=== PATIENT | male | born 1940 | race Caucasian/White ===

== ENCOUNTER → 2020-12-16 11:10 | Outpatient (BNVA) | payer MEDICARE, OTHER, SELFPAY | PROVIDERS: Family Provider Registered Nurse; PCP Registered Nurse; Visit Provider Nurse Practitioner Family | DX: I10 Essential (primary) hypertension (principal); I25.10 Atherosclerotic heart disease of native coronary artery without angina pectoris; I48.91 Unspecified atrial fibrillation | CPT/HCPCS: 80053 ==

== ENCOUNTER → 2021-02-17 14:50 | Outpatient (BNVA) | payer MEDICARE, OTHER, SELFPAY | PROVIDERS: Family Provider Registered Nurse; PCP Registered Nurse; Visit Provider Internal Medicine | DX: I25.10 Atherosclerotic heart disease of native coronary artery without angina pectoris (principal); E78.5 Hyperlipidemia, unspecified; I48.91 Unspecified atrial fibrillation; I10 Essential (primary) hypertension; R06.02 Shortness of breath | CPT/HCPCS: 80048 ==

== ENCOUNTER 2021-03-21 14:05 | Outpatient (CLI) | payer MEDICARE, OTHER, SELFPAY ==
--- NOTE | 2021-03-21 14:15 | USCV_ITS ---
Roger Camp Age: 80 Gender: M : 1940 Exam Date: 03/21/2021 14:40 Ordering Phys: Maximino Grimaldo M.D ([email or web address]) Technologist: Rachele Galaviz Exam Location: [facility] – [place] Indication: SOB BP: / HR: 63 Rhythm: Sinus Technical Quality: Adequate MEASUREMENTS (Male / Female) Normal Values 2D ECHO LV Diastolic Diameter PLAX 4.7 cm 4.2 - 5.9 / 3.9 - 5.3 cm LV Systolic Diameter PLAX 2.4 cm IVS Diastolic Thickness 1.6 cm 0.6 - 1.0 / 0.6 - 0.9 cm IVS Systolic Thickness 1.9 cm LVPW Diastolic Thickness 1.3 cm 0.6 - 1.0 / 0.6 - 0.9 cm LVPW Systolic Thickness 2.3 cm LVOT Diameter 2.1 cm LV Ejection Fraction 2D Teich 80.2 % LV Ejection Fraction MOD 2C 65.1 % LV Ejection Fraction 2C AL 66.0 % LA Diameter 4.7 cm LA Width 4.9 cm LA Height 6.8 cm RA Width 3.8 cm RA Height 6.0 cm Aorta at Sinotubular Diameter 2.9 cm DOPPLER AV Peak Velocity 88.0 cm/s LVOT Peak Velocity 105.0 cm/s AV Area Cont Eq vti 4.3 cm squared AV Area Cont Eq pk 4.2 cm squared MV Peak Velocity 101.0 cm/s MV Area PHT 3.7 cm squared Mitral E to A Ratio 6.5 MV E' Velocity 51.5 cm/s Mitral E to MV E' Ratio 7.6 Mitral E to LV E' Lateral Ratio 6.8 Mitral E to LV E' Septal Ratio 8.6 TR Peak Velocity 185.7 cm/s TR Peak Gradient 13.8 mmHg Right Atrial Pressure 3.0 mmHg Pulmonary Artery Systolic Pressu 16.8 mmHg PV Peak Velocity 58.0 cm/s RV Acceleration Time 0.1 s RV Ejection Time 0.3 s RV AcT/ET 0.3 FINDINGS Left Ventricle Normal left ventricular size. LV systolic function is normal with EF of 55-60%. No regional wall motion abnormalities. Diastolic function is indeterminate because of atrial fibrillation Right Ventricle The right ventricle is normal in size and function. Right Atrium The right atrium is dilated Left Atrium The left atrium is dilated Mitral Valve Mitral valve is thickened without significant stenosis or prolapse. There is moderate mitral regurgitation. Aortic Valve Aortic valve is thickened without significant stenosis. There is no aortic regurgitation. Tricuspid Valve Structurally normal tricuspid valve without significant stenosis. Mild regurgitation. Pulmonary artery systolic pressure is normal. Pulmonic Valve Structurally normal pulmonic valve without significant stenosis. There is no pulmonic regurgitation. Pericardium Normal pericardium without effusion. Aorta Normal ascending aorta dimension. CONCLUSIONS LV systolic function is normal with EF of 55-60% Diastolic function is indeterminate because of atrial fibrillation Biatrial enlargement Moderate mitral regurgitation is noted Mild tricuspid regurgitation is seen Compared to prior echocardiogram from 06/14/2016, no significant changes are noted Maximino Grimaldo MD (Electronically Signed) Final Date: 23 March 2021 11:59 S
== END 2021-03-21 14:06 | disposition home or self-care (01) ==
LOC: US 14:06
PROVIDERS: PCP Nurse Practitioner Family; Visit Provider Internal Medicine
DX: R06.02 Shortness of breath (principal); R53.83 Other fatigue; I08.1 Rheumatic disorders of both mitral and tricuspid valves
CPT/HCPCS: 93306

== ENCOUNTER → 2021-10-11 13:14 | Outpatient (BNVA) | payer MEDICARE, OTHER, SELFPAY | PROVIDERS: PCP Nurse Practitioner Family; Visit Provider Internal Medicine Cardiovascular Disease | DX: I25.10 Atherosclerotic heart disease of native coronary artery without angina pectoris (principal); E78.5 Hyperlipidemia, unspecified; I48.91 Unspecified atrial fibrillation; I10 Essential (primary) hypertension; J44.9 Chronic obstructive pulmonary disease, unspecified; Z79.82 Long term (current) use of aspirin | CPT/HCPCS: 99213; 99214 ==

== ENCOUNTER → 2022-01-30 13:27 | Outpatient (BNVA) | payer MEDICARE, OTHER, SELFPAY | PROVIDERS: PCP Nurse Practitioner Family; Visit Provider Podiatrist Foot & Ankle Surgery | DX: G57.92 Unspecified mononeuropathy of left lower limb (principal); I73.9 Peripheral vascular disease, unspecified; L60.3 Nail dystrophy; L84 Corns and callosities | CPT/HCPCS: 11056; 11721 ==

== ENCOUNTER → 2022-02-21 09:13 | Outpatient (BNVA) | payer MEDICARE, OTHER, SELFPAY | PROVIDERS: PCP Nurse Practitioner Family; Visit Provider Nurse Practitioner Family | DX: I10 Essential (primary) hypertension (principal) | CPT/HCPCS: 80053; 80061 ==

== ENCOUNTER → 2022-04-10 11:27 | Outpatient (BNVA) | payer MEDICARE, OTHER, SELFPAY | PROVIDERS: PCP Nurse Practitioner Family; Visit Provider Internal Medicine Cardiovascular Disease | DX: I73.9 Peripheral vascular disease, unspecified (principal); E78.5 Hyperlipidemia, unspecified; I48.91 Unspecified atrial fibrillation; I25.10 Atherosclerotic heart disease of native coronary artery without angina pectoris; Z95.5 Presence of coronary angioplasty implant and graft; I25.2 Old myocardial infarction; I11.0 Hypertensive heart disease with heart failure; I50.9 Heart failure, unspecified; J44.9 Chronic obstructive pulmonary disease, unspecified | CPT/HCPCS: 99213 ==

== ENCOUNTER → 2022-05-01 12:39 | Outpatient (BNVA) | payer MEDICARE, OTHER, SELFPAY | PROVIDERS: PCP Nurse Practitioner Family; Visit Provider Podiatrist Foot & Ankle Surgery | DX: I73.9 Peripheral vascular disease, unspecified (principal); L60.8 Other nail disorders; G57.92 Unspecified mononeuropathy of left lower limb; L60.3 Nail dystrophy; L84 Corns and callosities | CPT/HCPCS: 11056; 11721 ==

== ENCOUNTER 2022-08-14 21:37 | Observation (INO) | payer MEDICARE, OTHER, SELFPAY ==
[2022-08-14 22:04] VITALS: BP 154/104; PULSE 74; RESP 16; O2SAT 95; BMI 36.6
--- NOTE | 2022-08-14 22:11 | XRR_ITS ---
PROCEDURE INFORMATION: Exam: XR Chest Exam date and time: 08/14/2022 10:38 PM Age: 81 years old Clinical indication: Other: Weakness TECHNIQUE: Imaging protocol: Radiologic exam of the chest. Views: 1 view. COMPARISON: CR XR chest 1V [id number] 09/22/2018 1:47 AM FINDINGS: Lungs: Bibasilar atelectasis versus minimal infiltrate. Pleural spaces: Unremarkable. No pleural effusion. No pneumothorax. Heart/Mediastinum: Unremarkable. No cardiomegaly. Bones/joints: Unremarkable. XR/XR chest 1V portable [id number] IMPRESSION: Bibasilar atelectasis versus minimal infiltrate.
--- NOTE | 2022-08-14 22:11 | CTR_ITS ---
PROCEDURE INFORMATION: Exam: CT Head Without Contrast Exam date and time: 08/14/2022 10:21 PM Age: 81 years old Clinical indication: Speech disturbance and walking, difficulty; Patient HX: C/O RT sided weakness with mild dysphasia. TECHNIQUE: Imaging protocol: Computed tomography of the head without contrast. Radiation optimization: All CT scans at this facility use at least one of these dose optimization techniques: automated exposure control; mA and/or kV adjustment per patient size (includes targeted exams where dose is matched to clinical indication); or iterative reconstruction. REPORTING DATA: Count of CT and Cardiac NM exams in prior 12 months: This patient has received 0 known CTs and 0 known cardiac nuclear medicine studies in the 12 months prior to the current study. COMPARISON: No relevant prior studies available. RADIATION DOSE METRICS: Total DLP (mGy-cm): 1209.88 FINDINGS: Brain: Moderate diffuse white matter disease likely reflecting chronic microvascular ischemic changes. Left basal ganglia chronic infarct. Cerebral ventricles: No ventriculomegaly. Paranasal sinuses: Visualized sinuses are unremarkable. No fluid levels. Mastoid air cells: Visualized mastoid air cells are well aerated. Bones/joints: Unremarkable. No acute fracture. Soft tissues: Unremarkable. CT/CT head wo con* [id number] IMPRESSION: 1. Negative for intracranial hemorrhage or mass effect. 2. Moderate diffuse white matter disease likely reflecting chronic microvascular ischemic changes. 3. Left basal ganglia chronic infarct.
--- NOTE | 2022-08-14 22:12 | ECG_ITS ---
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 Measurements Intervals [place] Rate: 66 P: 0 OK: 0 QRS: 23 QRSD: 94 T: -29 QT: 415 QTc: 435 Interpretive Statements ATRIAL FIBRILLATION NONSPECIFIC T-WAVE ABNORMALITY Compared to ECG 09/22/2018 01:59:57 No significant changes Electronically Signed On 08-14-2022 23:40:42 [employer] by Maximino Grimaldo M.D. [id number] f
[2022-08-14 22:17] LABS: Basophils % 0.4 %; Eosinophils # 0.2 10^3/uL (0.0-0.8); Eosinophils % 3.2 %; Hemoglobin 15.3 g/dL (11.7-16.6); Lymphocytes # 1.7 10^3/uL (0.8-4.8); Lymphocytes % 25.7 %; Mean Corpuscular HGB Conc 32.6 g/dL (30.0-36.0); Mean Corpuscular Hemoglobin 28.2 pg (28.0-34.0); Mean Corpuscular Volume 86.6 fl (80-94); Mean Platelet Volume 11.3 fL (7.4-10.4); Monocytes # 0.7 10^3/uL (0.2-0.9); Monocytes % 9.7 %; Neutrophils # 4.11 10^3/uL (1.8-7.7); Neutrophils % 60.7 %; Nucleated Red Blood Cells % 0 %; Platelet Count 179 10^3/cmm (130-400); Red Blood Count 5.43 10^6/uL (4.1-5.3); Red Cell Distribution Width 13.6 % (12.1-15.1); White Blood Count 6.8 10^3/uL (4.0-10.0)
--- NOTE | 2022-08-14 22:20 | ED_ITS ---
HPI - Neuro Symptoms/Deficit General: Chief Complaint: Neuro Symptoms/Deficit Stated Complaint: stroke like symptoms Time Seen by Provider: 08/14/22 21:59 Source: patient Mode of arrival: ambulatory Limitations: no limitations History of Present Illness: 81-year-old male states when he woke up this morn ing he noticed he felt he is having some weakness in his right side he states he had a hard time walking throughout the day states he feels like his right leg just does not work quite appropriately and has been having some falling to the right has had some mild slurred speech as well. He states this all started upon awaking his last known normal was around 10 PM last night when he went to bed over 24 hours ago. He denies headache denies any chest pain. He does have a history of A-fib. Associated symptoms: Deny chest pain, nausea or vomiting Review of Systems Const: Denies: fever(s), chills, body aches or change in appetite Eyes: Denies: blurry vision or eye discomfort ENMT: Denies: throat pain or dental pain Card: Denies: chest pain Resp: Denies: dyspnea GI: Denies: abdominal pain, nausea, vomiting or diarrhea : Denies: dysuria Musc: Denies: neck pain or back pain Skin/Breast: Denies: rash Neuro: Reports: weakness in extremities and Slurred speech present Psych: Denies: depression Sachin/Lymph: Denies: easy bruising All/Imm: Denies: urticaria PFSH ED PFSH: Medical History ASHD (arteriosclerotic heart disease) Atrial fibrillation CHF (congestive heart failure) COPD (chronic obstructive pulmonary disease) Coronary artery disease Dyslipidemia Enrolled in chronic care management Myocardial infarction Obesity Restrictive airway disease Vasculitis Surgical History S/P angioplasty with stent S/P hernia repair S/P knee replacement S/P prostatectomy Social History Smoking and tobacco status: never smoked Alcohol intake: never NIH stroke score NIHSS: Level Of Consciousness - 1a: 0 Level Of Consciousness Questions - 1b: Both Correct Level Of Consciousness Commands - 1c: Both Correct Best Gaze - 2: Normal Visual Rogers - 3: No Visual Loss Facial Palsy - 4: Normal Motor Arm Right - 5: No Drift Motor Arm Left - 5: No Drift Motor Leg Right - 6: No Drift Motor Leg Left - 6: No Drift Limb Ataxia - 7: Absent Sensory - 8: Normal Best Language - 9: Mild/Moderate Aphasia Dysarthia - 10: Normal Extinction And Inattention - 11: 0 Score: Total Score: 1 Physical Exam Const: COMMON NORMALS: no acute distress, patient oriented x3 and healthy appearing HENMT: COMMON NORMALS: normocephalic and atraumatic HEAD & SCALP: normocephalic and atraumatic Eye: COMMON NORMALS: Equal, round and reactive pupils present and EOMs intact bilaterally PUPIL: Yes Equal, round and reactive pupils present Neck/C-Spine: COMMON NORMALS: full ROM and supple Chest: COMMONS NORMALS: normal inspection of the chest and normal palpation of entire chest wall Resp: COMMON NORMALS: normal respiratory effort, No retractions, No use of accessory muscles and clear to auscultation bilaterally AUSCULTATION: clear to auscultation bilaterally Cardio: COMMON NORMALS: regular rate, regular rhythm and No murmurs present (Cardio) RATE: regular rate RHYTHM: regular rhythm GI: COMMON NORMALS: Normal to inspection, nondistended, normoactive bowel sounds present, Soft to palpation, non-tender and no masses PALPATION: Yes Soft to palpation Extremity: COMMON NORMALS: normal to inspection and full ROM Neuro: COMMON NORMALS: patient oriented x3, moves all extremities and no focal motor deficits CRANIAL NERVES: Yes CN normal except as noted GAIT: Yes Staggering gait present Psych: COMMON NORMALS: mental status grossly normal, Normal thought process present and cooperative THOUGHT PROCESS: Normal thought process present Skin: COMMON NORMALS: no rashes or lesions noted and no wounds GENERAL SKIN EXAM: no rashes or lesions noted Course Vital Signs: Vital signs: Vital Signs Pulse Rate 60 08/14/22 23:30 Respiratory Rate 22 H 08/14/22 23:30 Blood Pressure 162/100 08/14/22 23:30 Pulse Oximetry 94 08/14/22 23:30 Oxygen Delivery Me thod 08/14/22 23:30 MDM - Neuro Symptoms/Deficit Medical Decision Making Patient presents with right-sided weakness when walking. He is got some very mild slurred speech here as well he is still having a hard time walking seems to be leaning to the right having a hard time with his right leg when he ambulates this is started this morning his last known normal was 24 hours ago when he went to bed last night he is not a tPA candidate head CT here is normal spoke to hospitalist will admit for CVA rule out for observation. Lab Data 08/14/22 22:05 08/14/22 22:05 Radiology Impressions Chest X-Ray 08/14/22 22:11 IMPRESSION: Bibasilar atelectasis versus minimal infiltrate. Head CT 08/14/22 22:11 IMPRESSION: 1. Negative for intracranial hemorrhage or mass effect. 2. Moderate diffuse white matter disease likely reflecting chronic microvascular ischemic changes. 3. Left basal ganglia chronic infarct. Laboratory Results WBC 6.8 10^3/uL (4.0-10.0) 08/14/22 22:05 RBC 5.43 10^6/uL (4.1-5.3) H 08/14/22 22:05 Hgb 15.3 g/dL (11.7-16.6) 08/14/22 22:05 Hct 47.0 % (42.0-52.0) 08/14/22 22:05 MCV 86.6 fl (80-94) 08/14/22 22:05 MCH 28.2 pg (28.0-34.0) 08/14/22 22:05 MCHC 32.6 g/dL (30.0-36.0) 08/14/22 22:05 RDW 13.6 % (12.1-15.1) 08/14/22 22:05 Plt Count 179 10^3/cmm (130-400) 08/14/22 22:05 MPV 11.3 fL (7.4-10.4) H 08/14/22 22:05 Neut % (Auto) 60.7 % 08/14/22 22:05 Lymph % (Auto) 25.7 % 08/14/22 22:05 [place] % (Auto) 9.7 % 08/14/22 22:05 Eos % (Auto) 3.2 % 08/14/22 22:05 Baso % (Auto) 0.4 % 08/14/22 22:05 Neut # (Auto) 4.11 10^3/uL (1.8-7.7) 02/27/23 22:05 Lymph # (Auto) 1.7 10^3/uL (0.8-4.8) 08/14/22 22:05 [place] # (Auto) 0.7 10^3/uL (0.2-0.9) 08/14/22 22:05 Eos # (Auto) 0.2 10^3/uL (0.0-0.8) 08/14/22 22:05 Baso # (Auto) 0.0 10^3/uL (0.0-0.1) 08/14/22 22:05 Nucleated RBC % (auto) 0 % 08/14/22 22:05 Nucleated RBCs # 0.0 /100WBC 08/14/22 22:05 PT 13.80 SECONDS (12.1-14.9) 08/14/22 22:37 INR 1.03 (0.8-1.2) 08/14/22 22:37 Sodium 138 mmol/L (136-145) 08/14/22 22:37 Potassium 4.4 mmol/L (3.5-5.1) 08/14/22 22:37 Chloride 102 mmol/L (98-107) 08/14/22 22:37 Carbon Dioxide 27 mmol/L (22-29) 08/14/22 22:37 Anion Gap 13.4 (5-19) 08/14/22 22:37 BUN 25 mg/dL (8-23) H 08/14/22 22:37 Creatinine 0.9 mg/dL (0.7-1.2) 08/14/22 22:37 GFR Calculation Not Reportable 08/14/22 22:37 Glucose 96 mg/dL (65-115) 08/14/22 22:37 Calculated Osmolality 290 mOsm/kg (285-295) 08/14/22 22:37 Calcium 9.3 mg/dL (8.5-10.5) 08/14/22 22:37 Magnesium 2.2 mg/dL (1.7-2.3) 08/14/22 22:37 Total Bilirubin 0.5 mg/dL (0.15-1.2) 08/14/22 22:37 AST 20 U/L (0-40) 08/14/22 22:37 ALT 11 U/L (0-41) 08/14/22 22:37 Alkaline Phosphatase 75 U/L (40-130) 08/14/22 22:37 Total Protein 6.8 g/dL (6.6-8.7) 08/14/22 22:37 Albumin 3.8 g/dL (3.5-5.2) 08/14/22 22:37 Globulin 3.0 g/dL (1.3-4.6) 08/14/22 22:37 Urine Color Yellow (Yellow) 08/15/22 00:02 Urine Appearance Clear (CLEAR) 08/15/22 00:02 Urine pH 5 (5-7) 08/15/22 00:02 Ur Specific Gordon 1.025 (1.005-1.030) 08/15/22 00:02 Urine Protein Neg (Negative) 08/15/22 00:02 Urine Glucose (UA) Norm (Normal) 08/15/22 00:02 Urine Ketones Negative (Negative) 08/15/22 00:02 Urine Blood Neg (Negative) 08/15/22 00:02 Urine Nitrate Negative (Negative) 08/15/22 00:02 Urine Bilirubin Neg (Negative) 08/15/22 00:02 Urine Urobilinogen Norm mg/dL (Negative) 08/15/22 00:02 Ur Leukocyte Esterase Negative (Negative) 08/15/22 00:02 Ethyl Alcohol < 10 mg/dL (0-10) 08/14/22 22:37 EKG Data EKG 1: I personally reviewed and interpreted this EKG as follows: EKG interpretation date: 08/14/22 EKG interpretation time: 22:01 Interpretation: afib hr [address] or t wav abnormalities qrs 94 [id number] Discharge Plan Discharge Patient Disposition: Placed in Observation Clinical Impression: Weakness Condition: Stable Prescriptions: No Action aspirin [Adult Low Dose Aspirin] 81 mg tablet,delayed release (DR/EC) 81 mg PO QDAY diphenhydramine HCl [Benadryl] 25 mg capsule 25 mg PO .HS PRN omega-3 fatty acids PO DAILY cholecalciferol (vitamin D3) 10 mcg (400 unit) capsule 10 mcg PO DAILY magnesium 200 mg tablet 200 mg PO DAILY Referrals: Diann Villalpando FNP [Primary Care Provider] - Coding Level of Care Code ED Permastone Applicator for Chg Ciro
[2022-08-14 23:05] LABS: INR 1.03 (0.8-1.2)
[2022-08-14 23:10] LABS: Alanine Aminotransferase 11 U/L (0-41); Albumin Level 3.8 g/dL (3.5-5.2); Alkaline Phosphatase 75 U/L (40-130); Anion Gap 13.4 (5-19); Aspartate Amino Transferase 20 U/L (0-40); Blood Urea Nitrogen 25 mg/dL (8-23); Calcium 9.3 mg/dL (8.5-10.5); Carbon Dioxide 27 mmol/L (22-29); Chloride 102 mmol/L (98-107); Glucose 96 mg/dL (65-115); Magnesium 2.2 mg/dL (1.7-2.3); Osmolality Calculated 290 mOsm/kg (285-295); Potassium 4.4 mmol/L (3.5-5.1); Sodium 138 mmol/L (136-145); Total Bilirubin 0.5 mg/dL (0.15-1.2); Total Protein 6.8 g/dL (6.6-8.7)
[2022-08-14 23:22] LABS: Alcohol Level < 10 mg/dL (0-10)
[2022-08-14] MEDS: aspirin 81 mg Chew Tablet 324 MG PO (23:26)
[2022-08-14 23:30] VITALS: BP 162/100; PULSE 60; RESP 22; O2SAT 94
[2022-08-15] VITALS (11 sets, daily range): BP systolic 147–161; BP diastolic 79–114; PULSE 62–77; RESP 16–19; TEMP 36.1–36.4; O2SAT 94–97
[2022-08-15 00:09] LABS: Add Urine Microscopic? NO; Charge for UA Resulting for Rev
--- NOTE | 2022-08-15 00:09 | PC.NURSE ---
Ambulated pt per md request. Pt is able to ambulate, but is very unsteady on his feet. Leans to the left and would have fallen without 1 hand assist by RN. Pt continues to have limp on right side that he states was not there yesterday. MD notified.
[2022-08-15 00:11] LABS: Bilirubin Urine Neg (Negative); Blood Urine Neg (Negative); Glucose Urine UA Norm (Normal); Ketones Urine Negative (Negative); Leukocyte Esterase Urine Negative (Negative); Nitrate Urine Negative (Negative); Protein Urine Neg (Negative); Specific Gravity, Urine 1.025 (1.005-1.030); Urine Appearance Clear (CLEAR); Urine Color Yellow (Yellow); Urobilinogen Urine Norm (Negative); pH Urine 5 (5-7)
--- NOTE | 2022-08-15 01:11 | P.HP_ITS ---
Providers/Chief Complaint Admitting Physician: Daniel Quintana MD Primary Care Provider: JENNA Bruce Chief Complaint: stroke like symptoms History of Present Illness Roger Camp is a 81 year old male who presents to the hospital with right- sided weakness. This started Sunday morning. He had clumsiness of his right hand, right lower extremity weakness, and seemed to drift to the right when walking and was unstable on his feet. He has also had some slurred speech. There is been no difficulty swallowing. Mild right facial droop according to . He has never had the symptoms before. He has a longstanding history of atrial fibrillation, but elected only to take 81 mg of aspirin. He does not have a headache, and has had no nausea or vomiting. He has not been ill recently. Review of Systems General: Reports: 10 or more systems reviewed and unremarkable except in HPI and below Const: Denies: fever(s) or chills Card: Denies: chest pain Resp: Denies: dyspnea : Reports: difficulty urinating Neuro: Reports: weakness in extremities; Denies: headache(s) Medications/Allergies Home Medications Medication Instructions Recorded Confirmed Last Taken Type aspirin 81 mg tablet,delayed 81 mg PO QDAY 07/16/19 05/01/22 Unknown History release (Adult Low Dose Aspirin) diphenhydramine HCl 25 mg capsule 25 mg PO .HS PRN 07/16/19 05/01/22 Unknown History (Benadryl) omega-3 fatty acids [Fish Oil PO DAILY 07/16/19 05/01/22 Unknown History Concentrate] cholecalciferol (vitamin D3) 10 10 mcg PO DAILY 04/10/22 05/01/22 Unknown History mcg (400 unit) capsule magnesium 200 mg tablet 200 mg PO DAILY 04/10/22 05/01/22 Unknown History Allergies Allergy/AdvReac Type Severity Reaction Status Date / Time No Known Allergies Allergy Verified 05/01/22 12:50 PFSH Acute PFSH: Medical History ASHD (arteriosclerotic heart disease) Atrial fibrillation CHF (congestive heart failure) COPD (chronic obstructive pulmonary disease) Coronary artery disease Dyslipidemia Enrolled in chronic care management Myocardial infarction Obesity Restrictive airway disease Vasculitis Surgical History S/P angioplasty with stent S/P hernia repair S/P knee replacement S/P prostatectomy Family History (Updated 08/15/22 @ 01:13 by Daniel Quintana MD) Other CAD (coronary artery disease) Social History Smoking and tobacco status: never smoked Alcohol intake: never Vitals/I&O/Wt Last Vital Signs Pulse 60 08/14/22 23:30 Resp 22 H 08/14/22 23:30 BP 162/100 08/14/22 23:30 Pulse Ox 94 08/14/22 23:30 O2 Del Method 08/14/22 23:30 Weight last 48 hrs Weight 99.79 kg Physical Exam Narrative: Willis is a white male, with mildly slurred speech but who is understandable in no distress HEENT: Pupils equally round. Oropharynx clear. Neck is supple no lymphadenopathy or thyromegaly Cardiovascular regular rate and rhythm without murmur Lungs clear Abdomen is soft with positive bowel sounds Extremities trace edema. No cyanosis or clubbing Skin no rash Neuro mild diminished strength right upper extremity. Right lower extremity with diminished strength as well. Gait somewhat imbalanced. NIHSS score per ER physician was 1. I did not ambulate him significantly. It is difficult for me to notice his facial droop. He is able to stand on his own, and with closing his eyes wavers a bit more to the right. Data 08/14/22 22:05 08/14/22 22:37 Micro: Liver function tests, magnesium, calcium all normal Urinalysis negative Alcohol less than 10 Chest x-ray demonstrates some bibasilar atelectasis by my read Previous echocardiogram March 2021 demonstrated an EF of 55 to 60% moderate mitral regurgitation CT head demonstrates old left basal ganglia infarct, no bleed EKG by my read demonstrates atrial fibrillation, rate around 65, normal axis, so me nonspecific ST-T wave changes A&P Assessment and plan (1) Acute CVA (cerebrovascular accident): Patient presents with symptoms of acute CVA. He has known atrial fibrillation He is already on aspirin daily He had previously been resistant to taking anticoagulation, or statin. He is now amenable to this. Observation to telemetry Initiate statin, and continue aspirin Initiate Eliquis tomorrow, 48 hours after event if no worsening symptoms Check lipid profile tomorrow Therapy consultations Allow permissive hypertension CBC and BMP in the morning Check echocardiogram and carotid duplex Timing he was never a candidate for tPA, or thrombectomy. (2) Atrial fibrillation: Rate is currently controlled He is not on any rate limiting medication (3) Coronary artery disease: Continue aspirin Likely add Eliquis to this medication later tonight Plan Multiple other medical problems as outlined in his past medical history Lovenox for DVT prophylaxis currently Attestations Medical Necessity Statement*: Will need less than 2 midnight stay for evaluation of CVA with subacute presentation Diagnoses Acute CVA (cerebrovascular accident) I63.9 Atrial fibrillation I48.91 Coronary artery disease I25.10 Time Spent (min) 42
--- NOTE | 2022-08-15 01:30 | USCV_ITS ---
Roger Camp Age: 81 Gender: M : 1940 Exam Date: 08/15/2022 02:20 Ordering Phys: Daniel Quintana MD Technologist: LEODAN [place] [facility] [place]: CVA --- RIGHT sided weakness, slurred speech. History of cardiac stenting by Dr. Vera. BP: 162 / 100 HR: 75 Rhythm: Atrial fibrillation Technical Quality: Adequate MEASUREMENTS (Male / Female) Normal Values 2D ECHO LV Diastolic Diameter PLAX 3.9 cm 4.2 - 5.9 / 3.9 - 5.3 cm LV Systolic Diameter PLAX 2.6 cm IVS Diastolic Thickness 1.7 cm 0.6 - 1.0 / 0.6 - 0.9 cm IVS Systolic Thickness 2.1 cm LVPW Diastolic Thickness 1.4 cm 0.6 - 1.0 / 0.6 - 0.9 cm LVPW Systolic Thickness 1.7 cm LVOT Diameter 2.2 cm LV Ejection Fraction 2D Teich 62.3 % LV Ejection Fraction MOD 2C 69.5 % LV Ejection Fraction 2C AL 71.6 % LA Diameter 4.8 cm LA Width 5.1 cm LA Height 7.9 cm RA Width 5.7 cm RA Height 7.2 cm Aorta at Sinotubular Diameter 3.2 cm IVC Diameter 1.9 cm M-MODE Aortic Annulus Diameter 3.6 cm LA Ao Ratio MM 1.3 MV E Point Septal Separation 0.3 cm DOPPLER AV Peak Velocity 104.0 cm/s LVOT Peak Velocity 69.0 cm/s AV Area Cont Eq vti 2.7 cm squared AV Area Cont Eq pk 2.5 cm squared MV Area PHT 3.6 cm squared MV E' Velocity 49.5 cm/s Mitral E to MV E' Ratio 7.8 Mitral E to LV E' Lateral Ratio 7.9 Mitral E to LV E' Septal Ratio 7.8 TR Peak Velocity 274.0 cm/s TR Peak Gradient 30.0 mmHg TV Peak E Velocity 37.0 cm/s Right Atrial Pressure 10.0 mmHg Pulmonary Artery Systolic Pressu 40.0 mmHg PV Peak Velocity 83.0 cm/s RV Acceleration Time 0.1 s RV Ejection Time 0.3 s RV AcT/ET 0.2 FINDINGS Left Ventricle Normal left ventricular size and systolic function, EF 72 %. Right Ventricle The right ventricle is normal in size and function. Right Atrium Mildly increased right atrial size. Left Atrium Moderately increased left atrial size. Mitral Valve Mild mitral annular calcification.moderate-severe mitral valve regurgitation. Echodensity on the ventricular side of the anterior mitral leaflet suggesting a calcified lesion Aortic Valve Thickened aortic valve. Trace aortic valve regurgitation. Tricuspid Valve Trace to mild tricuspid valve regurgitation. Pulmonic Valve Trace pulmonary valve regurgitation. Pericardium No significant pericardial effusion Aorta Normal aortic annulus size. IVC Normal inferior vena cava. CONCLUSIONS With theNormal left ventricular size and systolic function, EF 72 %. (Patient was found to be in atrial fibrillation with controlled ventricular response rate, during the study). Biatrial enlargement, left atrium> right atrium. Moderate-severe mitral valve regurgitation. Echodensity on the ventricular side of the anterior mitral leaflet suggesting a calcified lesion. Mild mitral annular calcification. Thickened aortic valve. Trace aortic valve regurgitation. Trace to mild tricuspid valve regurgitation. Trace pulmonary valve regurgitation. Estimated pulmonary artery peak systolic pressure 40 mmHg No other intracardiac masses. No significant pericardial effusion. The echodensity in the anterior mitral leaflet is unchanged from the study on 03/21/2021-most likely a percent calcification in the chordal structure Dr Lacie Hicks MD [facility] (Electronically Signed) Final Date: 16 August 2022 06:29 S
--- NOTE | 2022-08-15 01:30 | USCV_ITS ---
Roger Camp Age: 81 Gender: M : 1940 Exam Date: 08/15/2022 01:52 Ordering Phys: Daniel Quintana MD Technologist: LEODAN Exam Location: [facility] [place] Indication: CVA -- RIGHT sided weakness, slurred speech Risk Factors: never smoked. no DM Previous Vascular Surgery: history of cardiac stenting Right Brachial BP: 162 / 100 Left Brachial BP: / Right Left Velocity (cm/s) Spectral Plaque Velocity (cm/s) Spectral Plaque Syst/Diast Broadening Syst/Diast Broadening 62.80/ 15.40 Min Homo Prox CCA 71.10 / 12.50 Min Homo 64.50/ 13.20 Min Homo Mid CCA 53.80 / 10.30 Min Homo 48.60/ 10.10 Min Eusebio Distal CCA 46.50 / 11.50 Min Hetro 38.90/ 9.40 Mod Hetro Prox ICA 27.20 / 10.60 Mod Homo 56.50/ 22.30 Mod Hetro Mid ICA 83.40 / 37.40 Mod Homo 61.10/ 20.40 Min Homo Distal ICA 78.70 / 42.90 Mod Homo 89.30 Min Homo ECA 47.70 Min Homo 0.95 ICA/CCA 1.17 Antegrade Vertebral Antegrade 34.20/ 10.50 cm/s 40.10/ 10.50 cm/s Tri Subclavian Tri 70.30 51.90 CONCLUSIONS Right ICA stenosis <50%. Mild atheromatous plaque right carotid bulb/ICA. Left ICA stenosis <50%. Mild atheromatous plaque left carotid bulb/ICA. Normal antegrade Doppler flow noted in the right vertebral artery. Normal antegrade Doppler flow noted in the left vertebral artery. Cedric Silva MD (Electronically Signed) Final Date: 17 August 2022 08:33 S
[2022-08-15 01:51] LABS: Thyroid Stimulating Hormone 5.29 uIU/mL (0.27-4.20)
[2022-08-15] MEDS: enoxaparin 40 mg/0.4 mL Syringe SUBCUT (03:42)
[2022-08-15 05:50] LABS: Chol HDL Ratio 4.41 mg/dL (1.0-5.00); Cholesterol 172 mg/dL (0-200); HDL Cholesterol 39 mg/dL (60-100); LDL Cholesterol Calculated 122 mg/dL (50-129); LDL HDL Ratio 3.13 RATIO (0.00-3.22); Triglycerides 53 mg/dL (0-150)
--- NOTE | 2022-08-15 08:54 | PC.PHAR ---
pt states he takes care of his own medications-pt states he takes no rx medications pt states only taking the otc meds entered
[2022-08-15] MEDS: aspirin 81 mg EC Tablet PO (09:48)
--- NOTE | 2022-08-15 11:51 | P.DS_ITS ---
Discharge Providers Date of Admission: 08/15/22 01:02 Date of Discharge: August 15, 2022 Attending Provider at Admission: Daniel Quintana MD Attending Provider at Discharge: Getachew Epperson MD Primary Care Provider: JENNA Bruce Diagnoses at Discharge Discharge Diagnosis (1) Acute CVA (cerebrovascular accident): Status: Acute (2) Atrial fibrillation: Status: Acute (3) Coronary artery disease: Status: Acute Reason for Visit Reason for Visit: stroke like symptoms Hospital Course Hospital Course Pulmonary male who came to the hospital for right-sided weakness and unsteady gait, he was diagnosed with acute CVA secondary to A-fib, not a candidate of tPA or thrombectomy Patient remains hypertensive blood pressure 150/98 mm artery, at the time of discharge she will get lisinopril amlodipine and metoprolol, patient has history of A-fib has not taken anticoagulating agent however he is amenable to initiation now. I will give him Eliquis 5 mg twice a day along metoprolol. He does have good strength of upper and lower extremities, did very well with speech therapy, I will give him outpatient PT referral. Patient does have a walker at home [id number] score is 4 Normal TSH noted, will need to repeat his TSH I will let his PCP reorder TSH after 4 to 6-week Physical Exam Narrative: Awake and alert Good strength of upper and lower extremities Unsteady gait Work with PT OT and ST Able to swallow appropriately Currently on room air Pleasant and cooperative Discharge Data Studies Completed and Pending Completed Studies During Hospitalization Category Date Time Status CT head wo con* [id number] Stat Cat Scan 08/14/22 22:11 Completed XR chest 1V portable [id number] Stat Exams 08/14/22 22:11 Completed Pending at discharge Category Date Time Status CV carotid duplex BI* [id number] Routine Ultrasound 08/15/22 01:30 Taken CV. echo complete* [id number] Routine Ultrasound 08/15/22 01:30 Taken Radiology Impressions Chest X-Ray 08/14/22 22:11 IMPRESSION: Bibasilar atelectasis versus minimal infiltrate. Head CT 08/14/22 22:11 IMPRESSION: 1. Negative for intracranial hemorrhage or mass effect. 2. Moderate diffuse white matter disease likely reflecting chronic microvascular ischemic changes. 3. Left basal ganglia chronic infarct. Laboratory Results WBC 6.8 10^3/uL (4.0-10.0) 08/14/22 22:05 RBC 5.43 10^6/uL (4.1-5.3) H 08/14/22 22:05 Hgb 15.3 g/dL (11.7-16.6) 08/14/22 22:05 Hct 47.0 % (42.0-52.0) 08/14/22 22:05 MCV 86.6 fl (80-94) 08/14/22 22:05 MCH 28.2 pg (28.0-34.0) 08/14/22 22:05 MCHC 32.6 g/dL (30.0-36.0) 08/14/22 22:05 RDW 13.6 % (12.1-15.1) 08/14/22 22:05 Plt Count 179 10^3/cmm (130-400) 08/14/22 22:05 MPV 11.3 fL (7.4-10.4) H 08/14/22 22:05 Neut % (Auto) 60.7 % 08/14/22 22:05 Lymph % (Auto) 25.7 % 08/14/22 22:05 [place] % (Auto) 9.7 % 08/14/22 22:05 Eos % (Auto) 3.2 % 08/14/22 22:05 Baso % (Auto) 0.4 % 08/14/22 22:05 Neut # (Auto) 4.11 10^3/uL (1.8-7.7) 08/14/22 22:05 Lymph # (Auto) 1.7 10^3/uL (0.8-4.8) 08/14/22 22:05 [place] # (Auto) 0.7 10^3/uL (0.2-0.9) 08/14/22 22:05 Eos # (Auto) 0.2 10^3/uL (0.0-0.8) 08/14/22 22:05 Baso # (Auto) 0.0 10^3/uL (0.0-0.1) 08/14/22 22:05 Nucleated RBC % (auto) 0 % 08/14/22: Nucleated RBCs # 0.0 /100WBC 08/14/22 22:05 PT 13.80 SECONDS (12.1-14.9) 08/14/22 22:37 INR 1.03 (0.8-1.2) 08/14/22 22:37 Sodium 138 mmol/L (136-145) 08/14/22 22:37 Potassium 4.4 mmol/L (3.5-5.1) 08/14/22 22:37 Chloride 102 mmol/L (98-107) 08/14/22 22:37 Carbon Dioxide 27 mmol/L (22-29) 08/14/22 22:37 Anion Gap 13.4 (5-19) 08/14/22 22:37 BUN 25 mg/dL (8-23) H 08/14/22 22:37 Creatinine 0.9 mg/dL (0.7-1.2) 08/14/22 22:37 GFR Calculation Not Reportable 08/14/22 22:37 Glucose 96 mg/dL (65-115) 08/14/22 22:37 Calculated Osmolality 290 mOsm/kg (285-295) 08/14/22 22:37 Calcium 9.3 mg/dL (8.5-10.5) 08/14/22 22:37 Magnesium 2.2 mg/dL (1.7-2.3) 08/14/22 22:37 Total Bilirubin 0.5 mg/dL (0.15-1.2) 08/14/22 22:37 AST 20 U/L (0-40) 08/14/22 22:37 ALT 11 U/L (0-41) 08/14/22 22:37 Alkaline Phosphatase 75 U/L (40-130) 08/14/22 22:37 Total Protein 6.8 g/dL (6.6-8.7) 08/14/22 22:37 Albumin 3.8 g/dL (3.5-5.2) 08/14/22 22:37 Globulin 3.0 g/dL (1.3-4.6) 08/14/22 22:37 Triglycerides 53 mg/dL (0-150) 08/15/22 04:55 Cholesterol 172 mg/dL (0-200) 08/15/22 04:55 LDL Cholesterol, Calc 122 mg/dL (50-129) 08/15/22 04:55 HDL Cholesterol 39 mg/dL (60-100) L 08/15/22 04:55 LDL/HDL Ratio 3.13 RATIO (0.00-3.22) 08/15/22 04:55 Cholesterol/HDL Ratio 4.41 mg/dL (1.0-5.00) 08/15/22 04:55 TSH 5.29 uIU/mL (0.27-4.20) H 08/14/22 22:37 Urine Color Yellow (Yellow) 08/15/22 00:02 Urine Appearance Clear (CLEAR) 08/15/22 00:02 Urine pH 5 (5-7) 08/15/22 00:02 Ur Specific [place] 1.025 (1.005-1.030) 08/15/22 00:02 Urine Protein Neg (Negative) 08/15/22 00:02 Urine Glucose (UA) Norm (Normal) 08/15/22 00:02 Urine Ketones Negative (Negative) 08/15/22 00:02 Urine Blood Neg (Negative) 08/15/22 00:02 Urine Nitrate Negative (Negative) 08/15/22 00:02 Urine Bilirubin Neg (Negative) 08/15/22 00:02 Urine Urobilinogen Norm mg/dL (Negative) 08/15/22 00:02 Ur Leukocyte Esterase Negative (Negative) 08/15/22 00:02 Ethyl Alcohol < 10 mg/dL (0-10) 08/14/22 22:37 Vitals Last Vital Signs Temp 97.5 F L 08/15/22 07:44 Pulse 68 08/15/22 07:44 Resp 16 08/15/22 07:44 BP 149/98 08/15/22 07:44 Pulse Ox 94 08/15/22 07:44 O2 Del Method 08/15/22 07:44 Discharge Plan Discharge Patient Disposition: Home Condition: Stable Prescriptions: New atorvastatin 40 mg Tablet 40 mg PO BEDTIME Qty: 60 2RF metoprolol tartrate 25 mg tablet 12.5 mg PO BID Qty: 60 2RF Eliquis 5 mg Tablet 5 mg PO BID@0900,2100 Qty: 60 3RF lisinopril 10 mg tablet 10 mg PO DAILY Qty: 60 2RF amlodipine 5 mg tablet 5 mg PO DAILY Qty: 30 2RF Continued aspirin [Adult Low Dose Aspirin] 81 mg tablet,delayed release (DR/EC) 81 mg PO QAM diphenhydramine HCl [Benadryl] 25 mg capsule 25 mg PO BEDTIME PRN (Reason: unknown) magnesium 200 mg tablet 200 mg PO DAILY Fish Oil Concentrate 1,000 mg Capsule 1,000 mg PO DAILY Vitamin D3 25 mcg (1,000 unit) Capsule 25 mcg PO DAILY Discharge Orders: Discharge Order (Routine); Ordered 08/15/22 Ordered By: Getachew Epperson Other Ambulatory Orders: Physical Therapy Eval and Treat Outpatient (Order) Timeframe: 1 Week Facility: [facility] - Location: Physical Therapy Ordered By: Getachew Epperson Referrals: Diann Villalpando FNP [Primary Care Provider] - 4-7 days Discharge Diet: Cardiac Discharge Activity: Increase activity as tolerated Patient Instructions: Opioid Safety Discharge Attestations Time Spent in Discharge Care*: less than 30 min Quality Metrics Clinical Quality Measures [ No reported AMI, CVA or VTE this stay] Coding Level of Care Code Acute Code for g Fwd Diagnoses Acute CVA (cerebrovascular accident) I63.9 Atrial fibrillation I48.91 Coronary artery disease I25.10
[2022-08-15 13:10] LABS: Free T4 Free Thyroxine 1.28 ng/dL (0.82-1.77)
--- NOTE | 2022-08-15 13:15 | PC.NURSE ---
Discussed discharge, new medications, continued medications and follow up appointment with patient. Spouse came into room and duscussed paperwork, medications and follow up appointment as well. Both parties verbalized understanding.
--- NOTE | 2022-08-15 14:02 | PC.OT ---
OT EVALUATION ORDERS RECEIVED. PATIENT DISCHARGED BEFORE EVALUATION COULD BE COMPLETED.
== END 2022-08-15 12:39 | disposition home health service (06) ==
LOC: ER 08-15 00:40 → MEDSURG 08-15 01:02
PROVIDERS: Admitting Provider Internal Medicine; Emergency Provider Emergency Medicine; PCP Nurse Practitioner Family; Visit Provider Internal Medicine
DX: I63.9 Cerebral infarction, unspecified (principal); R29.701 NIHSS score 1; I48.91 Unspecified atrial fibrillation; I25.10 Atherosclerotic heart disease of native coronary artery without angina pectoris; I50.9 Heart failure, unspecified; J44.9 Chronic obstructive pulmonary disease, unspecified; E78.5 Hyperlipidemia, unspecified; I25.2 Old myocardial infarction; E66.9 Obesity, unspecified; Z68.36 Body mass index [BMI] 36.0-36.9, adult
CPT/HCPCS: 36415; 70450; 71045; 80053; 80061; 80307; 81003; 83735; 84439; 84443; 85025; 85610; 92523; 92610; 93005; 93306; 93880; 96372; 97110; 97161; 99285; G0378; J1650

== ENCOUNTER 2022-08-16 11:46 | Emergency (ER) | payer MEDICARE, OTHER, SELFPAY ==
[2022-08-16] VITALS (7 sets, daily range): BP systolic 129–169; BP diastolic 78–91; PULSE 60–84; RESP 20; TEMP 36.3; O2SAT 92–98; BMI 37.4
--- NOTE | 2022-08-16 12:04 | CT_ITS ---
WS: [id number] CT HEAD NONCONTRAST HISTORY: SYMPTOMS OF ACUTE STROKE TECHNIQUE: Contiguous axial imaging performed through the brain in 2.5 mm imaging. Bone and soft tiss ue windows. Sagittal and coronal reformats reviewed. All CT scans at [facility] use at least one of these dose optimization techniques: automated exposure control; mA and/or kV adjustment per pa tient size (includes targeted exams where dose is matched to clinical indication); or iterative recon struction. DLP: 1135.93 mGy-cm. COMPARISON: 08/14/2022 No acute intracranial hemorrhage, midline shift or mass effect. Moderate atrophy and small vessel ischemic disease. Prior lacunar infarcts and ischemic changes in th e LEFT basal ganglia. There is a small lacunar infarct in the LEFT caudate head that may not have bee n present on the prior study. No new large territory infarct. Ventricles: Normal size ventricles. No intraventricular hemorrhage. No inferior displacement of cerebellar tonsils. Paranasal sinuses: As visualized are clear. Mastoid air cells: Well pneumatized. Calvarium and scalp: Skull is intact with no soft tissue edema or swelling. Moderate calcific burden within the intracranial carotid arteries. CT/CT head thrombolytic [id number] IMPRESSION: 1. No acute intracranial hemorrhage or edema. 2. Prior lacunar infarct in the LEFT basal ganglia. 3. Small infarct in the LEFT caudate head is more pronounced than on 08/14/2022 . This may be due to volume averaging as this is a very small lacunar infarct. May potentially be subacute. 4. Moderate atrophy and small vessel ischemic disease.
--- NOTE | 2022-08-16 12:12 | CT_ITS ---
WS: [id number] CT ANGIOGRAM CEREBRAL AND CAROTID ARTERIES HISTORY: Right-sided facial droop and right-sided leg weakness. TECHNIQUE: CT angiogram is performed of the carotid and cerebral arteries. During arterial injection imaging is obtained from the skull vertex to the aortic arch in 1.0 mm imaging. Coronal and sagittal reformats are submitted. Additional multi planar reformats of the carotid and cerebral arteries are s ubmitted, MIP imaging also reviewed. NASCET criteria utilized. All CT scans at [facility] use at least one of these dose optimization techniques: automated exposure control; mA and/or kV adjustm ent per patient size (includes targeted exams where dose is matched to clinical indication); or itera tive reconstruction. CONTRAST: Omnipaque 350; 95 mL IV. DLP: 589.07 mGy.cm COMPARISON: None available. Carotid Angiogram: Right carotid: Common carotid artery: Arises normally from the innominate artery. No significant plaque or stenosis. Very small amount of calcified plaque at the origin. Internal carotid artery: Minimal calcified plaque at the bifurcation. External carotid artery: Patent. Left carotid: Common carotid artery: Arises normally from the aorta. No significant plaque or stenosis. Internal carotid artery: Minimal atherosclerosis with intimal thickening at the bifurcation. External carotid artery: Patent. Right vertebral artery: Dominant. Left vertebral artery: Arises from the arch. Focal calcification at the origin from the arch. Small c aliber but patent. Subclavian arteries: Mild atherosclerosis with no stenosis. Upper thorax: Mild atherosclerosis aortic arch. Thyroid gland: Normal. Osseous structures: Mild degenerative disc disease and spondylitic changes in the cervical spine. CEREBRAL ANGIOGRAM: Intracranial vertebral arteries: Small caliber but patent distal LEFT vertebral artery. RIGHT vertebr al artery is patent and dominant. Basilar artery: No significant stenosis or occlusion. No aneurysm. Intracranial Internal carotid arteries: Moderate atherosclerotic plaque through the cavernous sinuses and supraclinoid carotid arteries. No high-grade stenosis or occlusion. Middle cerebral arteries: Normal. Anterior cerebral arteries and ACOM: Normal. Posterior cerebral arteries and PCOM's: Persistent circulation RIGHT posterior cerebral artery. Normal LEFT posterior cerebral artery. Dominant RIGHT posterior communicating artery. Dural venous sinuses are normally enhancing. Mastoid air cells: Normal. Paranasal sinuses: Normal. Calvarium: Normal. CT/CT angio headneck* [id number] IMPRESSION: 1. Mild atherosclerotic plaque within the cervical carotid arteries but no hig h-grade stenosis. No thrombus. 2. Moderate calcified plaque through the cavernous carotid arteries and suprac linoid carotid artery. No high-grade stenosis or aneurysm. 3. No cerebral artery aneurysm. 4. No significant stenosis middle cerebral arteries. 5. Unremarkable [place].
--- NOTE | 2022-08-16 12:12 | ECG_ITS ---
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 Measurements Intervals [place] Rate: 62 P: 0 [place]: 0 QRS: 47 QRSD: 94 T: -52 QT: 415 QTc: 424 Interpretive Statements ATRIAL FIBRILLATION MODERATE T-WAVE ABNORMALITY, CONSIDER LATERAL ISCHEMIA [-0.1+ mV T-WAVE IN I/aVL/V5/V6] Compared to ECG 08/14/2022 22:01:10 Possible ischemia now present T-wave abnormality still present Electronically Signed On 08-16-2022 16:12:18 VIDEOGRAPHER by Lacie Hicks M.D. [email or web address]
--- NOTE | 2022-08-16 12:13 | W.ED.NEUROSD ---
HPI - Neuro Symptoms/Deficit General: Chief Complaint: Neuro Symptoms/Deficit Stated Complaint: stroke first of the week, worsening Time Seen by Provider: 08/16/22 11:58 Source: patient and family Mode of arrival: ambulatory Limitations: no limitations History of Present Illness: This patient was brought back to the emergency department by his spouse. She states that she is concerned because she thinks his speech was somewhat more affected today and he did not seem to be getting better from his discharge. He had been recently admitted to this facility having acute dysphagia and as well as right upper extremity weakness. At that time his symptoms have been present for greater than 24 hours and therefore he was not a typical candidate for thrombolytic therapy. He was placed in observation and discharged to his normal home. His symptoms as noted above have been present upon awakening today which seemed to have worsened according to the spouse as well as the patient. He denies headache, falls, trauma or other concomitant symptoms at this time. Location: speech and right arm History of same: Yes Severity: mild Quality: weak On Anticoagulants: Yes Associated symptoms: Reports no associated symptoms; Deny chest pain, headache(s), nausea, syncope or vomiting Review of Systems Const: Denies: fever(s) or chills Eyes: Denies: change in vision ENMT: Denies: throat pain or odynophagia Card: Denies: chest pain, palpitations, irregular heart rhythm, edema, syncope or pre-syncope Resp: Denies: dyspnea, productive cough or non-productive cough GI: Denies: abdominal pain, nausea or vomiting : Denies: flank pain, difficulty urinating, dysuria or urinary frequency Musc: Denies: neck pain, back pain, extremity pain or extremity swelling Skin/Breast: Denies: rash Neuro: Reports: weakness in extremities (Right arm), difficulty walking and Slurred speech present; Denies: headache(s) or seizure-like activity Psych: Denies: anxiety or depression PFSH ED PFSH: Medical History Acute CVA (cerebrovascular accident) ASHD (arteriosclerotic heart disease) Atrial fibrillation CHF (congestive heart failure) COPD (chronic obstructive pulmonary disease) Coronary artery disease Dyslipidemia Enrolled in chronic care management Myocardial infarction Obesity Restrictive airway disease Vasculitis Weakness Surgical History S/P angioplasty with stent S/P hernia repair S/P knee replacement S/P prostatectomy Family History (Updated 08/15/22 @ 01:13 by Daniel Quintana MD) Other CAD (coronary artery disease) Social History Smoking and tobacco status: never smoked Alcohol intake: never NIH stroke score NIHSS: Level Of Consciousness - 1a: 0 Level Of Consciousness Questions - 1b: Both Correct Level Of Consciousness Commands - 1c: Both Correct Best Gaze - 2: Normal Visual Rogers - 3: No Visual Loss Facial Palsy - 4: Normal Motor Arm Right - 5: Drift Motor Arm Left - 5: No Drift Motor Leg Right - 6: No Drift Motor Leg Left - 6: No Drift Limb Ataxia - 7: Present In One Limb Sensory - 8: Normal Best Language - 9: No Aphasia Dysarthia - 10: Mild/Moderate Dysarthia Extinction And Inattention - 11: 0 Score: Total Score: 3 Physical Exam Narrative: EXAM NARRATIVE: Operative. He answers questions in a goal-directed fashion with some very mild dysarthria to his speech. Const: COMMON NORMALS: no acute distress, average body habitus, patient oriented x3 and healthy appearing GENERAL APPEARANCE: cooperative HENMT: COMMON NORMALS: normocephalic, atraumatic and Normal nasal mucous membranes and turbinates present HEAD & SCALP: normocephalic and atraumatic FACE & SINUS: normal facial exam and face symmetric NOSE: Normal nasal mucous membranes and turbinates present Eye: COMMON NORMALS: Equal, round and reactive pupils present, EOMs intact bilaterally and conjunctivae normal CONJUNCTIVA: Yes conjunctivae normal PUPIL: Yes Equal, round and reactive pupils present Neck/C-Spine: COMMON NORMALS: full ROM, no lymphadenopathy, no JVD and No carotid bruits Chest: COMMONS NORMALS: normal inspection of the chest Resp: COMMON NORMALS: normal respiratory effort and No retractions EFFORT & INSPECTION: Yes able to speak in complete sentences Cardio: COMMON NORMALS: no JVD, regular rate, regular rhythm, No murmurs present (Cardio) and Peripheral pulses 2+ throughout RATE: regular rate RHYTHM: regular rhythm PERIPHERAL PULSES: Peripheral pulses 2+ throughout GI: COMMON NORMALS: Normal to inspection, nondistended, normoactive bowel sounds present, Soft to palpation and non-tender PALPATION: Yes Soft to palpation : COMMON NORMALS: Yes no CVA tenderness BLADDER/KIDNEY EXAM: Yes no CVA tenderness Back/Pelvis: COMMON NORMALS: no CVA tenderness, thoracic and lumbar spine normal to inspection and no thoracic nor lumbar tenderness Extremity: COMMON NORMALS: normal to inspection, full ROM, capillary refill normal, no calf tenderness and no pedal edema Neuro: COMMON NORMALS: patient oriented x3 and moves all extremities CRANIAL NERVES: Yes CN normal except as noted COORDINATION/BALANCE: does not sway with eyes open GAIT: Yes Shuffling gait present MOTOR EXAM: Pronator motor function present pronator drift of right upper extremity (Mild) COORDINATION: does not sway with eyes open Psych: COMMON NORMALS: mental status grossly normal Skin: COMMON NORMALS: no rashes or lesions noted, turgor normal, no jaundice and no petechiae GENERAL SKIN EXAM: no rashes or lesions noted and turgor normal Course Reevaluation(s): Reevaluation #1: Patient was seen in consort with neurology. Current presentation suggests possible progression of subcortical disease. He initially presented 3 days ago with symptoms that had been present for greater than 24 hours and was outside of the window for tPA and certainly now he is not a candidate for tPA therapy. This was reviewed with the patient and spouse. Time: 12:16 Reevaluation #2: Patient was reevaluated. He is doing well without any new focal or progressive symptoms.Ancillary studies are reviewed. Laboratories are essentially unchanged or improved from those from prior admission. Imaging studies which included a CTA of the head and neck did not reveal any evidence of large vessel occlusion etc. I discussed options with patient and spouse to include continued observation in the hospital. They acknowledged options that included continued observation, discharge etc. and they opted for the latter. They did share with me that they did not have the ability to purchase the Eliquis at discharge due to the expense. We will see if we can provide them a Eliquis card to defray the cost for the first month and then determine if there primary care doctor is a 340 be plan Which will give them financial advantage for ongoing Eliquis prescription. Time: 14:08 Reevaluation #3: client services account manager confirm that there has been reviewed and are eligible for home physical therapy and other in-home assistance. Patient's spouse admitted to they have contacted her this morning and they will be following up for in-home evaluation and treatment. Again both patient and spouse voiced strong desire to be discharged to home. He is currently clinically stable without any pertubation in his vital signs or other ongoing issues that require further emergency care. They have home health and home physical therapy arranged. We have made arrangements for them to get the Eliquis at reduced cost but will be incumbent upon their primary care provider to ensure that they continue this medication long-term. Time: 15:03 Consultations: Consultation #1: Dr. Mayfield presented to the emergency department also consulted and evaluated the patient. Time: 12:15 Vital Signs: Vital signs: Vital Signs Temperature 97.4 F L 08/16/22 11:52 Pulse Rate 69 08/16/22 13:30 Respiratory Rate 20 H 08/16/22 12:49 Blood Pressure 129/86 08/16/22 13:30 Pulse Oximetry 94 08/16/22 13:30 Oxygen Delivery Me thod 08/16/22 13:30 MDM - Neuro Symptoms/Deficit Medical Decision Making Patient with a recent observation stay in this facility for a delayed presentation of a subcortical infarct. At that time he was not a candidate for consideration for thrombolytic therapy and was observed in the hospital and then discharged in stable condition. They returned because the was confused and concerned that he may have had worsening of symptoms today and also was concerned that he had not improved since his discharge from the hospital. His evaluation in the emergency department noted that there may or may not been any progression in symptoms from his prior evaluation but he did have some dysmetria of the right upper extremity with some loss of fine motor skills. There was some mild dysarthria as well. Noncontrast CT revealed no evidence of acute hemorrhage midline shift etc. A subsequent CTA did not reveal any evidence of LVO or other anatomic concerns. Laboratories remained stable. His clinical examination remained stable. After lengthy discussion both the patient and spouse voiced the desire to be discharged for home care. Home health had been consulted previously and was confirmed by social media project manager today that they were planning on evaluating them for therapy and had already contacted the family to arrange to do so. Another issue that came before during his emergency department stay that they had not obtained her Eliquis as previously recommended to reduce stroke risk due to his atrial fibrillation because of the cost. We were able to obtain a month supply at reduced cost but it will be an issue ongoing to obtain that medication on a chronic basis. Again the patient was stable and their desire was to be discharged to further home care. I did spend considerable time explaining his current condition, potential risk of nonimprovement or worsening versus improvement but the need to continue with home therapy etc. as recommended. We also reiterated the need for chronic medication to help reduce risk of any progressive infarcts although with his current picture and the nature of subcortical only disease there may be significant risk of progression. To be noted that neurology was involved in his initial presentation to evaluate for stroke care. Medical Records I reviewed the patient's medical records. Recent admission to this facility for a CVA that presented greater than 24 hours after onset of symptoms. He received observational care and discharged from this facility. He was not a candidate for thrombolytic therapy due to time exclusion. Lab Data I reviewed the patient's lab results. 08/16/22 12:15 08/16/22 12:[address] 08/16/22 12:04 IMPRESSION: 1. No acute intracranial hemorrhage or edema. 2. Prior lacunar infarct in the LEFT basal ganglia. 3. Small infarct in the LEFT caudate head is more pronounced than on 08/14/2022. This may be due to volume averaging as this is a very small lacunar infarct. May potentially be subacute. 4. Moderate atrophy and small vessel ischemic disease. Head/Neck CTA 08/16/22 12:12 IMPRESSION: 1. Mild atherosclerotic plaque within the cervical carotid arteries but no high-grade stenosis. No thrombus. 2. Moderate calcified plaque through the cavernous carotid arteries and supraclinoid carotid artery. No high-grade stenosis or aneurysm. 3. No cerebral artery aneurysm. 4. No significant stenosis middle cerebral arteries. 5. Unremarkable [place]. Laboratory Results WBC 7.4 10^3/uL (4.0-10.0) 08/16/22 12:15 RBC 5.64 10^6/uL (4.1-5.3) H 08/16/22 12:15 Hgb 15.8 g/dL (11.7-16.6) 08/16/22 12:15 Hct 48.5 % (42.0-52.0) 08/16/22 12:15 MCV 86.0 fl (80-94) 08/16/22 12:15 MCH 28.0 pg (28.0-34.0) 08/16/22 12:15 MCHC 32.6 g/dL (30.0-36.0) 08/16/22 12:15 RDW 13.3 % (12.1-15.1) 08/16/22 12:15 Plt Count 183 10^3/cmm (130-400) 08/16/22 12:15 MPV 10.6 fL (7.4-10.4) H 08/16/22 12:15 Neut % (Auto) 72.1 % 08/16/22 12:15 Lymph % (Auto) 17.2 % 08/16/22 12:15 [place] % (Auto) 7.7 % 08/16/22 12:15 Eos % (Auto) 2.3 % 08/16/22 12:15 Baso % (Auto) 0.4 % 08/16/22 12:15 Neut # (Auto) 5.37 10^3/uL (1.8-7.7) 08/16/22 12:15 Lymph # (Auto) 1.3 10^3/uL (0.8-4.8) 08/16/22 12:15 [place] # (Auto) 0.6 10^3/uL (0.2-0.9) 08/16/22 12:15 Eos # (Auto) 0.2 10^3/uL (0.0-0.8) 08/16/22 12:15 Baso # (Auto) 0.0 10^3/uL (0.0-0.1) 08/16/22 12:15 Nucleated RBC % (auto) 0 % 08/16/22 12:15 Nucleated RBCs # 0.0 /100WBC 08/16/22 12:15 PT 13.70 SECONDS (12.1-14.9) 08/16/22 12:15 INR 1.02 (0.8-1.2) 08/16/22 12:15 APTT 25.2 SECONDS (23.9-36.7) 08/16/22 12:15 Sodium 137 mmol/L (136-145) 08/16/22 12:15 Potassium 4.2 mmol/L (3.5-5.1) 08/16/22 12:15 Chloride 101 mmol/L (98-107) 08/16/22 12:15 Carbon Dioxide 25 mmol/L (22-29) 08/16/22 12:15 Anion Gap 15.2 (5-19) 08/16/22 12:15 BUN 22 mg/dL (8-23) 08/16/22 12:15 Creatinine 0.9 mg/dL (0.7-1.2) 08/16/22 12:15 GFR Calculation Not Reportable 08/16/22 12:15 Glucose 106 mg/dL (65-115) 08/16/22 12:15 POC Glucose 95 mg/dL (70-110) 08/16/22 12:13 Calculated Osmolality 288 mOsm/kg (285-295) 08/16/22 12:15 Calcium 9.6 mg/dL (8.5-10.5) 08/16/22 12:15 Total Bilirubin 0.7 mg/dL (0.15-1.2) 08/16/22 12:15 AST 22 U/L (0-40) 08/16/22 12:15 ALT 11 U/L (0-41) 08/16/22 12:15 Alkaline Phosphatase 78 U/L (40-130) 08/16/22 12:15 Total Protein 7.1 g/dL (6.6-8.7) 08/16/22 12:15 Albumin 3.8 g/dL (3.5-5.2) 08/16/22 12:15 Globulin 3.3 g/dL (1.3-4.6) 08/16/22 12:15 EKG Data EKG 1: I personally reviewed and interpreted this EKG as follows: Interpretation: Contemporaneous review of EKG reveals atrial fibrillation with a ventricular rate of 62 bpm with a controlled ventricular response. RS duration is normal. Nonspecific ST-T wave changes noted in the lateral precordial leads but this may be artifactual in nature. This is essentially unchanged from prior EKGs within our system. Discharge Plan Discharge Patient Disposition: Home Clinical Impression: Subcortical infarction, Atrial fibrillation Condition: Stable Prescriptions: Continued Eliquis 5 mg Tablet 5 mg PO BID@0900,2100 Qty: 60 3RF No Action aspirin [Adult Low Dose Aspirin] 81 mg tablet,delayed release (DR/EC) 81 mg PO QAM diphenhydramine HCl [Benadryl] 25 mg capsule 25 mg PO BEDTIME PRN (Reason: unknown) magnesium 200 mg tablet 200 mg PO DAILY omega-3 fatty acids 1,000 mg Capsule 1,000 mg PO DAILY cholecalciferol (vitamin D3) [Vitamin D3] 25 mcg (1,000 unit) Capsule 25 mcg PO DAILY atorvastatin 40 mg Tablet 40 mg PO BEDTIME Qty: 60 2RF lisinopril 10 mg tablet 10 mg PO DAILY Qty: 60 2RF amlodipine 5 mg tablet 5 mg PO DAILY Qty: 30 2RF metoprolol tartrate 25 mg tablet 12.5 mg PO BID Qty: 60 2RF Discharge Orders: Discharge ED (Routine); Ordered 08/16/22 Ordered By: Kyle Keith Referrals: Diann Villalpando FNP [Primary Care Provider] - Discharge Diet: Usual diet Discharge Activity: Increase activity as tolerated and As per PT/OT instructions Patient Instructions: Opioid Safety, Pain Management Activity Restrictions/Additional Instructions: You should be contacted by the home health agency regarding setting up your home physical and Occupational Therapy. We have provided a prescription for your Hernán that she may get at the hospital pharmacy at no cost. Continue all your usual medications. Follow-up with your regular physician in 7 to 10 days. Return to this or the nearest emergency department anytime should he have any worsening or persistent symptoms or other concerns. 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
[2022-08-16 12:15] LABS: Glucose Point of Care 95 mg/dL (70-110)
[2022-08-16 12:25] LABS: Basophils % 0.4 %; Eosinophils # 0.2 10^3/uL (0.0-0.8); Eosinophils % 2.3 %; Hematocrit 48.5 % (42.0-52.0); Hemoglobin 15.8 g/dL (11.7-16.6); Lymphocytes # 1.3 10^3/uL (0.8-4.8); Lymphocytes % 17.2 %; Mean Corpuscular HGB Conc 32.6 g/dL (30.0-36.0); Mean Platelet Volume 10.6 fL (7.4-10.4); Monocytes # 0.6 10^3/uL (0.2-0.9); Monocytes % 7.7 %; Neutrophils # 5.37 10^3/uL (1.8-7.7); Neutrophils % 72.1 %; Nucleated Red Blood Cells % 0 %; Platelet Count 183 10^3/cmm (130-400); Red Blood Count 5.64 10^6/uL (4.1-5.3); Red Cell Distribution Width 13.3 % (12.1-15.1); White Blood Count 7.4 10^3/uL (4.0-10.0)
[2022-08-16 12:40] LABS: INR 1.02 (0.8-1.2)
[2022-08-16 12:41] LABS: Partial Thromboplastin Time 25.2 SECONDS (23.9-36.7)
[2022-08-16] MEDS: iohexol 350 mg/mL 500 mL Btl (per mL) IV (12:42)
[2022-08-16 12:47] LABS: Alanine Aminotransferase 11 U/L (0-41); Albumin Level 3.8 g/dL (3.5-5.2); Alkaline Phosphatase 78 U/L (40-130); Anion Gap 15.2 (5-19); Aspartate Amino Transferase 22 U/L (0-40); Blood Urea Nitrogen 22 mg/dL (8-23); Calcium 9.6 mg/dL (8.5-10.5); Carbon Dioxide 25 mmol/L (22-29); Chloride 101 mmol/L (98-107); Creatinine Clr Calc Pharmacy 70.7665; Globulin 3.3 g/dL (1.3-4.6); Glucose 106 mg/dL (65-115); Osmolality Calculated 288 mOsm/kg (285-295); Potassium 4.2 mmol/L (3.5-5.1); Sodium 137 mmol/L (136-145); Total Bilirubin 0.7 mg/dL (0.15-1.2); Total Protein 7.1 g/dL (6.6-8.7)
--- NOTE | 2022-08-16 16:29 | PC.NURSE ---
D/c education performed with patient, spouse, and daughter at bedside including stroke s/s, when to call 911, new medication Eliquis, including dosage, frequency, indications, and side effects. Informed them of f/u with JENNA Genao and home health to call with appointment for admission. All questions answered and phone number provided with where to contact if any condition changes, questions, or concerns arise.
--- NOTE | 2022-08-18 10:54 | P.PNCC_ITS ---
Stroke Alert Activation ED Arrival Date: 08/16/22 ED Arrival Time: 11:52 Other Last Known Well Infomation: A stroke alert was called at 1158. He presented to triage with worsening strokelike symptoms and the triage nurse obtained the story that his last known well time was the night before. Patient's was a difficult historian. I came directly to emergency room and reviewed the patient's CAT scan of the head on the monitor. That study showed an evolving infarct in the left anterior internal capsule. I then went to ER 10 and saw the patient with Dr. Kyle Keith. The patient's appears to be mildly confused and I wonder about her memory capacity. She remembered that the patient had been here a week ago for right-sided weakness and unsteady gait. He was outside of the window for tPA and he was started on Eliquis at the time of his previous admission for atrial fibrillation and he was discharged on 08/15/2022. Now he is not only outside of any window for tPA but he is on Eliquis. On reviewing this with Dr. Keith and the patient's I turned the patient over to Dr. Keith. Stroke Alert Activated by: Triage Stroke Alert Activation Time: 11:58 Stroke MD @ Bedside Time: 12:00 Stroke Alert Data/Treatment Time to CT of Head: 12:00 CT Results Time: 12:00 Stroke Risk Factors: atrial fibrillation tPA Contraindication: tPA Contraindication: Treatment not indcated tPA Admin Prior to Arrival: No Patient & Family Educated on: Treament Plan Critical Care Time Critical Care Time: less than 30 mins Additional information about critical care time: 20 minutes A&P Assessment and plan (1) Acute lacunar stroke: Evolving left subcortical stroke, most likely small vessel with fluctuation. Unfortunately, these lesions can proceed despite any form of treatment. He is appropriately being treated with Eliquis for atrial fibrillation and aspirin 81 mg for small vessel disease. I will be glad to see him in the office. I am suspecting that his has cognitive difficulty. (2) Subcortical infarction: (3) Atrial fibrillation: Coding Level of Care Code Acute Code for [facility] Diagnoses Acute lacunar stroke I63.81 Subcortical infarction I63.9 Atrial fibrillation I48.91
== END 2022-08-16 19:32 | disposition home or self-care (01) ==
PROVIDERS: Emergency Provider Emergency Medicine; PCP Nurse Practitioner Family
DX: I63.81 Other cerebral infarction due to occlusion or stenosis of small artery (principal); I48.91 Unspecified atrial fibrillation; Z79.01 Long term (current) use of anticoagulants; Z79.82 Long term (current) use of aspirin; I50.9 Heart failure, unspecified; J44.9 Chronic obstructive pulmonary disease, unspecified; I25.10 Atherosclerotic heart disease of native coronary artery without angina pectoris; E78.5 Hyperlipidemia, unspecified; I25.2 Old myocardial infarction; Z86.73 Personal history of transient ischemic attack (TIA), and cerebral infarction without residual deficits
CPT/HCPCS: 36416; 70450; 70496; 70498; 80053; 82962; 85025; 85610; 85730; 93005; 99285; Q9967

== ENCOUNTER 2022-08-31 16:02 | Outpatient (CLI) | payer MEDICARE, OTHER, SELFPAY ==
[2022-08-31 16:50] LABS: Alanine Aminotransferase 25 U/L (0-41); Albumin Level 3.7 g/dL (3.5-5.2); Alkaline Phosphatase 82 U/L (40-130); Anion Gap 14.3 (5-19); Aspartate Amino Transferase 22 U/L (0-40); Blood Urea Nitrogen 21 mg/dL (8-23); Calcium 9.5 mg/dL (8.5-10.5); Carbon Dioxide 27 mmol/L (22-29); Chloride 101 mmol/L (98-107); Globulin 2.9 g/dL (1.3-4.6); Glucose 73 mg/dL (65-115); Osmolality Calculated 288 mOsm/kg (285-295); Potassium 4.3 mmol/L (3.5-5.1); Sodium 138 mmol/L (136-145); Total Bilirubin 0.6 mg/dL (0.15-1.2); Total Protein 6.6 g/dL (6.6-8.7)
== END 2022-08-31 16:03 | disposition home or self-care (01) ==
LOC: LAB 16:03
PROVIDERS: PCP Nurse Practitioner Family; Visit Provider Nurse Practitioner Family
DX: N18.30 Chronic kidney disease, stage 3 unspecified (principal)
CPT/HCPCS: 80053

== ENCOUNTER → 2022-10-13 09:41 | Outpatient (BNVA) | payer MEDICARE, OTHER, SELFPAY | PROVIDERS: PCP Nurse Practitioner Family; Visit Provider Specialist | DX: I11.0 Hypertensive heart disease with heart failure (principal); I50.9 Heart failure, unspecified; E78.5 Hyperlipidemia, unspecified; Z79.01 Long term (current) use of anticoagulants; Z86.73 Personal history of transient ischemic attack (TIA), and cerebral infarction without residual deficits | CPT/HCPCS: 99214 ==

== ENCOUNTER → 2022-11-28 09:51 | Outpatient (BNVA) | payer MEDICARE, OTHER, SELFPAY | PROVIDERS: PCP Nurse Practitioner Family; Visit Provider Nurse Practitioner Family | DX: G47.00 Insomnia, unspecified (principal); I10 Essential (primary) hypertension; Z79.01 Long term (current) use of anticoagulants | CPT/HCPCS: 80053; 85025 ==

== ENCOUNTER → 2022-12-05 09:38 | Outpatient (BNVA) | payer MEDICARE, OTHER, SELFPAY | PROVIDERS: PCP Nurse Practitioner Family; Visit Provider Nurse Practitioner Family | DX: I63.9 Cerebral infarction, unspecified (principal); R89.9 Unspecified abnormal finding in specimens from other organs, systems and tissues | CPT/HCPCS: 80053 ==

== ENCOUNTER → 2023-01-26 08:17 | Outpatient (BNVA) | payer MEDICARE, OTHER, SELFPAY | PROVIDERS: PCP Nurse Practitioner Family; Visit Provider Internal Medicine Cardiovascular Disease | DX: I25.10 Atherosclerotic heart disease of native coronary artery without angina pectoris (principal); I48.91 Unspecified atrial fibrillation; I69.398 Other sequelae of cerebral infarction; Z79.01 Long term (current) use of anticoagulants; Z79.899 Other long term (current) drug therapy; J44.9 Chronic obstructive pulmonary disease, unspecified; E78.5 Hyperlipidemia, unspecified; I11.0 Hypertensive heart disease with heart failure; I50.9 Heart failure, unspecified | CPT/HCPCS: 99214 ==

== ENCOUNTER 2023-02-28 05:58 | Outpatient (CLI) | payer MEDICARE, OTHER, SELFPAY ==
--- NOTE | 2023-02-28 06:15 | USCV_ITS ---
Roger Camp Age: 82 Gender: M : 1940 Exam Date: 02/28/2023 06:28 Ordering Phys: Diann Villalpando Technologist: MODESTA [place] [facility] [place]ication: Rt Leg Pain. Lump inferior lat knee HISTORY: Lower extremity pain. PROCEDURES: Venous duplex imaging was performed in only the right lower extremity. The following venous structures were evaluated: common femoral vein, profunda vein, proximal portion of the greater saphenous vein, superficial femoral vein, and the popliteal vein. In addition, the posterior tibial and peroneal trunk were evaluated. Serial compression, augmentation maneuvers, and spectral Doppler flow evaluation were performed. FINDINGS: Normal 2-D Doppler and augmentation and compressibility throughout the lower extremity venous structures. Additional imaging through the proximal calf veins also reveals no thrombus. Limited evaluation of the greater saphenous vein is patent with no thrombus. Elongated soft tissue collection lateral knee is probably a hematoma. No vascularity. CONCLUSIONS No DVT right lower extremity. Elongated subcutaneous complex collection is most consistent with a resolving hematoma. Dr. Gabriela Beltran DO (Electronically Signed) Final Date: 28 February 2023 07:46 S
== END 2023-02-28 05:59 | disposition home or self-care (01) ==
LOC: RAD 05:58
PROVIDERS: PCP Nurse Practitioner Family; Visit Provider Nurse Practitioner Family
DX: I82.409 Acute embolism and thrombosis of unspecified deep veins of unspecified lower extremity (principal); M79.604 Pain in right leg; R22.41 Localized swelling, mass and lump, right lower limb
CPT/HCPCS: 93971

== ENCOUNTER → 2023-03-02 11:31 | Outpatient (BNVA) | payer MEDICARE, OTHER, SELFPAY | PROVIDERS: PCP Nurse Practitioner Family; Visit Provider Nurse Practitioner Family | DX: R53.83 Other fatigue; R60.9 Edema, unspecified; I10 Essential (primary) hypertension | CPT/HCPCS: 80053; 83880; 85025 ==

== ENCOUNTER → 2023-03-12 11:45 | Outpatient (BNVA) | payer MEDICARE, OTHER, SELFPAY | PROVIDERS: PCP Nurse Practitioner Family; Visit Provider Nurse Practitioner Family | DX: R21 Rash and other nonspecific skin eruption (principal); I63.9 Cerebral infarction, unspecified; I87.2 Venous insufficiency (chronic) (peripheral) | CPT/HCPCS: 85025; 85651; 86140 ==

== ENCOUNTER → 2023-04-18 15:17 | Outpatient (BNVA) | payer MEDICARE, OTHER, SELFPAY | PROVIDERS: PCP Nurse Practitioner Family; Visit Provider Podiatrist Foot & Ankle Surgery | DX: B35.1 Tinea unguium (principal); I73.9 Peripheral vascular disease, unspecified; G57.92 Unspecified mononeuropathy of left lower limb; L60.3 Nail dystrophy; L84 Corns and callosities; M20.12 Hallux valgus (acquired), left foot; M20.11 Hallux valgus (acquired), right foot | CPT/HCPCS: 11055; 11721 ==

== ENCOUNTER → 2023-07-25 12:43 | Outpatient (BNVA) | payer MEDICARE, OTHER, SELFPAY | PROVIDERS: PCP Nurse Practitioner Family; Visit Provider Internal Medicine Cardiovascular Disease | DX: E78.5 Hyperlipidemia, unspecified (principal); I48.91 Unspecified atrial fibrillation; Z79.01 Long term (current) use of anticoagulants; I25.10 Atherosclerotic heart disease of native coronary artery without angina pectoris; I73.9 Peripheral vascular disease, unspecified; I11.0 Hypertensive heart disease with heart failure; I50.9 Heart failure, unspecified; Z86.73 Personal history of transient ischemic attack (TIA), and cerebral infarction without residual deficits | CPT/HCPCS: 99213 ==

== ENCOUNTER → 2023-09-05 09:06 | Outpatient (BNVA) | payer MEDICARE, OTHER, SELFPAY | PROVIDERS: PCP Nurse Practitioner Family; Visit Provider Nurse Practitioner Family | DX: I10 Essential (primary) hypertension (principal); E55.9 Vitamin D deficiency, unspecified; R53.83 Other fatigue | CPT/HCPCS: 80053; 80061; 82306; 85025 ==

== ENCOUNTER → 2023-09-11 07:46 | Outpatient (BNVA) | payer MEDICARE, OTHER, SELFPAY | PROVIDERS: PCP Nurse Practitioner Family; Visit Provider Podiatrist Foot & Ankle Surgery | DX: B35.1 Tinea unguium (principal); I73.9 Peripheral vascular disease, unspecified; G57.92 Unspecified mononeuropathy of left lower limb; L60.3 Nail dystrophy; L84 Corns and callosities; M20.11 Hallux valgus (acquired), right foot | CPT/HCPCS: 11055; 11721 ==

== ENCOUNTER 2023-10-24 06:26 | Outpatient (CLI) | payer MEDICARE, OTHER, SELFPAY ==
--- NOTE | 2023-10-24 06:45 | USCV_ITS ---
Roger Camp Age: 83 Gender: M : 1940 Exam Date: 10/24/2023 06:41 Ordering Phys: Diann Villalpando Technologist: NYA Exam Location: [facility] [place] Indication: DIZZINESS Risk Factors: Previous Vascular Surgery: Right Brachial BP: / Left Brachial BP: / Right Left Velocity (cm/s) Spectral Plaque Velocity (cm/s) Spectral Plaque Syst/Diast Broadening Syst/Diast Broadening 74.40/ 18.80 Prox CCA 77.40 / 15.20 57.20/ 13.80 Mid CCA 84.20 / 15.30 66.20/ 14.90 Distal CCA 58.80 / 16.10 58.70/ 9.40 Prox ICA 59.20 / 13.30 38.10/ 9.70 Mid ICA 53.80 / 15.00 53.60/ 20.80 Distal ICA 58.10 / 21.50 96.60 ECA 85.70 0.90 ICA/CCA 1.00 Antegrade Vertebral Antegrade 28.40/ 13.00 cm/s 20.20/ 6.30 cm/s Tri Subclavian Tri 71.50 86.70 FINDINGS Comparison:. 08/15/22 No significant elevation of systolic or diastolic velocities. Waveforms and arteries are turbulent and stenotic. Antegrade vertebral arteries. Mild atheroslerosis. CONCLUSIONS No interval change in stenosis since prior exam. Bilateral ICA stenosis less than 50%. Dr. Gabriela Beltran DO (Electronically Signed) Final Date: 24 Oct 2023 07:34 S
--- NOTE | 2023-10-24 07:15 | USCV_ITS ---
Roger Camp Age: 83 Gender: M : 1940 Exam Date: 10/24/2023 06:58 Ordering Phys: Diann Villalpando Technologist: NYA Exam Location: [facility] – [place] Indication: CVA BP: 135 / 78 HR: 54 Rhythm: Sinus Technical Quality: Adequate MEASUREMENTS (Male / Female) Normal Values 2D ECHO LV Diastolic Diameter PLAX 5.3 cm 4.2 - 5.9 / 3.9 - 5.3 cm IVS Diastolic Thickness 1.3 cm 0.6 - 1.0 / 0.6 - 0.9 cm IVS Systolic Thickness 1.4 cm LVPW Diastolic Thickness 1.5 cm 0.6 - 1.0 / 0.6 - 0.9 cm LVPW Systolic Thickness 2.9 cm LVOT Diameter 2.0 cm LV Ejection Fraction 2D Teich 80.0 % LV Ejection Fraction MOD 2C 65.1 % LV Ejection Fraction 2C AL 66.1 % LA Diameter 4.9 cm RA Systolic Volume 4C AL 49.1 ml RA Systolic Volume 4C MOD 47.7 ml LA Sys Volume AL 90.2 cm cubed LA Sys Volume Index AL 40.3 cm cubed/m squared Aorta at Sinotubular Diameter 2.8 cm IVC Diameter 2.1 cm M-MODE LA Ao Ratio MM 1.2 AV Cusp Separation MM 1.1 cm DOPPLER AV Peak Velocity 128.0 cm/s LVOT Peak Velocity 82.0 cm/s AV Area Cont Eq vti 2.4 cm squared AV Area Cont Eq pk 2.1 cm squared MV Peak Velocity 82.0 cm/s MV Area PHT 3.8 cm squared Mitral E to A Ratio 117.0 TR Peak Velocity 240.0 cm/s TR Peak Gradient 23.0 mmHg TR Mean Velocity 181.0 cm/s TR Mean Gradient 14.5 mmHg TR Velocity Time Integral 84.0 cm TV Peak E Velocity 44.0 cm/s Right Atrial Pressure 3.0 mmHg Pulmonary Artery Systolic Pressu 26.0 mmHg PV Peak Velocity 111.0 cm/s RV Ejection Time 0.3 s FINDINGS Left Ventricle Left ventricle is normal in size. LV systolic function is normal with EF 55 to 60%. No regional wall motion abnormalities are seen. Right Ventricle Normal in size and function Right Atrium Normal in size Left Atrium Dilated Mitral Valve Mitral valve leaflets are thickened. Mild mitral regurgitation. Aortic Valve Aortic valve is thickened. No significant stenosis or regurgitation. Tricuspid Valve Mild mitral regurgitation. Pulmonary artery systolic pressure is normal. Pulmonic Valve Mild pulmonic regurgitation. Pericardium Normal Aorta Normal in size IVC Appears to be normal CONCLUSIONS LV systolic function is normal with EF of 55-60% Left atrial dilation Mild mitral regurgitation Mild mitral regurgitation Mild pulmonic regurgitation Compared to prior echocardiogram from 2022, no significant changes are seen Maximino Grimaldo MD (Electronically Signed) Final Date: 24 Oct 2023 08:15 S
== END 2023-10-24 06:27 | disposition home or self-care (01) ==
LOC: RAD 06:27
PROVIDERS: PCP Nurse Practitioner Family; Visit Provider Nurse Practitioner Family
DX: I63.81 Other cerebral infarction due to occlusion or stenosis of small artery (principal); R42 Dizziness and giddiness; I34.0 Nonrheumatic mitral (valve) insufficiency; I65.23 Occlusion and stenosis of bilateral carotid arteries
CPT/HCPCS: 93306; 93880

== ENCOUNTER → 2023-11-06 13:52 | Outpatient (BNVA) | payer MEDICARE, OTHER, SELFPAY | PROVIDERS: PCP Nurse Practitioner Family; Visit Provider Nurse Practitioner Family | DX: Z79.01 Long term (current) use of anticoagulants (principal); R53.83 Other fatigue; R53.1 Weakness; R42 Dizziness and giddiness | CPT/HCPCS: 80053; 82962; 84443; 85025 ==

== ENCOUNTER 2023-11-13 08:57 | Emergency (ER) | payer MEDICARE, OTHER, SELFPAY ==
[2023-11-13 09:01] VITALS: BP 160/103; PULSE 76; RESP 16; TEMP 36.7; O2SAT 96; BMI 36.6
--- NOTE | 2023-11-13 09:12 | ECG_ITS ---
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 Measurements Intervals [place] Rate: 64 P: 0 NH: 0 QRS: 3 QRSD: 97 T: -68 QT: 413 QTc: 427 Interpretive Statements ATRIAL FIBRILLATION MODERATE T-WAVE ABNORMALITY, CONSIDER LATERAL ISCHEMIA [-0.1+ mV T-WAVE IN I/aVL/V5/V6] Compared to ECG 08/16/2022 12:42:12 No significant changes Electronically Signed On 11-13-2023 16:49:25 CDT by Maximino Grimaldo M.D. [id number]
--- NOTE | 2023-11-13 09:12 | CT_ITS ---
WS: [id number] CT HEAD TECHNIQUE: Noncontrast CT of the head obtained from the skullbase to the vertex. CLINICAL INFORMATION: Symptoms of acute stroke COMPARISON: 08/16/2022 DLP: [id number] scans at [facility] use at least one of these dose optimization techniques: automated e xposure control; mA and/or kV adjustment per patient size (includes targeted exams where dose is matc hed to clinical indication); or iterative reconstruction. FINDINGS: No evidence of intracranial hemorrhage or mass effect. Ventricular system and basal cisterns are gomez nt. Moderate small vessel changes with moderate parenchymal volume loss. No extra-axial fluid collect ions. No evidence of mass or mass effect. Chronic infarcts in the LEFT centrum semiovale and fall r adiata. Chronic infarcts in the LEFT genu of the corpus callosum. Dense cavernous carotid calcificati on. Few tiny chronic lacunar infarcts in the RIGHT cerebellum. Paranasal sinuses and mastoid air cells are well aerated. .Normal visualized soft tissues. CT/CT head thrombolytic [id number] IMPRESSION: 1. No evidence of intracranial hemorrhage or mass effect. 2. Moderate small vessel changes with moderate parenchymal volume loss. 3. Chronic infarcts in the LEFT fall radiata and centrum semiovale. Chronic lacunar infarct in the LEFT genu of the corpus callosum. 4. A few tiny chronic lacunar infarcts in the RIGHT cerebellum 5. Dense cavernous carotid calcification. 6. No acute intracranial findings. Notified DANA Herman at 11/13/2023 9:20 AM.
--- NOTE | 2023-11-13 09:13 | W.ED.NEUROSD ---
Documented by User: DANA Herman 11/13/23 10:43 HPI - Neuro Symptoms/Deficit General: Chief Complaint: Weakness Stated Complaint: left side numbness Time Seen by Provider: 11/13/23 08:59 Source: patient and family (/son) Mode of arrival: wheelchair Limitations: no limitations History of Present Illness: Patient is a nice 83-year-old male with a history of previous CVA and atrial fibrillation who presents to the ED today along with his and son for evaluation of left-sided numbness. Patient states he went to bed around 10:30 PM yesterday and felt normal. He states he awoke around 5 AM this morning also feeling normal. Patient states he sat on his recliner and fell asleep and took a morning nap and states when he woke up around 7 AM he noticed numbness to the left side of his face and arm. He states it feels dumb on that side. feels like his speech is slightly slurred but states he has intermittently had this ever since his previous stroke last year. also feels like the left corner of his mouth is slightly drooping. He has not noticed any motor weakness. Patient is not on aspirin or other antiplatelet therapy. He does take apixaban for his atrial fibrillation. Of note he was just seen by PCP a week ago for dizzy, blurry vision and feeling fatigued. Onset (ago): hour(s) Last Observed Normal: 05:00 Timing confirmed by: spouse Location: left face and left arm History of same: Yes (has similar symptoms on R side last year) Severity: mild Quality: numb and tingling Relieving factors: none Exacerbating factors: none On Anticoagulants: Yes Associated symptoms: Reports no associated symptoms; Deny chest pain, headache(s), malaise, nausea, syncope or vomiting Treatments Prior to Arrival: none Review of Systems Const: Denies: fever(s), chills, body aches, fatigue or malaise Eyes: Denies: change in vision, blurry vision, photophobia, floaters or seeing flashes Card: Reports: irregular heart rhythm (chronic-history of atrial fibrillation); Denies: chest pain, palpitations, lightheadedness, syncope or dyspnea on exertion Resp: Denies: dyspnea, productive cough or pain on inspiration GI: Denies: abdominal pain, nausea, vomiting, heartburn or diarrhea : Denies: difficulty urinating or dysuria Musc: Denies: neck pain, back pain, extremity pain, extremity swelling or joint pain Skin/Breast: Denies: rash Neuro: Reports: numbness in extremities (L face, arm) and sensory changes (L face, arm); Denies: headache(s) or weakness in extremities PFSH ED PFSH: Medical History Cerebrovascular accident (CVA) determined by clinical assessment Acute CVA (cerebrovascular accident) Weakness Coronary artery disease COPD (chronic obstructive pulmonary disease) ASHD (arteriosclerotic heart disease) Myocardial infarction Atrial fibrillation Dyslipidemia Restrictive airway disease Obesity CHF (congestive heart failure) Enrolled in chronic care management Vasculitis Surgical History S/P knee replacement S/P hernia repair S/P prostatectomy S/P angioplasty with stent Family History Other CAD (coronary artery disease) Social History Smoking and tobacco/nicotine status: never used tobacco/nicotine Alcohol intake: never Substance/Drug Use: never NIH stroke score NIHSS: Level Of Consciousness - 1a: 0 Level Of Consciousness Questions - 1b: Both Correct Level Of Consciousness Commands - 1c: Both Correct Best Gaze - 2: Normal Visual Rogers - 3: No Visual Loss Facial Palsy - 4: Normal ( thinks maybe he has some left corner mouth drooping; none noted) Motor Arm Right - 5: No Drift Motor Arm Left - 5: No Drift Motor Leg Right - 6: No Drift Motor Leg Left - 6: No Drift Limb Ataxia - 7: Absent Sensory - 8: Mild To Moderate Loss Best Language - 9: No Aphasia Dysarthia - 10: Mild/Moderate Dysarthia (family states this chronically seems to come and go ) Extinction And Inattention - 11: 0 Score: Total Score: 2 Physical Exam Const: COMMON NORMALS: no acute distress, patient oriented x3, no limitations, alert and well nourished GENERAL APPEARANCE: cooperative NUTRITIONAL APPEARANCE: obese ORIENTATION/CONSCIOUSNESS: Yes awake, Yes oriented to person, Yes oriented to place and Yes oriented to time HENMT: COMMON NORMALS: normocephalic, atraumatic, external ears normal and Normal external nose present HEAD & SCALP: normal to inspection, normocephalic and atraumatic FACE & SINUS: other ( thinks corner of L mouth is drooping; face symmetrical on CN testing) NOSE: Normal external nose present EXTERNAL EAR: Yes external ears normal MOUTH: Normal oral and palatal mucosa present and lip normal Eye: COMMON NORMALS: Equal, round and reactive pupils present, EOMs intact bilaterally and normal visual rogers by confrontation GENERAL EYE: appearance normal, both eyes and all related structures and normal light reflex PUPIL: Yes Equal, round and reactive pupils present DIRECT OPHTHALMOSCOPY: Yes normal light reflex Neck/C-Spine: COMMON NORMALS: full ROM, no lymphadenopathy and no meningeal signs Resp: COMMON NORMALS: normal respiratory effort and clear to auscultation bilaterally AUSCULTATION: clear to auscultation bilaterally Cardio: COMMON NORMALS: regular rate RATE: regular rate RHYTHM: abnormal rhythm irregularly irregular (known hx of atrial fib) GI: COMMON NORMALS: Normal to inspection, nondistended, normoactive bowel sounds present, Soft to palpation and non-tender PALPATION: Yes Soft to palpation Back/Pelvis: COMMON NORMALS: thoracic and lumbar spine normal to inspection Extremity: GENERAL: Yes normal exam except as noted Neuro: STEVE COMA SCALE: document GCS findings Steve coma scale eye opening: Spontaneous [place] coma scale verbal response: Orientated Steve coma scale motor response: Obey commands [place] coma scale total score: 15 COMMON NORMALS: patient oriented x3, moves all extremities and no focal motor deficits SENSORIUM/ORIENTATION: Yes alert, Yes oriented to person, Yes oriented to place and Yes oriented to time MENINGEAL SIGNS: Yes no meningeal signs CRANIAL NERVES: Yes CN normal except as noted COORDINATION/BALANCE: [id number] test normal and [id number] test normal SPEECH: Other neuro speech findings (slightly slurred but states this chronically seems to come and go ) SENSORY EXAM: Yes other (reports decreased sensation to L face, arm, leg when compared to R) MOTOR EXAM: 5/5 motor strength present throughout, Pronator motor function not present, no tremor noted, no asterixis, Motor fasciculations not present and Normal motor muscle tone present throughout COORDINATION: [id number] test normal and [id number] test normal Skin: COMMON NORMALS: no rashes or lesions noted GENERAL SKIN EXAM: no rashes or lesions noted Course Vital Signs: Vital signs: Vital Signs Temperature 98.1 F 11/13/23 10:52 Pulse Rate 61 11/13/23 10:52 Respiratory Rate 20 H 11/13/23 10:52 Blood Pressure 136/85 11/13/23 10:52 Pulse Oximetry 97 11/13/23 10:52 Oxygen Delivery Me thod Room Air 11/13/23 10:26 MDM - Neuro Symptoms/Deficit Medical Decision Making Patient is a nice 83-year-old male with a history of previous CVA and atrial fibrillation here along with family for evaluation of numbness/tingling to the left side of his face, arm, leg. Question some very mild slurred speech although family states this chronically seems to come and go. NIH was [address] head showing no acute intracranial findings. He does have old left-sided infarcts. Stroke alert was activated upon arrival. Dr. Shaikh also evaluated patient upon his arrival. We have spoken to Dr. Mayfield and Esteban not indicated at this time. He has had recent echocardiograms and ultrasounds of his carotids as an outpatient recently. He had a CTA performed 08/2022 which essentially was unremarkable. Patient takes apixaban for his atrial fibrillation. He needs to be on an antiplatelet/aspirin therapy per neurology recommendations. At this time patient does not require hospitalization. He already has a plan for outpatient MRI imaging through his primary care. Recommend he follow-up with their office. Return to ED precautions given. Differential Diagnosis Likely peripheral neuropathy, cerebrovascular accident and transient cerebral ischemia Medical Records I reviewed the patient's medical records. Lab Data I reviewed the patient's lab results. 11/13/23 09:33 11/13/23 09:[address] 11/13/23 09:12 IMPRESSION: 1. No evidence of intracranial hemorrhage or mass effect. 2. Moderate small vessel changes with moderate parenchymal volume loss. 3. Chronic infarcts in the LEFT fall radiata and centrum semiovale. Chronic lacunar infarct in the LEFT genu of the corpus callosum. 4. A few tiny chronic lacunar infarcts in the RIGHT cerebellum 5. Dense cavernous carotid calcification. 6. No acute intracranial findings. Notified DANA Herman at 11/13/2023 9:20 AM. Laboratory Results WBC 6.82 10^3/uL (3.29-11.43) 11/13/23 09: RBC 5.43 10^6/uL (3.85-5.65) 11/13/23 09:33 Hgb 15.50 g/dL (11.27-16.99) 11/13/23 09:33 Hct 47.0 % (37-53) 11/13/23 09: MCV 86.6 fl (82-101) 11/13/23 09: MCH 28.5 pg (27-33) 11/13/23 09: MCHC 33.0 g/dL (30-55) 11/13/23 09: RDW 13.8 % (12.1-15.1) 11/13/23 09: Plt Count 176 10^3/cmm (157-399) 11/13/23 09: MPV 10.3 fL (7.4-10.4) 11/13/23 09: Neut % (Auto) 68.2 % 11/13/23 09: Lymph % (Auto) 20.4 % 11/13/23 09:33 Treasure % (Auto) 8.5 % 11/13/23 09:33 Eos % (Auto) 2.2 % 11/13/23 09:33 Baso % (Auto) 0.6 % 11/13/23 09: Neut # (Auto) 4.65 10^3/uL (1.8-7.7) 11/13/23 09: Lymph # (Auto) 1.4 10^3/uL (0.8-4.8) 11/13/23 09: Treasure # (Auto) 0.6 10^3/uL (0.2-0.9) 11/13/23 09:33 Eos # (Auto) 0.2 10^3/uL (0.0-0.8) 11/13/23 09: Baso # (Auto) 0.0 10^3/uL (0.0-0.1) 11/13/23 09:33 Nucleated RBC % (auto) 0 % 11/13/23 09: Nucleated RBCs # 0.0 /100WBC 11/13/23 09: PT 15.80 SECONDS (12.1-14.9) H 05/28/24 09:33 INR 1.22 (0.8-1.2) H 11/13/23 09:33 APTT 29.7 SECONDS (23.9-36.7) 11/13/23 09:33 Sodium 139 mmol/L (136-145) 11/13/23 09:33 Potassium 4.3 mmol/L (3.5-5.1) 11/13/23 09:33 Chloride 104 mmol/L (98-107) 11/13/23 09:33 Carbon Dioxide 27 mmol/L (22-29) 11/13/23 09:33 Anion Gap 12.3 (5-19) 11/13/23 09:33 BUN 27 mg/dL (8-23) H 11/13/23 09:33 Creatinine 0.9 mg/dL (0.7-1.2) 11/13/23 09:33 GFR Calculation Not Reportable 11/13/23 09:33 Glucose 100 mg/dL (65-115) 11/13/23 09:33 POC Glucose 98 mg/dL (70-110) 11/13/23 09:32 Calculated Osmolality 293 mOsm/kg (285-295) 11/13/23 09:33 Calcium 9.3 mg/dL (8.5-10.5) 11/13/23 09:33 Total Bilirubin 1.1 mg/dL (0.15-1.2) 11/13/23 09:33 AST 25 U/L (0-40) 11/13/23 09:33 ALT 18 U/L (0-41) 11/13/23 09:33 Alkaline Phosphatase 98 U/L (40-130) 11/13/23 09:33 Total Protein 7.0 g/dL (6.6-8.7) 11/13/23 09:33 Albumin 3.9 g/dL (3.5-5.2) 11/13/23 09:33 Globulin 3.1 g/dL (1.3-4.6) 11/13/23 09:33 Urine Color Yellow (Yellow) 11/13/23 09:50 Urine Appearance Clear (CLEAR) 11/13/23 09:50 Urine pH 6 (5-7) 11/13/23 09:50 Ur Specific Whitt 1.020 (1.005-1.030) 11/13/23 09:50 Urine Protein Neg (Negative) 11/13/23 09:50 Urine Glucose (UA) Norm (Normal) 11/13/23 09:50 Urine Ketones Negative (Negative) 11/13/23 09:50 Urine Blood Neg (Negative) 11/13/23 09:50 Urine Nitrate Negative (Negative) 11/13/23 09:50 Urine Bilirubin Neg (Negative) 11/13/23 09:50 Urine Urobilinogen Norm mg/dL (Negative) 11/13/23 09:50 Ur Leukocyte Esterase Negative (Negative) 11/13/23 09:50 Urine Opiates Screen Negative ng/mL (Negative) 11/13/23 09:50 Ur Barbiturates Screen Negative ng/mL (Negative) 11/13/23 09:50 Ur Phencyclidine Scrn Negative ng/mL (Negative) 11/13/23 09:50 Ur Amphetamines Screen Negative ng/mL (Negative) 11/13/23 09:50 U Benzodiazepines Scrn Negative ng/mL (Negative) 11/13/23 09:50 Urine Cocaine Screen Negative ng/mL (Negative) 11/13/23 09:50 U Marijuana (THC) Screen Negative ng/mL (Negative) 11/13/23 09:50 All radiology interpretation(s) finalized by discharge Discharge Plan Discharge Patient Disposition: Home Clinical Impression: Left sided numbness Condition: Stable Prescriptions: No Action magnesium 200 mg tablet 200 mg PO DAILY amlodipine 5 mg tablet 5 mg PO DAILY Qty: 90 1RF atorvastatin 40 mg tablet 40 mg PO BEDTIME Qty: 90 1RF Eliquis 5 mg tablet See Rx Instructions .ROUTE .COMPLEX Qty: 180 0RF Dose Instruction: TAKE 1 TABLET BY MOUTH TWICE DAILY AT 9 AM AND 9 PM Rx Instructions: TAKE 1 TABLET BY MOUTH TWICE DAILY AT 9 AM AND 9 PM omega-3 fatty acids 1,000 mg Capsule 1,000 mg PO DAILY cholecalciferol (vitamin D3) 25 mcg (1,000 unit) tablet 25 mcg PO DAILY Discharge Orders: Discharge ED (Routine); Ordered 11/13/23 Ordered By: Aminah Ceballos Referrals: Diann Villalpando FNP [Primary Care Provider] - Patient Instructions: Opioid Safety, Pain Management Activity Restrictions/Additional Instructions: As we discussed you need to start taking a low-dose/baby aspirin daily. As we discussed please follow-up with your primary care provider and continue current plan for MRI as an outpatient. Coding Level of Care Code ED [employer] Router for Chg Fwd Documented by User: Cole Shaikh DO 11/14/23 03:58 HPI - Neuro Symptoms/Deficit General: Chief Complaint: Weakness Stated Complaint: left side numbness Time Seen by Provider: 11/13/23 08:59 PFSH ED PFSH: Medical History Cerebrovascular accident (CVA) determined by clinical assessment Acute CVA (cerebrovascular accident) Weakness Coronary artery disease COPD (chronic obstructive pulmonary disease) ASHD (arteriosclerotic heart disease) Myocardial infarction Atrial fibrillation Dyslipidemia Restrictive airway disease Obesity CHF (congestive heart failure) Enrolled in chronic care management Vasculitis Surgical History S/P knee replacement S/P hernia repair S/P prostatectomy S/P angioplasty with stent Family History Other CAD (coronary artery disease) Social History Smoking and tobacco/nicotine status: never used tobacco/nicotine Alcohol intake: never Substance/Drug Use: never NIH stroke score Score: Total Score: 2 Physical Exam Neuro: STEVE COMA SCALE: document GCS findings [place] coma scale total score: 15 Course Vital Signs: Vital signs: Vital Signs Temperature 98.1 F 11/13/23 10:52 Pulse Rate 61 11/13/23 10:52 Respiratory Rate 20 H 11/13/23 10:52 Blood Pressure 136/85 11/13/23 10:52 Pulse Oximetry 97 11/13/23 10:52 Oxygen Delivery Me thod Room Air 11/13/23 10:26 MDM - Neuro Symptoms/Deficit Medical Decision Making Patient is a nice 83-year-old male with a history of previous CVA and atrial fibrillation here along with family for evaluation of numbness/tingling to the left side of his face, arm, leg. Question some very mild slurred speech although family states this chronically seems to come and go. NIH was [address] head showing no acute intracranial findings. He does have old left-sided infarcts. Stroke alert was activated upon arrival. Dr. Shaikh also evaluated patient upon his arrival. We have spoken to Dr. Mayfield and Esteban not indicated at this time. He has had recent echocardiograms and ultrasounds of his carotids as an outpatient recently. He had a CTA performed 08/2022 which essentially was unremarkable. Patient takes apixaban for his atrial fibrillation. He needs to be on an antiplatelet/aspirin therapy per neurology recommendations. At this time patient does not require hospitalization. He already has a plan for outpatient MRI imaging through his primary care. Recommend he follow-up with their office. Return to ED precautions given. Chart reviewed and patient discussed with midlevel. Agree with assessment and plan. Patient seen concurrently with Aminah Ceballos. Medical Records I reviewed the patient's medical records. Lab Data I reviewed the patient's lab results. 11/13/23 09:33 11/13/23 09:[address] 11/13/23 09:12 IMPRESSION: 1. No evidence of intracranial hemorrhage or mass effect. 2. Moderate small vessel changes with moderate parenchymal volume loss. 3. Chronic infarcts in the LEFT fall radiata and centrum semiovale. Chronic lacunar infarct in the LEFT genu of the corpus callosum. 4. A few tiny chronic lacunar infarcts in the RIGHT cerebellum 5. Dense cavernous carotid calcification. 6. No acute intracranial findings. Notified DANA Herman at 11/13/2023 9:20 AM. Laboratory Results WBC 6.82 10^3/uL (3.29-11.43) 11/13/23 09:33 RBC 5.43 10^6/uL (3.85-5.65) 11/13/23 09:33 Hgb 15.50 g/dL (11.27-16.99) 11/13/23 09:33 Hct 47.0 % (37-53) 11/13/23 09:33 MCV 86.6 fl (82-101) 11/13/23 09: MCH 28.5 pg (27-33) 11/13/23 09:33 MCHC 33.0 g/dL (30-55) 11/13/23 09:33 RDW 13.8 % (12.1-15.1) 11/13/23 09:33 Plt Count 176 10^3/cmm (157-399) 11/13/23 09:33 MPV 10.3 fL (7.4-10.4) 11/13/23 09:33 Neut % (Auto) 68.2 % 11/13/23 09:33 Lymph % (Auto) 20.4 % 11/13/23 09:33 Treasure % (Auto) 8.5 % 11/13/23 09:33 Eos % (Auto) 2.2 % 11/13/23 09:33 Baso % (Auto) 0.6 % 11/13/23 09:33 Neut # (Auto) 4.65 10^3/uL (1.8-7.7) 11/13/23 09:33 Lymph # (Auto) 1.4 10^3/uL (0.8-4.8) 11/13/23 09:33 Treasure # (Auto) 0.6 10^3/uL (0.2-0.9) 11/13/23 09:33 Eos # (Auto) 0.2 10^3/uL (0.0-0.8) 11/13/23 09:33 Baso # (Auto) 0.0 10^3/uL (0.0-0.1) 11/13/23 09:33 Nucleated RBC % (auto) 0 % 11/13/23 09: Nucleated RBCs # 0.0 /100WBC 11/13/23 09:33 PT 15.80 SECONDS (12.1-14.9) H 11/13/23 09:33 INR 1.22 (0.8-1.2) H 11/13/23 09:33 APTT 29.7 SECONDS (23.9-36.7) 11/13/23 09:33 Sodium 139 mmol/L (136-145) 11/13/23 09:33 Potassium 4.3 mmol/L (3.5-5.1) 11/13/23 09:33 Chloride 104 mmol/L (98-107) 11/13/23 09:33 Carbon Dioxide 27 mmol/L (22-29) 11/13/23 09:33 Anion Gap 12.3 (5-19) 11/13/23 09:33 BUN 27 mg/dL (8-23) H 11/13/23 09:33 Creatinine 0.9 mg/dL (0.7-1.2) 11/13/23 09:33 GFR Calculation Not Reportable 11/13/23 09:33 Glucose 100 mg/dL (65-115) 11/13/23 09:33 POC Glucose 98 mg/dL (70-110) 11/13/23 09:32 Calculated Osmolality 293 mOsm/kg (285-295) 11/13/23 09:33 Calcium 9.3 mg/dL (8.5-10.5) 11/13/23 09:33 Total Bilirubin 1.1 mg/dL (0.15-1.2) 11/13/23 09:33 AST 25 U/L (0-40) 11/13/23 09:33 ALT 18 U/L (0-41) 11/13/23 09:33 Alkaline Phosphatase 98 U/L (40-130) 11/13/23 09:33 Total Protein 7.0 g/dL (6.6-8.7) 11/13/23 09:33 Albumin 3.9 g/dL (3.5-5.2) 11/13/23 09:33 Globulin 3.1 g/dL (1.3-4.6) 11/13/23 09:33 Urine Color Yellow (Yellow) 11/13/23 09:50 Urine Appearance Clear (CLEAR) 11/13/23 09:50 Urine pH 6 (5-7) 11/13/23 09:50 Ur Specific Whitt 1.020 (1.005-1.030) 11/13/23 09:50 Urine Protein Neg (Negative) 11/13/23 09:50 Urine Glucose (UA) Norm (Normal) 11/13/23 09:50 Urine Ketones Negative (Negative) 11/13/23 09:50 Urine Blood Neg (Negative) 11/13/23 09:50 Urine Nitrate Negative (Negative) 11/13/23 09:50 Urine Bilirubin Neg (Negative) 11/13/23 09:50 Urine Urobilinogen Norm mg/dL (Negative) 11/13/23 09:50 Ur Leukocyte Esterase Negative (Negative) 11/13/23 09:50 Urine Opiates Screen Negative ng/mL (Negative) 11/13/23 09:50 Ur Barbiturates Screen Negative ng/mL (Negative) 11/13/23 09:50 Ur Phencyclidine Scrn Negative ng/mL (Negative) 11/13/23 09:50 Ur Amphetamines Screen Negative ng/mL (Negative) 11/13/23 09:50 U Benzodiazepines Scrn Negative ng/mL (Negative) 11/13/23 09:50 Urine Cocaine Screen Negative ng/mL (Negative) 11/13/23 09:50 U Marijuana (THC) Screen Negative ng/mL (Negative) 11/13/23 09:50 Discharge Plan Discharge Patient Disposition: Home Clinical Impression: Left sided numbness Condition: Stable Prescriptions: No Action magnesium 200 mg tablet 200 mg PO DAILY amlodipine 5 mg tablet 5 mg PO DAILY Qty: 90 1RF atorvastatin 40 mg tablet 40 mg PO BEDTIME Qty: 90 1RF Eliquis 5 mg tablet See Rx Instructions .ROUTE .COMPLEX Qty: 180 0RF Dose Instruction: TAKE 1 TABLET BY MOUTH TWICE DAILY AT 9 AM AND 9 PM Rx Instructions: TAKE 1 TABLET BY MOUTH TWICE DAILY AT 9 AM AND 9 PM omega-3 fatty acids 1,000 mg Capsule 1,000 mg PO DAILY cholecalciferol (vitamin D3) 25 mcg (1,000 unit) tablet 25 mcg PO DAILY Discharge Orders: Discharge ED (Routine); Ordered 11/13/23 Ordered By: Aminah Ceballos Referrals: Diann Villalpando FNP [Primary Care Provider] - Patient Instructions: Opioid Safety, Pain Management Activity Restrictions/Additional Instructions: As we discussed you need to start taking a low-dose/baby aspirin daily. As we discussed please follow-up with your primary care provider and continue current plan for MRI as an outpatient. Coding Level of Care Code ED [employer] for [employer]
[2023-11-13 09:38] LABS: Glucose Point of Care 98 mg/dL (70-110)
[2023-11-13 09:41] VITALS: BP 158/88; PULSE 61; O2SAT 95
[2023-11-13 09:48] LABS: Basophils % 0.6 %; Eosinophils # 0.2 10^3/uL (0.0-0.8); Eosinophils % 2.2 %; Lymphocytes # 1.4 10^3/uL (0.8-4.8); Lymphocytes % 20.4 %; Mean Corpuscular Hemoglobin 28.5 pg (27-33); Mean Corpuscular Volume 86.6 fl (82-101); Mean Platelet Volume 10.3 fL (7.4-10.4); Monocytes # 0.6 10^3/uL (0.2-0.9); Monocytes % 8.5 %; Neutrophils # 4.65 10^3/uL (1.8-7.7); Neutrophils % 68.2 %; Nucleated Red Blood Cells % 0 %; Platelet Count 176 10^3/cmm (157-399); Red Blood Count 5.43 10^6/uL (3.85-5.65); Red Cell Distribution Width 13.8 % (12.1-15.1); White Blood Count 6.82 10^3/uL (3.29-11.43)
[2023-11-13 09:56] LABS: Add Urine Microscopic? NO; Charge for UA Resulting for Rev
[2023-11-13 10:03] LABS: Bilirubin Urine Neg (Negative); Blood Urine Neg (Negative); Glucose Urine UA Norm (Normal); Ketones Urine Negative (Negative); Leukocyte Esterase Urine Negative (Negative); Nitrate Urine Negative (Negative); Protein Urine Neg (Negative); Urine Appearance Clear (CLEAR); Urine Color Yellow (Yellow); Urobilinogen Urine Norm (Negative); pH Urine 6 (5-7)
[2023-11-13 10:05] LABS: INR 1.22 (0.8-1.2)
[2023-11-13 10:06] LABS: Alanine Aminotransferase 18 U/L (0-41); Albumin Level 3.9 g/dL (3.5-5.2); Alkaline Phosphatase 98 U/L (40-130); Anion Gap 12.3 (5-19); Aspartate Amino Transferase 25 U/L (0-40); Blood Urea Nitrogen 27 mg/dL (8-23); Calcium 9.3 mg/dL (8.5-10.5); Carbon Dioxide 27 mmol/L (22-29); Chloride 104 mmol/L (98-107); Creatinine Clr Calc Pharmacy 67.5696; Globulin 3.1 g/dL (1.3-4.6); Glucose 100 mg/dL (65-115); Osmolality Calculated 293 mOsm/kg (285-295); Partial Thromboplastin Time 29.7 SECONDS (23.9-36.7); Potassium 4.3 mmol/L (3.5-5.1); Sodium 139 mmol/L (136-145); Total Bilirubin 1.1 mg/dL (0.15-1.2)
[2023-11-13 10:12] VITALS: BP 136/85
[2023-11-13 10:12] LABS: Amphetamines Screen Urine Negative (Negative); Barbiturates Screen Urine Negative (Negative); Benzodiazepines Screen Urine Negative (Negative); Cocaine Screen Urine Negative (Negative); Opiate Screen Urine Negative (Negative); PCP Screen Urine Negative (Negative); THC Screen Urine Negative (Negative)
[2023-11-13 10:26] VITALS: BP 136/85; PULSE 61; RESP 20; O2SAT 97
--- NOTE | 2023-11-13 10:27 | PC.NURSE ---
PATIENT STATES HE HAS TINGLING IN LEFT FACE AND LEFT HAND. NOTIFIED ERIKA.
[2023-11-13 10:52] VITALS: BP 136/85; PULSE 61; RESP 20; TEMP 36.7; O2SAT 97
== END 2023-11-13 10:53 | disposition home or self-care (01) ==
PROVIDERS: Emergency Provider Physician Assistant; PCP Nurse Practitioner Family
DX: R20.0 Anesthesia of skin (principal); Z79.01 Long term (current) use of anticoagulants; Z86.73 Personal history of transient ischemic attack (TIA), and cerebral infarction without residual deficits; I25.10 Atherosclerotic heart disease of native coronary artery without angina pectoris; J44.9 Chronic obstructive pulmonary disease, unspecified; I25.2 Old myocardial infarction; E78.5 Hyperlipidemia, unspecified; I50.9 Heart failure, unspecified
CPT/HCPCS: 36416; 70450; 80053; 80306; 81003; 82962; 85025; 85610; 85730; 93005; 99284

== ENCOUNTER 2023-11-22 16:11 | Outpatient (CLI) | payer MEDICARE, OTHER, SELFPAY ==
--- NOTE | 2023-11-22 16:45 | MR_ITS ---
WS: [id number] MRI HEAD WITHOUT CONTRAST TECHNIQUE: Sagittal T1, T2 axial, T2 axial FLAIR, axial and coronal T1 images, axial susceptibility w eighted imaging, axial diffusion weighted images, and coronal T2 images were obtained. CLINICAL INFORMATION: R42 - Dizziness and giddiness COMPARISON: CT 11/13/2023 FINDINGS: Few small faint foci of partially restricted diffusion in the RIGHT fall radiata and basal ganglia, RIGHT frontal lobe, and LEFT parietal cortex suspicious for small foci of acute to subacute ischemia . 1 or 2 additional foci of partially restricted diffusion in the cerebellum also suspicious for tiny acute to subacute lacunar infarcts. Recommend correlation with embolic etiologies considering multip le vascular territories. No lobar or regional infarcts. No significant mass effect or edema. Advanced small vessel changes with moderate parenchymal volume loss. Innumerable chronic tiny lacunar infarcts in the periventricular white matter, fall radiata, bilateral basal ganglia, and cerebellum. Small vessel changes in the jamil. Normal vascular flow voids at the skull base. No extra-axial fluid collections. Paranasal sinuses are well aerated. Mastoid air cells are well aerated. Normal posterior nasopharynx. Tiny punctate focus of hemosiderin in the RIGHT cerebellum. Normal optic chiasm and pituitary infundi bulum. Moderate symmetric atrophy temporal lobes and hippocampal formations. No other suspicious find ings. MR/MR head wo con* [id number] IMPRESSION: 1. A few scattered small foci of partially restricted diffusion suspicious for acute to subacute ischemia described above. Consider embolic etiologies. 2. Advanced small vessel changes with moderate parenchymal volume loss. Multip le chronic lacunar infarcts in the periventricular white matter, fall radiata , basal ganglia, and cerebellum. 3. Moderate parenchymal volume loss. 4. Tiny focus of hemosiderin in the RIGHT cerebellum. 5. Moderate symmetric atrophy temporal lobes and hippocampal formations.
== END 2023-11-22 16:12 | disposition home or self-care (01) ==
LOC: RAD 16:11
PROVIDERS: PCP Nurse Practitioner Family; Visit Provider Nurse Practitioner Family
DX: I63.81 Other cerebral infarction due to occlusion or stenosis of small artery (principal); G31.89 Other specified degenerative diseases of nervous system
CPT/HCPCS: 70551

== ENCOUNTER → 2023-12-11 08:08 | Outpatient (BNVA) | payer MEDICARE, OTHER, SELFPAY | PROVIDERS: PCP Nurse Practitioner Family; Visit Provider Podiatrist Foot & Ankle Surgery | DX: L60.8 Other nail disorders (principal); B35.1 Tinea unguium; I73.9 Peripheral vascular disease, unspecified; G57.92 Unspecified mononeuropathy of left lower limb; L60.3 Nail dystrophy; L84 Corns and callosities | CPT/HCPCS: 11056; 11721 ==

== ENCOUNTER → 2023-12-13 10:50 | Outpatient (BNVA) | payer MEDICARE, OTHER, SELFPAY | PROVIDERS: PCP Nurse Practitioner Family; Visit Provider Nurse Practitioner Family | DX: N39.0 Urinary tract infection, site not specified (principal); R31.9 Hematuria, unspecified; R31.0 Gross hematuria; Z79.01 Long term (current) use of anticoagulants | CPT/HCPCS: 81000; 88112 ==

== ENCOUNTER → 2024-01-23 12:22 | Outpatient (BNVA) | payer MEDICARE, OTHER, SELFPAY | PROVIDERS: PCP Nurse Practitioner Family; Visit Provider Internal Medicine Cardiovascular Disease | DX: E78.5 Hyperlipidemia, unspecified (principal); I48.91 Unspecified atrial fibrillation; I25.10 Atherosclerotic heart disease of native coronary artery without angina pectoris; I73.9 Peripheral vascular disease, unspecified; Z79.01 Long term (current) use of anticoagulants; I82.409 Acute embolism and thrombosis of unspecified deep veins of unspecified lower extremity; I87.2 Venous insufficiency (chronic) (peripheral); R53.1 Weakness; R41.3 Other amnesia; Z86.73 Personal history of transient ischemic attack (TIA), and cerebral infarction without residual deficits; I11.0 Hypertensive heart disease with heart failure; I50.9 Heart failure, unspecified | CPT/HCPCS: 99213 ==

== ENCOUNTER → 2024-03-18 07:59 | Outpatient (BNVA) | payer MEDICARE, OTHER, SELFPAY | PROVIDERS: PCP Nurse Practitioner Family; Visit Provider Podiatrist Foot & Ankle Surgery | DX: L60.8 Other nail disorders (principal); B35.1 Tinea unguium; I73.9 Peripheral vascular disease, unspecified; G57.92 Unspecified mononeuropathy of left lower limb; L84 Corns and callosities | CPT/HCPCS: 11056; 11721 ==

== ENCOUNTER → 2024-03-26 07:47 | Outpatient (BNVA) | payer MEDICARE, OTHER, SELFPAY | PROVIDERS: PCP Nurse Practitioner Family; Referring Provider Nurse Practitioner Family; Visit Provider Psychiatry & Neurology Neurology | DX: I63.81 Other cerebral infarction due to occlusion or stenosis of small artery (principal); R41.0 Disorientation, unspecified | CPT/HCPCS: 99203 ==

== ENCOUNTER 2024-04-15 14:04 | Outpatient (CLI) | payer MEDICARE, OTHER, SELFPAY ==
--- NOTE | 2024-04-15 14:30 | MR_ITS ---
WS: [id number] MRI HEAD WITHOUT CONTRAST TECHNIQUE: Sagittal T1, T2 axial, T2 axial FLAIR, axial and coronal T1 images, axial susceptibility w eighted imaging, axial diffusion weighted images, and coronal T2 images were obtained. 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 COMPARISON: MRI 11/22/2023 FINDINGS: No evidence of restricted diffusion to suggest acute ischemia. Ventricular system and basal cisterns are patent. Advanced small vessel changes with moderate parenchymal volume loss. Multiple chronic inf arcts in the periventricular white matter and fall radiata. Additional chronic lacunar infarcts in the basal ganglia and cerebellum. Tiny focus of hemosiderin in the RIGHT cerebellum unchanged. Moderate symmetric atrophy temporal lobes and hippocampal formations. Normal vascular flow voids at t he skull base. No extra-axial fluid collections. No evidence of mass or mass effect. Paranasal sinuse s are well aerated. Normal posterior nasopharynx. Small RIGHT mastoid effusion. Normal optic chiasm and pituitary infundibulum. MR/MR head wo con* [id number] IMPRESSION: 1. No evidence of restricted diffusion today. 2. Advanced small vessel changes with moderate parenchymal volume loss. 3. Multiple small chronic lacunar infarcts involving the fall radiata, periv entricular white matter, LEFT basal ganglia, and bilateral cerebellum stable co mpared to previous. 4. Moderate symmetric atrophy temporal lobes and hippocampal formations. 5. No other significant changes compared to previous.
== END 2024-04-15 14:05 | disposition home or self-care (01) ==
LOC: RAD 14:06
PROVIDERS: PCP Nurse Practitioner Family; Visit Provider Psychiatry & Neurology Neurology
DX: I63.81 Other cerebral infarction due to occlusion or stenosis of small artery (principal); G31.89 Other specified degenerative diseases of nervous system; G31.9 Degenerative disease of nervous system, unspecified
CPT/HCPCS: 70551

== ENCOUNTER → 2024-05-27 13:51 | Outpatient (BNVA) | payer MEDICARE, OTHER, SELFPAY | PROVIDERS: PCP Nurse Practitioner Family; Visit Provider Nurse Practitioner Family | DX: I10 Essential (primary) hypertension (principal); R53.83 Other fatigue | CPT/HCPCS: 80053; 80061; 85025 ==

== ENCOUNTER → 2024-06-24 08:08 | Outpatient (BNVA) | payer MEDICARE, OTHER, SELFPAY | PROVIDERS: PCP Nurse Practitioner Family; Visit Provider Podiatrist Foot & Ankle Surgery | DX: B35.1 Tinea unguium (principal); I73.9 Peripheral vascular disease, unspecified; G57.92 Unspecified mononeuropathy of left lower limb; L84 Corns and callosities; L60.8 Other nail disorders | CPT/HCPCS: 11056; 11721 ==

== ENCOUNTER → 2024-07-01 13:56 | Outpatient (BNVA) | payer MEDICARE, OTHER, SELFPAY | PROVIDERS: PCP Nurse Practitioner Family; Referring Provider Psychiatry & Neurology Neurology; Visit Provider Psychiatry & Neurology Neurology | DX: R56.9 Unspecified convulsions (principal) | CPT/HCPCS: 95816 ==

== ENCOUNTER → 2024-07-24 14:24 | Outpatient (BNVA) | payer MEDICARE, OTHER, SELFPAY | PROVIDERS: PCP Nurse Practitioner Family; Visit Provider Internal Medicine Cardiovascular Disease | DX: I48.91 Unspecified atrial fibrillation (principal); Z79.01 Long term (current) use of anticoagulants; Z79.82 Long term (current) use of aspirin; I10 Essential (primary) hypertension; Z86.73 Personal history of transient ischemic attack (TIA), and cerebral infarction without residual deficits; G47.9 Sleep disorder, unspecified | CPT/HCPCS: 99214 ==

== ENCOUNTER → 2024-08-26 14:01 | Outpatient (BNVA) | payer MEDICARE, OTHER, SELFPAY | PROVIDERS: PCP Nurse Practitioner Family; Visit Provider Nurse Practitioner Family | DX: N39.0 Urinary tract infection, site not specified (principal); R81 Glycosuria | CPT/HCPCS: 81000; 82962; 87086 ==

== ENCOUNTER → 2024-09-02 10:11 | Outpatient (BNVA) | payer MEDICARE, OTHER, SELFPAY | PROVIDERS: PCP Nurse Practitioner Family; Visit Provider Nurse Practitioner Family | DX: N39.0 Urinary tract infection, site not specified (principal) | CPT/HCPCS: 87086 ==

== ENCOUNTER → 2024-09-15 14:32 | Outpatient (BNVA) | payer MEDICARE, OTHER, SELFPAY | PROVIDERS: PCP Nurse Practitioner Family; Visit Provider Nurse Practitioner Family | DX: R31.9 Hematuria, unspecified (principal); N39.0 Urinary tract infection, site not specified | CPT/HCPCS: 81000; 87086 ==

== ENCOUNTER → 2025-02-04 10:51 | Outpatient (BNVA) | payer MEDICARE, OTHER, SELFPAY | PROVIDERS: PCP Nurse Practitioner Family; Visit Provider Nurse Practitioner Family | DX: N30.00 Acute cystitis without hematuria (principal); Z79.899 Other long term (current) drug therapy | CPT/HCPCS: 81000; 87086 ==

== ENCOUNTER → 2025-02-09 14:22 | Outpatient (BNVA) | payer MEDICARE, OTHER, SELFPAY | PROVIDERS: PCP Nurse Practitioner Family; Visit Provider Podiatrist Foot & Ankle Surgery | DX: I73.9 Peripheral vascular disease, unspecified (principal); L60.2 Onychogryphosis; L84 Corns and callosities; G57.92 Unspecified mononeuropathy of left lower limb; L60.8 Other nail disorders | CPT/HCPCS: 11056; 11721 ==

== ENCOUNTER 2025-04-12 10:13 | Emergency (ER) | payer MEDICARE, OTHER, SELFPAY ==
--- OUTSIDE RECORDS SUMMARY | 2025-04-05 22:13 | XMS_ITS | Encounter Summary ---
[facility] Organization [facility] Address 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 Role Phone Unavailable Primary Care Provider Unavailabl e Reason for Visit * Reason Comments Fever Ankle Pain Altered mental status Leg Pain Dark Urine Encounter Details Date Type Department Care Team (Late st Contact Info) Description 04/05/2025 10:13 PM CDT - 04/07/2025 10:51 AM CDT Emergency [facility] Emergency Medicine [address] [place] [address] Jean Carlos Norton MD [address] [place] [address] You Gallegos MD [address] [place] [address] [place] [address] Cellulitis of right leg (Primary Dx); Disorientation; Closed bimalleolar fracture of right ankle, initial encounter Discharge Disposition: Acute Care Hospital Social History Tobacco Use Types Packs/Day Years Used Date Smoking Tobacco: Never Smokeless Tobacco: Never Alcohol Use Standard Drinks/Week Comments No 0 (1 standard drink = 0.6 oz pur e alcohol) Food Insecurity Answer Date Recorded Do you find you are eating l ess than you should because you can t pay for food? No 04/07/2025 Transportation Needs Answer Date Record ed Have you gone without health care because you didn t have a way to get there? 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 No 2024 Housing Stability Answer Date Recorded Do you worry you won t have a steady place to sleep or struggle to pay rent or mortgage? No 04/07/2025 Utility Needs Answer Date Recorded Do you have difficulty payin g for utility costs (electric, water or gas bills)? No 04/07/2025 Medication Needs Answer Date Recorded Have you skipped taking medi cation due to cost or worry you can t afford new medications? No 04/07/2025 Feeling Safe Answer Date Recorded Are you in a relationship wi th someone who hurts you emotionally and/or physically? No 04/07/2025 Food Insecurity Answer Date Recorded Patient needs follow up regardin 04/07/2025 Transportation Needs Answer Date Record ed Patient needs follow up regardin 04/07/2025 Utility Needs Answer Date Recorded Patient needs follow up regardin 04/07/2025 Sex and Gender Information Value Date Recorded Sex Assigned at Not on file Legal Sex Male 8:17 AM [employer] Gender Identity Not on file Sexual Orientation Not on file documented as of this encounter Last Filed Vital Signs Vital Sign Reading Time Taken Comments Blood Pressure 116/77 04/07/2025 10:50 AM CDT Pulse 91 04/07/2025 9:00 AM CDT Temperature 36.8 C (98.2 F) 04/07/2025 10:50 AM CDT Respiratory Rate 20 04/07/2025 10:5 0 AM CDT Oxygen Saturation 96% 04/07/2025 10: 00 AM CDT Inhaled Oxygen Concentration - - Weight 100.2 kg (220 lb 14.4 oz) 2024 10:18 PM CDT Height 172.7 cm (5' 8 ) 04/05/2025 10:1 8 PM CDT Body Mass Index 33.59 04/05/2025 10:18 PM CDT documented in this encounter Medications at Time of Discharge atorvastatin (LIPITOR) 40 mg tablet Take 40 mg by mouth daily at bedtime. 10/15/2024 apixaban (ELIQUIS ORAL) Take by mouth 2 times daily. gabapentin (NEURONTIN) 300 mg capsule Take 1 Capsule (300 mg) by mouth daily at bedtime. 30 Capsule 0 10/17/2018 cholecalciferol, Vitamin D3, (VITAMIN D3) 25 mcg (1,000 unit) Capsule Take 400 Units by mouth daily . 01/31/2017 omega-3 fatty acids/fish oil (Fish Oil-Danby-3 Fatty Acids) 440-880 mg Capsule Take 1 Capsule by mouth 2 times daily 1200 mg/Danby 3 360 mg. 05/03/2016 acetaminophen (TYLENOL) 325 mg tablet Take 2 Tablets (650 mg) by mouth every 6 hours as needed for Other (See Comment) (See admin instructions). 04/10/2025 metoprolol succinate (TOPROL XL) 25 mg Extended Release 24 hour tablet Take 1 Tablet (25 mg) by mouth daily. 04/11/2025 magnesium HYDROXIDE (milk of magnesia) 400 mg/5 mL suspension Take 30 mL by mouth 1 time daily as needed for Constipation. 04/10/2025 bisacodyL (DULCOLAX) 10 mg Suppository Insert 1 Suppository (10 mg) by rectum 1 time daily as needed for Constipation. 04/10/2025 polyethylene glycol (MIRALAX) 17 gram Powder in Packet Take 1 Packet (17 Grams) by mouth daily. 04/11/2025 potassium CHLORIDE (K-TAB) 20 mEq Extended Release tablet Take 2 Tablets (40 mEq) by mouth daily with breakfast. 04/10/2025 sennosides (SENOKOT) 8.6 mg tablet Take 3 Tablets (25.8 mg) by mouth daily. 04/11/2025 linezolid (ZYVOX) 600 mg tablet Take 1 Tablet (600 mg) by mouth 2 times daily for 7 days. 04/10/2025 cephALEXin (KEFLEX) 500 mg capsule Take 1 Capsule (500 mg) by mouth 4 times daily for 7 days. 04/10/2025 furosemide (Lasix) 40 mg tablet Take 1 Tablet (40 mg) by mouth daily. 04/10/2025 HYDROcodone-aceta minophen (NORCO) 5-325 mg tabletIndications :Closed bimalleolar fracture of right ankle, initial encounter Take 1-2 Tablets by mouth every 6 hours as needed for Pain. Max Daily Amount: 8 Tablets 30 Tablet 03/31/2025 documented as of this encounter Progress Notes * Munir Vega, PHARMACIST - 04/06/2025 7:55 PM CDT Vancomycin Consult to Pharmacy Current Antibiotic Therapies Vancomycin Day # 1 of therapy Serum creatinine: 0.82 mg/dL 04/05/25 2308 Estimated creatinine clearance: 63.1 mL/min Action Taken: Will begin Vancomycin 1500 mg IV every 24 hours. Assessment: Roger Camp is a 84 y.o. male who is currently receiving Vancomycin pharmacy to dose for Wound / Cellulitis / Abscess Plan Ordered steady state trough to be drawn on 04/08 at 2300 Monitor renal function daily Pharmacy will continue to monitor the patient's labs. We will follow-up with daily progress note for Vancomycin and Aminoglycoside Consults and will write a progress note in the future if any additional dosage adjustment is needed on other renal consults. Subjective/Objective: Roger Camp is a 84 y.o. male Temp (24hrs), Av.1 ??F (37.3 ??C), Min:97.8 ??F (36.6 ??C), Max:99.8 ??F (37.7 ??C) BP 106/72 Pulse 88 Temp 99.2 ??F (37.3 ??C) (Oral) Resp 30 Ht 5' 8 (1.727 m) Wt 100.2 kg(220 lb 14.4 oz) SpO2 93% BMI 33.59 kg/m?? WBC Date/Time Value Ref Range Status 04/05/2025 11:08 PM 10.9 (H) 4.2 - 9.1 K/uL Final 03/14/2020 01:00 PM 5.2 4.2 - 9.1 K/uL Final 04/05/2018 04:25 AM 12.7 (H) 4.8 - 10.8 K/uL Final PLATELETS Date/Time Value Ref Range Status 04/05/2025 11:08 PM 199 130 - 400 K/uL Final 03/14/2020 01:00 PM 154 130 - 400 K/uL Final 04/05/2018 04:25 AM 195 140 - 440 K/uL Final BUN Date/Time Value Ref Range Status 04/05/2025 11:08 PM 27 (H) 8 - 23 mg/dL Final 03/14/2020 01:00 PM 22 8 - 23 mg/dL Final 04/04/2018 04:05 AM 22 8 - 23 mg/dL Final CREATININE Date/Time Value Ref Range Status 04/05/2025 11:08 PM 0.82 0.67 - 1.17 mg/dL Final Comment: The GFR result is not clinically significant on patients <18 or >70 years of age. 03/14/2020 01:00 PM 0.84 0.67 - 1.17 mg/dL Final Comment: The GFR result is not clinically significant on patients <18 or >70 years of age. 04/04/2018 04:05 AM 0.74 0.70 - 1.20 mg/dL Final Comment: The GFR result is not clinically significant on patients <18 or >70 years of age. Thank you for the consult and involving us in the care of this patient, we will continue to monitor. Munir Vega, PHARMACIST * Munir Vega, PHARMACIST - 04/06/2025 7:55 PM CDT PHARMACY CONSULT SERVICE PROTOCOL: A ???CONSULT TO PHARMACY?? order has been placed on this patient per Hospital Pharmacy policy- [facility]. This order can be found on the [facility] and authorizes pharmacy tomanage the dosing and monitoring of consulted medications as follows: Pharmacy will order the initial doses and any labs deemed clinically necessary to dose a consulted medication. These initial orders will be signed ???Per Protocol?? under the name of the provider who placed the ???CONSULT TO PHARMACY?? order. Pharmacy will have the authority to modify the doses and order any labs deemed clinically necessaryfor consulted medications on subsequent days as long as the ???CONSULT TO PHARMACY?? order remainsactive on the MAR. Orders for dosing changes and follow-up labs will be signed ???Per Protocol?? in [facility]. The name of the provider signed on the follow-up orders for cosignature will be assigned as follows: Consults for patients whose antimicrobials are being managed by members of the Insurance Healthcare Consultant or Hospitalist physician groups: If the original authorizing provider is no longer the attending physician for the patient, responsibility for cosignature of the follow-up medication orders and labs will transfer from the original authorizing provider to the current attending physician. Consults for patients whose antimicrobials are being managed by any other provider: Responsibility for cosignature of the follow-up medication orders and labs will remain with the original authorizing provider of the ???CONSULT TO PHARMACY?? order. Any attending physician has the authority to cancel pharmacy dosing/monitoring and resume dosing/monitoring of the medications without pharmacy assistance at any time by discontinuing the ???CONSULT TO PHARMACY?? order from the [facility]. This protocol has been approved by the [facility] Pharmacy and Therapeutics Committee. Cosigned by You Gallegos MD at 04/06/2025 10:52 PM CDT documented in this encounter ED Notes * Jennifer Guevara RN - 04/07/2025 11:40 AM CDT Called [facility] 3A and notified of the time that patient left for transfer. * Jennifer Guevara RN - 04/07/2025 10:[address] [facility] EMS crew here. Report given. Saline lock patent and intact. Atrial fibrillation on monitor. Patient belongings sent with patient. Family at bedside. Patient was resting with respirations even and unlabored and awakens easily with EMS entering room. * Jennifer Guevara RN - 04/07/2025 8:50 AM CDT states that he ate better several bites of food today and is now resting with respirations even and unlabored. * Jennifer Guevara RN - 04/07/2025 8:15 AM CDT Patient is awake and working on having patient eat breakfast. * Jennifer Guevara RN - 04/07/2025 8:[address] [facility] Dispatch advising that there will be a delay in transfer * Jennifer Guevara RN - 04/07/2025 8:10 AM CDT at bedside * Jaswant Sarabia RN - 04/07/2025 7:58 AM CDT Patient's at bedside helping patient eat breakfast. Patient cooperating with care. * Jennifer Guevara RN - 04/07/2025 7:40 AM CDT Patient resting with respirations even and unlabored. Sitter remains at bedside * Jennifer Guevara RN - 04/07/2025 7:03 AM CDT Herminia Camp called and given update * Macy Goel RCP - 04/07/2025 6:49 AM CDT Pt given albuterol/atrovent * Susannah Watkins RN - 04/07/2025 6:34 AM CDT Pt resting quietly, at times sleeping. O2 on at 2 lpm/NC SR up x 3, BA on and audible. * Kiya Thakkar RN - 04/07/2025 6:26 AM CDT Patient resting in bed with sitter at bedside. * Kiya Thakkar RN - 04/07/2025 6:18 AM CDT Dispatch called for transfer, spoke with Ronda. * Susannah Watkins RN - 04/07/2025 5:44 AM CDT Pt appears restless. Keeps taking his oxygen off. Has some SOB and wheezes, RT at BS to assess and treat. * Susannah Watkins RN - 04/07/2025 3:34 AM CDT Pt resting, seems to be sleeping better now. O2 on at 2 lpm/NC. HOB up to 45 degrees. Will continue to monitor. * Susannah Watkins RN - 04/07/2025 2:29 AM CDT Pt awake, does answer questions appropriately. Continues to deny pain. Will continue to monitor. * Susannah Watkins RN - 04/07/2025 1:57 AM CDT Pt restless at times. O2 on at 2 lpm/NC. BA on and audible. SR up x 3. Will continue to monitor. * Susannah Watkins RN - 04/07/2025 12:32 AM CDT Pt resting, at times sleeping, does get restless at times. O2 on at 2 lpm via Oxymask. IV site WNL, Ns and IV Vanc infusing without difficulty. BA on and audible, sitter at BS. SR up x 3. * Susannah Watkins RN - 04/06/2025 11:39 PM CDT Pt resting quietly, appears to be sleeping. HOB elevated 20 degrees. O2 on at 2 lpm/NC. SR up x 3. BA on and audible. Will continue to monitor. * Kiya Thakkar RN - 04/06/2025 10:05 PM CDT Patient confused, anxious and getting out of bed. Provider notified. New orders obtained. * Lidia Navarrete - 04/06/2025 9:19 PM CDT [facility] called, this tech asked for update on patient's bed. Stated he would probablyhave a bed in the morning, as they stopped releasing beds. * Kiya Thakkar RN - 04/06/2025 7:15 PM CDT Patient sleeping, oxygen saturation decreased to 88%. Patient placed on 2 Liters via nasal cannula.Provider notified. * Jennifer Guevara RN - 04/06/2025 6:[address] Gallegos notified that patient is becoming more agitated and attempting to get out of bed multiple times. * Maximo Hodges RN - 04/06/2025 6:19 PM CDT [facility] Transfer Line calling for an update. At this time no beds available advises waiting on discharges. * Jennifer Guevara RN - 04/06/2025 5:56 PM CDT Meal tray provided to patient. Family encouraging patient to eat. Douglas juice provided to patient.Meal tray provided for at bedside. * Lidia Navarrete - 04/06/2025 5:47 PM CDT Patient placed on bed mccracken, depends changed, and clothing changed. Patient reported feeling like he needed to have a BM, but only produced gas. * Jennifer Guevara RN - 04/06/2025 5:24 PM CDT Family asking if he can have something to help calm him down so he can rest that he is agitated at this time. Family also asking if we can try calling [facility]. DR Gallegos notified. Explained to family per DR Gallegos that [facility] should be getting a lot closer to getting him a bed and that generally if one hospital is full the other one is too. Family is ok with this. Advises that he has not had a bowel movement and is not wanting to eat either. * Jennifer Guevara RN - 04/06/2025 2:55 PM CDT Updated family with wait time. * Jennifer Guevara RN - 04/06/2025 2:[address] [facility] Transfer Line on patient condition. Currently denies chest pain. Patient unable to lay still in bed at this time and mumbling with family at bedside. * Jennifer Guevara RN - 04/06/2025 2:25 PM CDT Patient rolled back on his back on his own. Patient continues to mumble and talk to at bedsidebut unable to lay still in bed. Denies any pain at this time. * Jennifer Guevara RN - 04/06/2025 2:02 PM CDT Repositioned patient in bed and laying on right side. Placed pillow in between legs to help elevatethe right leg. * Jennifer Guevara RN - 04/06/2025 1:35 PM CDT Back to room. Warm blanket provided. Patient is alert and oriented x 4 but continues to mumble and at times rambles on about multiple things running sentences all together. Patient denies any nausea or chest pain. Patient ate 1 pudding cup for lunch and did not eat anything else. * Jennifer Guevara RN - 04/06/2025 1:17 PM CDT Patient transported via stretcher. Patient transported to [place] with Tech. * Jennifer Guevara RN - 04/06/2025 1:05 PM CDT Patient resting with respirations even and unlabored * Jennifer Guevara RN - 04/06/2025 1:04 PM CDT Radiology notified of orders. * Jennifer Guevara RN - 04/06/2025 12:58 PM CDT [facility] calling and advising to give an updated as soon as possible when getting further results. DR Gallegos notified. * Jennifer Guevara RN - 04/06/2025 12:45 PM CDT [facility] calling for patient update. Notified of changes in patient condition. Advises remains with no beds available at this time. * Jennifer Guevara RN - 04/06/2025 12:05 PM CDT Patient repeating himself and mumbling prior to morphine being given. POC glucose ordered DR Gallegos notified. * Jennifer Guevara RN - 04/06/2025 11:24 AM CDT Patient remains to have chest pain in the right chest a 07/28. DR Gallegos notified. * Jennifer Guevara RN - 04/06/2025 10:21 AM CDT RT at bedside for EKG * Jennifer Guevara RN - 04/06/2025 10:18 AM CDT RT notified of orders * Jennifer Guevara RN - 04/06/2025 10:17 AM CDT Patient complaining of chest tightness to the right side of his chest. Rates a 2/10. No radiation. Patient states oh I don't need anything done with it DR Gallegos notified. Adjusted patient in bed. Patient asking if he can hang his legs off of the bed. I advised that he needs to keep the right leg up on the bed for elevation. DR Gallegos advises that he does not want troponins ordered * Jennifer Guevara RN - 04/06/2025 9:15 AM CDT Family at bedside * Jennifer Guevara RN - 04/06/2025 8:19 AM CDT [facility] Transfer Line calling for an update. At this time no beds available advises waiting on discharges. * Jennifer Guevara RN - 04/06/2025 8:00 AM CDT Patient's grand daughter at bedside. Patient has finished eating 25% of meal but drank all of his orange juice and drinking ice water * Jennifer Guevara RN - 04/06/2025 7:37 AM CDT Meal tray provided to patient and set up for patient * Kiya Thakkar RN - 04/06/2025 2:45 AM CDT Patient placed on hospital bed for comfort. Patient will not get a bed until later today, patient and family made aware. * Kiya Thakkar RN - 04/06/2025 2:20 AM CDT Wounds on right ankle and leg cleansed with hibicleanse, dressed with xeroform, telfa and ankle resplinted per provider verbal order. * Macy Goel RCP - 04/05/2025 11:39 PM CDT EKG completed. Results given to Dr. Norton and scanned into [facility]. * Rosaura Abernathy RN - 04/05/2025 10:30 PM CDT Patient arrival to emergency room in a wheelchair with an existing leg splint to his right lower leg. Patient's family presents with him. Family reports the patient was involved in an accident 5 daysago where his tractor ran over his right leg, resulting in several broken bones. Patient was discharged home with the leg cast. Patient's family reports that patient has since been having confusion and altered mental status with decreased urination, dark urine, and fever. Patient's last known well being was sometime per family. Patient is alert and oriented times 4 but slow to respond toquestions and is difficult to understand at times due to him making confusing statements. 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 Per family, patient last took a hydrocodone at 0500 today but hasn't taken anything since. Per family, the patient was previously treated in January for a urinary tract infection and his symptoms now concern them for another possible one. Patient also presents with complaints of increased swelling to the right lower extremity and increased pain. Family reports his leg is much more swollen than it has previously been. documented in this encounter Plan of Treatment Not on file documented as of this encounter Procedures Procedure Name Priority Date/Time Associated Diagnosis Comments TELEMETRY REPORT 04/08/2025 9:02 AM CDT BASIC METABOLIC PANEL Stat 04/07/2025 10:25 AM CDT POC GLUCOSE Stat 04/06/2025 5:44 PM CDT TROPONIN 6 HR, 5TH GEN Timed Study 04/06/2025 5:40 PM CDT TROPONIN 2 HR, 5TH GEN Timed Study 04/06/2025 2:08 PM CDT CTA CHEST W WO CONTRAST Stat 04/06/2025 1:33 PM CDT POC GLUCOSE Stat 04/06/2025 12:10 PM CDT TROPONIN BASELINE, 5TH GEN Stat 04/06/2025 11:50 AM CDT D-DIMER Stat 04/06/2025 11:50 AM CDT BLOOD CULTURE Stat 04/06/2025 1:54 AM CDT ANAEROBIC/AEROBIC CULTURE W GRAM STAIN Stat 04/06/2025 1:54 AM CDT BLOOD CULTURE Stat 04/06/2025 1:54 AM CDT BLOOD CULTURE Stat 04/06/2025 1:42 AM CDT BLOOD CULTURE Stat 04/06/2025 1:42 AM CDT XR ANKLE 3+ VW RIGHT Stat 04/06/2025 12:[address] HEAD WO CONTRAST Stat 04/05/2025 1 1:38 PM CDT XR CHEST PA OR AP 1 VW Stat 04/05/2025 11:38 PM CDT URINALYSIS WITH REFLEX CULTURE Stat 04/05/2025 11:21 PM CDT URINALYSIS MICROSCOPY ONLY Stat 04/05/2025 11:21 PM CDT COVID-19 ANTIGEN Stat 04/05/2025 11:0 9 PM CDT INFLUENZA VIRUS A AND B, ANTIGEN DETECTION Stat 04/05/2025 11:09 PM CDT LACTIC ACID Stat 04/05/2025 11:08 PM CDT CBC WITH DIFFERENTIAL Stat 04/05/2025 11:08 PM CDT PROTIME-INR Stat 04/05/2025 11:08 PM CDT CK Stat 04/05/2025 11:08 PM CDT COMPREHENSIVE METABOLIC PANEL Stat 04/05/2025 11:08 PM CDT PULSE OXIMETRY, CONTINUOUS Stat 04/05/2025 10:55 PM CDT documented in this encounter Results * TELEMETRY REPORT (04/08/2025 9:02 AM CDT) us Provider Scanning ECG ORDERABLES Final Result * (ABNORMAL) BASIC METABOLIC PANEL (04/07/2025 10:25 AM CDT) SODIUM 140 136 - 145 mmol/L 04/07/2025 10:50 AM CDT [facility] POTASSIUM 4.2 3.5 - 5.1 mmol/L 04/07/2025 10:50 AM CDT [facility] CHLORIDE 107 98 - 107 mmol/L 04/07/2025 10:50 AM CDT [facility] CO2 24 22 - 29 mmol/L 04/07/2025 10:50 AM CDT [facility] CALCIUM 8.7(L) 8.8 - 10.2 mg/dL 04/07/2025 10:50 AM CDT [facility] BUN 29(H) 8 - 23 mg/dL 04/07/2025 10:50 AM CDT [facility] CREATININE 0.99 0.67 - 1.17 mg/dL 04/07/2025 10:50 AM T [facility] Comment:The GFR result is no t clinically significant on patients <18 or >70 years of age. GLUCOSE 127(H) 74 - 99 mg/dL 04/07/2025 10:50 AM T [facility] GFR >60 mL/min/1.7 3 sq meter 04/07/2025 10:50 AM CDT [facility] Comment:eGFR calculated with 2020 CKD-EPI equation. Vegetarian diet, extremely high or low muscle mass, and may affect results. Cystatin C with Glomerular Filtration Rate is a suitable alternative for these patients. ANION GAP 9 5 - 20 mmol/L 04/07/2025 10:50 AM CDT [facility] Blood Collection / Unknown 04/07/2025 10:25 AM CDT 04/07/2025 10:31 AM CDT us Michele Bucio MD CHEMISTRY ORDERABLES Final Resu lt [facility] CLIA # [id number] [address] [place] [id number] * (ABNORMAL) POC GLUCOSE (04/06/2025 5:44 PM CDT) GLUCOSE POC 114(H) 74 - 99 mg/dL 04/06/2025 5:44 PM CDT [facility] SPECIMEN SOURCE, GLUCOSE POC Whole Blood 04/06/2025 5:44 PM CDT [facility] Blood, whole 04/06/2025 5:44 PM CDT 04/06/2025 5:58 PM CDT us You Gallegos MD POINT OF CARE TESTING Fi nal Result [facility] CLIA # [id number] [address] [place] [address] * (ABNORMAL) TROPONIN 6 HR, 5TH GEN (04/06/2025 5:40 PM CDT) TROPONIN T, 6 HR 5TH GEN 30(H) <=15 ng/L 04/06/2025 6:42 PM CDT [facility] DELTA 6HR TROPONIN T 3 See Interp. 04/06/2025 6:42 PM CDT [facility] Blood BLOOD SPECIMEN / Unknown Venipuncture / Unknown 04/06/2025 5:40 PM CDT 04/06/2025 5:54 PM CDT Narrative [facility] - 04/06/2025 6:42 PM CDT Troponin elevated. Delta indeterminate. You Gallegos MD CHEMISTRY ORDERABLES Fin al Result Performing Organization Address [facility]/ZIP Co de Phone Number [facility] CLIA # [id number] [address] [place] [phone] * (ABNORMAL) TROPONIN 2 HR, 5TH GEN (04/06/2025 2:08 PM CDT) TROPONIN T, 2 HR 5TH GEN 27(H) <=15 ng/L 04/06/2025 2:32 PM CDT [facility] Comment:Hemolysis can falsel y decrease Troponin quantitation. DELTA 2HR TROPONIN T 0 See Interp. 04/06/2025 2:32 PM CDT [facility] Blood BLOOD SPECIMEN / Unknown Venipuncture / Unknown 04/06/2025 2:08 PM CDT 04/06/2025 2:13 PM CDT [facility] - 04/06/2025 2:32 PM CDT Troponin elevated. Delta not changing. You Gallegos MD CHEMISTRY ORDERABLES Fin al Result Performing Organization Address City/[facility]/ZIP Co de Phone Number [facility] CLIA # [id number] [address] [place] [phone] * CTA CHEST W WO CONTRAST (04/06/2025 1:33 PM CDT) Anatomical Region Laterality Modality Chest Computed Tomogra phy 04/06/2025 1:10 PM CDT Impressions 04/06/2025 1:53 PM CDT IMPRESSION: 1. Motion degraded study. The study is diagnostic to the level of the segmental pulmonary arteries. 2. No appreciable pulmonary embolism. 3. Cardiomegaly with biatrial prominence. No evidence to suggest overt pulmonary edema. 4. Sub-4 mm pulmonary nodules bilaterally. 5. Other findings as above. Narrative 04/06/2025 1:53 PM CDT EXAM: CTA CHEST W WO CONTRAST DATE/TIME OF EXAM: 04/06/2025 1:33 PM REASON FOR STUDY: Pulmonary embolism (PE) suspected, low to intermediate prob, positive D-dimer DIAGNOSIS: Cellulitis of right leg; Disorientation; Closed bimalleolar fracture of right ankle, initial encounter COMPARISON: 04/05/2025 IV CONTRAST: IOPAMIDOL 61 % INTRAVENOUS SOLUTION (SINGLE USE VIAL) Given:95 mL Technique: CTA of the chest was performed. Post-processing was performed, including sagittal and coronal reformations and 3-D MIP reconstruction. FINDINGS: Motion degraded study. The study is diagnostic to the level of the segmental pulmonary arteries. PULMONARY ARTERIES: Motion degraded assessment. Good opacification of the pulmonary arteries. No pulmonary embolus. Normal caliber main pulmonary artery. Sub-4 mm pulmonary nodules bilaterally. THORACIC AORTA: Normal caliber. Atherosclerotic calcification within the aorta. Coronary artery disease. HEART: Cardiomegaly with biatrial prominence. No pericardial effusion. RV/LV INDEX: RV/LV index is < 0.9 LUNGS: Bibasilar atelectasis. No focal consolidation, pleural effusion or pneumothorax. Evidence of prior granulomatous infection. TRACHEA/AIRWAYS: Trachea and central bronchi are patent. LYMPH NODES/MEDIASTINUM: No suspicious lymphadenopathy in the chest. Hiatal hernia. THORACIC INLET: No acute abnormality. UPPER ABDOMEN: Hepatic steatosis. BONES: No acute bony abnormality. Mild degenerative changes of the spine. Procedure Note Brittnee El MD - 04/06/2025 EXAM: CTA CHEST W WO CONTRAST DATE/TIME OF EXAM: 04/06/2025 1:33 PM REASON FOR STUDY: Pulmonary embolism (PE) suspected, low to intermediate prob, positive D-dimer DIAGNOSIS: Cellulitis of right leg; Disorientation; Closed bimalleolar fracture of right ankle, initial encounter COMPARISON: 04/05/2025 IV CONTRAST: IOPAMIDOL 61 % INTRAVENOUS SOLUTION (SINGLE USE VIAL) Given:95 mL Technique: CTA of the chest was performed. Post-processing was performed, including sagittal and coronal reformations and 3-D MIP reconstruction. FINDINGS: Motion degraded study. The study is diagnostic to the level of the segmental pulmonary arteries. PULMONARY ARTERIES: Motion degraded assessment. Good opacification of the pulmonary arteries. No pulmonary embolus. Normal caliber main pulmonary artery. Sub-4 mm pulmonary nodules bilaterally. THORACIC AORTA: Normal caliber. Atherosclerotic calcification within the aorta. Coronary artery disease. HEART: Cardiomegaly with biatrial prominence. No pericardial effusion. RV/LV INDEX: RV/LV index is < 0.9 LUNGS: Bibasilar atelectasis. No focal consolidation, pleural effusion or pneumothorax. Evidence of prior granulomatous infection. TRACHEA/AIRWAYS: Trachea and central bronchi are patent. LYMPH NODES/MEDIASTINUM: No suspicious lymphadenopathy in the chest. Hiatal hernia. THORACIC INLET: No acute abnormality. UPPER ABDOMEN: Hepatic steatosis. BONES: No acute bony abnormality. Mild degenerative changes of the spine. IMPRESSION: 1. Motion degraded study. The study is diagnostic to the level of the segmental pulmonary arteries. 2. No appreciable pulmonary embolism. 3. Cardiomegaly with biatrial prominence. No evidence to suggest overt pulmonary edema. 4. Sub-4 mm pulmonary nodules bilaterally. 5. Other findings as above. You Gallegos MD CT ORDERABLES Final Re sult * POC GLUCOSE (04/06/2025 12:10 PM CDT) GLUCOSE POC 80 74 - 99 mg/dL 04/06/2025 12:10 PM CDT [facility] SPECIMEN SOURCE, GLUCOSE POC Whole Blood 04/06/2025 12:10 PM CDT [facility] Blood, whole 04/06/2025 12:1 0 PM CDT 04/06/2025 12:18 PM CDT You Gallegos MD POINT OF CARE TESTING Fi nal Result [facility] CLIA # [id number] [address] [place] [address] * (ABNORMAL) TROPONIN BASELINE, 5TH GEN (04/06/2025 11:50 AM CDT) TROPONIN T, BASELINE 5TH GEN 27(H) <=15 ng/L 04/06/2025 12:41 PM CDT [facility] Comment:Hemolysis can falsel y decrease Troponin quantitation. Blood BLOOD SPECIMEN / Unknown Venipuncture / Unknown 04/06/2025 11:50 AM CDT 04/06/2025 12:05 PM CDT [facility] - 04/06/2025 12:41 PM CDT Troponin elevated. You Gallegos MD CHEMISTRY ORDERABLES Fin al Result Performing Organization Address City/[facility]/ZIP Co de Phone Number [facility] CLIA # [id number] [address] [place] [address] * (ABNORMAL) D-DIMER (04/06/2025 11:50 AM CDT) D-DIMER QUANT 0.71(H) <0.50 ug/mL FEU 04/06/2025 12:54 PM CDT [facility] Blood BLOOD SPECIMEN / Unknown Venipuncture / Unknown 04/06/2025 11:50 AM CDT 04/06/2025 12:05 PM CDT [facility] - 04/06/2025 12:54 PM CDT D-Dimer assay cutoff value for exclusion of DVT and/or PE is <0.50 ug/mL FEU. As D-Dimer levels increase naturally with age, age stratification for patients over 50 is potentially more appropriate in determining whether a patient should undergo further evaluation for DVT and/or PE than a general cutoff of 0.50 ug/mL FEU. Clinical consideration is recommended. Age Stratified Cutoff Values: 50-60 years: 0.50-0.60 ug/mL FEU 61-70 years: 0.61-0.70 ug/mL FEU 71-80 years: 0.71-0.80 ug/mL FEU You Gallegos MD HEMATOLOGY ORDERABLES Fi nal Result Performing Organization Address City/[facility]/ZIP Co de Phone Number [facility] CLIA # [id number] [address] [place] [address] * ANAEROBIC/AEROBIC CULTURE W GRAM STAIN (04/06/2025 1:54 AM CDT) CULTURE No aerobic or anaerobic growth 04/09/2025 8:22 AM CDT [facility] GRAM STAIN No Polymorphonuclear WBC 04/09/2025 8:22 AM CDT [facility] GRAM STAIN No organisms observed 04/09/2025 8:22 AM CDT [facility] Abscess (Leg) Collection / Unknown 04/06/2025 1:54 AM CDT 04/06/2025 2:01 AM CDT Narrative [facility] - 04/09/2025 8:22 AM CDT Specimen received on swabs. Tissue and fluid specimens are recommended for the optimal recovery of anaerobes. Jean Carlos Norton MD MICROBIOLOGY - GENERAL ORDER ZAID Final Result Performing Organization Address City/[facility] Co de Phone Number [facility] CLIA # [id number] [address] [address] * BLOOD CULTURE (04/06/2025 1:54 AM CDT) BLOOD CULTURE No growth 04/11/2025 5:45 PM CDT [facility] Blood (Peripheral) Venipuncture / Unknown 04/06/2025 1:54 AM CDT 04/06/2025 2:00 AM CDT [facility] - 04/11/2025 5:45 PM CDT Specimen processed with suboptimal blood volume collected. Jean Carlos Norton MD MICROBIOLOGY - GENERAL ORDER ZAID Final Result Performing Organization Address [facility] Co de Phone Number [facility] CLIA # [id number] [address] [address] [place] [address] * BLOOD CULTURE (04/06/2025 1:42 AM CDT) BLOOD CULTURE No growth 04/11/2025 5:45 PM CDT [facility] Blood (Peripheral) Venipuncture / Unknown 04/06/2025 1:42 AM CDT 04/06/2025 2:00 AM CDT [facility] - 04/11/2025 5:45 PM CDT Specimen processed with suboptimal blood volume collected. Jean Carlos Norton MD MICROBIOLOGY - GENERAL ORDER ZAID Final Result Performing Organization Address [facility] Co de Phone Number [facility] CLIA # [id number] [address] [address] [place] [address] * XR ANKLE 3+ VW RIGHT (04/06/2025 12:57 AM CDT) Anatomical Region Laterality Modality Ankle / Foot Computed Radiogr aphy 04/06/2025 12:5 8 AM CDT Impressions 04/06/2025 1:25 AM CDT IMPRESSION: Acute mildly displaced fracture of the distal fibula. Acute nondisplaced fracture of the medial malleolus. . Narrative 04/06/2025 1:25 AM CDT EXAM: XR ANKLE 3+ VW RIGHT DATE/TIME OF EXAM: 04/06/2025 12:57 AM REASON FOR EXAM: Injury DIAGNOSIS: See Reason for Exam COMPARISON: None FINDINGS: Diffuse osteopenia. Acute mildly displaced fracture of the distal fibula. Acute nondisplaced fracture of the medial malleolus. Severe suggestive of the talonavicular joint with marginal osteophytes. Prominent soft tissue swelling of the ankle. No radiopaque foreign body. Procedure Note Jeet Thomas MD - 04/06/2025 EXAM: XR ANKLE 3+ VW RIGHT DATE/TIME OF EXAM: 04/06/2025 12:57 AM REASON FOR EXAM: Injury DIAGNOSIS: See Reason for Exam COMPARISON: None FINDINGS: Diffuse osteopenia. Acute mildly displaced fracture of the distal fibula. Acute nondisplaced fracture of the medial malleolus. Severe suggestive of the talonavicular joint with marginal osteophytes. Prominent soft tissue swelling of the ankle. No radiopaque foreign body. IMPRESSION: Acute mildly displaced fracture of the distal fibula. Acute nondisplaced fracture of the medial malleolus. . Jean Carlos Norton MD DIAGNOSTIC IMAGING ORDERABLE S Final Result * CT HEAD WO CONTRAST (04/05/2025 11:38 PM CDT) Anatomical Region Laterality Modality Head Computed Tomogra phy 04/05/2025 11:1 4 PM CDT Impressions 04/06/2025 12:49 AM CDT IMPRESSION: No evidence of an acute intracranial abnormality. Age-appropriate atrophy with mild microvascular ischemic disease. Narrative 04/06/2025 12:49 AM CDT EXAM: CT HEAD WO CONTRAST DATE/TIME OF EXAM: 04/05/2025 11:38 PM REASON FOR EXAM: Altered mental status DIAGNOSIS: See Reason for Exam COMPARISON: None. TECHNIQUE: Axial noncontrast CT images were obtained through the brain. Sagittal and coronal re-formations were subsequently performed. FINDINGS: Brain: No evidence of intracranial hemorrhage or extra-axial fluid collection. No intracranial mass effect or midline shift identified. Mild periventricular and subcortical white matter hypoattenuation is nonspecific though likely reflects a manifestation of chronic microvascular ischemia. No findings to suggest an evolving acute large vascular territory infarct. Parenchymal volume is within normal limits for patient age; no significant atrophy. Bones/Skull base: No suspicious osseous lesions. No acute findings. Sinuses: Visualized portions of the paranasal sinuses and mastoid air cells are clear. Additional comments: None. Procedure Note Jeet Thomas MD - 04/06/2025 EXAM: CT HEAD WO CONTRAST DATE/TIME OF EXAM: 04/05/2025 11:38 PM REASON FOR EXAM: Altered mental status DIAGNOSIS: See Reason for Exam COMPARISON: None. TECHNIQUE: Axial noncontrast CT images were obtained through the brain. Sagittal and coronal re-formations were subsequently performed. FINDINGS: Brain: No evidence of intracranial hemorrhage or extra-axial fluid collection. No intracranial mass effect or midline shift identified. Mild periventricular and subcortical white matter hypoattenuation is nonspecific though likely reflects a manifestation of chronic microvascular ischemia. No findings to suggest an evolving acute large vascular territory infarct. Parenchymal volume is within normal limits for patient age; no significant atrophy. Bones/Skull base: No suspicious osseous lesions. No acute findings. Sinuses: Visualized portions of the paranasal sinuses and mastoid air cells are clear. Additional comments: None. IMPRESSION: No evidence of an acute intracranial abnormality. Age-appropriate atrophy with mild microvascular ischemic disease. Jean Carlos Norton MD CT ORDERABLES Final Result * XR CHEST PA OR AP 1 VW (04/05/2025 11:38 PM CDT) Anatomical Region Laterality Modality Chest Computed Radiogr aphy 04/05/2025 11:3 8 PM CDT Impressions 04/06/2025 12:48 AM CDT IMPRESSION: No evidence of acute cardiopulmonary disease. Narrative 04/06/2025 12:48 AM CDT EXAM: XR CHEST PA OR AP 1 VW DATE/TIME OF EXAM: 04/05/2025 11:38 PM REASON FOR EXAM: Altered Mental Status DIAGNOSIS: See Reason for Exam COMPARISON: Chest x-ray 03/14/2020 FINDINGS: - Lines/tubes: None. - Cardiomediastinal: Mild cardiomegaly - Lungs/pleura: Radiographically the lungs appear clear. Hemidiaphragms are well visualized; no appreciable pleural effusion or pneumothorax. - Bones and soft tissues: No acute abnormalities. - Additional comments: None. Procedure Note Jeet Thomas MD - 04/06/2025 EXAM: XR CHEST PA OR AP 1 VW DATE/TIME OF EXAM: 04/05/2025 11:38 PM REASON FOR EXAM: Altered Mental Status DIAGNOSIS: See Reason for Exam COMPARISON: Chest x-ray 03/14/2020 FINDINGS: - Lines/tubes: None. - Cardiomediastinal: Mild cardiomegaly - Lungs/pleura: Radiographically the lungs appear clear. Hemidiaphragms are well visualized; no appreciable pleural effusion or pneumothorax. - Bones and soft tissues: No acute abnormalities. - Additional comments: None. IMPRESSION: No evidence of acute cardiopulmonary disease. Jean Carlos Norton MD DIAGNOSTIC IMAGING ORDERABLE S Final Result * (ABNORMAL) URINALYSIS MICROSCOPY ONLY (04/05/2025 11:21 PM CDT) WBC UA 0-2 0 - 2 /hpf 04/05/2025 11:35 PM CDT [facility] RBC UA 0-2 0 - 2 /hpf 04/05/2025 11:35 PM CDT [facility] BACTERIA UA 2+(A) Negative /hpf 04/05/2025 11:35 PM CDT [facility] EPITHELIAL CELLS, URINE 0-5 0 - 5 /hpf 04/05/2025 11:35 PM CDT [facility] Urine URINE SPECIMEN OBTAINED BY CLEAN CATCH PROCEDURE / Unknown Collection / Unknown 04/05/2025 11:21 PM CDT 04/05/2025 11:24 PM CDT Jean Carlos Norton MD URINE ORDERABLES Final Resul t [facility] CLIA # [id number] [address] [place] [address] * (ABNORMAL) URINALYSIS WITH REFLEX CULTURE (04/05/2025 11:21 PM CDT) COLOR UA Yellow Pale to Dark Yellow 04/05/2025 11:35 PM CDT [facility] CLARITY UA Clear Clear 04/05/2025 11:35 PM CDT [facility] SPECIFIC GRAVITY UA >=1.030 1.003 - 1.035 04/05/2025 11:35 PM CDT [facility] PH UA 6.0 5.0 - 8.0 04/05/2025 11:35 PM CDT [facility] LEUKOCYTE ESTERASE UA Negative Negative 04/05/2025 11:35 PM CDT [facility] NITRITE UA Negative Negative 04/05/2025 11:35 PM CDT [facility] PROTEIN UA 1+(A) Negative 04/05/2025 11:35 PM CDT [facility] GLUCOSE UA Negative Negative 04/05/2025 11:35 PM CDT [facility] KETONES UA 1+(A) Negative 04/05/2025 11:35 PM CDT [facility] UROBILINOGEN UA 2.0(A) <2.0 mg/dL 11:35 PM CDT [facility] BILIRUBIN UA 2+(A) Negative 04/05/2025 11:35 PM CDT [facility] BLOOD UA Trace(A) Negative 04/05/2025 11:35 PM CDT [facility] Comment: For patients with 'trace' results, consider ordering a culture and sensitivity if clinically indicated. Urine URINE SPECIMEN OBTAINED BY CLEAN CATCH PROCEDURE / Unknown Collection / Unknown 04/05/2025 11:21 PM CDT 04/05/2025 11:24 PM CDT us Jean Carlos Norton MD URINE ORDERABLES Final Resul t [facility] CLIA # [id number] [address] [place] [address] * INFLUENZA VIRUS A AND B, ANTIGEN DETECTION (04/05/2025 11:09 PM CDT) INFLUENZA A AG NOT DETECTED Not Detected 04/05/2025 11:34 PM CDT [facility] INFLUENZA B AG NOT DETECTED Not Detected 04/05/2025 11:34 PM CDT [facility] Upper Respiratory ENTIRE NASOPHARYNX / Unknown Collection / Unknown 04/05/2025 11:09 PM CDT 04/05/2025 11:16 PM CDT Narrative [facility] - 04/05/2025 11:34 PM CDT Negative results do not rule out infection. If clinically indicated, consider PCR testing which is more sensitive than antigen testing. If PCR testing is desired, consult with your local laboratory as sample recollection may be required. Jean Carlos Norton MD MICROBIOLOGY - GENERAL ORDER ZAID Final Result [facility] CLIA # [id number] [address] [place] [address] * COVID-19 ANTIGEN (04/05/2025 11:09 PM CDT) COVID-19 ANTIGEN Presumptive Negative Presumptive Negative 04/05/2025 11:34 PM CDT [facility] Upper Respiratory ANTERIOR NARES SWAB / Unknown Collection / Unknown 04/05/2025 11:09 PM CDT 04/05/2025 11:16 PM CDT Narrative [facility] - 04/05/2025 11:34 PM CDT Tari SARS antigen test has been authorized by FDA under an emergency use authorization (EUA) and has been authorized only for the detection of proteins from SARS-CoV-2 and influenza, not for any other viruses or pathogens. Tari SARS Antigen GARETH is intended for the simultaneous qualitative detection and differentiation of nucleocapsid protein antigen from SARS-CoV-2 directly from nasopharyngeal ([employer]ER) and nasal (NS) swab specimens collected from individuals who are suspected of respiratory viral infection consistent with COVID-19 by their healthcare provider within the first five (5) days of symptom onset when tested at least twice over three days with at least 48 hours between tests, or from individuals without symptoms or other epidemiological reasons to suspect COVID-19 when tested at least three times over five days with at least 48 hours between tests. This test is only authorized for the duration of the declaration that circumstances exist justifying the authorization of emergency use of in vitro diagnostics for detection and/or diagnosis of the virus that causes COVID-19 under Section 564(b)(1) of the Act, 21 U.S.C. 360bbb-3(b)(1), unless the authorization is terminated or revoked sooner. Negative results should be treated as presumptive and confirmed with a molecular assay, if necessary for patient care. Serial testing should be performed in individuals with negative results at least twice over three days (with 48 hours between tests) for symptomatic individuals or from individuals without symptoms or other epidemiological reasons to suspect COVID-19 when tested at least three times over five days with at least 48 hours between tests. Jean Carlos Norton MD MICROBIOLOGY - GENERAL ORDER ZAID Final Result Performing Organization Address [facility] Co de Phone Number [facility] # [id number] [address] [place] [phone] * (ABNORMAL) CK (04/05/2025 11:08 PM CDT) CK 469(H) 39 - 308 U/L 04/05/2025 11:31 PM CDT [facility] Blood BLOOD SPECIMEN / Unknown Collection / Unknown 04/05/2025 11:08 PM CDT 04/05/2025 11:13 PM CDT Jean Carlos Norton MD CHEMISTRY ORDERABLES Final R esult [facility] CLIA # [id number] [address] [place] [address] * LACTIC ACID (04/05/2025 11:08 PM CDT) LACTIC ACID 1.4 <=2.0 mmol/L 04/05/2025 11:31 PM CDT [facility] Blood BLOOD SPECIMEN / Unknown Collection / Unknown 04/05/2025 11:08 PM CDT 04/05/2025 11:13 PM CDT us Jean Carlos Norton MD CHEMISTRY ORDERABLES Final R esult [facility] CLIA # [id number] [address] [place] [address] * (ABNORMAL) COMPREHENSIVE METABOLIC PANEL (04/05/2025 11:08 PM CDT) SODIUM 135(L) 136 - 145 mmol/L 04/05/2025 11:31 PM CDT [facility] POTASSIUM 4.2 3.5 - 5.1 mmol/L 04/05/2025 11:[address] [facility] CHLORIDE 102 98 - 107 mmol/L 04/05/2025 11:[address] [facility] CO2 22 22 - 29 mmol/L 04/05/2025 11:[address] [facility] CALCIUM 9.2 8.8 - 10.2 mg/dL 04/05/2025 11:[address] [facility] BUN 27(H) 8 - 23 mg/dL 04/05/2025 11:[address] [facility] CREATININE 0.82 0.67 - 1.17 mg/dL 04/05/2025 11:[address] [facility] Comment:The GFR result is no t clinically significant on patients <18 or >70 years of age. GLUCOSE 108(H) 74 - 99 mg/dL 04/05/2025 11:[address] [facility] TOTAL PROTEIN 6.7 6.6 - 8.7 g/dL 04/05/2025 11:[address] [facility] ALBUMIN 3.5 3.5 - 5.2 g/dL 04/05/2025 11:[address] [facility] BILIRUBIN TOTAL 2.0(H) 0.0 - 1.2 mg/dL 04/05/2025 11:[address] [facility] ALKALINE PHOSPHATASE 81 40 - 129 U/L 04/05/2025 11:[address] [facility] AST 61(H) 0 - 50 U/L 04/05/2025 11:31 PM CDT [facility] ALT 34 0 - 50 U/L 04/05/2025 11:31 PM CDT [facility] GFR >60 mL/min/1.7 3 sq meter 04/05/2025 11:31 PM CDT [facility] Comment:eGFR calculated with 2020 CKD-EPI equation. Vegetarian diet, extremely high or low muscle mass, and may affect results. Cystatin C with Glomerular Filtration Rate is a suitable alternative for these patients. ANION GAP 11 5 - 20 mmol/L 04/05/2025 11:31 PM CDT [facility] Blood BLOOD SPECIMEN / Unknown Collection / Unknown 04/05/2025 11:08 PM CDT 04/05/2025 11:13 PM CDT Jean Carlos Norton MD CHEMISTRY ORDERABLES Final R esult Performing Organization Address City/[facility]/ZIP Co de Phone Number [facility] CLIA # [id number] [address] [place] [address] * (ABNORMAL) PROTIME-INR (04/05/2025 11:08 PM CDT) PROTIME 19.2(H) 12.1 - 14.3 Seconds 04/05/2025 11:27 PM CDT [facility] INR 1.6(H) 0.9 - 1.1 04/05/2025 11:27 PM CDT [facility] Blood BLOOD SPECIMEN / Unknown Collection / Unknown 04/05/2025 11:08 PM CDT 04/05/2025 11:13 PM CDT Jean Carlos Norton MD HEMATOLOGY ORDERABLES Final Result Performing Organization Address City/[facility]/ZIP Co de Phone Number [facility] CLIA # [id number] [address] [place] [address] * (ABNORMAL) CBC WITH DIFFERENTIAL (04/05/2025 11:08 PM [facility]) [facility] Signature WBC 10.9(H) 4.2 - 9.1 K/uL 04/05/2025 11:[address] [facility] RBC 4.41(L) 4.63 - 6.08 M/uL 04/05/2025 11:[address] [facility] HEMOGLOBIN 12.9(L) 13.7 - 17.5 g/dL 04/05/2025 11:[address] [facility] HEMATOCRIT 37.0(L) 40.1 - 51.0 % 04/05/2025 11:[address] [facility] MCV 83.9 79.0 - 92.2 fL 04/05/2025 11:[address] [facility] MCH 29.3 25.7 - 32.2 pg 04/05/2025 11:[address] [facility] MCHC 34.9 32.3 - 36.5 g/dL 04/05/2025 11:[address] [facility] RDW 13.6 11.0 - 14.5 % 04/05/2025 11:[address] [facility] RDW-STDEV 41.8 36.9 - 56.9 fL 04/05/2025 11:[address] [facility] PLATELETS 199 130 - 400 K/uL 04/05/2025 11:[address] [facility] MPV 9.9(L) 10.0 - 14.8 fL 04/05/2025 11:[address] [facility] NEUTROPHILS 83(H) 34 - 68 % 04/05/2025 11:[address] [facility] LYMPHOCYTES 7(L) 22 - 53 % 04/05/2025 11:[address] [facility] MONOCYTES 9 5 - 12 % 04/05/2025 11:[address] [facility] EOSINOPHILS 0(L) 1 - 7 % 04/05/2025 11:[address] [facility] BASOPHILS 0 0 - 1 % 04/05/2025 11:16 PM CDT [facility] IMMATURE GRANULOCYTES 0 % 04/05/2025 11:16 PM CDT [facility] NEUTROPHIL ABSOLUTE 9.05(H) 1.78 - 5.38 K/uL 04/05/2025 11:[address] [facility] LYMPHOCYTE ABSOLUTE 0.78(L) 1.20 - 3.40 K/uL 04/05/2025 11:16 PM T [facility] MONOCYTE ABSOLUTE 0.97(H) 0.30 - 0.82 K/uL 04/05/2025 11:16 PM T [facility] EOSINOPHIL ABSOLUTE 0.03(L) 0.04 - 0.54 K/uL 04/05/2025 11:16 PM T [facility] BASOPHILS ABSOLUTE 0.03 0.01 - 0.08 K/uL 04/05/2025 11:[address] [facility] IMMATURE GRANULOCYTES ABSOLUTE 0.03 K/uL 04/05/2025 11:[address] [facility] Blood BLOOD SPECIMEN / Unknown Collection / Unknown 04/05/2025 11:08 PM CDT 04/05/2025 11:13 PM CDT Jean Carlos Norton MD HEMATOLOGY ORDERABLES Final Result Performing Organization Address City/State/[facility] Co de Phone Number [facility] # [id number] [address] [place] [address] documented in this encounter Visit Diagnoses Diagnosis Cellulitis of right leg- Primary Cellulitis and abscess of leg, except foot Disorientation Other general symptoms Closed bimalleolar fracture of right ankle, initial encounter documented in this encounter Administered Medications Inactive Administered Medications - up to 3 most recent administrations Medication Order MAR Action Action Date Dose Rate Site diphenhydrAMINE (BENADRYL) injection 50 mg 50 mg, IM, ONE TIME ONLY, 1 dose, On Sun04/06/25 at 1900, Routine Given 04/06/2025 7:10 PM CDT 50 mg Arm, Left Upper haloperidol lactate (HALDOL) injection 5 mg 5 mg, IM, ONE TIME ONLY, 1 dose, On Sun04/06/25 at 1900, Stat Given 04/06/2025 7:10 PM CDT 5 mg Arm, Right Upper iopamidoL (ISOVUE-300) 61% injection (single-use vial) 95 mL 95 mL, IV, INTRA-PROCEDURE ONCE, 1 dose, Starting on Sun04/06/25 at 1332, Until Sun04/06/25 at 1333, Routine Contrast Given 04/06/2025 1:33 PM CDT 95 mL IPRATROPIUM 0.5 MG-ALBUTEROL 3 MG (2.5 MG BASE)/3 ML NEBULIZATION SOLN (CABINET OVERRIDE) 1 dose, Starting on Sun04/07/25 at 0641, Until Sun04/07/25 at 0642, Esme Goel: cabinet override ipratropium-albuteroL (DUONEB) 0.5 mg-3 mg(2.5 mg base)/3 mL inhalation solution 3 mL 3 mL, Inhalation, ONE TIME ONLY RESPIRATORY, 1 dose, On Sun04/07/25 at 0645, Routine Given 04/07/2025 6:42 AM CDT 3 mL LORazepam (ATIVAN) tablet 1 mg 1 mg, Oral, ONE TIME ONLY, 1 dose, On Sun04/06/25 at 1745, Stat Given 04/06/2025 5:39 PM CDT 1 mg LORazepam (ATIVAN) tablet 2 mg 2 mg, Oral, ONE TIME ONLY, 1 dose, On Sun04/06/25 at 2230, Routine Given 04/06/2025 10:22 PM CDT 2 mg morphine 2 mg/mL injection 2 mg 2 mg, IV, ONE TIME ONLY, 1 dose, On Sun04/06/25 at 1145, Routine Given 04/06/2025 11:59 AM CDT 2 mg ondansetron (ZOFRAN) 4 mg/2 mL injection 4 mg 4 mg, IV, ONE TIME ONLY, 1 dose, On Sun04/06/25 at 1145, Stat Given 04/06/2025 11:56 AM CDT 4 mg piperacillin-tazobact am (ZOSYN) 3.375 Gram in sodium chloride 0.9% 50 mL IVPB (MBP) 3.375 Gram, IV, EVERY 6 HOURS, First dose on Sun04/06/25 at 0115, Until Discontinued, Routine, Antibiotic Indication: Suspected Sepsis, Unknown Source New Bag 04/07/2025 7:38 AM CDT 3.375 Grams 118 mL/hr New Bag 04/07/2025 1:24 AM CDT 3.375 Grams 118 mL/hr New Bag 04/06/2025 7:36 PM CDT 3.375 Grams 118 mL/hr sodium chloride 0.9 % infusion IV, at 150 mL/hr, CONTINUOUS, Starting on Sun04/06/25 at 0130, Until Sun04/07/25 at 1310, Routine New Bag 04/06/2025 11:09 PM CDT 150 mL/hr New Bag 04/06/2025 4:20 PM CDT 150 mL/hr New Bag 04/06/2025 8:58 AM CDT 1,000 mL 150 mL/hr sodium chloride bacteriostatic 0.9 % injection 10 mL 10 mL, IV, SEE ADMIN INSTRUCTIONS, Starting on Sun04/06/25 at 1332, Until Sun04/07/25 at 1310, Routine Given 04/06/2025 1:33 PM CDT 10 mL vancomycin (VANCOCIN) 1,000 mg in sodium chloride 0.9 % 250 mL IVPB 1,000 mg, IV, ONE TIME ONLY, 1 dose, On Sun04/06/25 at 0115, Routine, Antibiotic Indication: Suspected Sepsis, Unknown Source New 04/06/2025 2:46 AM CDT 1,000 mg 285 mL/hr vancomycin (VANCOCIN) 1,500 mg in sodium chloride 0.9 % 500 mL IVPB 1,500 mg (rounded from 1,503 mg = 15 mg/kg 100.2 kg), IV, EVERY 24 HOURS, First dose (after last reorder) on Sun04/07/25 at 0000, Until Discontinued, Routine, Antibiotic Indication: Suspected Sepsis, Unknown Source New 04/06/2025 11:51 PM CDT 1,500 mg 376.67 mL/hr VANCOMYCIN CONSULT TO PHARMACY Initial dose: Duration:, Routine, Antibiotic Indication: Wound / Cellulitis / Abscess, Starting on Sun04/06/25 at 1940 documented in this encounter Active and Recently Administered Medications Times are shown in CDT. Scheduled Medication Order 04/05/2025 04/06/2025 04/07/2025 diphenhydrAMINE (BENADRYL) injection 50 mg (COMPLETED) 50 mg, IM, ONE TIME ONLY, 1 dose, On Sun04/06/25 at 1900, Routine 1910 (Given - Provider: Kiya Thakkar, MAGGY) haloperidol lactate (HALDOL) injection 5 mg (COMPLETED) 5 mg, IM, ONE TIME ONLY, 1 dose, On Sun04/06/25 at 1900, Stat 1910 (Given - Provider: Kiya Thakkar, MAGGY) iopamidoL (ISOVUE-300) 61% injection (single-use vial) 95 mL (COMPLETED) 95 mL, IV, INTRA-PROCEDURE ONCE, 1 dose, Starting on Sun04/06/25 at 1332, Until Sun04/06/25 at 1333, Routine 1333 (Contrast Given - Provider: Shirin Currie, RT) ipratropium-albuteroL (DUONEB) 0.5 mg-3 mg(2.5 mg base)/3 mL inhalation solution 3 mL (COMPLETED) 3 mL, Inhalation, ONE TIME ONLY RESPIRATORY, 1 dose, On Sun04/07/25 at 0645, Routine 0642 (Given - Provid er: Macy Goel RCP) LORazepam (ATIVAN) tablet 1 mg (COMPLETED) 1 mg, Oral, ONE TIME ONLY, 1 dose, On Sun04/06/25 at 1745, Stat 1739 (Given - Provider: Jennifer Guevara, MAGGY) LORazepam (ATIVAN) tablet 2 mg (COMPLETED) 2 mg, Oral, ONE TIME ONLY, 1 dose, On Sun04/06/25 at 2230, Routine 2222 (Given - Provider: Rosaura Abernathy RN) morphine 2 mg/mL injection 2 mg (COMPLETED) 2 mg, IV, ONE TIME ONLY, 1 dose, On Sun04/06/25 at 1145, Routine 1159 (Given - Provider: Jennifer Guevara, MAGGY) ondansetron (ZOFRAN) 4 mg/2 mL injection 4 mg (COMPLETED) 4 mg, IV, ONE TIME ONLY, 1 dose, On Sun04/06/25 at 1145, Stat 1156 (Given - Provider: Jennifer Guevara, MAGGY) piperacillin-tazobactam (ZOSYN) 3.375 Gram in sodium chloride 0.9% 50 mL IVPB (MBP) 3.375 Gram, IV, EVERY 6 HOURS, First dose on Sun04/06/25 at 0115, Until Discontinued, Routine, Antibiotic Indication: Suspected Sepsis, Unknown Source 0217 (New Bag - Provider: Kiya Thkakar RN)[id number] (Stopped - Provider: Kiya Thakkar, MAGGY)0801 (New Bag - Provider: Jennifer Guevara, MAGGY)0828 (Stopped - Provider: Jennifer Guevara, MAGGY)1351 (New Bag - Provider: Jennifer Guevara, MAGGY)1425 (Stopped - Provider: Jennifer Guevara, RN)1936 (New Bag - Provider: Kiya Thakkar, MAGGY)2005 (Stopped - Provider: Kiya Thakkar, MAGGY) 0124 (New Bag - Provider: Kiya Thakkar, MAGGY)0154 (Stopped - Provider: Susannah Watkins RN)0738 (New Bag - Provider: Jennifer Guevara, MAGGY)0808 (Stopped - Provider: Jennifer Guevara, MAGGY) sodium chloride bacteriostatic 0.9 % injection 10 mL 10 mL, IV, SEE ADMIN INSTRUCTIONS, Starting on Sun04/06/25 at 1332, Until Sun04/07/25 at 1310, Routine 1333 (Given - Provider: Shirin Currie, RT) vancomycin (VANCOCIN) 1,000 mg in sodium chloride 0.9 % 250 mL IVPB (COMPLETED) 1,000 mg, IV, ONE TIME ONLY, 1 dose, On Sun04/06/25 at 0115, Routine, Antibiotic Indication: Suspected Sepsis, Unknown Source 0246 (New Bag - Provider: Kiya Thakkar RN)0346 (Stopped - Provider: Kiya Thakkar RN) vancomycin (VANCOCIN) 1,500 mg in sodium chloride 0.9 % 500 mL IVPB 1,500 mg (rounded from 1,503 mg = 15 mg/kg 100.2 kg), IV, EVERY 24 HOURS, First dose (after last reorder) on Sun04/07/25 at 0000, Until Discontinued, Routine, Antibiotic Indication: Suspected Sepsis, Unknown Source 2351 (New Bag - Provider: Azeb Cooley RN) 0121 (Stopped - Provider: Kiya Thakkar RN) VANCOMYCIN CONSULT TO PHARMACY Initial dose: Duration:, Routine, Antibiotic Indication: Wound / Cellulitis / Abscess, Starting on Sun04/06/25 at 1940 Continuous Medication Order 04/05/2025 04/06/2025 04/07/2025 sodium chloride 0.9 % infusion IV, at 150 mL/hr, CONTINUOUS, Starting on Sun04/06/25 at 0130, Until Sun04/07/25 at 1310, Routine 0215 (New Bag - Provider: Kiya Thakkar RN)[id number] (New Bag - Provider: Jennifer Guevara RN)[id number] (New Bag - Provider: Maximo Hodges RN)[id number] (New Bag - Provider: Kiya Thakkar RN) 0251 (Stopped - Provider: Susannah Watkins RN - Comment: Per orders of ER physician Dr. Anguiano) documented in this encounter Additional Health Concerns Infection Onset Date Last Indicated Resolved Time R/O COVID-19 04/05/2025 04/05/2025 04/05/2025 11:3 4 PM CDT documented as of this encounter
--- OUTSIDE RECORDS SUMMARY | 2025-04-07 13:10 | XMS_ITS | Encounter Summary ---
Author Organization [employer] Address [address] [place] [address] Care Team Providers Care Viticulture Teacher Name Role Phone Unavailable Primary Care Provider Unavailabl e Reason for Referral * Echocardiography (Routine) - Open Specialty Diagnoses / Procedures Referred By Staci guerra Referred To Contact Radiology Diagnoses Chronic atrial fibrillation (CMS/HCC) Procedures ECHO COMPLETE - CONTRAST AND STRAIN IF INDICATED ECHO COMPLETE - CONTRAST AND STRAIN IF INDICATED RI ECHO TTHRC R-T 2D W/WOM-MODE COMPL SPEC&COLR D RI MYOCRD STRAIN IMG SPECKLE TRCK ASSMT MYOCRD MECH RI TTE W OR WO FOL WCON,DOPPLER Med Jones MD [address] [place] [address] Phone: tel: fax: [facility] Ultrasound [place] [address] [place] [address] Phone: tel: fax: Referral ID Status Reason Start Date Expiration Date V isits Requested Visits Authorized [id number] [facility] CTS to Schedule 04/10/2025 05/11/2026 1 1 Reason for Visit * Auth/Cert (Routine) Specialty Diagnoses / Procedures Referred By Staci guerra Referred To Contact General Surgery Diagnoses RLE Wound Candy Benson MD [address] [place] [address] Phone: tel: fax: [facility] Surgical [address] [place] [address] Phone: tel: fax: Referral ID Status Reason Start Date Expiration Date Visits Re quested Visits Authorized [id number] 1 1 Encounter Details Date Type Department Care Team (Latest Contact Info) Description 04/07/2025 1:10 PM CDT - 04/10/2025 2:37 PM CDT Hospital Encounter [facility] [address] Surgical [address] [place] [id number] Candy Benson MD [address] [place] [address] Dominic Santillan MD [address] [place] [address] Med Jones MD [address] [place] [address] Cellulitis of right lower extremity Discharge Disposition: Detention Fac(SNF) with Medicare Certification in Anticipation of Skilled Care Social History Tobacco Use Types Packs/Day Years [...] worry about transportation for future doctor visits, 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 Gender Identity Not on file Sexual Orientation Not on file documented as of this encounter Last Filed Vital Signs Vital Sign Reading Time Taken Comments Blood Pressure 138/89 04/10/2025 8:00 AM CDT Pulse 86 04/10/2025 8:00 AM CDT Temperature 36.6 C (97.9 F) 04/10/2025 8:00 AM CDT Respiratory Rate 16 04/10/2025 8:00 AM CDT Oxygen Saturation 92% 04/10/2025 8:00 AM CDT Inhaled Oxygen Concentration - - Weight 99.8 kg (220 lb) 04/08/2025 1:31 PM CDT Height 172.7 cm (5' 8 ) 04/08/2025 1:31 PM CDT Body Mass Index 33.45 04/08/2025 1:31 PM CDT documented in this encounter Discharge Summaries * Med Jones MD - 04/10/2025 12:46 PM CDT [facility] Hospitalist- Discharge Summary Roger Camp 84 y.o. male 1940 CSN: [id number] Date of Admission: 04/07/2025 Date of Discharge: 04/10/2025 Discharging Physician: Med Jones MD PCP: No primary care provider on file. LOS: 3 days Code Status at Discharge: Full Code Dispo: SNF Labs and studies from this hospitalization needing follow up: CBC and Comprehensive Metabolic Panel (CMP) in 1 week Abnormal Imaging: CT Ankle Acute lateral and medial malleolar fractures as described with associated significant bimalleolar subcutaneous edema/soft tissue swelling medial greater than lateral. 2. Subtle, nondisplaced fracture involving the navicular tubercle. 3. Subtle, acute, subchondral impaction fracture involving the plantar lateral aspect of the cuboid at its articulation with the fifth metatarsal. 4. Degenerative change of the tibiotalar joint with incidental note of osteochondral lesion involving the medial corner of the talar dome. Negative for CT evidence to suggest instability. 5. Severe osteoarthritis of the talonavicular joint and degenerative change to a lesser degree of the anterior subtalar joint. Follow-up: You must follow up with No primary care provider on file. in 3 to 5 days FOLLOW UP CONSULTANTS: With Ortho Clinic in ankle x-ray Discharge Condition: improving Primary Discharge Diagnosis: Cellulitis of right lower extremity Fracture right ankle Other Active medical issues also addressed during this admission: Active Hospital Problems Diagnosis Closed bimalleolar fracture of right ankle Cellulitis of right lower extremity Chronic atrial fibrillation Chronic obstructive pulmonary disease Atherosclerosis of [place] coronary artery of [place] heart with angina pectoris Resolved Hospital Problems No resolved problems to display. HOSPITAL COURSE: Please see H and P for full details on admission, symptoms and initial care. Xander Camp is an 84-year-old male with a history of atrial fibrillation, coronary artery disease with prior stenting, ? chronic obstructive pulmonary disease, possible congestive heart failure, and prostate cancer, who was admitted for management of right lower extremity cellulitis and a closed bimalleolar fracture following a tractor injury on 03/31/2025. His initial presentation was complicated by fever and confusion, and he was transferred from an outside hospital where he had been started on broad-spectrum antibiotics, including vancomycin and cefepime. Blood and wound cultures were obtained and showed no growth during the admission. CT scan of the ankle confirmed a closed bimalleolar fracture of the right ankle without evidence of osteomyelitis or septic arthritis; significant soft tissue edema was present. Orthopedic surgery recommended non-operative management with a PRAFO boot, non- weight bearing status, and wound care. Physical and occupational therapy evaluated and fitted him for the PRAFO boot, provided education, and initiated transfer and mobility training, noting ongoing deficits in balance, endurance, and safety awareness. He required assistance for transfers and ADLs, and discharge planning was coordinated for alf facility placement due to his functional needs and anticipated recovery time. Patient received IV antibiotic vancomycin and cefepime while in the hospital. He has received 4 days of IV antibiotics and will be discharged on p.o. antibiotics Patient is not having any fever. He is very eager to return back to the alf facility close to home. his chronic atrial fibrillation was managed with resumption of apixaban and initiation of metoprolol for rate control. Lasix was started for volume management due to concern for heart failure, and anechocardiogram was pending at discharge echocardiogram could not be done in a timely fashion and has been ordered as outpatient. At discharge, he was stable, with improved right ankle cellulitis and no evidence of ongoing infection or decompensated heart failure. He was transferred to [facility] for continued rehabilitation and alf care. Discussed with the patient's that if the ankle does not improve in the next few weeks to get it checked out for bone infection osteomyelitis . PCP COMMUNICATION : No primary care provider on file. via [facility] communication he has a nurse practitioner at [place] MEDICATION RECONCILIATION Current and discharge medications reviewed and reconciled: Yes MEDICATION CHANGES (significant) The following medications were started during this hospitalization: acetaminophen 325 mg tablet bisacodyL 10 mg Suppository cephALEXin 500 mg capsule for 7 more days linezolid 600 mg tablet for 7 more days magnesium HYDROXIDE 400 mg/5 mL suspension metoprolol succinate 25 mg Extended Release 24 hour tablet for rate control and atrial fibrillation polyethylene glycol 17 gram Powder in Packet potassium CHLORIDE 20 mEq Extended Release tablet lasix Lasix 40 mg daily sennosides 8.6 mg tablet The following medications were stopped: The following medications were changed: PERTINENT LAB DATA ON DISCHARGE: See [facility] Consultants: IP CONSULT TO WOUND/SKIN CARE TEAM IP CONSULT TO PHYSICAL MEDICINE REHAB IP CONSULT TO IV TEAM IP CONSULT TO PHYSICAL MEDICINE REHAB IP CONSULT TO CARDIAC REHAB Procedures performed: None 04/09 406 Note By: Terri Fernandez RN DISCHARGE MEDICATIONS: Medication List START taking these medications acetaminophen 325 mg tablet Commonly known as: TYLENOL Take 2 Tablets (650 mg) by mouth every 6 hours as needed for Other (See Comment) (See admin instructions). Signed by: Dr. Rudy Jones Refills: 0 bisacodyL 10 mg Suppository Commonly known as: DULCOLAX Insert 1 Suppository (10 mg) by rectum 1 time daily as needed for Constipation. Signed by: Dr. Rudy Jones Refills: 0 cephALEXin 500 mg capsule Commonly known as: KEFLEX Take 1 Capsule (500 mg) by mouth 4 times daily for 7 days. Signed by: Dr. Rudy Jones Refills: 0 furosemide 40 mg tablet Commonly known as: Lasix Take 1 Tablet (40 mg) by mouth daily. Signed by: Dr. Rudy Jones Refills: 0 linezolid 600 mg tablet Commonly known as: ZYVOX Take 1 Tablet (600 mg) by mouth 2 times daily for 7 days. Signed by: Dr. Rudy Jones Refills: 0 magnesium HYDROXIDE 400 mg/5 mL suspension Commonly known as: milk of magnesia Take 30 mL by mouth 1 time daily as needed for Constipation. Signed by: Dr. Rudy Jones Refills: 0 metoprolol succinate 25 mg Extended Release 24 hour tablet Commonly known as: TOPROL XL Take 1 Tablet (25 mg) by mouth daily. Start taking on: April 11, 2025 Signed by: Dr. Rudy Jones Refills: 0 polyethylene glycol 17 gram Powder in Packet Commonly known as: MIRALAX Take 1 Packet (17 Grams) by mouth daily. Start taking on: April 11, 2025 Signed by: Dr. Rudy Jones Refills: 0 potassium CHLORIDE 20 mEq Extended Release tablet Commonly known as: K-TAB Take 2 Tablets (40 mEq) by mouth daily with breakfast. Signed by: Dr. Rudy Jones Refills: 0 sennosides 8.6 mg tablet Commonly known as: SENOKOT Take 3 Tablets (25.8 mg) by mouth daily. Start taking on: April 11, 2025 Signed by: Dr. Rudy Jones Refills: 0 CONTINUE taking these medications atorvastatin 40 mg tablet Commonly known as: LIPITOR Take 40 mg by mouth daily at bedtime. Refills: 0 cholecalciferol (Vitamin D3) 25 mcg (1,000 unit) Capsule Commonly known as: VITAMIN D3 Take 400 Units by mouth daily . Refills: 0 ELIQUIS ORAL Take by mouth 2 times daily. Refills: 0 Fish Oil-Bryant-3 Fatty Acids 440-880 mg Capsule Take 1 Capsule by mouth 2 times daily 1200 mg/Bryant 3 360 mg. Refills: 0 gabapentin 300 mg capsule Commonly known as: NEURONTIN Take 1 Capsule (300 mg) by mouth daily at bedtime. Signed by: Dr. Veena Smalls Quantity: 30 Capsule Refills: 0 STOP taking these medications HYDROcodone-acetaminophen 5-325 mg tablet Commonly known as: NORCO Where to Get Your Medications Information about where to get these medications is not yet available Ask your nurse or doctor about these medications acetaminophen 325 mg tablet bisacodyL 10 mg Suppository cephALEXin 500 mg capsule furosemide 40 mg tablet linezolid 600 mg tablet magnesium HYDROXIDE 400 mg/5 mL suspension metoprolol succinate 25 mg Extended Release 24 hour tablet polyethylene glycol 17 gram Powder in Packet potassium CHLORIDE 20 mEq Extended Release tablet sennosides 8.6 mg tablet No future appointments. DIET: Cardiac Diet. ACTIVITY LEVEL: Nonweightbearing on the right leg Wound Care: Right medial ankle wound- Every 48 hours clean with Vashe then cover with silver impregnated dressing (mepilex ag from [facility]) and cover with a mepilex border or kerlix wrap. DISCHARGE EXAM: BP 138/89 (BP Location: Left arm, Patient Position (BP): Supine) Pulse 86 Temp 97.9 ??F (36.6 ??C) (Temporal) Resp 16 Ht 5' 8 (1.727 m) Wt 99.8 kg (220 lb) SpO2 92% BMI 33.45 kg/m?? Last documented weight: Weight: 99.8 kg (220 lb) (04/08/25 1331) General: alert, in no distress Neurologic: Grossly normal , No focal deficits . HEENT: atraumatic, Normocephalic, without obvious abnormality Lungs: clear to auscultation bilaterally, normal respiratory effort Heart: normal rate, regular rhythm, normal S1, S2, no murmurs, rubs, clicks or gallops Abdomen: Soft, non-tender. Bowel sounds normal. No masses, no organomegaly. Extremities: some edema in the pretibial and ankle Skin: Patient has a lot of bruising on the right lower leg including the ankle. Tenderness has improved significantly. There is still redness on the area and ankle as well as the dorsum of the foot Total time spent on discharge services today including examining and educating the patient and Wifeat Bedside available family members at the bedside , writing prescriptions and reviewing the discharge medication list, documenting this discharge summary and coordinating outpatient care and follow up required More than 30 minutes. documented in this encounter Discharge Instructions * Discharge Instructions* Adelina Barraza, RN - 04/10/2025 1:01 PM CDT [facility] Detention Discharge Instructions Discharge & Transfer patient to: Name of Facility: [facility] Transfer care to Attending Provider at Detention Facility Symptoms/Diagnosis: Cellulitis of right lower extremity Procedures Performed, if any: 04/09 406 Note By: Terri Fernandez, RN Labs and studies from this hospitalization needing follow up: CBC and Comprehensive Metabolic Panel (CMP) in 1 week Follow up PCP Please schedule follow up appointment with facility physician or PCP/ No primary care provider on file., Please schedule follow up appointment in one week. Follow up consultants Follow-up: You must follow up with No primary care provider on file. in 3 to 5 days FOLLOW UP CONSULTANTS: With Ortho Clinic in ankle x-ray Additional problems: Active Hospital Problems Diagnosis Closed bimalleolar fracture of right ankle Cellulitis of right lower extremity Chronic atrial fibrillation Chronic obstructive pulmonary disease Atherosclerosis of [place] coronary artery of [place] heart with angina pectoris Resolved Hospital Problems No resolved problems to display. Level of Care: [x] Skilled [] Maintenance [] Rehab Rehab potential: fair Code Status: Full Code Labs: Recent Labs 04/07/25 1448 04/08/25 0452 WBC 10.7 9.5 HGB 11.6* 11.4* HCT 36.2* 34.9* PLT 216 257 Recent Labs 04/07/25 1448 04/08/25 0452 04/10/25 0747 NA 141 139 140 K 4.4 4.0 3.3* CL 108* 104 104 CO2 22 25 29 CA 8.9 8.6* 8.9 BUN 31* 27* 28* CREAT 0.89 0.87 0.68 GLUCOSE 113* 102* 101* Recent Labs 04/07/25 1448 TOTALPROTEIN 6.3* ALBUMIN 3.1* BILITOTAL 1.4* ALKPHOS 84 AST 50 ALT 32 No results for input(s): INR , PT in the last 72 hours. Invalid input(s): PTT Finger stick blood glucose: {Home Glucose Frequency:[id number]:: No } Activity level: up as tolerated Clinical Care/Ancillary services: Physical therapy evaluate and treat: Yes Occupational therapy evaluate and treat: Yes Speech therapy evaluate and treat: No Respiratory Treatment/Oxygen: Not Applicable DIET: DIET CARDIAC Low Cholesterol (AHA),; 2GM Sodium (Low), Wound Care: Right medial ankle wound- Every 48 hours clean with Vashe then cover with silver impregnated dressing (mepilex ag from [facility]) and cover with a mepilex border or kerlix wrap. Communicable Disease: [] MRSA [] C. Difficile [] VRE [] TB [] Other: Other Comments: Follow up in the Emergency Room For any recurrence or worsening of admission concerns, chest pain, palpitations, shortness of breath, coughing blood, nausea, vomiting, diarrhea, pain, fever, chills, bleeding, bloody or tarry stools, change to urine or bowel output, Contact hospitalist office [phone] for questions [facility]. Contact [facility] Transfer Hub at [phone] if patient needs a direct admission. Tell us about the patient and how we can help them. If we can provide the service that is needed, we will do the rest of the work. Adelina Barraza RN 04/10/2025, 1:23 PM Thank you for participating in your heart failure education. It's really important to know how to take care of your heart! If you have any questions or need help, please ask us anytime. Heart Failure means that your heart does not pump enough blood to meet your body???s needs. Sometimes fluid can back up into your lungs causing shortness of breath. Or fluid can back up into other parts of your body--you may notice swelling in your legs, feet or in your stomach area. As you retain fluid, your weight will go up. You may feel tired and not feel like eating. Most people tend to havethe same symptoms each time their heart failure worsens. Important steps you can take to be healthy Follow a low salt diet by using a salt substitute to season your food, choosing low or no salt foods and not adding additional salt to your meals. Monitor fluid intake. Restrict fluids if ordered by your provider. Take your medications as instructed Try to stay active. Rest when tired. If you are a SMOKER or use TOBACCO products, you are advised to QUIT! Heart failure zones give you an easy way to see changes in your heart failure symptoms. They also tell you when you need to get help. Check every day to see which zone you are in: HEART FAILURE ZONE MANAGEMENT EVERYDAY: Weigh yourself in the morning after going to the bathroom but before eating or drinking. Record your weight on your CHF Daily Record Sheet (in your Living With Heart Failure booklet) and compare it to the prior day???s weight. Take your medicine as prescribed. Check your feet, ankles, legs, and abdomen for swelling. Assess your breathing (was it difficult to lay flat or are you more short of breath). Eat low salt food. Balance activity and rest periods. What Heart Failure Zone are you today? GREEN, YELLOW, or RED? GREEN ZONE: All CLEAR when: Your weight is stable. You have no trouble breathing. You can do your normal activity. You have no changes in your symptoms. YELLOW ZONE: CAUTION! Call your health care provider today: Your Primary Care Team is available 08/01. Your weight goes up 2 pounds in one day or 3-rv-8-pound gradual weight gain over a week. You have more swelling in your feet, ankles, legs, or abdomen. Increased shortness of breath. You have a dry cough that does not go away. You use 2 or more pillows or a recliner to breathe better at night and this is new for you. You feel more tired or have less energy than usual. You have SIDE EFFECTS from your medicines. RED ZONE: MEDICAL ALERT EMERGENCY! CALL RIGHT AWAY when: You have unrelieved shortness of breath at rest or struggling to breathe. You have unrelieved chest pain. You have unrelieved wheezing or chest tightness at rest. You are having confusion or cannot think clearly. CALL 911 for severe shortness of breath or chest pain that will not go away. * Attachments The following attachments cannot be sent through Care Everywhere. * Healthy Diet: Heart (Tristanian) * Low Sodium Diet (Tristanian) * Low Sodium: Reading a Food Label (Tristanian) * Acetaminophen ([place]) * Bisacodyl ([place]ristanian) * Cephalexin ([place]) * Linezolid ([place]) * Magnesium Hydroxide ([place]) * Metoprolol (Tristanian) * Polyethylene Glycol 3350 (Tristanian) documented in this encounter Medications at Time of Discharge acetaminophen (TYLENOL) 325 mg tablet Take 2 [...] Tablet (40 mg) by mouth daily. 04/10/2025 atorvastatin (LIPITOR) 40 mg tablet Take 40 [...] . 01/31/2017 omega-3 fatty acids/fish oil (Fish Oil-Bryant-3 Fatty Acids) 440-880 mg Capsule Take 1 Capsule by mouth 2 times daily 1200 mg/Bryant 3 360 mg. 05/03/2016 documented as of this encounter Progress Notes * Anabell Blackburn RN - 04/10/2025 1:57 PM CDT Report to MAGGY Duran at [facility] * Adelina Barraza RN - 04/10/2025 1:26 PM CDT AVS faxed to [facility] * Daniel Phillips, PHARMACIST - 04/10/2025 7:50 AM CDT Vancomycin Consult to Pharmacy Current Antibiotic Therapies Vancomycin Day # 4 Yesterday Day Before Yesterday Avg urine output (mL/kg/hr) 0.7 mL/kg/hr 1 mL/kg/hr Net fluid balance - 850 mL - 1877 mL Serum creatinine: 0.87 mg/dL 04/08/25 0452 Estimated creatinine clearance: 63 mL/min NOTE: This calculation is potentially inaccurate in acute and/or chronic kidney disease and over/under weight patients, and thus is only an estimation of renal function Assessment: Roger Camp is a 84 y.o. male who is currently receiving Vancomycin 1250 mg q 12 hrs for cellulitis. WBC 9.5, patient has been afebrile with Tmax last 24 hrs of 98.5 ??F. Blood cultures show no growth at 72 hours, Anaerobic/Aerobic culture showed no growth. Renal function appears stable at thistime as Scr has been consistent at (0.87 to 0.99 mg/dL) (0.87 mg/dL today) while urine output appears adequate between measured and unmeasured voids. A trough level was checked on 04/09/25 while receiving 1500 mg q 24 hr and provided the following information/levels: Measured trough level while receiving 1500 mg q 24 hr= 5.9 mcg/mL with an estimated true trough level of 5.02 mcg/mL Goal trough target = Empiric MRSA or Enterococcal coverage (target 11-15) Estimated AUC while receiving 1500 mg q 24 hr= 300 mg*h/L (Goal target 400-600 mg*h/L, note- this AUC is only an estimate and should be confirmed w/ 2-level AUC if accurate AUC is required) Action taken: Continue 1250 mg q 12 hr Plan: 1. Vancomycin 1250 mg q 12 hrs. 2. Check the next trough level (early next week) unless renal function status changes prior to thattime, and follow-up w/ dose adjustments as needed. 3. Continue to monitor renal function daily. Pharmacy will continue to monitor the patient's labs. We will follow-up with daily progress note for Vancomycin and Aminoglycoside Consults and will write a progress note in the future if any additional dosage adjustment is needed on other renal consults. Subjective/Objective: Roger Camp is a 84 y.o. male Temp (24hrs), Av.3 ??F (36.8 ??C), Min:98.1 ??F (36.7 ??C), Max:98.5 ??F (36.9 ??C) BP 131/88 (BP Location: Left arm, Patient Position (BP): Supine) Pulse 63 Temp 98.5 ??F (36.9 ??C) (Temporal) Resp 19 Ht 5' 8 (1.727 m) Wt 99.8 kg (220 lb) SpO2 92% BMI 33.45 kg/m?? WBC Date/Time Value Ref Range Status 04/08/2025 04:52 AM 9.5 4.8 - 10.8 K/uL Final 04/07/2025 02:48 PM 10.7 4.8 - 10.8 K/uL Final 04/05/2025 11:08 PM 10.9 (H) 4.2 - 9.1 K/uL Final PLATELETS Date/Time Value Ref Range Status 04/08/2025 04:52 AM 257 140 - 440 K/uL Final 04/07/2025 02:48 PM 216 140 - 440 K/uL Final 04/05/2025 11:08 PM 199 130 - 400 K/uL Final BUN Date/Time Value Ref Range Status 04/08/2025 04:52 AM 27 (H) 8 - 23 mg/dL Final 04/07/2025 02:48 PM 31 (H) 8 - 23 mg/dL Final 04/07/2025 10:25 AM 29 (H) 8 - 23 mg/dL Final CREATININE Date/Time Value Ref Range Status 04/08/2025 04:52 AM 0.87 0.67 - 1.17 mg/dL Final Comment: The GFR result is not clinically significant on patients <18 or >70 years of age. 04/07/2025 02:48 PM 0.89 0.67 - 1.17 mg/dL Final Comment: The GFR result is not clinically significant on patients <18 or >70 years of age. 04/07/2025 10:25 AM 0.99 0.67 - 1.17 mg/dL Final Comment: The GFR result is not clinically significant on patients <18 or >70 years of age. VANCOMYCIN, TROUGH Date/Time Value Ref Range Status 04/09/2025 09:51 PM 5.9 (L) 10.0 - 17.0 ug/mL Final Thank you for the consult and involving us in the care of this patient, we will continue to monitor. Duke Rodriguez * Adryan Alcantara PHARMACIST - 04/09/2025 10:53 PM CDT Vancomycin CONSULT TO PHARMACY- PROGRESS NOTE UPDATE Assessment/Plan: As described in the pharmacy progress note earlier today, a trough level was checked this evening while receiving 1500 mg q 24 hr and provided the following information/levels: Measured trough level while receiving 1500 mg q 24 hr= 5.9 mcg/mL with an estimated true trough level of 5.02 Goal trough target = Empiric MRSA or Enterococcal coverage (target 11-15) Estimated AUC while receiving 1500 mg q 24 hr= 300 mg*h/L (Goal target 400-600 mg*h/L, note- this AUC is only an estimate and should be confirmed w/ 2-level AUC if accurate AUC is required) Action taken: Changed to vancomycin 1250 mg q12h (which per the Epic calculator will provide a predicted trough level of 13.96 mcg/mL and a predicted AUC level of 500) Plan: 1. Changed to vancomycin 1250 mg q 12 hrs. 2. Will follow-up on dosage adjustment tomorrow during day shift. * Med Jones MD - 04/09/2025 4:10 PM CDT Images from the original note were not included. [employer] is our life's work [facility] Hospitalist/Hospital Medicine Progress note LOS: LOS: 2 days Room/Bed: [address] [place] [address] Patient name: Roger Camp Date of : 1940 HOSPITAL COURSE SUMMARY Xander Camp is an 84-year-old male with a history of atrial fibrillation, coronary artery disease with prior stenting, chronic obstructive pulmonary disease, ? congestive heart failure, and prostate cancer, who was admitted to [facility] on 04/07/2025 for management of right lower extremity cellulitis and a closed bimalleolar fracture following a tractor injury on 03/31/2025. His initial presentation was complicated by fever and confusion, and he was transferred from an outside hospital where he had been started on broad- spectrum antibiotics vancomycin and cefepime . Blood and wound cultures were obtained, and initial cultures showed no growth to date. Orthopedic surgery was consulted and recommended non-operative management with a PRAFO boot, non-weight bearing status, and wound care, Therapeutic management included intravenous antibiotic including vancomycin and cefepime, with vancomycin dosing and monitoring managed by pharmacy, targeting trough levels of 11-15 mcg/mL and daily renal function assessment. Piperacillin- tazobactam was discontinued on 04/07/2025. The patient was maintained non-weight bearing on the right lower extremity and received education and fitting for a PRAFO boot by physical therapy. Apixaban has been resumed. 10/22 continue antibiotic day #2. Start Lasix 40 mg daily. Check echocardiogram. History of chronic A-fib Bowel regimen 04/09 continue antibiotic day #3 Continue Lasix. Start Toprol 25 mg echocardiogram is pending Consultants: IP CONSULT TO WOUND/SKIN CARE TEAM IP CONSULT TO PHYSICAL MEDICINE REHAB IP CONSULT TO IV TEAM IP CONSULT TO PHYSICAL MEDICINE REHAB SUBJECTIVE: Patient is afebrile present at the bedside . He wants to go home however has to go to alf facility. No fever no abdominal pain breathing seems to be okay Plan of care discussed with the nurse present for the rounds . ROS: History obtained from the patient- Psychological: No Depression, no Suicide ideation/thoughts Constitutional: negative for fever, chills, negative for confusion, fatigue Pulmonary + intermittent dyspnea, no cough Cardiovascular: negative for chest pain, no palpitations, no orthopnea GI: negative for nausea, vomiting, diarrhea and constipation, no abdominal pain Renal: no dysuria, no hematuria Musculoskeletal: no back pain, no joint pain, no calf swelling + right ankle foot pain Neuro: negative for headache, no vision changes, no dizziness Skin: no skin rash, no redness OBJECTIVE: Temp (24hrs), Av.4 ??F (36.9 ??C), Min:97.6 ??F (36.4 ??C), Max:99.4 ??F (37.4 ??C) BP 131/78 (BP Location: Left arm, Patient Position (BP): Supine) Pulse (!) 108 Temp 98.1 ??F (36.7 ??C) (Temporal) Resp 16 Ht 5' 8 (1.727 m) Wt 99.8 kg (220 lb) SpO2 94% BMI 33.45 kg/m?? Intake/Output Summary (Last 24 hours) at 04/09/2025 1610 Last data filed at 04/09/2025 1300 Gross per 24 hour Intake 600 ml Output 2850 ml Net -2250 ml Last documented weight: Weight: 99.8 kg (220 lb) (04/08/25 1331) EXAM: General: alert, in no distress appears stated age, chronically ill-appearing he is Neurologic: Grossly normal , No focal deficits. HEENT: atraumatic, Normocephalic, without obvious abnormality Lungs: clear to auscultation bilaterally decreased breath sounds on the bases crackles right more than the left , normal respiratory effort Heart: normal rate, regular rhythm, normal S1, S2, no murmurs, rubs, clicks or gallops Abdomen: Soft, non-tender. Bowel sounds normal. No masses, no organomegaly. Extremities: no edema in the left pretibial and ankle Right ankle is mildly swollen erythematous with bruising in a boot Skin: The redness seems to be improved at the ankle LABORATORY: Recent Labs 04/07/25 1448 04/08/25 0452 WBC 10.7 9.5 HGB 11.6* 11.4* HCT 36.2* 34.9* PLT 216 257 Recent Labs 04/07/25 1025 04/07/25 1448 04/08/25 0452 NA 140 141 139 K 4.2 4.4 4.0 CL 107 108* 104 CO2 24 22 25 CA 8.7* 8.9 8.6* BUN 29* 31* 27* CREAT 0.99 0.89 0.87 GLUCOSE 127* 113* 102* Recent Labs 04/07/25 1448 TOTALPROTEIN 6.3* ALBUMIN 3.1* BILITOTAL 1.4* ALKPHOS 84 AST 50 ALT 32 No results for input(s): INR , PT in the last 72 hours. Invalid input(s): PTT Recent Labs 04/06/25 1740 DELTA 3 6HRTROP 30* Diagnostic testing reviewed by me: CXR CT scan Medications reviewed by me : home meds and inpt meds Primary Diagnosis: Cellulitis of right lower extremity Other Active medical issues also addressed during this admission: Active Hospital Problems Diagnosis Closed bimalleolar fracture of right ankle Cellulitis of right lower extremity Chronic atrial fibrillation Chronic obstructive pulmonary disease Atherosclerosis of [place] coronary artery of [place] heart with angina pectoris Resolved Hospital Problems No resolved problems to display. ASSESSMENT AND PLAN: Right ankle bimalleolar fractures with overlying cellulitis . - Management: Non-weight bearing RLE; immobilize/splint; elevate limb Continue empiric IV vancomycin + cefepime (day ) Monitor clinical response Continue pain management. History of chronic atrial fibrillation Apixaban. Start Toprol for rate control Shortness of breath with wheezing. Concern for heart failure. Echocardiogram pending Diuretics Lasix 40 daily No echocardiogram available in the system. Patient and family not sure if they had 1. History of coronary artery disease /cardiomegaly on CT scan - - Meds: Continue aspirin 81 mg daily and atorvastatin 40 mg nightly. Consider beta-rebekah. Inpatient echocardiogram Chronic obstructive pulmonary disease no wheezing on my examination Continue inhaler Dyslipidemia - Continue atorvastatin 40 mg nightly. Mild normocytic anemia Continue CBC Obesity (BMI ~31-32) - [place] on diet, activity as tolerated; dosing considerations for meds and imaging. Constipation bowel regimen Recent Labs 04/06/25 1744 GLUCPOC 114* Discussed with the Pt and who is present at the bedside . Plan of care discussed with nurse . DVT prevention: Eliquis Outpatient follow up: PCP , orthopedic Anticipated Disposition Location: [facility] facility Timeframe: 1-2 d ays Criteria: ECHO Clinical improvement . Education/DME/Equipment Needs: As per PT Understanding of illness: Patient: Ok Primary family contact: Code status: Full Code MDM 2 This documentation was created by an Key[employer] assembler fluorescent lights software. Effort has been done to assure accuracy of assembler fluorescent lights. Any obvious errors or omissions should be clarified with the author of the document. Med Jones MD 04/09/2025, 4:10 PM * Aminah Espinoza RN - 04/09/2025 12:03 PM CDT [facility] Rehab consult received. Epic chart review completed. At this time, after discussion with transplant case manager hSazia Barron DONOR SERVICES MANAGER patient has requested referrals be sent to facilities closer to his home in [place], [place]. Will no longer follow patient at this time. Thank you for this referral, Aminah Espinoza RN Clinical Liaison [facility] * Aminah Aranda PHARMACIST - 04/09/2025 7:29 AM CDT Vancomycin Consult to Pharmacy Current Antibiotic Therapies Vancomycin Day # 3 Also on cefepime Serum creatinine: 0.87 mg/dL 04/08/25 0452 Estimated creatinine clearance: 63 mL/min NOTE: This calculation is potentially inaccurate in acute and/or chronic kidney disease and over/under weight patients, and thus is only an estimation of renal function Assessment: Roger Camp is a 84 y.o. male who is currently receiving Vancomycin 1500 mg q 24 hrs for cellulitis. WBC 9.5 K/uL, Tmax last 24 hrs of 99.4 ??F, cultures NGTD. Renal function appears stable at this time as Scr has been consistent at 0.8 - 1 mg/dL (0.87 mg/dL yesterday) while urine output appears adequate between measured and unmeasured voids. No levels have been checked as of yet but we are currently utilizing a trough-only monitoring plan on this patient with target of 11-15 mcg/mL. Plan: 1. Continue vancomycin 1500 mg q 24 hrs. 2. Trough level prior to tonight's dose and adjust dose if needed at that time. 3. Continue to monitor renal function daily. Pharmacy will continue to monitor the patient's labs. We will follow-up with daily progress note for Vancomycin and Aminoglycoside Consults and will write a progress note in the future if any additional dosage adjustment is needed on other renal consults. Subjective/Objective: Roger Camp is a 84 y.o. male Temp (24hrs), Av.6 ??F (37 ??C), Min:97.8 ??F (36.6 ??C), Max:99.4 ??F (37.4 ??C) BP (!) 151/89 (BP Location: Left arm, Patient Position (BP): Supine) Pulse 100 Temp 99.4 ??F (37.4 ??C) (Temporal) Resp 18 Ht 5' 8 (1.727 m) Wt 99.8 kg (220 lb) SpO2 92% BMI 33.45 kg/m?? WBC Date/Time Value Ref Range Status 04/08/2025 04:52 AM 9.5 4.8 - 10.8 K/uL Final 04/07/2025 02:48 PM 10.7 4.8 - 10.8 K/uL Final 04/05/2025 11:08 PM 10.9 (H) 4.2 - 9.1 K/uL Final PLATELETS Date/Time Value Ref Range Status 04/08/2025 04:52 AM 257 140 - 440 K/uL Final 04/07/2025 02:48 PM 216 140 - 440 K/uL Final 04/05/2025 11:08 PM 199 130 - 400 K/uL Final BUN Date/Time Value Ref Range Status 04/08/2025 04:52 AM 27 (H) 8 - 23 mg/dL Final 04/07/2025 02:48 PM 31 (H) 8 - 23 mg/dL Final 04/07/2025 10:25 AM 29 (H) 8 - 23 mg/dL Final CREATININE Date/Time Value Ref Range Status 04/08/2025 04:52 AM 0.87 0.67 - 1.17 mg/dL Final Comment: The GFR result is not clinically significant on patients <18 or >70 years of age. 04/07/2025 02:48 PM 0.89 0.67 - 1.17 mg/dL Final Comment: The GFR result is not clinically significant on patients <18 or >70 years of age. 04/07/2025 10:25 AM 0.99 0.67 - 1.17 mg/dL Final Comment: The GFR result is not clinically significant on patients <18 or >70 years of age. Thank you for the consult and involving us in the care of this patient, we will continue to monitor. Aminah Aranda, PHARMACIST * Weston Osorio, Physical Therapist - 04/08/2025 4:17 PM CDT [facility] - Therapy Services 3K Ph. Acute Physical Therapy Evaluation 04/08/2025 Room: [facility] Name: Roger Camp Age: 84 y.o. Date of : 1940 Insurance: Payor: MEDICARE / Plan: MEDICARE PART A AND B / Product Type: Medicare / Patient Class: Inpatient Onset of illness/injury or date of surgery: 04/07/2025 Subjective Information/History Subjective Information Provided By: Patient and Family Prior level of Function: patient lives in a single story home with his where he was previouslyindependent for mobility without a device. Patient was also independent for ADLs and IADLs. Patientdrives. Patient reports a history of falls: 2 in last 6 months Home Environment: 1-Story home Ramp Available Adaptive Equipment: Cane: single point cane Crutches: axillary Walkers: 2 wheeled and 4 wheeled Wheelchair - manual Shower Chair Grab Bars BSC Assistance available: 08/01 supervision via wive but is not able to physically assist patient with mobility and also states that she cannot drive him to [place], [place] Patient/Family Goals Statement: To get back to PLOF Pain: Refer to Doc Flowsheet for documented pain levels. Consent To Treatment Given By: Patient, Family, and Nurse Safety Awareness Orientation: Person, Place, Date, and Situation Command Following: good Safety Awareness: Fair and poor insight into deficits Precautions Patient Precautions: Fall Risk Bracing/Orthotics: [place]/PRAFO Weight Bearing: right lower extremity no weight bearing Objective Information/Examination Muscle Tone: Normal Coordination: Normal Sensation: Intact to light touch ROM: Right UE: not formally tested, patient demonstrated adequate ROM for functional tasks Left UE: not formally tested, patient demonstrated adequate ROM for functional tasks Right LE: not formally tested, patient demonstrated adequate ROM for functional tasks Left LE: not formally tested, patient demonstrated adequate ROM for functional tasks Strength: Right UE: Not formally manually muscle tested, patient demonstrated adequate strength for functional tasks Left UE: Not formally manually muscle tested, patient demonstrated adequate strength for functionaltasks Right LE: Not formally manually muscle tested, patient demonstrated adequate strength for functional tasks Left LE: Not formally manually muscle tested, patient demonstrated adequate strength for functionaltasks Functional Mobility: Rolling: supervision for watchful oversight for safety Scooting: supervision for watchful oversight for safety and management of RLE Supine to sit: supervision for watchful oversight for safety, for watchful oversight for possible LOB, and management of RLE Sit to supine: supervision for watchful oversight for safety and for watchful oversight for possible LOB Sit to stand: maximal assistance Bed to chair: maximal assistance Patient has difficulty with STS due to weight bearing status. Patient is able to navigate once stood. Gait Trainin feet with rolling walker. minimal assistance for maintenance of weight bearing precautions. Deficits affecting function/Deviations noted: patient uses step too pattern and required maximal cues to follow weight bearing, increased forward lean Patient required verbal cues energy conservation, proper posture, proper techniques for ADL's and functional transfers, use of UE's in transfers, for assistive device placement with regards to feet/trunk, and gait training cues provided Balance: Sitting: Normal Vitals Patient on room air Vital signs stable throughout session [facility] Basic Mobility How much help from another person does the patient currently need? Score 1. Turning from your back to your side while in a flat bed without using bedrails? 3 - A little (supervision to min assist) 2. Moving from lying on your back to sitting on the side of a flat bed without using bedrails? 3 - A little (supervision to min assist) 3. Moving to and from a bed to a chair (including a wheelchair)? 2 - A lot (max to mod assist) 4. Standing up from a chair using your arms (e.g., wheelchair, or bedside chair)? 2 - A lot (max tomod assist) 5. Walking in hospital room? 3 - A little (supervision to min assist) 6. Climbing 3-5 steps with a railing? 1 - Total assist or cannot do at all Total score 1424 0-16 - indicates likely facility discharge 17-24 indicates likely community discharge * scores determined based on patient report, observation or professional expertise Assessment/Plan Roger Camp is a 84 y.o. male is referred for physical therapy. Based on objective findings above, the patient presents with the following impairments: balance deficits, decreased activity tolerance, gait disturbance, and risk for falls which impacts safe discharge to home. Patient is currently functioning below his prior level of function. Plan will include but is not limited to: Gait Training, Transfer Training, Patient/Family Education, Stair Training, Home & Safety Instruction, Strain Reduction Education, Balance Training, ADL Training, Equipment Training, Orthotic Management , and Functional Strengthening. Specific focus for next treatment session: improve patient ability to transfer while maintaining weight bearing precautions.. PT Evaluation: low complexity Recommendations During acute hospitalization, recommend high frequency treatment (5-7 times per week). Current planof care to continue until goals met or patient discharges from facility. Functional Prognosis: Based on prior level of function and deficits, anticipate fair recovery. Based on PT assessment of and/or progress with physical function, -[facility] Basic Mobility score, potential for improvement, available home support, participation in therapeutic intervention, tolerance for activity, and safety , anticipated discharge disposition once medically ready: Inpatient rehab unit/facility (04/08/25 3366). Pt needs intensive skilled PT services. Patient is actively engaged in therapy, has the potential to make progress toward goals and tolerate 3 hours of therapy. . * The final discharge location is determined through physician, case management, and patient/caregiver input along with insurance authorization of skilled services when appropriate Plan of care and/or discharge recommendations shared with: Patient, Cottrell Operator, and Nurse PT Recommended DME: No new DME recommended (04/08/25 2519). Daily activity recommendations: Up with 1 assist and Up in chair for meals Recommendations for referral to another service: Care Management Education/Training Provided Education provided: discharge planning, functional mobility, plan of care, proper body mechanics, rehabilitation principles, safety, weight-bearing status, and use of assistive device Learner, method of education, and response to learning listed in Education tab in Epic. Disposition At start of session, patient found sitting on BSC At end of session, patient left lying in bed, call light in reach, patient instructed to not get upwithout assistance from staff, and present in room Current Diagnoses/Past Medical History Pertinent diagnoses and past medical history related to this hospital stay are present in physicianH&P and physician daily notes. Prior to PT session a thorough chart review was completed including prior PT notes as applicable. Further treatment notes and therapeutic goals can be found in Care Plan Notes. If the patient discharges from the facility before another therapy visit, this shall serve as the therapy discharge summary. Thank you for this referral, Weston Osorio, Physical Therapist * Jesse Berger, Occupational Therapist - 04/08/2025 1:43 PM CDT [facility] - Therapy Services 3K Ph. Acute Occupational Therapy Evaluation 04/08/2025 Room: [address] [place] [address] Name: Roger Camp Age: 84 y.o. Patient Class: Inpatient Date of : 1940 Insurance: Payor: MEDICARE / Plan: MEDICARE PART A AND B / Product Type: Medicare / Prior to OT session thorough chart review completed, including prior OT notes as applicable. Consent to evaluate provided by patient and nurse Date of admission: 04/07/2025 SUBJECTIVE Occupational Profile Information provided by: patient Prior Level of Function ADLs: independent IADLs: independent Patient does drive Functional mobility: independent Falls: 1-2 in the last 6 months Home Information Employment/daily routine: pt enjoys fishing. Self-care assist available at home: pt lives with his , who can provide 24 hour supervision. Home environment: 1-level home Ramp to enter Walk-in shower Durable medical equipment already in home: Walkers: 2WW and 4WW Canes: single point cane Wheelchair Bedside commode Additional Information Patient/family statement/goal(s): to get better Comments: Pt was motivated to participate in therapy and pleasant throughout. Pt reports no pain prior to mobility Pain: Refer to flowsheet for documentation of pain and interventions. OBJECTIVE Cognition Level of alertness: alert Orientation: x4 WNL Command following: fair Safety awareness: fair; limited by impulsivity Memory: WFL conversationally Vision: denies acute changes UE Function UE Assessment Right Left ROM Active: WFL Active: WFL Strength WFL; 5/5 WFL; 5/5 All additional UE assessments (including tone, coordination, sensation, and edema) not indicated ordeemed WFL. Occupational Performance Activities of Daily Living Feeding: NT; anticipate supervision to set up task Grooming: supervision for watchful oversight for safety to wash hands while sitting. Pt unable to stand for task due to instability Upper extremity dressing: NT; anticipate supervision to set up task Lower extremity dressing: maximal assistance to don sock sitting EOB Toileting: supervision for watchful oversight for safety on BSC for posterior attila-care while sitting. Suspect Mod A for clothing management. Toilet transfer: minimal assistance x2 to stand-hop with walker from EOB>BSC. Mod A to stand-hopwith walker from BSC>chair. VC for WB status. All tasks not tested with anticipated assist levels are based on observed tasks and movement patterns. Functional Mobility All mobility completed with gait belt, non-skid socks, and walker Bed mobility: supervision for watchful oversight for safety supine > sit EOB Sit to stand: minimal assistance x2 providers from EOB with walker. VC for WB status. Pt bearing weight through R foot on initial stand, therapist foot placed under pt's R foot for WB cues. Max A from BSC with walker. VC for WB status, pt able to maintain NWB on RLE. Chair transfer: minimal assistance x2 to stand-hop with walker from EOB>BSC. Mod A to stand-hop with walker from BSC>chair. VC for WB status. Sitting balance: supervision for watchful oversight for safety for static tasks and dynamic tasks Standing balance: minimal assistance x2 providers for static tasks and dynamic tasks with walker. Pt able to maintain NWB on RLE. Patient required verbal and tactile cues for safety due to impulsivity and proper techniques to maintain weight bearing status. [facility] Daily Activity How much help from another person does the patient currently need? Score 1. Putting on and taking off regular lower body clothing? 2 - A lot (max to mod assist) 2. Bathing (including washing, rinsing, drying)? 3 - A little (supervision to min assist) 3. Toileting, which includes using toilet, bedpan or urinal? 3 - A little (supervision to min assist) 4. Putting on and taking off regular upper body clothing? 3 - A little (supervision to min assist) 5. Taking care of personal grooming such as brushing teeth? 3 - A little (supervision to min assist) 6. Eating meals? 3 - A little (supervision to min assist) Total score 17/24 0-19 indicates likely facility discharge 19-24 indicates likely community discharge *Scores determined based on patient report, observation or professional expertise* Vitals Current O2 requirement: room air At rest: SpO2: 98% After activity: SpO2: 98% Additional vitals comments: Patient appears labored during activity. Precautions Patient precautions: fall Patient bracing: PRAFO RLE Weight bearing: right lower extremity non weight bearing ASSESSMENT & PLAN Evaluation Details Roger Camp is a 84 y.o. male referred for OT following admission for cellulitis of RLE. Additional pertinent diagnoses and past medical history related to this hospital stay are present in physician H&P and physician daily notes. PT and OT partially combined this date due to anticipated need for two therapists to manage progressing advanced transfer skills. Will separate future sessions to maximize time in therapy and progression with individual disciplines. OT evaluation: Low complexity Assessment Patient is currently functioning below his prior level of function. Patient presents with acute functional deficits including: Functional balance Safety awareness Decreased endurance Pain These deficits impact patient ability to complete: Functional mobility Bathing Toileting Dressing Personal hygiene/grooming Patient would benefit from continued skilled OT services in order to increase occupational performance through modification and remediation approaches such as ADL training, balance training, endurance training, strength training, functional transfer training, home safety education, patient education, and caregiver education Plan During acute hospitalization, recommend medium frequency treatment (3-5 times/week). Current plan of care to continue until goals met or patient discharges from facility Anticipate ongoing OT treatment sessions with specific focus on ADLs, functional transfers, safe d/c planning. Recommendations Based on OT assessment of patient's ability to complete self care tasks, AM-PAC Daily Activity Score, functional cognition and safety awareness, potential for improvement, available home support, participation in therapeutic intervention, and tolerance for activity, anticipated discharge disposition, once medically ready: Inpatient rehab unit/facility (04/08/251341). Rationale: Patient needs intensive, inpatient skilled OT services. Patient is actively engaged in therapy, and has the potential to make progress towards goals for 3 hours of therapy daily. . * The final discharge location is determined through physician, case management, and patient/caregiver input along with insurance authorization of skilled services when appropriate. Plan of care and discharge recommendations shared with patient, home care assistant, and PT OT recommended DME and AE upon discharge: To be determined (04/08/251341) No new additional adaptive equipment necessary (04/08/251341) Education provided to patient and spouse regarding OT recommendations and plan of care, safety, WB status, goals for therapy, safe d/c planning. Education response: verbalized understanding and would benefit from reinforcement Nursing Staff Mobility Recommendations Recommended daily activity during admission: toileting on BSC and assist x 2 Disposition At start of session, patient found lying in bed At end of session, patient left seated in chair and left with PT present in room Further treatment notes and therapeutic goals can be found in Care Plan Notes. If the patient discharges from facility before another therapy visit, this shall serve as therapy discharge summary. Thank you for this referral, Jesse Berger, Occupational Therapist * Med Jones MD - 04/08/2025 1:02 PM CDT Images from the original note were not included. [employer] is our life's work [facility] Hospitalist/Hospital Medicine Progress note LOS: LOS: 1 day Room/Bed: 3106/01 Patient name: Roger Camp Date of : 1940 HOSPITAL COURSE SUMMARY Xander Camp is an 84-year-old male with a history of atrial fibrillation, coronary artery disease with prior stenting, chronic obstructive pulmonary disease, ? congestive heart failure, and prostate cancer, who was admitted to [facility] on 04/07/2025 for management of right lower extremity cellulitis and a closed bimalleolar fracture following a tractor injury on 03/31/2025. His initial presentation was complicated by fever and confusion, and he was transferred from an outside hospital where he had been started on broad- spectrum antibiotics vancomycin and cefepime . Blood and wound cultures were obtained, and initial cultures showed no growth to date. Orthopedic surgery was consulted and recommended non-operative management with a PRAFO boot, non-weight bearing status, and wound care, Therapeutic management included intravenous antibiotic including vancomycin and cefepime, with vancomycin dosing and monitoring managed by pharmacy, targeting trough levels of 11-15 mcg/mL and daily renal function assessment. Piperacillin- tazobactam was discontinued on 04/07/2025. The patient was maintained non-weight bearing on the right lower extremity and received education and fitting for a PRAFO boot by physical therapy. Apixaban has been resumed. 04/08 continue antibiotic day #2. Start Lasix 40 mg daily. Check echocardiogram. History of chronic A-fib Bowel regimen Consultants: IP CONSULT TO WOUND/SKIN CARE TEAM SUBJECTIVE: Afebrile in the last 24 hours present at the bedside . He has no complaints however the is concerned about the wheezing. He is intermittently short of breath. He had a bowel movement 2 days ago. Right foot in a boot now Plan of care discussed with the nurse present for the rounds . ROS: History obtained from the patient- Psychological: No Depression, no Suicide ideation/thoughts Constitutional: negative for fever, chills, negative for confusion, fatigue Pulmonary + intermittent dyspnea, no cough Cardiovascular: negative for chest pain, no palpitations, no orthopnea GI: negative for nausea, vomiting, diarrhea and constipation, no abdominal pain Renal: no dysuria, no hematuria Musculoskeletal: no back pain, no joint pain, no calf swelling + right ankle foot pain Neuro: negative for headache, no vision changes, no dizziness Skin: no skin rash, no redness OBJECTIVE: Temp (24hrs), Av ??F (37.2 ??C), Min:98.5 ??F (36.9 ??C), Max:99.8 ??F (37.7 ??C) BP (!) 151/92 (BP Location: Left arm, Patient Position (BP): Supine) Comment: nurse notified Pulse (!) 101 Temp 98.5 ??F (36.9 ??C) (Temporal) Resp 20 SpO2 100% Intake/Output Summary (Last 24 hours) at 04/08/2025 1302 Last data filed at 04/08/2025 1000 Gross per 24 hour Intake 387 ml Output 1000 ml Net -613 ml Last documented weight: Weight: (no bed scale available.) (04/08/25 3642) EXAM: General: alert, in no distress appears stated age, chronically ill-appearing he is Neurologic: Grossly normal , No focal deficits. HEENT: atraumatic, Normocephalic, without obvious abnormality Lungs: clear to auscultation bilaterally decreased breath sounds on the bases crackles right more than the left , normal respiratory effort Heart: normal rate, regular rhythm, normal S1, S2, no murmurs, rubs, clicks or gallops Abdomen: Soft, non-tender. Bowel sounds normal. No masses, no organomegaly. Extremities: no edema in the left pretibial and ankle Right ankle is mildly swollen erythematous with bruising Skin: Media Information Document Information Document History LABORATORY: Recent Labs 04/05/25230704/07/25 1448 04/08/25 0452 WBC 10.9* 10.7 9.5 HGB 12.9* 11.6* 11.4* HCT 37.0* 36.2* 34.9* PLT 199 216 257 Recent Labs 04/05/25230704/07/25 1025 04/07/25 1448 04/08/25 0452 NA 135* 140 141 139 K 4.2 4.2 4.4 4.0 CL 102 107 108* 104 CO2 CA 9.2 8.7* 8.9 8.6* BUN 27* 29* 31* 27* CREAT 0.82 0.99 0.89 0.87 GLUCOSE 108* 127* 113* 102* Recent Labs 04/05/25 2308 04/07/25 1448 TOTALPROTEIN 6.7 6.3* ALBUMIN 3.5 3.1* BILITOTAL 2.0* 1.4* ALKPHOS 81 84 AST 61* 50 ALT 34 32 Recent Labs 04/05/25 2308 INR 1.6* PT 19.2* Recent Labs 04/06/25 1150 04/06/25 1408 04/06/25 1740 BASETROP 27* -- -- 2HRTROP -- 27* -- DELTA -- 0 3 6HRTROP -- -- 30* Diagnostic testing reviewed by me: CXR CT scan Medications reviewed by me : home meds and inpt meds Primary Diagnosis: Cellulitis of right lower extremity Other Active medical issues also addressed during this admission: Active Hospital Problems Diagnosis Closed bimalleolar fracture of right ankle Cellulitis of right lower extremity Chronic atrial fibrillation Chronic obstructive pulmonary disease Atherosclerosis of [place] coronary artery of [place] heart with angina pectoris Resolved Hospital Problems No resolved problems to display. ASSESSMENT AND PLAN: Right ankle bimalleolar fractures with overlying cellulitis . - Management: Non-weight bearing RLE; immobilize/splint; elevate limb Continue empiric IV vancomycin + cefepime (day 2 ) Monitor clinical response Continue pain management. History of chronic atrial fibrillation Resume apixaban. Stop Lovenox. Shortness of breath with wheezing. Concern for heart failure. Check echocardiogram. Diuretics No echocardiogram available in the system. Patient and family not sure if they had 1. History of coronary artery disease /cardiomegaly on CT scan - - Meds: Continue aspirin 81 mg daily and atorvastatin 40 mg nightly. Consider beta-rebekah. Inpatient echocardiogram Chronic obstructive pulmonary disease no wheezing on my examination Continue inhaler Dyslipidemia - Continue atorvastatin 40 mg nightly. Mild normocytic anemia Continue CBC Obesity (BMI ~31-32) - [place] on diet, activity as tolerated; dosing considerations for meds and imaging. Constipation bowel regimen Recent Labs 04/06/25 1210 04/06/25 1744 GLUCPOC 80 114* Discussed with the Pt and who is present at the bedside . Plan of care discussed with nurse . DVT prevention: [place] Outpatient follow up: PCP , orthopedic Anticipated Disposition Location: Home Timeframe: 2 to 3 Days Criteria: Clinical improvement . Education/DME/Equipment Needs: As per PT Understanding of illness: Patient: Ok Primary family contact: Code status: Full Code MDM 2 This documentation was created by an artificial assembler fluorescent lights software. Effort has been done to assure accuracy of assembler fluorescent lights. Any obvious errors or omissions should be clarified with the author of the document. Med Jones MD 04/08/2025, 1:02 PM * Mandy Valderrama, Physical Therapist - 04/08/2025 8:36 AM CDT [facility] Ph. [phone] ORTHOTIC NOTE 04/08/2025 Reason For Visit: education and initial fit of PRAFO Roger Camp [id number] 1940 3106/01 Time In: 0836 Time Out: 0848 Indications for Orthotic Use: Ordered by Physician: Maty Gary NP for right bimalleolar fracture SUBJECTIVE Patient Subjective: patient reports pain as PT positioning foot into boot. Pain: 5/10 @ rest, up to 10/10 with activity. OBJECTIVE Intervention: Patient fit with PRAFO. right. Recommended wearing schedule: At all times. Don brace while supine. Remove Orthotic & inspect skin daily. Education/Training: Provided to: patient and patient's family Education provided: don/doff orthosis, family education, patient education, and wearing schedule Recommended Follow Up: As needed Thank you for this referral, Mandy Valderrama Physical Therapist Please contact therapy @ [phone] or Orthotic Coordinator Office [phone] for any questions or concerns. * Aminah Aranda, PHARMACIST - 04/08/2025 8:27 AM CDT Vancomycin Consult to Pharmacy Current Antibiotic Therapies Vancomycin Day # 2 Also on cefepime Serum creatinine: 0.87 mg/dL 04/08/25 0452 Estimated creatinine clearance: 63.1 mL/min NOTE: This calculation is potentially inaccurate in acute and/or chronic kidney disease and over/under weight patients, and thus is only an estimation of renal function Assessment: Roger Camp is a 84 y.o. male who is currently receiving Vancomycin 1500 mg q 24 hrs for cellulitis. WBC 9.5 K/uL, Tmax last 24 hrs of 99.8 ??F, cultures NGTD. Renal function appears stable at this time as Scr has been consistent at 0.8 - 1 mg/dL (0.87 mg/dL today) while urine output appears adequate between measured and unmeasured voids. No levels have been checked as of yet but we are currently utilizing a trough-only monitoring plan on this patient with target of 11-15 mcg/mL. Plan: 1. Continue vancomycin 1500 mg q 24 hrs. 2. Trough level on 04/09 and adjust dose if needed at that time. 3. Continue to monitor renal function daily. Pharmacy will continue to monitor the patient's labs. We will follow-up with daily progress note for Vancomycin and Aminoglycoside Consults and will write a progress note in the future if any additional dosage adjustment is needed on other renal consults. Subjective/Objective: Roger Camp is a 84 y.o. male Temp (24hrs), Av.9 ??F (37.2 ??C), Min:98.2 ??F (36.8 ??C), Max:99.8 ??F (37.7 ??C) BP (!) 151/92 (BP Location: Left arm, Patient Position (BP): Supine) Pulse (!) 101 Temp 98.5 ??F (36.9 ??C) (Temporal) Resp 20 SpO2 100% WBC Date/Time Value Ref Range Status 04/08/2025 04:52 AM 9.5 4.8 - 10.8 K/uL Final 04/07/2025 02:48 PM 10.7 4.8 - 10.8 K/uL Final 04/05/2025 11:08 PM 10.9 (H) 4.2 - 9.1 K/uL Final PLATELETS Date/Time Value Ref Range Status 04/08/2025 04:52 AM 257 140 - 440 K/uL Final 04/07/2025 02:48 PM 216 140 - 440 K/uL Final 04/05/2025 11:08 PM 199 130 - 400 K/uL Final BUN Date/Time Value Ref Range Status 04/08/2025 04:52 AM 27 (H) 8 - 23 mg/dL Final 04/07/2025 02:48 PM 31 (H) 8 - 23 mg/dL Final 04/07/2025 10:25 AM 29 (H) 8 - 23 mg/dL Final CREATININE Date/Time Value Ref Range Status 04/08/2025 04:52 AM 0.87 0.67 - 1.17 mg/dL Final Comment: The GFR result is not clinically significant on patients <18 or >70 years of age. 04/07/2025 02:48 PM 0.89 0.67 - 1.17 mg/dL Final Comment: The GFR result is not clinically significant on patients <18 or >70 years of age. 04/07/2025 10:25 AM 0.99 0.67 - 1.17 mg/dL Final Comment: The GFR result is not clinically significant on patients <18 or >70 years of age. Thank you for the consult and involving us in the care of this patient, we will continue to monitor. Aminah Aranda, PHARMACIST * Aminah Aranda, PHARMACIST - 04/07/2025 3:00 PM CDT Vancomycin Consult to Pharmacy Current Antibiotic Therapies Vancomycin Day # 1 Also on cefepime Serum creatinine: 0.99 mg/dL 04/07/25 1025 Estimated creatinine clearance: 63.1 mL/min NOTE: This calculation is potentially inaccurate in acute and/or chronic kidney disease and over/under weight patients, and thus is only an estimation of renal function Assessment: Roger Camp is a 84 y.o. male who is starting Vancomycin per pharmacy to dose for wound/cellulitis/abscess. Dosing body weight is 81 kg (AdjW), baseline labs are as follows: Scr 0.99, est CrCl 63.1 mL/min. Patient was started on vancomycin at outside facility. Last dose was vancomycin 1500 mg given 04/06 at 2351. Plan: 1. Begin vancomycin 1500 mg q 24 hrs, starting 24 hrs after last dose. 2. We will initially plan to utilize trough-only monitoring on this patient with a target trough of11-15 mcg/mL. Plan level on 04/09 and adjust dose if needed at that time. 3. Continue to monitor renal function daily. Pharmacy will continue to monitor the patient's labs. We will follow-up with daily progress note for Vancomycin and Aminoglycoside Consults and will write a progress note in the future if any additional dosage adjustment is needed on other renal consults. Subjective/Objective: Roger Camp is a 84 y.o. male Temp (24hrs), Av.3 ??F (36.8 ??C), Min:97.2 ??F (36.2 ??C), Max:99.8 ??F (37.7 ??C) BP 119/61 (BP Location: Left arm, Patient Position (BP): Supine) Pulse 86 Temp 99.8 ??F (37.7 ??C) (Temporal) Resp 19 SpO2 92% WBC Date/Time Value Ref Range Status 04/05/2025 [...] Final BUN Date/Time Value Ref Range Status 04/07/2025 10:25 AM 29 (H) 8 - 23 mg/dL Final 04/05/2025 11:08 PM 27 (H) 8 - 23 mg/dL Final 03/14/2020 01:00 PM 22 8 - 23 mg/dL Final CREATININE Date/Time Value Ref Range Status 04/07/2025 10:25 AM 0.99 0.67 - 1.17 mg/dL Final Comment: The GFR result is not clinically significant on patients <18 or >70 years of age. 04/05/2025 11:08 PM 0.82 0.67 - 1.17 [...] this patient, we will continue to monitor. Aminah Aranda, PHARMACIST documented in this encounter H&P Notes * Dominic Santillan MD - 04/07/2025 2:30 PM CDT Images from the original note were not included. [facility] Hospitalist-Dominic Santillan MD History and physical- date of admission: 04/07/2025 Patient name: Roger Camp Date of : 1940 CSN number: [id number] PCP: No primary care provider on file. Chief Complaint: No chief complaint on file. History of present illness: Roger Camp is a 84 y.o. male with a past medical history of atrial fibrillation on eliquis, CAD s/p 2 stents, COPD, CHF that comes as a transfer from [facility] due to skin soft tissue infection of the right ankle complicated by a bimalleolar fracture. Patient initially sustained his injury on 03/31 when a tractor rolled over his foot and he presented to the ED with a bimalleolar fracture of his right ankle. This was splinted and patient was referred to orthopedics outpatient. Over the coming days patient was doing well up until 04/05 when he developed fevers Tmax 103F along with confusion. At the outside hospital patient was started on broad-spectrum antibiotics for skin soft tissue infection of the right ankle. At the outside hospital patient did Has some confusion requiring medications. He was more agitated with Ativan. By the time of my interview patient's mentation isback to his baseline. Currently he denies any fevers, chills, chest pain, shortness of breath, abdominal pain, N/V/D, dysuria, hematuria. During his hospitalization at [place] he did develop chest pain described as a pressure that was relieved. Troponins were 27, 27, 30. D-dimer was elevated and CTA chest showed some pulmonary nodules otherwise unremarkable with no appreciable pulmonary embolism. Past medical history: Past Medical History: Diagnosis Date Atrial fibrillation (CMS/HCC) CAD (coronary artery disease) x 2 stents Cancer (CMS/HCC) Prostate cancer CHF (congestive heart failure) COPD (chronic obstructive pulmonary disease) Dyspnea on exertion Hyperlipidemia Joint pain SOB (shortness of breath) Active chronic medical issues that patient has been followed for as outpatient: Patient Active Problem List Diagnosis Code Preoperative general physical examination Z01.818 Atherosclerosis of [place] coronary artery of [place] heart with angina pectoris I25.119 Dyslipidemia E78.5 Chronic obstructive pulmonary disease J44.9 History of prostate cancer Z85.46 Obesity (BMI 30.0-34.9) E66.811 Chronic atrial fibrillation I48.20 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 M79.2 History of total left knee replacement Z96.652 Closed bimalleolar fracture of right ankle S82.841A Cellulitis of right lower extremity L03.115 Past surgical history: Past Surgical History: Procedure Laterality Date HX HERNIA REPAIR HX PROSTATE SURGERY HX PTCA 08/2016 and 2009 RI ARTHRP KNE CONDYLE&PLATU MEDIAL&LAT COMPARTMENTS Left 04/03/2018 KNEE ARTHROPLASTY TOTAL REPLACEMENT performed by Enrique Smalls MD at [facility] OR RI ARTHRP KNE CONDYLE&PLATU MEDIAL&LAT COMPARTMENTS Right 07/30/2017 KNEE ARTHROPLASTY TOTAL REPLACEMENT performed by Enrique Smalls MD at [facility] OR Current medications: Prior to Admission Medications Prescriptions Last Dose Informant Patient Reported? Taking? HYDROcodone-acetaminophen (NORCO) 5-325 mg tablet No No Sig: Take 1-2 Tablets by mouth every 6 hours as needed for Pain. Max Daily Amount: 8 Tablets apixaban (ELIQUIS ORAL) Yes No Sig: Take by mouth 2 times daily. atorvastatin (LIPITOR) 40 mg tablet Yes No Sig: Take 40 mg by mouth daily at bedtime. cholecalciferol, Vitamin D3, (VITAMIN D3) 25 mcg (1,000 unit) Capsule No No Sig: Take 400 Units by mouth daily . gabapentin (NEURONTIN) 300 mg capsule No No Sig: Take 1 Capsule (300 mg) by mouth daily at bedtime. omega-3 fatty acids/fish oil (Fish Oil-Bryant-3 Fatty Acids) 440-880 mg Capsule No No Sig: Take 1 Capsule by mouth 2 times daily 1200 mg/Bryant 3 360 mg. Facility-Administered Medications: None Allergies and intolerances: Allergies Allergen Reactions Garlic Itching Polyethylene Glycol 3350 Rash Vitamins Itching Social history: Social History Socioeconomic History Marital status: Spouse name: Not on file Number of children: Not on file Years of education: Not on file Highest education level: Not on file Occupational History Not on file Tobacco Use Smoking status: Never Smokeless tobacco: Never Substance and Sexual Activity Alcohol use: No Drug use: No Sexual activity: Not on file Other Topics Concern Not on file Social History Narrative Not on file Health-Related Social Needs Food Insecurity: Low Risk (04/07/2025) Food Insecurity Eating less because can't pay for food: No Transportation Needs: Low Risk (04/07/2025) Transportation Needs 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 Domestic Concerns: Not At Risk (04/07/2025) Feeling Safe Patient has indicated abuse: : No Housing Stability: Low Risk (04/07/2025) Housing Stability Struggle to pay rent or mortgage: No Family History: Family History Problem Relation Name Age of Onset Other Son Unknown Sister Unknown Brother Unknown Sister Other Daughter Unknown Brother Unknown Brother Other Mother Other Father Unknown Sister Review of Systems - 12 point review of systems otherwise negative Physical Exam: BP 119/61 (BP Location: Left arm, Patient Position (BP): Supine) Pulse 86 Temp 99.8 ??F (37.7 ??C) (Temporal) Resp 19 SpO2 92% Last documented weight: Physical Exam Constitutional: Appearance: Normal appearance. HENT: Head: Normocephalic. Mouth/Throat: Mouth: Mucous membranes are moist. Eyes: Extraocular Movements: Extraocular movements intact. Cardiovascular: Rate and Rhythm: Normal rate and regular rhythm. Pulses: Normal pulses. Heart sounds: Normal heart sounds. No murmur heard. Pulmonary: Effort: Pulmonary effort is normal. Breath sounds: Wheezing present. Abdominal: General: Abdomen is flat. Palpations: Abdomen is soft. Tenderness: There is no abdominal tenderness. Musculoskeletal: Cervical back: Normal range of motion. Comments: Moves all 4 extremities spontaneously. Right ankle with ecchymosis from midfoot up to midshin with abrasion on the medial ankle and anterior shrestha. Swelling throughout but no fluctuance or abscess palpated. Sensation intact Skin: General: Skin is warm and dry. Neurological: Mental Status: He is alert and oriented to person, place, and time. Psychiatric: Mood and Affect: Mood normal. Behavior: Behavior normal. Lab Data: Recent Labs 04/05/25230704/07/25 1448 WBC 10.9* 10.7 HGB 12.9* 11.6* HCT 37.0* 36.2* PLT 199 216 Recent Labs 04/05/25 2308 04/07/25 1025 04/07/25 1448 NA 135* 140 141 K 4.2 4.2 4.4 CL 102 107 108* CO2 22 24 22 CA 9.2 8.7* 8.9 BUN 27* 29* 31* CREAT 0.82 0.99 0.89 GLUCOSE 108* 127* 113* Recent Labs 04/05/25230704/07/25 1448 TOTALPROTEIN 6.7 6.3* ALBUMIN 3.5 3.1* BILITOTAL 2.0* 1.4* ALKPHOS 81 84 AST 61* 50 ALT 34 32 Recent Labs 04/05/25 230 INR 1.6* PT 19.2* Recent Labs 04/06/25 1150 04/06/25 1408 04/06/25 1740 BASETROP 27* -- -- 2HRTROP -- 27* -- DELTA -- 0 3 6HRTROP -- -- 30* Assessment/Plan: Principal Problem: Cellulitis of right lower extremity Active Problems: Atherosclerosis of [place] coronary artery of [place] heart with angina pectoris Chronic obstructive pulmonary disease Chronic atrial fibrillation Closed bimalleolar fracture of right ankle Skin soft tissue infection of the right ankle Abrasions on the medial ankle and anterior shrestha Fevers, mild leukocytosis, elevated inflammatory markers CT ankle, preliminary read negative for osteo or septic arthritis. Soft tissue edema present. Significant ecchymosis and some drainage from his abrasions Continue with broad spectrum abx Wound culture pending Blood cultures pending Continue cefepime, vancomycin Orthopedic surgery consulted for bimalleolar fracture. Nonweight bearing at this time bedrest Wound care consult History of CAD Chest pain at OSH, troponin elevated but flat 27, 27, 30 CTA negative for PE or acute findings ECG unable to be read from OSH, repeat here Continue home statin, aspirin If needing surgery would consider TTE Atrial fibrillation Currently rate controlled Hold apixaban incase needing surgical intervention Documented history of COPD No history of smoking Wheezing on exam, albuterol inhaler prn DVT Prophylaxis: enoxaparin (Lovenox) Current Diet: DIET CARDIAC Low Cholesterol (AHA),; 2GM Sodium (Low), Code status: Full Admission status; I have a reasonable expectation that this patient requires hospital care that crosses 2 midnights supported by complex medical factors documented in the medical record. Dominic Santillan MD 04/07/2025 7:11 PM documented in this encounter Procedure Notes * Terri Fernandez RN - 04/09/2025 4:06 AM CDT VASCULAR ACCESS TEAM Peripheral IV insertion PATIENT NAME: Roger Camp DATE OF : 1940 CSN: [id number] DATE: 04/09/2025 Room: [address] [place] [address] Admit Date: 04/07/2025 Hospital day: LOS: 2 days Allergies: Allergies Allergen Reactions Garlic Itching Polyethylene Glycol 3350 Rash Vitamins Itching PERIPHERAL IV INSERTION Ultrasound assessment was performed to assess adequacy of vascular anatomy Adequate vessel was located Insertion site cleansed for 30 seconds with Chlora-prep. Allowed to dry before initial needle stick. A 20 Gauge 2 Inch peripheral IV was successfully placed using ultrasound guidance in the right, upper Arm Secure port adhesive used Yes 1 attempts 20minutes required to complete procedure Positive blood return noted Neutral pressure cap applied Catheter Flushed with 5ml of Normal Saline Transparent dressing applied with date, time and initials of cowoker inserting. LDA documentation is contained in EMR flowsheet Patient tolerated well. Terri Fernandez RN documented in this encounter Consult Notes * Corie Marcelo RCP - 04/10/2025 1:17 PM CDT Cardiopulmonary Rehab completed CHF Education with patient and . They were receptive to the education and verbalized understanding. No referral was sent to Cardiopulmonary Rehab Phase 2 due to: Patient does not have a qualifying diagnosis for the program. Total Time Spent with the Patient: 15 minutes. Units Charged: 1 Learners: Patient and Family Readiness: Acceptance Teaching Points Response Understanding Heart Failure Verbalizes Understanding Heart Failure Medication Management Importance of Taking as Prescribed Side Effects Preferred Pharmacy: [id number] [place] [id number] [address] AT [facility] [employer] ROLAND Verbalizes Understanding Diet and Nutrition Prescribed Diet Incorporating Healthy Eating Habits Reading and Understanding Nutrition Labels Managing Sodium Intake Managing Fluid Intake Verbalizes Understanding Symptom Management Self-Monitoring & Symptom Tracking Shortness of Breath Fatigue/Tiredness Swelling/Edema Weight Gain Blood Pressure Rapid or Irregular Heartbeat Mental Fatigue/Depression Verbalizes Understanding Physical Activity Exercise Rest Daily Goal(s) Verbalizes Understanding Smoking Cessation (if applicable) Tobacco Marijuana Vaping Quitting Resources Verbalizes Understanding Alcohol and Caffeine Consumption and Moderation Effects on Heart and Health Verbalizes Understanding Stress Management Awareness Reduction Strategies Verbalizes Understanding Sleep Sleep Schedule and Routine Verbalizes Understanding Physician/Provider Follow Up Appointment Importance of Keeping All Appointments Ongoing Monitoring and Early Identification of Issues Verbalizes Understanding Primary Care Provider Name: Cnc Lathe Programmer Name: No primary care provider on file. 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 It's really important to know how to take care of your heart! If you have any questions or need help, please ask us anytime. Heart Failure means that your heart does not pump enough blood to meet your body???s needs. Sometimes fluid can back up into your lungs causing shortness of breath. Or fluid can back up into other parts of your body--you may notice swelling in your legs, feet or in your stomach area. As you retain fluid, your weight will go up. You may feel tired and not feel like eating. Most people tend to havethe same symptoms each time their heart failure worsens. Important steps you can take to be healthy Follow a low salt diet by using a salt substitute to season your food, choosing low or no salt foods and not adding additional salt to your meals. Monitor fluid intake. Restrict fluids if ordered by your provider. Take your medications as instructed Try to stay active. Rest when tired. If you are a SMOKER or use TOBACCO products, you are advised to QUIT! Heart failure zones give you an easy way to see changes in your heart failure symptoms. They also tell you when you need to get help. Check every day to see which zone you are in: HEART FAILURE ZONE MANAGEMENT EVERYDAY: Weigh yourself in the morning after going to the bathroom but before eating or drinking. Record your weight on your CHF Daily Record Sheet (in your Living With Heart Failure booklet) and compare it to the prior day???s weight. Take your medicine as prescribed. Check your feet, ankles, legs, and abdomen for swelling. Assess your breathing (was it difficult to lay flat or are you more short of breath). Eat low salt food. Balance activity and rest periods. What Heart Failure Zone are you today? GREEN, YELLOW, or RED? GREEN ZONE: All CLEAR when: Your weight is stable. You have no trouble breathing. You can do your normal activity. You have no changes in your symptoms. YELLOW ZONE: CAUTION! Call your health care provider today: Your Primary Care Team is available 08/01. Your weight goes up 2 pounds in one day or 2-qa-2-pound gradual weight gain over a week. You have more swelling in your feet, ankles, legs, or abdomen. Increased shortness of breath. You have a dry cough that does not go away. You use 2 or more pillows or a recliner to breathe better at night and this is new for you. You feel more tired or have less energy than usual. You have SIDE EFFECTS from your medicines. RED ZONE: MEDICAL ALERT EMERGENCY! CALL RIGHT AWAY when: You have unrelieved shortness of breath at rest or struggling to breathe. You have unrelieved chest pain. You have unrelieved wheezing or chest tightness at rest. You are having confusion or cannot think clearly. CALL 911 for severe shortness of breath or chest pain that will not go away. Utilized Teach Back to assess patient and/or family understanding when discussing and/or providing written material containing the following information: *Heart basic anatomy/physiology *Heart Failure definition, causes, signs/symptoms (includes when to report to physician), and treatment *Ways to reduce the demands on the heart *Daily weight and reporting changes to physician *Potential problems: signs/symptoms, prevention, follow up strategy *Lifestyle alterations, present and future *Medications prescribed to treat Heart Failure, importance of medication compliance, and side effects of medications discussed during education *Exercise guidelines (as outlined in provided written material) CHF signs and symptoms (to report to physician): *Increased shortness of breath, *decline in activity, *increased swelling of feet /waist, *dry hacky cough / pink sputum, *decreased appetite, *unable to lie flat, *weight gain of 3 pounds or more in a day or 5 pounds or more in 2 or more days. Heart Failure Management includes the following information: *Rationale for daily weights and BP *Rationale for 1500 mg low sodium diet or as directed by physician *Activity guidelines (emphasizing low level progressive return to exercise, pacing activities, alternating activity with rest, and plan activities at least 2 hours after meals or before eating,) *Recommendations for no more than 2 quarts; 64 ounces daily of fluid intake or as directed by physician ???Heart Healthy diet to include instructions for increasing fiber by choosing more vegetables, whole fruits, beans, whole grains and cereals. Patient was encouraged to reduce daily intake of added sugars and unhealthy fats. Patient was encouraged to reduce use of high sodium and processed foods and added salts. Patient was informed of outpatient resources for additional nutrition education as appropriate to diagnosis (cardiopulmonary outpatient referral, outpatient diabetes education, Nutrition Center dietitian). Instructions for self-monitoring, including: *Monitoring BP weight daily reporting abnormal values (as outlined in provided written material) tophysician Pt reports having the following at home: BP Machine Scale Written material provided includes: Heart Failure Action Plan Exercise Guideline with 6-week progression ???Building A Healthy Plate?? and ???The Newest Nutrition Recommendations to Prevent Heart Disease?? source: National Lipid Association The following Healthwise Patient Education information discussed and attached to the AVS to be printed and provided, to patient, per Nursing Staff: Low Sodium: Reading a Food Label Heart Failure: Limiting Sodium Heart Failure: Restricting Fluids * Jim Zavala RN - 04/10/2025 7:41 AM CDT Cardiac Rehab screening, per approved protocol. Recommend initiation of services based on evaluation of patient???s condition meeting protocol criteria for Cardiac Rehab services. Problem: Possible CHF, Echo Pending Plan: Provide patient and/or family education for the above problem prior to discharge. Goal: Patient and/or family will verbalize understanding of the education. [place]: Edwardo Uriostegui Primary Cnc Lathe Programmer: Unassigned * Aminah Espinoza RN - 04/09/2025 9:53 AM CDTAssociated Order(s): IP CONSULT TO PHYSICAL MEDICINE REHAB [facility] Duplicate consult order for inpatient rehab evaluation received. Thank you for this referral, Aminah Espinoza RN Clinical Liaison [facility] * Aminah Espinoza RN - 04/09/2025 8:08 AM CDTAssociated Order(s): IP CONSULT TO PHYSICAL MEDICINE REHAB [facility] Order for inpatient rehab evaluation received. Preadmission screening initiated. Will follow up as appropriate. Thank you for this referral, Aminah Espinoza RN Clinical Liaison [facility] * Terri Fernandez RN - 04/09/2025 3:42 AM CDTAssociated Order(s): IP CONSULT TO IV TEAM VASCULAR ACCESS CONSULT PATIENT NAME: Roger Camp DATE OF : 1940 CSN: [id number] DATE: 04/09/2025 Room: [address] [place] [address] Admit Date: 04/07/2025 Hospital day: LOS: 2 days INDICATION: poor access EXCLUSIONS/CONSIDERATIONS: pt has tumor/lumps around R. AC space that appears like infiltration, but it is just his lump he has always had (has one on L. Face and back). LAST RECORDED TEMP: Temp: 99.4 ??F (37.4 ??C) (04/08/25 8783)] Assessment Allergies Allergen Reactions Garlic Itching Polyethylene Glycol 3350 Rash Vitamins Itching Lab Results Component Value Date/Time CREAT 0.87 04/08/2025 04:52 AM BUN 27 (H) 04/08/2025 04:52 AM NA 139 04/08/2025 04:52 AM K 4.0 04/08/2025 04:52 AM CL 104 04/08/2025 04:52 AM CO2 25 04/08/2025 04:52 AM GFR >60 04/08/2025 04:52 AM Lab Results Component Value Date/Time WBC 9.5 04/08/2025 04:52 AM HGB 11.4 (L) 04/08/2025 04:52 AM HCT 34.9 (L) 04/08/2025 04:52 AM PLT 257 04/08/2025 04:52 AM MCV 88.1 04/08/2025 04:52 AM Lab Results Component Value Date/Time INR 1.6 (H) 04/05/2025 11:08 PM PT 19.2 (H) 04/05/2025 11:08 PM Past Medical History: Diagnosis Date Atrial fibrillation (CMS/HCC) CAD (coronary artery disease) x 2 stents Cancer (CMS/HCC) Prostate cancer CHF (congestive heart failure) COPD (chronic obstructive pulmonary disease) Dyspnea on exertion Hyperlipidemia Joint pain SOB (shortness of breath) Past Surgical History: Procedure Laterality Date HX HERNIA REPAIR HX PROSTATE SURGERY HX PTCA 08/2016 and 2009 RI ARTHRP KNE CONDYLE&PLATU MEDIAL&LAT COMPARTMENTS Left 04/03/2018 KNEE ARTHROPLASTY TOTAL REPLACEMENT performed by Enrique Smalls MD at [facility] OR RI ARTHRP KNE CONDYLE&PLATU MEDIAL&LAT COMPARTMENTS Right 07/30/2017 KNEE ARTHROPLASTY TOTAL REPLACEMENT performed by Enrique Smalls MD at [facility] OR Current Facility-Administered Medications: furosemide (LASIX) injection 40 mg, 40 mg, IV, daily, Med Jones MD, 40 mg at 04/08/25 1342 sennosides (SENOKOT) tablet 25.8 mg, 25.8 mg, Oral, daily, Med Jones MD bisacodyL (DULCOLAX) rectal suppository 10 mg, 10 mg, Rectal, daily PRN, Med Jones MD magnesium HYDROXIDE (MILK OF MAGNESIA) oral suspension 30 mL, 30 mL, Oral, daily PRN, Med Jones MD polyethylene glycol (MIRALAX) packet 17 Gram, 17 Gram, Oral, daily, Med Jones MD [DISCONTINUED] docusate sodium (COLACE) capsule 100 mg, 100 mg, Oral, BID, Med Jones MD [DISCONTINUED] polyethylene glycol (MIRALAX) packet 17 Gram, 17 Gram, Oral, daily PRN, Med Jones MD apixaban (ELIQUIS) tablet 5 mg, 5 mg, Oral, BID, Med Jones MD, 5 mg at 04/08/252204 atorvastatin (LIPITOR) tablet 40 mg, 40 mg, Oral, daily BEDTIME, Dominic Santillan MD, 40 mg at 04/08/25 220 gabapentin (NEURONTIN) capsule 300 mg, 300 mg, Oral, daily BEDTIME, Dominic Santillan MD, 300 mg at 04/08/25 2206 sodium chloride flush injection 10 mL, 10 mL, IV, every 12 hours (2 times daily), Dominic Santillan MD, 10 mL at 04/08/25 2100 sodium chloride flush injection 10 mL, 10 mL, IV, see admin instructions, Dominic Santillan MD sodium chloride 0.9 % flush bag 25 mL, 25 mL, IV, see admin instructions, Dominic Santillan MD dextrose 5 % in water 250 mL flush bag 25 mL, 25 mL, IV, see admin instructions, Dominic Santillan MD naloxone (NARCAN) 0.4 mg/mL injection 0.1-0.4 mg, 0.1-0.4 mg, IV, see admin instructions, Dominic Santillan MD VANCOMYCIN CONSULT TO PHARMACY, , See Admin Instructions, see admin instructions, Dominic Santillan MD acetaminophen (TYLENOL) tablet 650 mg, 650 mg, Oral, every 6 hours PRN, Dominic Santillan MD HYDROcodone-acetaminophen (NORCO) 5-325 mg per tablet 1 Tablet, 1 Tablet, Oral, every 4 hours PRN, Dominic Santillan MD, 1 Tablet at 04/08/25 2206 cefePIME (MAXIPIME) 1,000 mg in sodium chloride 0.9% 50 mL IVPB (MBP), 1,000 mg, IV, every 8 hours,Dominic Santillan MD, Stopped at 04/08/25 2331 ondansetron (ZOFRAN ODT) tablet 4 mg, 4 mg, Oral, every 6 hours PRN, Dominic Santillan MD aspirin (PATRICK CHEWABLE) chewable tablet 81 mg, 81 mg, Oral, daily WITH breakfast, Dominic Santillan MD, 81 mg at 04/08/25 0739 vancomycin in sodium chloride 0.9% (VANCOCIN) 1500 mg/515 mL IVPB 1,500 mg, 1,500 mg, IV, every 24 hours, Dominic Santillan MD, Stopped at 04/09/25 0138 sennosides-docusate sodium (SENNA-S) 8.6-50 mg per tablet 1 Tablet, 1 Tablet, Oral, BID, Dominic Santillan MD, 1 Tablet at 04/08/25 2205 haloperidol lactate (HALDOL) injection 2 mg, 2 mg, IM, ONE time PRN, Dominic Santillan MD albuterol sulfate 90 mcg/Actuation inhaler 2 Puff, 2 Puff, Inhalation, resp, every 6 hours PRN, Dominic Santillan MD, 2 Puff at 04/08/25 0737 [DISCONTINUED] enoxaparin (LOVENOX) injection 40 mg, 40 mg, subCUT, every 24 hours, Dominic Santillan MD, 40 mg at 04/07/25 1726 PLAN Assess for vascular access Terri Fernandez RN * Jose Luis Castaneda RN - 04/08/2025 5:32 PM CDTAssociated Order(s): IP CONSULT TO WOUND/SKIN CARE TEAM Images from the original note were not included. Skin/Wound/Ulcer/Pressure Injury Consult [facility] Patient Information Today's Date: 04/08/2025 Name: Roger Camp Age: 84 y.o. Date of : 1940 CSN: [id number] Date/time of admission: 04/07/2025 1:10 PM Hospital day: LOS: 1 day Room: [address] [place] [address] Physical Assessment Wound Details: Wound 04/08/25 Right;medial ankle Atypical Abrasion (Active) Pictures Taken (Date) 04/08/25 04/08/25 1600 Dressing Changed Date 04/08/25 04/08/25 1600 Wound Shape irregular 04/08/25 1600 Wound Base purple;maroon 04/08/25 1600 Periwound Area purple discoloration 04/08/25 1600 Wound Care: Cleansed w/ hypochlorous acid solution 04/08/25 1600 Dressing Application silver impregnated dressing;silicone border dressing 04/08/25 1600 Mattress/surface type: IsoTour Gel NOTES: Skin Team consulted for right medial ankle wound. Focused skin assessment per consult order. Nutrition BMI: Body mass index is 33.45 kg/m??. Current diet order: DIET CARDIAC Low Cholesterol (AHA),; 2GM Sodium (Low), Pressure Injury Prevention Recommendations Turn / reposition at minimum of every 2 hours or more frequently as determined by patient condition When in chair reposition at minimum every 1 hour or more frequently as determined by patient Condition Keep skin clean and free of excess moisture Frequent perineal care for excess moisture and with any soiling Protect and float heels when in bed --as condition allows HOB at lowest level tolerated by patient and medical condition. Do not massage bony prominences. Prevent shearing by utilizing lift sheets and appropriate lift equipment based on patient needs. Skin Assessment every shift ? Wound/Dressing Recommendations Recommendations: Right medial ankle wound- Every 48 hours clean with Vashe then cover with silver impregnated dressing (mepilex ag from [facility]) and cover with a mepilex border or kerlix wrap. Follow skin/pressure injury prevention recommendations as listed above. Skin team will not follow general wounds. Pressure injuries to be followed weekly unless otherwise specified. Will need to be re-consulted for new skin concerns. Total time spent: 20 min. Jose Luis Castaneda RN Skin/Wound/Ostomy Please call hospital gas distribution plant operator to have skin team paged with questions or needs. * Maty Gary NP - 04/08/2025 7:07 AM CDT Images from the original note were not included. ORTHO TRAUMA CONSULTATION 04/08/2025 PATIENT NAME: Roger Camp (male) : 1940 (84 y.o.) CSN: [id number] SUBJECT NARINDER REASON FOR CONSULTATION: Right ankle pain HPI: Roger Camp is a 84 y.o. male who sustained an injury to his right ankle on 03/31 when a tractor ran over his right foot/ankle. He had pain and difficulty bearing weight. He was splinted andreferred for orthopedic follow up. Pt returned to [facility] with signs of sepsis and cellulitis. Pt was transferred to [facility] for further care. Pt was admitted to hospitalist service. Orthopedic surgery was consulted for evaluation of right ankle fracture with overlying abrasions and cellulitis. Pt reports right ankle pain with movement. Pt lives at home with spouse. He normallyuses no assistive devices for ambulation. Pt still drives. Pt denies any other acute complaints of musculoskeletal extremity pain. IMPRESSION Principal Problem: Cellulitis of right lower extremity Active Problems: Atherosclerosis of [place] coronary artery of [place] heart with angina pectoris Chronic obstructive pulmonary disease Chronic atrial fibrillation Closed bimalleolar fracture of right ankle PLAN Plan non operative management of right ankle fracture PRAFO boot with NWB RLE PT for mobilization Wound care RLE per skin team Repeat ankle xray in one week Blue elevator pillow ordered to provide RLE while in bed. Above discussed with pt and , they voiced understanding and agreement with plan, all questions answered. Maty Gary NP 04/08/2025 7:08 AM REFERRING PHYSICIAN: Dr Jones CONSULTING PHYSICIAN: Dr Clay Gates PHYSICAL EXAMINATION Vitals With Comments 04/08/2025 0412 04/08/2025 0000 04/07/2025201304/07/20251948 BP: 118/78 121/79 -- 140/84 Pulse: 102 100 86 96 Resp: 18 19 20 20 Temp: 98.5 ??F (36.9 ??C) 98.6 ??F (37 ??C) -- 99.7 ??F (37.6 ??C) Temp src: -- Temporal -- Temporal SpO2: 95 % 96 % 94 % 92 % Weight: -- -- -- -- no bed scale available. There is no height or weight on file to calculate BMI. GENERAL: Elderly 84 y.o. male, NAD, alert and conversant, fair historian. HEENT: Normocephalic, atraumatic. NECK: Supple. CHEST: Normal respiratory effort CARDIAC: Regular rate and rhythm. ABDOMEN: Soft, no tenderness SKIN: Warm and dry, some scattered abrasions NEURO: MORRIS's to command MUSCULOSKELETAL / EXTREMITIES: 1.Acute Injury(s):RLE ankle/foot swollen and ecchymotic, superficial appearing abrasions with smallblisters right medial ankle, dry, no drainage, foot/ankle diffusely TTP, distal sensation intact, able to wiggle toes to command, dp pulse palpable, compartments soft/NTTP, some chronic appearing BLEedema. 2.Good ROM and sensation in all other extremities. DATA LABS: Lab Results Component Value Date WBC 9.5 04/08/2025 HGB 11.4 (L) 04/08/2025 HCT 34.9 (L) 04/08/2025 PLT 257 04/08/2025 MCV 88.1 04/08/2025 Lab Results Component Value Date NA 139 04/08/2025 K 4.0 04/08/2025 CL 104 04/08/2025 CO2 25 04/08/2025 CA 8.6 (L) 04/08/2025 BUN 27 (H) 04/08/2025 CREAT 0.87 04/08/2025 GLUCOSE 102 (H) 04/08/2025 No results found for: HGBA1C Lab Results Component Value Date INR 1.6 (H) 04/05/2025 Lab Results Component Value Date PHUA 6.0 04/05/2025 SGUR >=1.030 04/05/2025 URINELEUKOC Negative 04/05/2025 NITRITEUA Negative 04/05/2025 KETONEURINE 1+ (A) 04/05/2025 PROTEINUA 1+ (A) 04/05/2025 GLUUA Negative 04/05/2025 BLOODUA Trace (A) 04/05/2025 RBCUA 0-2 04/05/2025 BACTERIAUA 2+ (A) 04/05/2025 UREPITHELIAL 0-5 04/05/2025 No results found for: TTSB878 , VITD25 , NRNO35YAW0 , SNUK38SLP8 , TNVH89LOGC , [id number] , [id number] , VITAMINDTO , [id number] IMAGING: Reviewed by Dr Gates and revealed right bimalleolar ankle fracture REVIEW OF SYSTEMS General ROS: negative for weight changes, fever ENT ROS: negative for nasal congestion, drainage Hematological and Lymphatic ROS: negative for swollen glands Endocrine ROS: negative for polyuria/polydipsia Respiratory ROS: negative for new/change in cough, shortness of breath Cardiovascular ROS: negative for chest pain Gastrointestinal ROS: negative for abdominal pain, change in bowel habits Musculoskeletal ROS: please see HPI Neurological ROS: negative for TIA or stroke symptoms Genitourinary ROS: negative for dysuria MEDICAL HISTORY Allergies: Allergies Allergen Reactions Garlic Itching Polyethylene Glycol 3350 Rash Vitamins Itching Medications: Current Facility-Administered Medications on File Prior to Encounter Medication Dose Route Frequency Provider Last Rate Last Admin [DISCONTINUED] piperacillin-tazobactam (ZOSYN) 3.375 Gram in sodium chloride 0.9% 50 mL IVPB (MBP) 3.375 Gram IV every 6 hours Jean Carlos Norton MD Stopped at 04/07/25 0808 [DISCONTINUED] sodium chloride 0.9 % infusion IV continuous Jean Carlos Norton MD Stopped at 04/07/25 0251 [DISCONTINUED] sodium chloride bacteriostatic 0.9 % injection 10 mL 10 mL IV see admin instructionsYou Gallegos MD 10 mL at 04/06/25 1333 [DISCONTINUED] VANCOMYCIN CONSULT TO PHARMACY See Admin Instructions see admin instructions You Gallegos MD [DISCONTINUED] vancomycin (VANCOCIN) 1,500 mg in sodium chloride 0.9 % 500 mL IVPB 15 mg/kg IV every 24 hours You Gallegos MD Stopped at 04/07/25 0121 Current Outpatient Medications on File Prior to Encounter Medication Sig Dispense Refill atorvastatin (LIPITOR) 40 mg tablet Take 40 mg by mouth daily at bedtime. apixaban (ELIQUIS ORAL) Take by mouth 2 times daily. HYDROcodone-acetaminophen (NORCO) 5-325 mg tablet Take 1-2 Tablets by mouth every 6 hours as neededfor Pain. Max Daily Amount: 8 Tablets 30 Tablet 0 gabapentin (NEURONTIN) 300 mg capsule Take 1 Capsule (300 mg) by mouth daily at bedtime. 30 Capsule0 cholecalciferol, Vitamin D3, (VITAMIN D3) 25 mcg (1,000 unit) Capsule Take 400 Units by mouth daily. omega-3 fatty acids/fish oil (Fish Oil-[place]-3 Fatty Acids) 440-880 mg Capsule Take 1 Capsule by mouth 2 times daily 1200 mg/Bryant 3 360 mg. Past Medical History: Diagnosis Date Atrial fibrillation (CMS/HCC) CAD (coronary artery disease) x 2 stents Cancer (CMS/HCC) Prostate cancer CHF (congestive heart failure) COPD (chronic obstructive pulmonary disease) Dyspnea on exertion Hyperlipidemia Joint pain SOB (shortness of breath) Past Surgical History: Procedure Laterality Date HX HERNIA REPAIR HX PROSTATE SURGERY HX PTCA 08/2016 and 2009 RI ARTHRP KNE CONDYLE&PLATU MEDIAL&LAT COMPARTMENTS Left 04/03/2018 KNEE ARTHROPLASTY TOTAL REPLACEMENT performed by Enrique Smalls MD at [facility] OR RI ARTHRP KNE CONDYLE&PLATU MEDIAL&LAT COMPARTMENTS Right 07/30/2017 KNEE ARTHROPLASTY TOTAL REPLACEMENT performed by Enrique Smalls MD at [facility] OR Family History Problem Relation Name Age of Onset Other Son Unknown Sister Unknown Brother Unknown Sister Other Daughter Unknown Brother Unknown Brother Other Mother Other Father Unknown Sister Social Hx: Social History Socioeconomic History Marital status: Spouse name: Not on file Number of children: Not on file Years of education: Not on file Highest education level: Not on file Occupational History Not on file Tobacco Use Smoking status: Never Smokeless tobacco: Never Substance and Sexual Activity Alcohol use: No Drug use: No Sexual activity: Not on file Other Topics Concern Not on file Social History Narrative Not on file Health-Related Social Needs Food Insecurity: Low Risk (04/07/2025) Food Insecurity Eating less because can't pay for food: No Transportation Needs: Low Risk (04/07/2025) Transportation Needs 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 Vancomycin dosing and lab assessments were performed, with some dosing parameters encountering errors and basic metabolic panel showing low potassium and high BUN and glucose levels. Hygiene and comfort interventions were completed, including bathing with chlorhexidine and linen changes. Physical and occupational therapy evaluations were conducted, and recommendations for alf facility discharge were documented. Overall, patient remained in bed for most of the shift, with no documented falls or injuries and stable vital signs. Infection Risk/Actual: Infection prevention, control, or resolution by discharge: Chlorhexidine bathing and perineal care were completed, and vancomycin dosing was managed, though some dosing parameters encountered errors; basic metabolic panel showed low potassium and high BUN and glucose levels. Safety/Fall: Absence of fall, injury, harm during hospitalization: [facility] without documentation of falls or injuries, and patient spent most of the shift in bed. * Care Plan - Shazia Lira MSW - 04/10/2025 12:28 PM CDT [facility] Operator Discharge Planning Expected Discharge Date Apr 10, 2025 Plan Discharge To: Detention Facility (04/10/25 122) Referrals Status: Facility Referrals - Accepted Follow-up on Referrals Sent: Yes (04/10/25 1227) [facility] can accept today. Facility cannot machine operator picker patient. IMM reviewed with patient and . Signed copy placed in chart. Copy given to . 04/10/25 1227 Discharge Planning Plan Discharge To Detention Facility Patient/Family Communications Confirmed Discharge Plan Discharge Plan Agreed Upon Patient;Spouse Resource List Given Care facilities Resource List Given To Patient;Spouse Information Given Concerning Criteria for (skilled) nursing facility Follow-up on Referrals Sent Yes Has discharge transport been arranged? Yes Transportation Provider [employer] wheelchair van Transportation Contact Name Lorin Transportation Provider Phone [phone] Final Discharge Arrangements Final Discharge Disposition SNF Care Facility Name [facility] Phone Number phone # [phone] fax # [phone] Date Of Pick-Up 04/10/25 Copy of this transfer form will be sent with patient along with: AVS;Pertinent Medical Records Preferred Pharmacy: [facility] #[id number] [place] [address] [address] [facility] Patient / Family Communications: Patient/Family Communications: Confirmed Discharge Plan (04/10/251226) Discharge Plan Agreed Upon: Patient;Spouse (04/10/251226) Resources Provided: Resource List Given: Care facilities (04/10/251226) Resource List Given To: Patient;Spouse (04/10/25 122) Information Given Concerning: Criteria for (skilled) nursing facility (04/10/25 1227) Transportation Plan: Has discharge transport been arranged?: Yes (04/10/251226) Transportation Provider: [facility] [employer] wheelchair van (04/10/25 122) Transportation Contact Name: Lorin (04/10/251226) Transportation Provider Phone: [phone] (04/10/25 1227) Date Of Pick-Up: 04/10/25 (04/10/25 122) Follow Up Appointments Scheduled GONZALO Sanz * Care Plan - Speedy Ceballos Occupational Therapist - 04/10/2025 9:32 AM CDT [facility] - Therapy Services Ph. Acute Occupational Therapy Treatment 04/10/2025 Room: [address] [place] [address] Name: Roger Camp Age: 84 y.o. Patient Class: Inpatient Date of : 1940 Insurance: Payor: MEDICARE / Plan: MEDICARE PART A AND B / Product Type: Medicare / Prior to OT session thorough chart review completed, including prior OT notes as applicable. Consent to treat provided by patient and nurse Date of admission: 04/07/2025 SUBJECTIVE Patient Statements Information provided by: patient and family Patient/family comments: Doing better. I remember my weight bearing rules but I do let my foot reston the ground sometimes. Pain: Refer to flowsheet for documentation of pain and interventions. OBJECTIVE Cognition Level of alertness: alert Orientation: x4 WNL Command following: good Safety awareness: good Memory: WFL conversationally Occupational Performance Activities of Daily Living Toileting: minimal assistance simulated at EOB. Patient tolerated well, but did display with balance deficits. Attempted simulated task x5 Toilet transfer: minimal assistance simulated toilet transfers x 5. Patient required verbal cuing for weight bearing status able to verbalize but continued practice is needed/ Functional Mobility All mobility completed with gait belt, non-skid socks, and walker Patient required verbal and tactile cues for sequencing and proper techniques to maintain weight bearing status. [facility] AM-PAC Daily Activity How much help from another person does the patient currently need? Score 1. Putting on and taking off regular lower body clothing? 3 - A little (supervision to min assist) 2. Bathing (including washing, rinsing, drying)? 2 - A lot (max to mod assist) 3. Toileting, which includes using toilet, bedpan or urinal? 3 - A little (supervision to min assist) 4. Putting on and taking off regular upper body clothing? 4 - None (independent) 5. Taking care of personal grooming such as brushing teeth? 4 - None (independent) 6. Eating meals? 4 - None (independent) Total score 20/24 0-19 indicates likely facility discharge 19-24 indicates likely community discharge *Scores determined based on patient report, observation or professional expertise* Additional Interventions No additional treatment provided during this session Education provided to patient regarding treatment plan and session goals Education response: verbalized understanding Vitals Current O2 requirement: room air Vital signs stable throughout. Additional vitals comments: Patient resting comfortably. Precautions Patient precautions: fall Patient bracing/orthotics: boot Weight bearing: right lower extremity non weight bearing ASSESSMENT & PLAN Assessment Patient is progressing towards care plan goals. Patient is currently functioning below his prior level of function. Plan Continue with plan of care as previously established until patient goals are met or the patient discharges as high fall risk continue to limit patient's occupational performance. Anticipate ongoing OT treatment sessions with specific focus on functional transfers and weight bearing status. For ongoing assessment of current treatment plan: chart, goals and treatment plan reviewed. Goals, treatment plan and plan of care frequency remain appropriate. Recommendations Based on OT assessment of patient's ability to complete self-care tasks and their AM-PAC Daily Activity Score, anticipated discharge disposition: [facility] facility (04/10/25 4587) Rationale: Patient needs ongoing therapy at appropriate facility for medical needs.. * The final discharge location is determined through physician, case management, and patient/caregiver input alongwith insurance authorization of skilled services when appropriate OT recommended DME and AE upon discharge: To be determined (04/08/25 1342) No new additional adaptive equipment necessary (04/08/25 1342) Nursing Staff Mobility Recommendations Recommended daily activity during admission: toileting on BSC, up to chair for meals, and assist x 1 Disposition At start of session, patient found seated in chair At end of session, patient left seated in chair, call light in reach, phone in reach, and spouse present in room Further treatment notes and therapeutic goals can be found in Care Plan Notes. If the patient discharges from facility before another therapy visit, this shall serve as therapy discharge summary. Thank you for this referral, Speedy Ceballos, Occupational Therapist * Care Plan - Mavis Oliveros Director Cardiac - 04/10/2025 8:38 AM CDT [facility] - Therapy Services 3K Ph. Acute Physical Therapy Treatment 04/10/2025 Room: [address] [place] [address] Name: Roger Camp Age: 84 y.o. Date of : 1940 Insurance: Payor: MEDICARE / Plan: MEDICARE PART A AND B / Product Type: Medicare / Subjective Information Comments: patient found supine in bed. Patient agreeable to therapy. Pain: Refer to Doc. Flowsheet for documented pain levels. Vitals Patient on room air Vital signs stable throughout session Functional Mobility/Treatment Therapeutic Activity: supine>EOB: minimal assistance for trunk control EOB>supine: supervision for watchful oversight for safety sit<>stand: minimal assistance for upright posture bed<>chair: minimal assistance for trunk control and safety Patient required verbal cues energy conservation, proper breathing techniques, proper posture, proper techniques for ADL's and functional transfers, use of UE's in transfers, proper techniques to maintain weight bearing status, to get center of gravity over JUAN LUIS, and for assistive device placement with regards to feet/trunk Limited mobility due to decrease standing balance and impulsivity. Balance: Static sitting - fair without UE support Dynamic sitting - fair without UE support Time - 15 minutes Static standing - poor with UE support Dynamic standing - poor with UE support [facility] Basic Mobility How much help from another person does the patient currently need? Score 1. Turning from your back to your side while in a flat bed without using bedrails? 3 - A little (supervision to min assist) 2. Moving from lying on your back to sitting on the side of a flat bed without using bedrails? 3 - A little (supervision to min assist) 3. Moving to and from a bed to a chair (including a wheelchair)? 3 - A little (supervision to min assist) 4. Standing up from a chair using your arms (e.g., wheelchair, or bedside chair)? 3 - A little (supervision to min assist) 5. Walking in hospital room? 2 - A lot (max to mod assist) 6. Climbing 3-5 steps with a railing? 2 - A lot (max to mod assist) Total score 16/24 0-16 - indicates likely facility discharge 17-24 indicates likely community discharge * scores determined based on patient report, observation or professional expertise Assessment and Plan Functional Progress: Patient is progressing towards the goal(s) for functional mobility. Evidenced by increased ability to transfer and remain seated on bedside commode. Patient does require skilled PT. Evidenced by decreased activity tolerance. Specific focus for next treatment session: transfers. Continue with plan of care as previously established until goals met or patient discharges from facility Recommendations Based on PT assessment of and/or progress with physical function, [facility] Basic Mobility score, potential for improvement, available home support, participation in therapeutic intervention, tolerance for activity, and safety , anticipated discharge disposition: [facility] facility (04/10/25 7073). Pt needs daily (weekday) skilled PT services. Anticipate tolerance for an intensive program may be limited and extended recovery time needed * The final discharge location is determined through physician, case management, and patient/caregiver input along with insurance authorization of skilled services when appropriate PT Recommended DME: No new DME recommended (04/08/25 9945). Daily activity recommendations: Up with 2 assist and Up in chair for meals Precautions Patient Precautions: Fall Risk Bracing/Orthotics: [place]'Nard/PRAFO Weight Bearing: right lower extremity no weight bearing Demonstrates ability to maintain weightbearing status with ambulation/transfers. Requires TDWB withstatic standing. Education/Training Provided Additional education provided: basic time frames for healing, functional mobility, ongoing brace training, precautions during healing, proper body mechanics, rehabilitation principles, safety, weight-bearing status, and use of assistive device Learner, method of education, and response to learning listed in Education tab in Epic. Disposition At start of session, patient found lying in bed At end of session, patient left seated in chair, call light in reach, phone in reach, and present in room Consent to treatment given by: Patient and Nurse Prior to PT session a thorough chart review was completed, including prior therapy notes, as applicable. Further treatment notes and therapeutic goals can be found in Care Plan Notes. If the patient discharges from the facility before another therapy visit, this shall serve as the therapy discharge summary. Thank you for this referral, Cony Melara, Student Therapist I have reviewed and agree with all documentation and education by ERNESTINE Muñoz. Thank you, Mavis Oliveros PTA Problem: Physical Mobility, Impaired Goal: Mobility goal: Improve transfer ability by discharge Description: Patient will transfer supine to sit with modified independent. Patient will transfer bed to/from chair with minimal assistance. Patient will transfer to/from toilet with moderate assistance. Outcome: Progressing * Care Plan - Dominguez Burnett RN - 04/10/2025 5:52 AM CDT Shift Summary cefepime and vancomycin in sodium chloride 0.9% were administered and then stopped during the shift. Pain was assessed and managed, with no discomfort reported after interventions. Mobility and transfer ability were supported with assistive devices and ROM exercises. High fall risk interventions and safety checks were completed, with no falls or injuries documented. Overall, comfort and safety were maintained, and cardiovascular status remained stable throughout the shift. Verbalizes/displays acceptable comfort level or baseline comfort level: No pain or discomfort was reported throughout the shift, and content/relaxed status was documented after interventions. Safety/Fall: Absence of fall, injury, harm during hospitalization: High fall risk interventions were completed and safety checks were performed, with no falls or injuries documented during the shift. Identify discharge needs upon admission and through discharge: Discharge needs were supported by use of assistive devices and ongoing assessment of mobility and self-care deficits. Achieve optimal cardiovascular function by discharge or maintain baseline function: Cardiovascular status remained within defined limits, with stable blood pressure and mean arterial pressure documented during the shift. Mobility goal: Improve transfer ability by discharge: Mobility was slightly limited and ambulation required assistance, with active and passive ROM promoted and progressive position changes implemented. * Care Plan - Leti Bhardwaj RN - 04/09/2025 3:15 PM CDT Shift Summary Pain in the right leg was managed with medication and repositioning, resulting in improved comfort and relaxation. CHG bathing and a dressing change were completed, and wound status remained within defined limits. A wound culture was collected and cefepime was stopped earlier in the shift. Intake improved over the shift and family visited during the day. Overall, comfort and infection prevention measures were maintained throughout the shift. Verbalizes/displays acceptable comfort level or baseline comfort level: Right leg pain was present and described as aching and intermittent, with relief noted after medication and repositioning; patient appeared content and relaxed following interventions. Infection Risk/Actual: Infection prevention, control, or resolution by discharge: CHG bathing and dressing change were performed, and a wound on the right lower extremity remained within defined limits; a culture was collected and cefepime was stopped earlier in the day. * Care Plan - Shazia Lira MSW - 04/09/2025 9:55 AM CDT [facility] Discharge Planning Expected Discharge Date Apr 10, 2025 Plan Discharge To: Home Health Services (04/08/25 3850) Referrals Status: Facility Referrals - Pending Patient and prefer to be closer to home for rehab. They have asked for a referral to be sent to [facility] for review. Preferred Pharmacy: [facility] #[id number] [place] [address] [address] [facility] [place] [address] [address] Patient / Family Communications Resources Provided Transportation Plan Follow Up Appointments Scheduled GONZALO Sanz * Care Plan - Cony Stephenson RN - 04/09/2025 6:12 AM CDT Shift Summary cefepime and vancomycin were administered for infection management, and hygiene care was performed multiple times during the shift. Pain was managed with HYDROcodone-acetaminophen and non-pharmacologic interventions, resulting in acontent/relaxed response later in the shift. Safety checks and fall risk assessments were completed, with no falls or injuries documented. Discharge planning was addressed, including possible senior care placement and Home Health Services. Cardiovascular status was monitored, with elevated blood pressure and atrial fibrillation noted during the shift. Infection Risk/Actual: Infection prevention, control, or resolution by discharge: cefePIME and vancomycin were administered during the shift, and hygiene care was performed multiple times; temperature remained mildly elevated but stable. Safety/Fall: Absence of fall, injury, harm during hospitalization: Fall risk was reviewed and agreed upon, safety checks were completed, and no falls or injuries were documented during the shift. * Care Plan - Terri Fernandez RN - 04/09/2025 4:06 AM CDT Roger 's peripheral IV will remain free from infection. * Care Plan - Shazia Lira MSW - 04/08/2025 3:27 PM CDT [facility] Operator Discharge Planning Expected Discharge Date Apr 10, 2025 Plan Discharge To: Inpatient Rehab Facility;Detention Facility (04/08/25 1521) Referrals Status: Met with patient and , explained IPR and SNF. Gave both SNF and IPR and home health care lists to review. Choice form signed and placed into chart. [id number] CODE: [id number] (emailed to Dr. Jones to sign). Preferred Pharmacy: [id number] [place] [address] [address] [facility] [place] [address] [address] Patient / Family Communications Resources Provided Transportation Plan Follow Up Appointments Scheduled GONZALO Sanz * Care Plan - Niurka Sun RN - 04/08/2025 2:13 PM CDT Shift Summary Cefepime was administered for infection management and a wound culture was collected to guide therapy. Pain was consistently denied and no comfort interventions were necessary. Cognitive status remained stable with mild disorientation and slurred speech, but no delirium was present. Ecchymosis and erythema persisted in the right lower extremity, with ongoing skin assessments and elevation maintained. Overall, the shift was marked by continued infection management, stable comfort and cognitive status, and ongoing wound care. Verbalizes/displays acceptable comfort level or baseline comfort level: No pain or discomfort was reported throughout the shift, and no pain interventions were required. Infection Risk/Actual: Infection prevention, control, or resolution by discharge: IV cefepime was administered and a wound culture was collected; temperature remained within normal limits and erythema persisted in the right lower extremity. Achieve optimal cognitive/perceptual/neurological function by discharge or maintain baseline function: Orientation and level of consciousness remained stable, with mild disorientation present but no delirium noted; speech remained slurred throughout the shift. Maintain skin integrity and/or promote wound healing by discharge: Ecchymosis of moderate size persisted in the right lower extremity, and skin assessments were completed; right lower extremity remained elevated during positioning. * Care Plan - Eliezer Heredia RCP - 04/07/2025 8:23 PM CDT Images from the original note were not included. Respiratory Patient Care Assessment S- Patient states he is not short of breath. Camilo Camp is a 84 y.o. male admitted for RLE Wound on 04/07/2025 1:10 PM. Patient looks short of breath but is speaking in full sentences and is awake and alert. Social History Tobacco Use Smoking status: Never Smokeless tobacco: Never Substance Use Topics Alcohol use: No Drug use: No Prior to Admission medications Medication Sig Start Date End Date Taking? Authorizing Provider atorvastatin (LIPITOR) 40 mg tablet Take 40 mg by mouth daily at bedtime. 10/15/24 Yes Provider, Historical apixaban (ELIQUIS ORAL) Take by mouth 2 times daily. Yes Provider, Historical HYDROcodone-acetaminophen (NORCO) 5-325 mg tablet Take 1-2 Tablets by mouth every 6 hours as neededfor Pain. Max Daily Amount: 8 Tablets 03/31/25 You Gallegos MD gabapentin (NEURONTIN) 300 mg capsule Take 1 Capsule (300 mg) by mouth daily at bedtime. 10/17/18 Enrique Smalls MD cholecalciferol, Vitamin D3, (VITAMIN D3) 25 mcg (1,000 unit) Capsule Take 400 Units by mouth daily. 01/31/17 [employer], External Provider omega-3 fatty acids/fish oil (Fish Oil-Bryant-3 Fatty Acids) 440-880 mg Capsule Take 1 Capsule by mouth 2 times daily 1200 mg/Bryant 3 360 mg. 05/03/16 Provider, Historical Lab Results Component Value Date/Time WBC 10.7 04/07/2025 02:48 PM HGB 11.6 (L) 04/07/2025 02:48 PM HCT 36.2 (L) 04/07/2025 02:48 PM PLT 216 04/07/2025 02:48 PM MCV 89.8 04/07/2025 02:48 PM Lab Results Component Value Date/Time NA 141 04/07/2025 02:48 PM K 4.4 04/07/2025 02:48 PM CL 108 (H) 04/07/2025 02:48 PM CO2 22 04/07/2025 02:48 PM CA 8.9 04/07/2025 02:48 PM BUN 31 (H) 04/07/2025 02:48 PM CREAT 0.89 04/07/2025 02:48 PM GLUCOSE 113 (H) 04/07/2025 02:48 PM ANIONGAP 11 04/07/2025 02:48 PM Lab Results Component Value Date/Time CPK 469 (H) 04/05/2025 11:08 PM TROPONIN <0.01 06/15/2017 08:35 PM Breath sounds reveal Expiratory wheezes/Crackles . Last chest x-ray reveals Not available Latest spirometry reveals: Unable to perform at this time A- to treat or prevent bronchospasms P- Patient educated on purpose and technique of therapy. Based on above, patient will be placed on PRN albuterol inhaler . Will reassess patient status as needed . Eliezer Heredia RCP * Care Plan - Heather Flores RN - 04/07/2025 6:12 PM CDT Shift Summary Antibiotic therapy was initiated in [facility] and continued on the unit, with blood cultures collected to assess for infection. Comfort was maintained with no pain reported and regular hygiene care provided. Safety measures were reinforced due to high fall risk, and no falls or injuries occurred. Gastrointestinal interventions were implemented in response to constipation. Genitourinary care focused on managing incontinence and promoting hygiene. Verbalizes/displays acceptable comfort level or baseline comfort level: No pain was reported throughout the shift and comfort measures such as linen and gown changes were performed to maintain comfort. Infection Risk/Actual: Infection prevention, control, or resolution by discharge: Antibiotics were administered in [facility] and on the unit, and blood cultures werecollected; inflammatory markers and white blood cell count remained elevated. Safety/Fall: Absence of fall, injury, harm during hospitalization: High fall risk was confirmed andsafety checks were completed; no new falls or injuries occurred during the shift. Achieve optimal gastrointestinal function by discharge or maintain baseline function: Constipation was noted and interventions to promote activity and fluid intake were implemented. Achieve optimal genitourinary and renal function by discharge or maintain baseline function: Voiding dysfunction and incontinence with urgency were documented, and urogenital hygiene measures were provided. * Care Plan - Shazia Lira, DONOR SERVICES MANAGER - 04/07/2025 2:34 PM CDT Care Management Initial Assessment Initial Discharge Planning Assessment completed. Discussed Care Management's role and Discharge planning. Plan Discharge To: Home with family assist;Home or Self Care Does the patient have family and/or a caregiver that is willing, able and available to assist if needed? Yes - Name/Relation: Megan Comments: patient is from home with his Megan. He is able to drive. He sees [facility] Cynthia Villalpando in [place] for primary care needs. He is usually independent prior to arrival. Patient Discharge Planning Goal: return home Patient will potentially discharge to a SNF/NH? No Care Management visited with: patient and spouseIrene via in person. Prior to admission, patient resides at: own home. Patient resides in a 1 story home with ramp to enter. Patient's bedroom and bathroom are located on the main floor. Prior to admission, living arrangements: spouse. Prior to admission, patient's functional level:independent; uses N/A for mobility; needs assistancewith iADLs: meal preparation Community Ambulator: yes Prior to admission, the patient has the following DME? N/A Services in the home/community: none Receives hemodialysis? No Emergency contact(s): Extended Emergency Contact Information Primary Emergency Contact: [place] [address] [facility] [place] Relation: Spouse Secondary Emergency Contact: EDGAR CAMP [facility] [place] Relation: Son Prescription coverage: yes Preferred Pharmacy verified: [id number] - [place], [place] - [address] [facility] [address] Insurance coverage verified: Payor: MEDICARE / Plan: MEDICARE PART A AND B / Product Type: Medicare/ Secondary Insurance:[place] Medicaid Status: NA Has VA Benefits: no Employment Status: retired PCP verified as: see above Patient has not had a stay at an acute care hospital in the last 30 days. Recent Falls?: Plan for transportation at discharge: family Care Management contact information provided. Care Management will continue to follow and assist asneeded. documented in this encounter Plan of Treatment Scheduled Orders Name Type Priority Associated Diagnoses Orde r Schedule ECHO COMPLETE - CONTRAST AND STRAIN IF INDICATED Echocardiogram Routine Chronic atrial fibrillation 1 Occurrences starting 04/10/2025 until 04/10/2026 documented as of this encounter Procedures Procedure Name Priority Date/Time Associated Diagnosis Comments BASIC METABOLIC PANEL Routine 04/10/2025 7:47 AM CDT VANCOMYCIN LEVEL TROUGH Timed Study 04/09/2025 9:51 PM CDT BRAIN NATRIURETIC PEPTIDE, BNP OR PROBNP Routine 04/09/2025 12:00 PM CDT CBC WITH DIFFERENTIAL Routine 04/08/2025 4:52 AM CDT BASIC METABOLIC PANEL Routine 04/08/2025 4:52 AM CDT EKG 12-LEAD Routine 04/07/2025 7:[address] ANKLE W CONTRAST RIGHT Routine 04/07/2025 5:14 PM CDT CBC WITH DIFFERENTIAL Routine 04/07/2025 2:48 PM CDT SEDIMENTATION RATE Routine 04/07/2025 2: 48 PM CDT C-REACTIVE PROTEIN Routine 04/07/2025 2: 48 PM CDT COMPREHENSIVE METABOLIC PANEL Routine 04/07/2025 2:48 PM CDT RT ASSESS AND TREAT Routine 04/07/2025 2 :47 PM CDT documented in this encounter Results * (ABNORMAL) BASIC METABOLIC PANEL (04/10/2025 7:47 AM CDT) SODIUM 140 136 - 145 mmol/L 04/10/2025 8:53 AM T [facility] POTASSIUM 3.3(L) 3.5 - 5.1 mmol/L 04/10/2025 8:53 AM CDT [facility] CHLORIDE 104 98 - 107 mmol/L 04/10/2025 8:53 AM CDT [facility] CO2 29 22 - 29 mmol/L 04/10/2025 8:53 AM T [facility] CALCIUM 8.9 8.8 - 10.2 mg/dL 04/10/2025 8:53 AM T [facility] BUN 28(H) 8 - 23 mg/dL 04/10/2025 8:53 AM T [facility] CREATININE 0.68 0.67 - 1.17 mg/dL 04/10/2025 8:53 AM T [facility] Comment:The GFR result is no t clinically significant on patients <18 or >70 years of age. GLUCOSE 101(H) 74 - 99 mg/dL 04/10/2025 8:53 AM T [facility] GFR >60 mL/min/1.7 3 sq meter 04/10/2025 8:53 AM T [facility] Comment:eGFR calculated with 2020 CKD-EPI equation. Vegetarian diet, extremely high or low muscle mass, and may affect results. Cystatin C with Glomerular Filtration Rate is a suitable alternative for these patients. ANION GAP 7(L) 9 - 20 mmol/L 04/10/2025 8:53 AM T [facility] Blood Venipuncture / Unknown 04/10/2025 7:47 AM CDT 04/10/2025 8:16 AM CDT us Med Jones MD CHEMISTRY ORDERABLES Final Resu lt [facility] CLIA # [id number] [address] [facility] [place] [address] * (ABNORMAL) VANCOMYCIN LEVEL TROUGH (04/09/2025 9:51 PM CDT) VANCOMYCIN, TROUGH 5.9(L) 10.0 - 17.0 ug/mL 04/09/2025 10:39 PM CDT [facility] Blood Venipuncture / Unknown 04/09/2025 9:51 PM CDT 04/09/2025 10:08 PM CDT us Dominic Santillan MD CHEMISTRY ORDERABLES Final Resul t Performing Organization Address [facility] Co de Phone Number [facility] CLIA # [id number] [address] [facility] [place] [address] * (ABNORMAL) BRAIN NATRIURETIC PEPTIDE, BNP OR PROBNP (04/09/2025 12:00 PM CDT) Pathologist [facility] PROBNP, N TERMINAL 3,603(H) 0 - 450 pg/mL 04/09/2025 12:40 PM CDT [facility] Comment: INTERPRETIVE COMMENT based on diagnosis: Diagnostic NT pro-BNP cutoffs for Heart Failure in the absence of renal failure is suggested for the following ranges <75 years: <125 pg/mL >=75 years: <450 pg/mL Exclusionary rule out cut-point for Acute Decompensated Heart Failure(ADHF) All ages: <300 pg/mL Diagnostic NT pro-BNP cutoffs for Acute Decompensated Heart Failure(ADHF) in the absence of renal failure is suggested for the following ages <50 years: > 450 pg/mL 50-75 years: > 900 pg/mL >75 years: >1800 pg/mL Blood Venipuncture / Unknown 04/09/2025 12:00 PM CDT 04/09/2025 12:10 PM CDT us Med Jones MD CHEMISTRY ORDERABLES Final Resu lt [facility] CLIA # [id number] [address] [address] [place] [address] * (ABNORMAL) BASIC METABOLIC PANEL (04/08/2025 4:52 AM CDT) SODIUM 139 136 - 145 mmol/L 04/08/2025 5:30 AM T [facility] POTASSIUM 4.0 3.5 - 5.1 mmol/L 04/08/2025 5:30 AM T [facility] CHLORIDE 104 98 - 107 mmol/L 04/08/2025 5:30 AM T [facility] CO2 25 22 - 29 mmol/L 04/08/2025 5:30 AM T [facility] CALCIUM 8.6(L) 8.8 - 10.2 mg/dL 04/08/2025 5:30 AM T [facility] BUN 27(H) 8 - 23 mg/dL 04/08/2025 5:30 AM T [facility] CREATININE 0.87 0.67 - 1.17 mg/dL 04/08/2025 5:30 AM T [facility] Comment:The GFR result is no t clinically significant on patients <18 or >70 years of age. GLUCOSE 102(H) 74 - 99 mg/dL 04/08/2025 5:30 AM [facility] GFR >60 mL/min/1.7 3 sq meter 04/08/2025 5:30 AM T [facility] Comment:eGFR calculated with 2020 CKD-EPI equation. Vegetarian diet, extremely high or low muscle mass, and may affect results. Cystatin C with Glomerular Filtration Rate is a suitable alternative for these patients. ANION GAP 10 9 - 20 mmol/L 04/08/2025 5:30 AM T [facility] Blood Venipuncture / Unknown 04/08/2025 4:52 AM CDT 04/08/2025 4:59 AM CDT us Dominic Santillan MD CHEMISTRY ORDERABLES Final Resul t [facility] KELLIE # [id number] [facility] [address] [place] [address] * (ABNORMAL) CBC WITH DIFFERENTIAL (04/08/2025 4:52 AM CDT) [facility] WBC 9.5 4.8 - 10.8 K/uL 04/08/2025 5:08 AM CDT [facility] RBC 3.96(L) 4.60 - 6.20 M/uL 04/08/2025 5:08 AM CDT [facility] HEMOGLOBIN 11.4(L) 14.0 - 18.0 g/dL 04/08/2025 5:08 AM CDT [facility] HEMATOCRIT 34.9(L) 41.0 - 53.0 % 04/08/2025 5:08 AM CDT [facility] MCV 88.1 84.0 - 103.0 fL 04/08/2025 5:08 AM CDT [facility] MCH 28.8 27.0 - 34.0 pg 04/08/2025 5:08 AM CDT [facility] MCHC 32.7 30.0 - 35.0 g/dL 04/08/2025 5:08 AM CDT [facility] PLATELETS 257 140 - 440 K/uL 04/08/2025 5:08 AM CDT [facility] MPV 9.5 8.9 - 12.8 fL 04/08/2025 5:08 AM CDT [facility] RDW 14.0 11.0 - 14.5 % 04/08/2025 5:08 AM CDT [facility] RDW-STDEV 45.2 37.0 - 54.0 fL 04/08/2025 5:08 AM CDT [facility] NEUTROPHILS 74 42 - 75 % 04/08/2025 5:08 AM CDT [facility] LYMPHOCYTES 11(L) 24 - 44 % 04/08/2025 5:08 AM CDT [facility] MONOCYTES 10 2 - 10 % 04/08/2025 5:08 AM CDT [facility] EOSINOPHILS 4 0 - 7 % 04/08/2025 5:08 AM CDT [facility] BASOPHILS 0 0 - 1 % 04/08/2025 5:08 AM CDT [facility] IMMATURE GRANULOCYTES 0 0 - 2 % 04/08/2025 5:08 AM CDT [facility] NEUTROPHIL ABSOLUTE 7.01 2.00 - 8.00 K/uL 04/08/2025 5:08 AM CDT [facility] LYMPHOCYTE ABSOLUTE 1.08(L) 1.20 - 4.00 K/uL 04/08/2025 5:08 AM CDT [facility] MONOCYTE ABSOLUTE 0.98(H) 0.10 - 0.60 K/uL 04/08/2025 5:08 AM CDT [facility] EOSINOPHIL ABSOLUTE 0.36 0.00 - 0.70 K/uL 04/08/2025 5:08 AM CDT [facility] BASOPHILS ABSOLUTE 0.03 0.00 - 0.20 K/uL 04/08/2025 5:08 AM CDT [facility] IMMATURE GRANULOCYTES ABSOLUTE 0.04 0.00 - 0.10 K/uL 04/08/2025 5:08 AM T [facility] SMEAR REVIEWED: NA - Not Applicable 04/08/2025 5:08 AM T [facility] Blood Venipuncture / Unknown 04/08/2025 4:52 AM CDT 04/08/2025 5:00 AM CDT us Dominic Santillan MD HEMATOLOGY ORDERABLES Final Resu lt [facility] CLIA # [id number] [address] [address] [place] [address] * EKG 12-LEAD (04/07/2025 7:40 PM CDT) 04/07/2025 7:40 PM CDT Narrative INTERFACE SYSTEM - 04/08/2025 1:19 [place] [address] Test Date: 2025-04-07 Pat Name: ROGER GAVIN Department: 12 Room: [address] [place] [address] 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 [employer]: [id number] : 1940 Requested By: Order Number: [id number] Reading MD: Alexandria Hauser Measurements Intervals [place] Rate: 96 P: 0 RI: 0 QRS: 23 QRSD: 92 T: -13 QT: 336 QTc: 424 Interpretive Statements Atrial fibrillation with premature ventricular or aberrantly conducted complexes Possible Anterior infarct, age undetermined Abnormal ECG Electronically Signed On 04-08-2025 13:19:22 CDT by Alexandria Hauser Procedure Note Alexandria Hauser MD - 04/08/2025 [place] [address] Test Date: 2025-04-07 Pat Name: ROGER GAVIN Department: 12 Room: [address] [place] [address] 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 [employer]: [id number] : 1940 Requested By: Order Number: [id number] Reading MD: Alexandria Hauser Measurements Intervals [place] Rate: 96 P: 0 RI: 0 QRS: 23 QRSD: 92 T: -13 QT: 336 QTc: 424 Interpretive Statements Atrial fibrillation with premature ventricular or aberrantly conducted complexes Possible Anterior infarct, age undetermined Abnormal ECG Electronically Signed On 04-08-2025 13:19:22 CDT by Alexandria Hauser us Dominic Santillan MD ECG ORDERABLES Final Result INTERFACE SYSTEM Refer to clinic/hospital department * CT ANKLE W CONTRAST RIGHT (04/07/2025 5:14 PM CDT) Anatomical Region Laterality Modality Ankle / Foot Computed Tomogra phy 04/07/2025 4:52 PM CDT Impressions 04/08/2025 7:48 AM CDT IMPRESSION: Please see below. Exam: CT ANKLE W CONTRAST RIGHT Date/Time of Exam: 04/07/2025 5:14 PM Reason For Exam: Septic arthritis suspected, ankle, xray done, Soft tissue infection suspected, ankle, xray done. Diagnosis: See Reason for Exam. Technique: 0.625 mm volumetric acquisition with intravenous contrast with sagittal, coronal, and axial reformatted images reviewed. Contrast: IOPAMIDOL 61 % INTRAVENOUS SOLUTION (MULTI-DOSE BULK PACK) Given:125 mL Comparison: Right ankle radiographs 04/06/2025. Findings: Acute nondisplaced oblique fracture of the distal fibular diaphysis. Acute comminuted cortical avulsion fracture involving the anterior aspect of the lateral malleolus. 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 Mild asymmetric joint space loss with marginal osteophyte formation of the tibiotalar joint. An approximately 0.7 cm (transverse) by 0.8 cm (AP) osteochondral lesion involving the medial corner of the talar dome. Acute comminuted nondisplaced oblique fracture through the base of the medial malleolus. Joint space loss with marginal osteophyte formation subchondral cystic change of the anterior subtalar joint. Severe joint space loss with marginal osteophyte formation subchondral cystic change of the talonavicular joint present. Degenerative change of the second tarsal metatarsal joint present. Incomplete imaging of degenerative change of the first MTP. Ossified intra-articular body within the dorsal lateral aspect of the talonavicular joint present. Type 2 secondary ossification center of the navicular is present. A nondisplaced acute fracture involving the navicular tubercle is present. A probable subtle subchondral impaction fracture involving the plantar lateral aspect of the cuboid at its articulation with the fifth metatarsal present. Significant subcutaneous edema of the medial and lateral malleolus, medial greater than lateral present. Despite the technical soft tissue limitations of CT the flexor, extensor, and peroneal tendons appear intact without CT evidence of entrapment. The Achilles tendon is intact. Physiologic-appearing effusions of the tibiotalar and posterior subtalar joint present. IMPRESSION: 1. Acute lateral and medial malleolar fractures as described with associated significant bimalleolar subcutaneous edema/soft tissue swelling medial greater than lateral. 2. Subtle, nondisplaced fracture involving the navicular tubercle. 3. Subtle, acute, subchondral impaction fracture involving the plantar lateral aspect of the cuboid at its articulation with the fifth metatarsal. 4. Degenerative change of the tibiotalar joint with incidental note of osteochondral lesion involving the medial corner of the talar dome. Negative for CT evidence to suggest instability. 5. Severe osteoarthritis of the talonavicular joint and degenerative change to a lesser degree of the anterior subtalar joint. Narrative Procedure Note Claudia Shin MD - 04/08/2025 IMPRESSION: Please see below. Exam: CT ANKLE W CONTRAST RIGHT Date/Time of Exam: 04/07/2025 5:14 PM Reason For Exam: Septic arthritis suspected, ankle, xray done, Soft tissue infection suspected, ankle, xray done. Diagnosis: See Reason for Exam. Technique: 0.625 mm volumetric acquisition with intravenous contrast with sagittal, coronal, and axial reformatted images reviewed. Contrast: IOPAMIDOL 61 % INTRAVENOUS SOLUTION (MULTI-DOSE BULK PACK) Given:125 mL Comparison: Right ankle radiographs 04/06/2025. Findings: Acute nondisplaced oblique fracture of the distal fibular diaphysis. Acute comminuted cortical avulsion fracture involving the anterior aspect of the lateral malleolus. 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 Mild asymmetric joint space loss with marginal osteophyte formation of the tibiotalar joint. An approximately 0.7 cm (transverse) by 0.8 cm (AP) osteochondral lesion involving the medial corner of the talar dome. Acute comminuted nondisplaced oblique fracture through the base of the medial malleolus. Joint space loss with marginal osteophyte formation subchondral cystic change of the anterior subtalar joint. Severe joint space loss with marginal osteophyte formation subchondral cystic change of the talonavicular joint present. Degenerative change of the second tarsal metatarsal joint present. Incomplete imaging of degenerative change of the first MTP. Ossified intra-articular body within the dorsal lateral aspect of the talonavicular joint present. Type 2 secondary ossification center of the navicular is present. A nondisplaced acute fracture involving the navicular tubercle is present. A probable subtle subchondral impaction fracture involving the plantar lateral aspect of the cuboid at its articulation with the fifth metatarsal present. Significant subcutaneous edema of the medial and lateral malleolus, medial greater than lateral present. Despite the technical soft tissue limitations of CT the flexor, extensor, and peroneal tendons appear intact without CT evidence of entrapment. The Achilles tendon is intact. Physiologic-appearing effusions of the tibiotalar and posterior subtalar joint present. IMPRESSION: 1. Acute lateral and medial malleolar fractures as described with associated significant bimalleolar subcutaneous edema/soft tissue swelling medial greater than lateral. 2. Subtle, nondisplaced fracture involving the navicular tubercle. 3. Subtle, acute, subchondral impaction fracture involving the plantar lateral aspect of the cuboid at its articulation with the fifth metatarsal. 4. Degenerative change of the tibiotalar joint with incidental note of osteochondral lesion involving the medial corner of the talar dome. Negative for CT evidence to suggest instability. 5. Severe osteoarthritis of the talonavicular joint and degenerative change to a lesser degree of the anterior subtalar joint. Dominic Santillan MD CT ORDERABLES Final Result * (ABNORMAL) C-REACTIVE PROTEIN (04/07/2025 2:48 PM CDT) [facility] CRP 184.7(H) 0.0 - 5.0 mg/L 04/07/2025 3:52 PM CDT [facility] Blood Venipuncture / Unknown 04/07/2025 2:48 PM CDT 04/07/2025 3:16 PM CDT Dominic Santillan MD CHEMISTRY ORDERABLES [id number] [address] [place] [address] [place] [address] * (ABNORMAL) SEDIMENTATION RATE (04/07/2025 2:48 PM CDT) [facility] ESR (SEDIMENTATION RATE) 53(H) 0 - 10 mm/Hr 04/07/2025 3:48 PM CDT [facility] Blood Venipuncture / Unknown 04/07/2025 2:48 PM CDT 04/07/2025 3:16 PM CDT us Dominic Santillan MD HEMATOLOGY ORDERABLES Final Resu lt [facility] CLIA # [id number] [address] [address] [place] [address] * (ABNORMAL) COMPREHENSIVE METABOLIC PANEL (04/07/2025 2:48 PM CDT) SODIUM 141 136 - 145 mmol/L 04/07/2025 3:52 PM CDT [facility] POTASSIUM 4.4 3.5 - 5.1 mmol/L 04/07/2025 3:52 PM CDT [facility] CHLORIDE 108(H) 98 - 107 mmol/L 04/07/2025 3:52 PM CDT [facility] CO2 22 22 - 29 mmol/L 04/07/2025 3:52 PM CDT [facility] CALCIUM 8.9 8.8 - 10.2 mg/dL 04/07/2025 3:52 PM CDT [facility] BUN 31(H) 8 - 23 mg/dL 04/07/2025 3:52 PM CDT [facility] CREATININE 0.89 0.67 - 1.17 mg/dL 04/07/2025 3:52 PM CDT [facility] Comment:The GFR result is no t clinically significant on patients <18 or >70 years of age. GLUCOSE 113(H) 74 - 99 mg/dL 04/07/2025 3:52 PM CDT [facility] TOTAL PROTEIN 6.3(L) 6.4 - 8.3 g/dL 04/07/2025 3:52 PM CDT [facility] ALBUMIN 3.1(L) 3.5 - 5.2 g/dL 04/07/2025 3:52 PM CDT [facility] BILIRUBIN TOTAL 1.4(H) 0.0 - 1.0 mg/dL 04/07/2025 3:52 PM CDT [facility] ALKALINE PHOSPHATASE 84 40 - 129 U/L 04/07/2025 3:52 PM CDT [facility] AST 50 10 - 50 U/L 04/07/2025 3:52 PM CDT [facility] ALT 32 <=50 U/L 04/07/2025 3:52 PM CDT [facility] GFR >60 mL/min/1.7 3 sq meter 04/07/2025 3:52 PM CDT [facility] Comment:eGFR calculated with 2020 CKD-EPI equation. Vegetarian diet, extremely high or low muscle mass, and may affect results. Cystatin C with Glomerular Filtration Rate is a suitable alternative for these patients. ANION GAP 11 9 - 20 mmol/L 04/07/2025 3:52 PM CDT [facility] Blood Venipuncture / Unknown 04/07/2025 2:48 PM CDT 04/07/2025 3:16 PM CDT us Dominic Santillan MD CHEMISTRY ORDERABLES Final Resul t [facility] # [id number] [address] [place] [address] * (ABNORMAL) CBC WITH DIFFERENTIAL (04/07/2025 2:48 PM CDT) WBC 10.7 4.8 - 10.8 K/uL 04/07/2025 3:38 PM CDT [facility] RBC 4.03(L) 4.60 - 6.20 M/uL 04/07/2025 3:38 PM CDT [facility] HEMOGLOBIN 11.6(L) 14.0 - 18.0 g/dL 04/07/2025 3:38 PM [facility] HEMATOCRIT 36.2(L) 41.0 - 53.0 % 04/07/2025 3:38 PM [facility] MCV 89.8 84.0 - 103.0 fL 04/07/2025 3:38 PM [facility] MCH 28.8 27.0 - 34.0 pg 04/07/2025 3:38 PM [facility] MCHC 32.0 30.0 - 35.0 g/dL 04/07/2025 3:38 PM [facility] PLATELETS 216 140 - 440 K/uL 04/07/2025 3:38 PM [facility] MPV 9.7 8.9 - 12.8 fL 04/07/2025 3:38 PM [facility] RDW 14.0 11.0 - 14.5 % 04/07/2025 3:38 PM [facility] RDW-STDEV 45.6 37.0 - 54.0 fL 04/07/2025 3:38 PM [facility] NEUTROPHILS 80(H) 42 - 75 % 04/07/2025 3:38 PM [facility] LYMPHOCYTES 8(L) 24 - 44 % 04/07/2025 3:38 PM [facility] MONOCYTES 10 2 - 10 % 04/07/2025 3:38 PM [facility] EOSINOPHILS 1 0 - 7 % 04/07/2025 3:38 PM [facility] BASOPHILS 0 0 - 1 % 04/07/2025 3:38 PM [facility] IMMATURE GRANULOCYTES 1 0 - 2 % 04/07/2025 3:38 PM [facility] NEUTROPHIL ABSOLUTE 8.60(H) 2.00 - 8.00 K/uL 04/07/2025 3:38 PM [facility] LYMPHOCYTE ABSOLUTE 0.83(L) 1.20 - 4.00 K/uL 04/07/2025 3:38 PM CDT [facility] MONOCYTE ABSOLUTE 1.10(H) 0.10 - 0.60 K/uL 04/07/2025 3:38 PM CDT [facility] EOSINOPHIL ABSOLUTE 0.10 0.00 - 0.70 K/uL 04/07/2025 3:38 PM CDT [facility] BASOPHILS ABSOLUTE 0.03 0.00 - 0.20 K/uL 04/07/2025 3:38 PM CDT [facility] IMMATURE GRANULOCYTES ABSOLUTE 0.05 0.00 - 0.10 K/uL 04/07/2025 3:38 PM CDT [facility] SMEAR REVIEWED: NN - No Action Needed 04/07/2025 3:38 PM CDT [facility] Blood Venipuncture / Unknown 04/07/2025 2:48 PM CDT 04/07/2025 3:16 PM CDT us Dominic Santillan MD HEMATOLOGY ORDERABLES Final Resu lt Performing Organization Address City/State/[facility] Co de Phone Number [facility] CLIA # [id number] [address] [place] [id number] documented in this encounter Visit Diagnoses Diagnosis Cellulitis of right lower extremity- Primary Cellulitis and abscess of leg, except foot Chronic atrial fibrillation Atrial fibrillation Closed bimalleolar fracture of right ankle Closed bimalleolar fracture Chronic atrial fibrillation Atrial fibrillation Chronic obstructive pulmonary disease Chronic airway obstruction, not elsewhere classified Atherosclerosis of [place] coronary artery of [place] heart with angina pectoris documented in this encounter Administered Medications Inactive Administered Medications - up to 3 most recent administrations Medication Order MAR Action Action Date Dose Rate Site acetaminophen (TYLENOL) tablet 650 mg 650 mg, Oral, EVERY 6 HOURS PRN, Starting on Sun04/07/25 at 1445, Until Sun04/10/25 at 1645, Other (See Comment), See admin instructions, Routine Given 04/09/2025 8:46 PM CDT 325 mg albuterol sulfate 90 mcg/Actuation inhaler 2 Puff 2 Puff, Inhalation, EVERY 6 HOURS PRN RESPIRATORY, Starting on Sun04/07/25 at 1917, Until Sun04/10/25 at 1645, Shortness of Breath, Wheezing, Routine Given 04/08/2025 7:37 AM CDT 2 Puffs Given 04/07/2025 8:14 PM CDT 2 Puffs apixaban (ELIQUIS) tablet 5 mg 5 mg, Oral, TWO TIMES DAILY, First dose on Sun04/07/25 at 2100, Until Discontinued, Previous Med: apixaban (ELIQUIS ORAL) - Orig Sig - Take by mouth 2 times daily. , Indication: Non-valvular A Fib Given 04/10/2025 9:18 AM CDT 5 mg Given 04/09/2025 8:39 PM CDT 5 mg Given 04/09/2025 8:19 AM CDT 5 mg aspirin (PATRICK CHEWABLE) chewable tablet 81 mg 81 mg, Oral, DAILY WITH BREAKFAST, First dose on Sun04/08/25 at 0800, Until Discontinued, Routine Given 04/10/2025 9:01 AM CDT 81 mg Given 04/09/2025 8:18 AM CDT 81 mg Given 04/08/2025 7:39 AM CDT 81 mg atorvastatin (LIPITOR) tablet 40 mg 40 mg, Oral, DAILY AT BEDTIME, First dose on Sun04/07/25 at 2100, Until Discontinued, Routine, Previous Med: atorvastatin (LIPITOR) 40 mg tablet - Orig Sig - Take 40 mg by mouth daily at bedtime. Given 04/09/2025 8:39 PM CDT 40 mg Given 04/08/2025 10:06 PM CDT 40 mg Given 04/07/2025 8:21 PM CDT 40 mg bisacodyL (DULCOLAX) rectal suppository 10 mg 10 mg, Rectal, DAILY PRN, Starting on Sun04/08/25 at 1301, Until Sun04/10/25 at 1645, Constipation, Routine ceFAZolin (ANCEF,KEFZOL) 2,000 mg in sodium chloride 0.9% 50 mL IVPB (MBP) 2,000 mg, IV, EVERY 8 HOURS, First dose on Sun04/10/25 at 1300, Until Discontinued, Routine, Antibiotic Indication: Wound / Cellulitis / Abscess cefePIME (MAXIPIME) 1,000 mg in sodium chloride 0.9% 50 mL IVPB (MBP) 1,000 mg, IV, EVERY 8 HOURS, First dose on Sun04/07/25 at 1530, Until Discontinued, Routine, Antibiotic Indication: Wound / Cellulitis / Abscess New Bag 04/10/2025 6:13 AM CDT 1,000 mg 11 8 mL/hr New Bag 04/09/2025 10:57 PM CDT 1,000 mg 118 mL/hr New Bag 04/09/2025 3:39 PM CDT 1,000 mg 118 mL/hr enoxaparin (LOVENOX) injection 40 mg 40 mg, subCUT, EVERY 24 HOURS, First dose on Sun04/07/25 at 1600, Until Discontinued, Routine, Indication: Prophylaxis of VTE, Dose to be adjusted per facility protocol? Yes Given 04/07/2025 5:26 PM CDT 40 mg Abdomen, Left Lower Quadrant furosemide (LASIX) injection 20 mg 20 mg, IV, ONE TIME ONLY, 1 dose, On Sun04/07/25 at 2130, Routine Given 04/07/2025 11:32 PM CDT 20 mg furosemide (LASIX) injection 40 mg 40 mg, IV, DAILY, First dose (after last reorder) on Sun04/08/25 at 1315, Until Discontinued, Routine Given 04/10/2025 9:19 AM CDT 40 mg Given 04/09/2025 8:19 AM CDT 40 mg Given 04/08/2025 1:42 PM CDT 40 mg gabapentin (NEURONTIN) capsule 300 mg 300 mg, Oral, DAILY AT BEDTIME, First dose on Sun04/07/25 at 2100, Until Discontinued, Routine, Previous Med: gabapentin (NEURONTIN) 300 mg capsule - Orig Sig - Take 1 Capsule (300 mg) by mouth daily at bedtime. Given 04/09/2025 8:39 PM CDT 300 mg Given 04/08/2025 10:06 PM CDT 300 mg Given 04/07/2025 8:21 PM CDT 300 mg haloperidol lactate (HALDOL) injection 2 mg 2 mg, IM, ONE TIME PRN, 1 dose, Starting on Sun04/07/25 at 1900, Until Sun04/10/25 at 1645, Delirium, Routine HYDROcodone-acetaminophen (NORCO) 5-325 mg per tablet 1 Tablet 1 Tablet, Oral, EVERY 4 HOURS PRN, Starting on Sun04/07/25 at 1445, Until Sun04/10/25 at 1645, Pain (See admin instructions), Routine Given 04/08/2025 10:06 PM CDT 1 Tablet Given 04/07/2025 7:48 PM CDT 1 Tablet iopamidoL (ISOVUE-300) 61% injection (drawn from multi-use bulk pack) 125 mL 125 mL, IV, INTRA-PROCEDURE ONCE, 1 dose, Starting on Sun04/07/25 at 1641, Until Sun04/07/25 at 1714, Routine Contrast Given 04/07/2025 5:14 PM CDT 125 mL magnesium HYDROXIDE (MILK OF MAGNESIA) oral suspension 30 mL 30 mL, Oral, DAILY PRN, Starting on Sun04/08/25 at 1301, Until Sun04/10/25 at 1645, Constipation, Routine metoprolol succinate (TOPROL XL) SR 24 hour tablet 25 mg 25 mg, Oral, DAILY, First dose on Sun04/09/25 at 1615, Until Discontinued, Routine Given 04/10/2025 9:18 AM CDT 25 mg Given 04/09/2025 5:40 PM CDT 25 mg polyethylene glycol (MIRALAX) packet 17 Gram 17 Gram, Oral, DAILY, First dose (after last modification) on Sun04/08/25 at 1315, Until Discontinued, Routine Given 04/09/2025 8:20 AM CDT 17 Grams potassium CHLORIDE (KLOR-CON) SR tablet 40 mEq 40 mEq, Oral, ONE TIME ONLY, 1 dose, On Sun04/10/25 at 1245, Routine Given 04/10/2025 2:14 PM CDT 40 mEq sennosides (SENOKOT) tablet 25.8 mg 25.8 mg, Oral, DAILY, First dose on Sun04/08/25 at 1315, Until Discontinued, Routine Given 04/10/2025 9:18 AM CDT 25.8 mg Given 04/09/2025 8:20 AM CDT 25.8 mg sennosides-docusate sodium (SENNA-S) 8.6-50 mg per tablet 1 Tablet 1 Tablet, Oral, TWO TIMES DAILY, First dose on Sun04/07/25 at 2100, Until Discontinued, Routine Given 04/10/2025 9:18 AM CDT 1 Tablet Given 04/09/2025 8:39 PM CDT 1 Tablet Given 04/08/2025 10:05 PM CDT 1 Tablet sodium chloride flush injection 10 mL 10 mL, IV, EVERY 12 HOURS (BlD), First dose on Sun04/07/25 at 2100, Until Discontinued, Routine Given 04/09/2025 8:39 PM CDT 10 mL Given 04/09/2025 8:21 AM CDT 10 mL Ar m, Right Given 04/08/2025 9:00 PM CDT 10 mL sodium chloride flush injection 10 mL 10 mL, IV, SEE ADMIN INSTRUCTIONS, Starting on Sun04/07/25 at 1444, Until Sun04/10/25 at 1645, Routine Given 04/10/2025 9:19 AM CDT 10 mL sodium chloride flush injection 10 mL 10 mL, IV, ONE TIME ONLY, 1 dose, On Sun04/07/25 at 1645, Routine Given 04/07/2025 5:28 PM CDT 10 mL vancomycin in sodium chloride 0.9% (VANCOCIN) 1250 mg/262.5 mL IVPB 1,250 mg 1,250 mg, IV, EVERY 12 HOURS, First dose on Sun04/10/25 at 0000, Until Discontinued, Routine, Antibiotic Indication: Wound / Cellulitis / Abscess New Bag 04/09/2025 11:55 PM CDT 1,250 mg 175 mL/hr vancomycin in sodium chloride 0.9% (VANCOCIN) 1500 mg/515 mL IVPB 1,500 mg 1,500 mg, IV, EVERY 24 HOURS, First dose on Sun04/07/25 at 2300, Until Discontinued, Routine, Antibiotic Indication: Wound / Cellulitis / Abscess New Bag 04/09/2025 12:08 AM CDT 1,500 mg 343.33 mL/hr New Bag 04/07/2025 11:38 PM CDT 1,500 mg 343.33 mL/hr documented in this encounter Active and Recently Administered Medications Times are shown in CDT. Scheduled Medication Order 04/08/2025 04/09/2025 04/10/2025 apixaban (ELIQUIS) tablet 5 mg 5 mg, Oral, TWO TIMES DAILY, First dose on Sun04/07/25 at 2100, Until Discontinued, Previous Med: apixaban (ELIQUIS ORAL) - Orig Sig - Take by mouth 2 times daily. , Indication: Non-valvular A Fib 0900 (Automatically Held)1300 (Order Unhold - Provider: Med Jones MD)2204 (Given - Provider: Cony Stephenson RN) 818 (Given - Provider: Leti Bhardwaj RN)2038 (Given - Provider: Julia Judd, RN) 917 (Given - Provider: Anabell Blackburn, RN) aspirin (PATRICK CHEWABLE) chewable tablet 81 mg 81 mg, Oral, DAILY WITH BREAKFAST, First dose on Sun04/08/25 at 0800, Until Discontinued, Routine 0739 (Given - Provider: Niurka Sun RN) 08 (Given - Provider: Leti Bhardwaj RN) 09 (Given - Provider: Anabell Blackburn RN) atorvastatin (LIPITOR) tablet 40 mg 40 mg, Oral, DAILY AT BEDTIME, First dose on Sun04/07/25 at 2100, Until Discontinued, Routine, Previous Med: atorvastatin (LIPITOR) 40 mg tablet - Orig Sig - Take 40 mg by mouth daily at bedtime. 2205 (Given - Provider: Cony Stephenson RN) 2038 (Given - Provider: Julia Judd RN) ceFAZolin (ANCEF,KEFZOL) 2,000 mg in sodium chloride 0.9% 50 mL IVPB (MBP) 2,000 mg, IV, EVERY 8 HOURS, First dose on Sun04/10/25 at 1300, Until Discontinued, Routine, Antibiotic Indication: Wound / Cellulitis / Abscess 1300 (Canceled Entry - Provider: Anabell Blackburn RN - Comment: being dc'd) cefePIME (MAXIPIME) 1,000 mg in sodium chloride 0.9% 50 mL IVPB (MBP) (CANCELED) 1,000 mg, IV, EVERY 8 HOURS, First dose on Sun04/07/25 at 1530, Until Discontinued, Routine, Antibiotic Indication: Wound / Cellulitis / Abscess 0743 (New Bag - Provider: Niurka Sun RN)0813 (Stopped - Provider: Niurka Sun RN)1547 (New Bag - Provider: Leti Bhardwaj RN)1617 (Stopped - Provider: Leti Bhardwaj RN)2301 (New Bag - Provider: Cony Stephenson RN)2331 (Stopped - Provider: Cony Stephenson RN) 0540 (New Bag - Provider: Cony Stephenson RN)0610 (Stopped - Provider: Leti Bhardwaj RN)0700 (Not Given - Provider: Leti Bhardwaj RN - Reason: Clarify-Frequency - Comment: order says every 8 hours)1539 (New Bag - Provider: Leti Bhardwaj RN)1609 (Stopped - Provider: Leti Bhardwaj RN)2257 (New Bag - Provider: Julia Judd, RN)2327 (Stopped - Provider: Dominguez Burnett, RN) 0613 (New Bag - Provider: Dominguez Burnett, RN)0643 (Stopped - Provider: Anabell Blackburn, RN) dextrose 5 % in water 250 mL flush bag 25 mL 25 mL, IV, SEE ADMIN INSTRUCTIONS, Starting on Sun04/07/25 at 1444, Until Sun04/10/25 at 1645, Routine furosemide (LASIX) injection 40 mg 40 mg, IV, DAILY, First dose (after last reorder) on Sun04/08/25 at 1315, Until Discontinued, Routine 1342 (Given - Provider: Niurka Sun RN) 0819 (Given - Provider: Leti Bhardwaj RN) 0919 (Given - Provider: Anabell Blackburn, RN) gabapentin (NEURONTIN) capsule 300 mg 300 mg, Oral, DAILY AT BEDTIME, First dose on Sun04/07/25 at 2100, Until Discontinued, Routine, Previous Med: gabapentin (NEURONTIN) 300 mg capsule - Orig Sig - Take 1 Capsule (300 mg) by mouth daily at bedtime. 2205 (Given - Provider: Cony Stephenson RN) 2038 (Given - Provider: Julia Judd, MAGGY) metoprolol succinate (TOPROL XL) SR 24 hour tablet 25 mg 25 mg, Oral, DAILY, First dose on Sun04/09/25 at 1615, Until Discontinued, Routine 1740 (Given - Provider: Leti Bhardwaj RN) 0918 (Given - Provider: Anabell Blackburn, RN) naloxone (NARCAN) 0.4 mg/mL injection 0.1-0.4 mg 0.1-0.4 mg, IV, SEE ADMIN INSTRUCTIONS, Starting on Sun04/07/25 at 1444, Until Sun04/10/25 at 1645, Routine polyethylene glycol (MIRALAX) packet 17 Gram 17 Gram, Oral, DAILY, First dose (after last modification) on Sun04/08/25 at 1315, Until Discontinued, Routine 1315 (Refused - Provider: Niurka Sun RN) 0820 (Given - Provider: Leti Bhardwaj, RN) 0900 (Refused - Provider: Anabell Blackburn, RN) potassium CHLORIDE (KLOR-CON) SR tablet 40 mEq (COMPLETED) 40 mEq, Oral, ONE TIME ONLY, 1 dose, On Sun04/10/25 at 1245, Routine 1414 (Given - Provider: Anabell Blackburn, RN) sennosides (SENOKOT) tablet 25.8 mg 25.8 mg, Oral, DAILY, First dose on Sun04/08/25 at 1315, Until Discontinued, Routine 1315 (Refused - Provider: Niurka Sun, RN) 0820 (Given - Provider: Leti Bhardwaj, RN) 0918 (Given - Provider: Anabell Blackburn, RN) sennosides-docusate sodium (SENNA-S) 8.6-50 mg per tablet 1 Tablet 1 Tablet, Oral, TWO TIMES DAILY, First dose on Sun04/07/25 at 2100, Until Discontinued, Routine 0959 (Given - Provider: Niurka Sun RN)2205 (Given - Provider: Cony Stephenson, RN) 0900 (Refused - Provider: Leti Bhardwaj, RN)203 (Given - Provider: Julia Judd, RN) 0918 (Given - Provider: Anabell Blackburn, MAGGY) sodium chloride 0.9 % flush bag 25 mL 25 mL, IV, SEE ADMIN INSTRUCTIONS, Starting on Sun04/07/25 at 1444, Until Sun04/10/25 at 1645, Routine sodium chloride flush injection 10 mL 10 mL, IV, EVERY 12 HOURS (BlD), First dose on Sun04/07/25 at 2100, Until Discontinued, Routine 0959 (Given - Provider: Niurka Sun RN)2100 (Given - Provider: Cony Stephenson, RN) 0821 (Given - Provider: Leti Bhardwaj, RN)203 (Given - Provider: Julia Judd RN) 0900 (Refused - Provider: Anabell Blackburn RN) sodium chloride flush injection 10 mL 10 mL, IV, SEE ADMIN INSTRUCTIONS, Starting on Sun04/07/25 at 1444, Until Sun04/10/25 at 1645, Routine 0919 (Given - Provider: Anabell Blackburn, RN) VANCOMYCIN CONSULT TO PHARMACY Initial dose: Duration:, Routine, Antibiotic Indication: Wound / Cellulitis / Abscess, Starting on Sun04/07/25 at 1445 vancomycin in sodium chloride 0.9% (VANCOCIN) 1250 mg/262.5 mL IVPB 1,250 mg 1,250 mg, IV, EVERY 12 HOURS, First dose on Sun04/10/25 at 0000, Until Discontinued, Routine, Antibiotic Indication: Wound / Cellulitis / Abscess 2355 (New Bag - Provider: Dominguez Burnett RN) 0125 (Stopped - Provider: Dominguez Burnett RN)1200 (Canceled Entry - Provider: Anabell Blackburn RN - Comment: being dc'd) vancomycin in sodium chloride 0.9% (VANCOCIN) 1500 mg/515 mL IVPB 1,500 mg (CANCELED) 1,500 mg, IV, EVERY 24 HOURS, First dose on Sun04/07/25 at 2300, Until Discontinued, Routine, Antibiotic Indication: Wound / Cellulitis / Abscess 0108 (Stopped - Provider: Rose Fonseca RN) 0008 (New Bag - Provider: Cony Stephenson, MAGGY)0138 (Stopped - Provider: Cony Stephenson RN) PRN Medication Order 04/08/2025 04/09/2025 04/10/2025 acetaminophen (TYLENOL) tablet 650 mg 650 mg, Oral, EVERY 6 HOURS PRN, Starting on Sun04/07/25 at 1445, Until Sun04/10/25 at 1645, Other (See Comment), See admin instructions, Routine 2046 (Given - Provider: Julia Judd RN) albuterol sulfate 90 mcg/Actuation inhaler 2 Puff 2 Puff, Inhalation, EVERY 6 HOURS PRN RESPIRATORY, Starting on Sun04/07/25 at 1917, Until Sun04/10/25 at 1645, Shortness of Breath, Wheezing, Routine 0737 (Given - Provider: Niurka Sun, MAGGY) bisacodyL (DULCOLAX) rectal suppository 10 mg 10 mg, Rectal, DAILY PRN, Starting on Sun04/08/25 at 1301, Until Sun04/10/25 at 1645, Constipation, Routine haloperidol lactate (HALDOL) injection 2 mg 2 mg, IM, ONE TIME PRN, 1 dose, Starting on Sun04/07/25 at 1900, Until Sun04/10/25 at 1645, Delirium, Routine HYDROcodone-acetaminophen (NORCO) 5-325 mg per tablet 1 Tablet 1 Tablet, Oral, EVERY 4 HOURS PRN, Starting on Sun04/07/25 at 1445, Until Sun04/10/25 at 1645, Pain (See admin instructions), Routine 2206 (Given - Provider: Cony Stephenson RN) magnesium HYDROXIDE (MILK OF MAGNESIA) oral suspension 30 mL 30 mL, Oral, DAILY PRN, Starting on Sun04/08/25 at 1301, Until Sun04/10/25 at 1645, Constipation, Routine ondansetron (ZOFRAN ODT) tablet 4 mg 4 mg, Oral, EVERY 6 HOURS PRN, Starting on Sun04/07/25 at 1446, Until Sun04/10/25 at 1645, Nausea/Emesis, Routine documented in this encounter
[2025-04-12 10:13] VITALS: BP 110/75; PULSE 113; RESP 18; TEMP 36.8; O2SAT 90
--- NOTE | 2025-04-12 10:16 | CTR_ITS ---
PROCEDURE INFORMATION: Exam: CTA Chest With Contrast Exam date and time: 04/12/2025 11:34 AM Age: 84 years old Clinical indication: Pain; Chest pressure; Additional info: Cp TECHNIQUE: Imaging protocol: Computed tomographic angiography of the chest with contrast. Exam focused on the arteries. 3D rendering (Not supervised by radiologist): MIP and/or 3D reconstructed images were created by the technologist. Radiation optimization: All CT scans at this facility use at least one of these dose optimization techniques: automated exposure control; mA and/or kV adjustment per patient size (includes targeted exams where dose is matched to clinical indication); or iterative reconstruction. Contrast material: OMNIPAQUE 350; Contrast volume: 76 ml; Contrast route: INTRAVENOUS (IV); COMPARISON: CR XR chest 1V portable [id number] 04/12/2025 10:39 AM RADIATION DOSE METRICS: Total DLP (mGy-cm): 448.5 FINDINGS: Pulmonary arteries: Adequate visualization of the pulmonary arteries to the subsegmental level. No pulmonary embolism. Aorta: Ascending aorta is normal in caliber. Lungs: Bilateral interlobular septal thickening which can be seen with pulmonary edema. Pleural spaces: Trace bilateral pleural effusions. Heart: Small pericardial effusion. Cardiomegaly. Coronary arteries: Triple-vessel coronary artery calcifications. Lymph nodes: Unremarkable. No enlarged lymph nodes. Bones/joints: Unremarkable. No acute fracture. Soft tissues: Unremarkable. CT/CT angio chest PE protcl [id number] IMPRESSION: 1. No pulmonary embolism. 2. Mild pulmonary edema. 3. Trace bilateral pleural effusions. 4. Cardiomegaly and small pericardial effusion.
--- NOTE | 2025-04-12 10:16 | ECG_ITS ---
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[employer]: : 1940 Requested By: Tierra Rutherford Order Number: [id number] Reading MD: JOSE OBRIEN Measurements Intervals [place] Rate: 113 P: 0 MA: 0 QRS: 6 QRSD: 86 T: -18 QT: 369 QTc: 508 Interpretive Statements ATRIAL FIBRILLATION WITH RAPID VENTRICULAR RESPONSE NONSPECIFIC T-WAVE ABNORMALITY ABNORMAL RHYTHM ECG Compared to ECG 11/13/2023 09:42:05 Possible ischemia no longer present T-wave abnormality still present Electronically Signed On 04-12-2025 22:25:09 CDT by JOSE OBRIEN [id number]
--- NOTE | 2025-04-12 10:16 | XRR_ITS ---
PROCEDURE INFORMATION: Exam: XR Chest Exam date and time: 04/12/2025 10:39 AM Age: 84 years old Clinical indication: Pain; Chest pressure; Prior surgery; Surgery date: 6+ months; Surgery type: Cardiac stents x 2; Additional info: Chest pain TECHNIQUE: Imaging protocol: Radiologic exam of the chest. Views: 1 view. COMPARISON: CR XR chest 1V portable [id number] 08/14/2022 10:38 PM FINDINGS: Lungs: Subpleural reticulations at the lower lung bases. Curvilinear bilateral opacities which can be seen with emphysematous lung changes. No focal lung consolidations. Pleural spaces: Unremarkable. No pleural effusion. No pneumothorax. Heart/Mediastinum: Unremarkable. No cardiomegaly. Bones/joints: Unremarkable. XR/XR chest 1V portable [id number] IMPRESSION: 1. No focal lung consolidations. 2. Emphysematous lung changes.
--- NOTE | 2025-04-12 10:17 | W.ED.CHESTPA ---
HPI - Chest Pain General: Chief Complaint: Chest Pain Stated Complaint: chest pain Time Seen by Provider: 04/12/25 10:13 Source: patient and EMS Mode of arrival: EMS Limitations: no limitations History of Present Illness: 84-year-old male is here from detention with chest pain. Patient is a detention as he has a foot fracture has been there for 2 weeks for rehab. States his pain is a sharp pain seem to be worse with inspiration he rates his pain a 2 out of 10 currently he denies any cough or fever denies any vomiting. Related Data Home Medications ?Medication ?Instructions ?Recorded ?Confirmed cholecalciferol (vitamin D3) 25 100 mcg PO DAILY 11/13/23 04/12/25 mcg (1,000 unit) tablet aspirin 81 mg tablet,delayed 81 mg PO DAILY 01/23/24 04/12/25 release (Adult Aspirin Regimen) atorvastatin 40 mg tablet See Rx Instructions .Route .COMPLEX 03/12/25 04/12/25 acetaminophen 325 mg tablet 650 mg PO QID PRN Fever Or Pain 04/12/25 04/12/25 (Tylenol) bisacodyl 10 mg rectal suppository 10 mg TN DAILY PRN Constipation 04/12/25 04/12/25 cephalexin 500 mg capsule 500 mg PO QID 04/12/25 04/12/25 furosemide 40 mg tablet (Lasix) 40 mg PO DAILY 04/12/25 04/12/25 gabapentin 300 mg capsule 300 mg PO BEDTIME 04/12/25 04/12/25 linezolid 600 mg tablet (Zyvox) 600 mg PO BID 04/12/25 04/12/25 magnesium citrate 296 ml PO DAILY PRN constipation 04/12/25 04/12/25 magnesium hydroxide 400 mg/5 mL 30 ml PO DAILY PRN Constipation 04/12/25 04/12/25 oral suspension (Milk of Magnesia) metoprolol succinate 50 mg 50 mg PO DAILY 04/12/25 04/12/25 tablet,extended release 24 hr omega 6-nbt-fiu-fish oil 1,200 mg 1 cap PO DAILY 04/12/25 04/12/25 (144 mg-216 mg) capsule potassium chloride 20 mEq 40 meq PO DAILY 04/12/25 04/12/25 tablet,extended release sennosides 8.6 mg tablet (senna) 25.8 mg PO BID PRN Constipation 04/12/25 04/12/25 sodium phosphates 19 gram-7 118 ml TN DAILY PRN Constipation 04/12/25 04/12/25 gram/118 mL enema (Enema) tuberculin PPD 5 tub. unit/0.1 mL See Rx Instructions .Route .COMPLEX 04/12/25 04/12/25 intradermal injection solution Previous Rx's ?Medication ?Instructions ?Recorded apixaban 5 mg tablet (Eliquis) See Rx Instructions .Route 02/02/25 .COMPLEX #180 tabs Allergies Allergy/AdvReac Type Severity Reaction Status Date / Time ferrous fumarate (From Allergy Mild ALGY-Rash Verified 03/12/25 08:03 1 + Iron) folic acid (From 1 Allergy Mild ALGY-Rash Verified 03/12/25 08:03 + Iron) vit,tx Allergy Mild ALGY-Rash Verified 03/12/25 08:03 calc,iron,folic acd(less thn 1 mg) (From 1 + Iron) vitamins with Allergy Mild ALGY-Rash Verified 03/12/25 08:03 calcium (From 1 + Iron) Review of Systems Card: Reports: chest pain [facility] ED PFSH: Medical History (Updated 04/12/25 @ 12:23 by Tierra Rutherford MD) Cerebrovascular accident (CVA) determined by clinical assessment Acute CVA (cerebrovascular accident) Weakness Coronary artery disease COPD (chronic obstructive pulmonary disease) ASHD (arteriosclerotic heart disease) Myocardial infarction Atrial fibrillation Dyslipidemia Restrictive airway disease Obesity CHF (congestive heart failure) Enrolled in chronic care management Vasculitis Surgical History S/P knee replacement S/P hernia repair S/P prostatectomy S/P angioplasty with stent Family History Other CAD (coronary artery disease) Social History Smoking and tobacco/nicotine status: never used tobacco/nicotine Alcohol intake: never Substance/Drug Use: never Physical Exam Const: COMMON NORMALS: patient oriented x3 HENMT: COMMON NORMALS: normocephalic and atraumatic HEAD & SCALP: normocephalic and atraumatic Eye: COMMON NORMALS: conjunctivae normal CONJUNCTIVA: Yes conjunctivae normal Neck/C-Spine: COMMON NORMALS: full ROM and supple Chest: COMMONS NORMALS: normal inspection of the chest Resp: COMMON NORMALS: normal respiratory effort, No retractions, No use of accessory muscles and clear to auscultation bilaterally AUSCULTATION: clear to auscultation bilaterally Cardio: COMMON NORMALS: No murmurs present (Cardio) RATE: tachycardic RHYTHM: abnormal rhythm irregularly irregular GI: COMMON NORMALS: Normal to inspection, nondistended, normoactive bowel sounds present, Soft to palpation, non-tender and no masses PALPATION: Yes Soft to palpation Extremity: COMMON NORMALS: normal to inspection and full ROM Neuro: COMMON NORMALS: patient oriented x3, moves all extremities and no focal motor deficits Psych: COMMON NORMALS: mental status grossly normal, Normal thought process present and cooperative THOUGHT PROCESS: Normal thought process present Skin: COMMON NORMALS: no rashes or lesions noted and no wounds GENERAL SKIN EXAM: no rashes or lesions noted Course Vital Signs: Vital signs: Vital Signs Temperature 98.2 F 04/12/25 10:13 Pulse Rate 113 H 04/12/25 10:13 Respiratory Rate 18 04/12/25 10:13 Blood Pressure 110/75 04/12/25 10:13 Pulse Oximetry 90 04/12/25 10:13 Oxygen Delivery Me thod Nasal Cannula 04/12/25 10:13 MDM - Chest Pain Medical Decision Making Patient presents with chest pain differentials aortic dissection, pulm emboli, ACS. CT scan here showed no signs of pulmonary emboli or dissection. Pain description is more pleuritic in nature worse with deep breaths initial repeat troponin here negative I do not believe he has any signs of acute coronary syndrome. He is stable for discharge back to the detention did review his chest x-ray and CT it showed no acute abnormalities. His EKG here showed A-fib no ST elevation QRS 86 QTc 346. He is stable for discharge and return if worsening family understands agrees to plan Medical Records I reviewed the patient's medical records. Lab Data I reviewed the patient's lab results. 04/12/25 10:24 04/12/25 10:24 Radiology Impressions Chest CTA 04/12/25 10:16 IMPRESSION: 1. No pulmonary embolism. 2. Mild pulmonary edema. 3. Trace bilateral pleural effusions. 4. Cardiomegaly and small pericardial effusion. Chest X-Ray 04/12/25 10:16 IMPRESSION: 1. No focal lung consolidations. 2. Emphysematous lung changes. Laboratory Results WBC 14.84 10^3/uL (3.29-11.43) H 04/12/25 10:24 RBC 4.87 10^6/uL (3.85-5.65) 04/12/25 10:24 Hgb 13.90 g/dL (11.27-16.99) 04/12/25 10:24 Hct 42.4 % (37-53) 04/12/25 10:24 MCV 87.1 fl (82-101) 04/12/25 10:24 MCH 28.5 pg (27-33) 04/12/25 10:24 MCHC 32.8 g/dL (30-55) 04/12/25 10:24 RDW 13.5 % (12.1-15.1) 04/12/25 10:24 Plt Count 433 10^3/cmm (157-399) H 04/12/25 10:24 MPV 9.2 fL (7.4-10.4) 04/12/25 10:24 Neut % (Auto) 85.9 % 04/12/25 10:24 Lymph % (Auto) 4.6 % 04/12/25 10:24 Pope % (Auto) 7.1 % 04/12/25 10:24 Eos % (Auto) 1.5 % 04/12/25 10:24 Baso % (Auto) 0.5 % 04/12/25 10:24 Neut # (Auto) 12.75 10^3/uL (1.8-7.7) H 04/12/25 10:24 Lymph # (Auto) 0.7 10^3/uL (0.8-4.8) L 04/12/25 10:24 Pope # (Auto) 1.1 10^3/uL (0.2-0.9) H 04/12/25 10:24 Eos # (Auto) 0.2 10^3/uL (0.0-0.8) 04/12/25 10:24 Baso # (Auto) 0.1 10^3/uL (0.0-0.1) 04/12/25 10:24 Nucleated RBC % (auto) 0 % 04/12/25 10:24 Nucleated RBCs # 0.0 /100WBC 04/12/25 10:24 PT 15.90 SECONDS (12.1-14.9) H 04/12/25 10:29 INR 1.19 (0.8-1.2) 04/12/25 10:29 Sodium 138 mmol/L (136-145) 04/12/25 10:24 Potassium 4.5 mmol/L (3.5-5.1) 04/12/25 10:24 Chloride 100 mmol/L (98-107) 04/12/25 10:24 Carbon Dioxide 26 mmol/L (22-29) 04/12/25 10:24 Anion Gap 16.5 (5-19) 04/12/25 10:24 BUN 26 mg/dL (8-23) H 04/12/25 10:24 Creatinine 0.7 mg/dL (0.7-1.2) 04/12/25 10:24 GFR Calculation Not Reportable 04/12/25 10:24 Glucose 142 mg/dL (65-115) H 04/12/25 10:24 POC Glucose 109 mg/dL (70-110) 04/12/25 12:42 Calculated Osmolality 293 mOsm/kg (285-295) 04/12/25 10:24 Calcium 9.5 mg/dL (8.5-10.5) 04/12/25 10:24 Total Bilirubin 1.3 mg/dL (0.15-1.2) H 04/12/25 10:24 AST 37 U/L (0-40) 04/12/25 10:24 ALT 47 U/L (0-41) H 04/12/25 10:24 Alkaline Phosphatase 122 U/L (40-130) 04/12/25 10:24 Troponin T Baseline 21 ng/L (0-15) H 04/12/25 10:24 Troponin T 120 Minute 18.19 ng/L (0-15) H 04/12/25 11:55 Delta Troponin T -2.81 ABS# (0-10) L 04/12/25 11:55 NT-Pro-B Natriuret Pep 1605 pg/mL (0-450) H 04/12/25 10:24 Total Protein 6.3 g/dL (6.6-8.7) L 04/12/25 10:24 Albumin 3.7 g/dL (3.5-5.2) 04/12/25 10:24 Globulin 2.6 g/dL (1.3-4.6) 04/12/25 10:24 All radiology interpretation(s) finalized by discharge EKG Data EKG 1: I personally reviewed and interpreted this EKG as follows: EKG interpretation date: 04/12/25 EKG interpretation time: 10:17 Interpretation: afib with rvr hr [address] elevation qrs 86 qtc 436 EKG 2: I personally reviewed and interpreted this EKG as follows: EKG interpretation date: 04/12/25 EKG interpretation time: 12:18 Interpretation: afib hr [address] or t wave abnormalities qrs 80 qtc 393 Discharge Plan Discharge Patient Disposition: Home Clinical Impression: Chest pain Condition: Stable Prescriptions: No Action aspirin [Adult Aspirin Regimen] 81 mg tablet,delayed release (DR/EC) 81 mg PO DAILY atorvastatin 40 mg tablet See Rx Instructions .ROUTE .COMPLEX Dose Instruction: TAKE 1 TABLET BY MOUTH EVERY NIGHT AT BEDTIME Rx Instructions: TAKE 1/2 TABLET BY MOUTH EVERY NIGHT AT BEDTIME Eliquis 5 mg tablet See Rx Instructions .ROUTE .COMPLEX Qty: 180 1RF Dose Instruction: TAKE ONE TABLET BY MOUTH TWICE DAILY AT 9am AND 9pm Rx Instructions: TAKE ONE TABLET BY MOUTH TWICE DAILY AT 9am AND 9pm cholecalciferol (vitamin D3) 25 mcg (1,000 unit) tablet 100 mcg PO DAILY furosemide [Lasix] 40 mg Tablet 40 mg PO DAILY tuberculin PPD 5 tub. unit /0.1 mL Solution See Rx Instructions .ROUTE .COMPLEX Rx Instructions: Inject 0.1 mL intradermally one time a day every 14 days for TB Screening sennosides [senna] 8.6 mg Tablet 25.8 mg PO BID PRN (Reason: Constipation) acetaminophen [Tylenol] 325 mg Tablet 650 mg PO QID PRN (Reason: Fever Or Pain) metoprolol succinate 50 mg Tablet Extended Release 24 Hr 50 mg PO DAILY magnesium hydroxide [Milk of Magnesia] 400 mg/5 mL Suspension 30 ml PO DAILY PRN (Reason: Constipation) linezolid [Zyvox] 600 mg Tablet 600 mg PO BID bisacodyl 10 mg Suppository 10 mg TN DAILY PRN (Reason: Constipation) cephalexin 500 mg Capsule 500 mg PO QID Enema 19-7 gram/118 mL Enema 118 ml TN DAILY PRN (Reason: Constipation) gabapentin 300 mg Capsule 300 mg PO BEDTIME magnesium citrate Solution 296 ml PO DAILY PRN (Reason: constipation ) omega 5-jgf-jfi-fish oil 1,200 (144-216) mg Capsule 1 cap PO DAILY potassium chloride 20 mEq Tablet Extended Release 40 meq PO DAILY Discharge Orders: Discharge ED (Routine); Ordered 04/12/25 Ordered By: Tierra Rutherford Referrals: Diann Villalpando FNP [Primary Care Provider, Family Practice] - 4-7 days Discharge Diet: Advance as tolerated Discharge Activity: Resume usual activity Patient Instructions: Chest Pain (ED) Print Language: Armenian Coding Level of Care Code 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
--- OUTSIDE RECORDS SUMMARY | 2025-04-12 10:18 | XMS_ITS | Encounter Summary ---
Author Organization [facility] Address [address] 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
--- OUTSIDE RECORDS SUMMARY | 2025-04-12 10:18 | XMS_ITS | Encounter Summary ---
Author Organization [facility] Address [address] [place] [address] Care Team Providers Care Delivery Department Supervisor Name Role Phone JENNA Miguel Sr., Michael Dave Primary Care Pro vider Encounter Details Date Type Department Care Team (Late st Contact Info) Description 12/24/[address] 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
--- OUTSIDE RECORDS SUMMARY | 2025-04-12 10:18 | XMS_ITS | Clinical Summary ---
Author Organization [facility] Address [address] [place] [address] Phone Care Team Providers Care Instruments Sales Representative Name Role Phone Lamont Obando, JENNA, Mina Barajas Primary Care Pro vider Allergies Active Allergy Reactions Criticality Noted Date Comments Garlic Itching Low 07/16/2017 Polyethylene Glycol 3350 Rash Low 03/21/2018 Vitamins Itching Low 07/16/2017 Medications OMEGA-3 FATTY ACIDS/FISH OIL (FISH OIL-OMEGA-3 FATTY ACIDS) 440-880 mg Capsule Take 1 Capsule by mouth 2 times daily 1200 mg/[place] 3 360 mg. Active cholecalciferol , Vitamin D3, (VITAMIN D3) 1,000 unit Capsule Take 400 Units by mouth daily . Active XARELTO 15 mg (42)- 20 mg (9) Tablets, Dose Pack 04/17/2018 Active gabapentin (NEURONTIN) 300 mg capsule Take 1 Capsule (300 mg) by mouth daily at bedtime. 30 Capsule 10/17/2018 Active Active Problems Problem Noted Date Diagnosed Date Neuralgia of left foot 08/15/2018 History of total left knee replacement 9 History of total right knee replacement 08/07/19 19 Chronic atrial fibrillation 03/21/2018 Obesity (BMI 30.0-34.9) 03/21/2018 Dyslipidemia 07/16/2017 Atherosclerosis of [place] co ronary artery of [place] heart with angina pectoris 07/16/2017 Chronic obstructive pulmonary disease 07/16/2017 History of prostate cancer 07/16/2017 Preoperative general physical examination 2017 Resolved Problems Problem Noted Date Diagnosed Date Resolved Date Primary osteoarthritis of left knee 02/12/2018 08/15/2018 Primary osteoarthritis of right knee 06/28/2017 08/15/2018 Immunizations Immunization Administration Dates Next Due (ADACEL/BOOSTRIX)(10 YR UP) TDAP VACCINE, 0.5ML, IM 05/03/2016 Family History Medical History Relation Name Comments Unknown Brother 1 Unknown Brother 2 Unknown Brother 3 Other Daughter Other Father Other Mother Unknown Sister 1 Unknown Sister 2 Unknown Sister 3 Other Son Relation Name Status Comments Brother 1 Alive Brother 2 Alive Brother 3 Alive Daughter Alive Father Mother Sister 1 Alive Sister 2 Alive Sister 3 Son Alive Social History Tobacco Use Types Packs/Day Years Used Date Smoking Tobacco: Never Smokeless Tobacco: Never Alcohol Use Standard Drinks/Week Comments No 0 (1 standard drink = 0.6 oz pur e alcohol) Sex and Gender Information Value Date Recorded Sex Assigned at Not on file 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 Gender Identity Not on file Sexual Orientation Not on file Last Filed Vital Signs Vital Sign Reading Time Taken Comments Blood Pressure 129/70 03/14/2020 4:10 PM CDT Pulse 85 03/14/2020 4:10 PM CDT Temperature 37.4 C (99.4 F) 03/14/2020 12:47 PM CDT Respiratory Rate 20 03/14/2020 4:10 PM CDT Oxygen Saturation 95% 03/14/2020 4:10 PM CDT Inhaled Oxygen Concentration - - Weight 97.4 kg (214 lb 12.8 oz) 020 12:47 PM CDT Height 167.6 cm (5' 6 ) 03/14/2020 12:4 7 PM CDT Body Mass Index 34.67 03/14/2020 12:47 PM CDT Plan of Treatment Health Maintenance Due Date Last Done Comments PNEUMOCOCCAL VACCINE 50+ YEARS (1 of 2 - PCV) 10/16/18 60 ZOSTER VACCINE (1 of 2) 1990 RSV VACCINE (60+ or ) (1 - 1-dose 75+ series) 10/17/2015 INFLUENZA VACCINE (#1) 2025 DTAP/TDAP/TD VACCINES (2 - Td or Tdap) 05/03/2026 Medical Devices Implanted Type Area Sales Agent Trading Stamps Device Identifier Shelf Expiration Date Model / Serial / Lot Cement Simplex Hvisc 6194-1-010 - [id number] Implanted:Qty: 1 on 07/30/2017 by Enrique Smalls MD at [facility] Cement Right: Knee [employer] 02/06/2022 6194-1-010 / / [id number] Cement Simplex Hvisc 6194-1-010 - [id number] Implanted:Qty: 1 on 07/30/2017 by Enrique Smalls MD at [facility] Cement Right: Knee [employer]ORD[employer]- [employer] 02/06/2022 6194-1-010 / / [id number] Cement Simplex Hvisc 6194-1-010 - [id number] Implanted:Qty: 1 on 04/03/2018 by Enrique Smalls MD at [facility] Cement Left: Knee [employer] 11/16/2019 6194-1-010 / / [id number] Cement Simplex Hvisc 6194-1-010 - [id number] Implanted:Qty: 1 on 04/03/2018 by Enrique Smalls MD at [facility] Cement Left: Knee [employer]OD[employer] 11/16/2019 6194-1-010 / / [id number] Patella Dome 3peg 41mm 96-3 - [id number] Implanted:Qty: 1 on 07/30/2017 by Enrique Smalls MD at [facility] Knee Right: Knee [employer] 04/17/2022 96-0103 / / [id number] Tib Sigma Fix Crv+ Xlk Sz4 97-0462 - [id number] Implanted:Qty: 1 on 07/30/2017 by Enrique Smalls MD at [facility] Knee Right: Knee [employer]- [employer] 07/18/2021 97-0462 / / [id number] Comp Tib Sigma Cocr Sz4 1581-40-000 - [id number] Implanted:Qty: 1 on 07/30/2017 by Enrique Smalls MD at [facility] Knee Right: Knee [employer] 06/17/2027 0 / / [id number] Comp Fem Sigma Cr Map Plotter Sz4 96-0014 - [id number] Implanted:Qty: 1 on 07/30/2017 by Enrique Smalls MD at [facility] Knee Right: Knee [employer] 04/17/2022 96-0014 / / [id number] Comp Fem Sigma Cr Map Plotter Sz4 96-0004 - [id number] Implanted:Qty: 1 on 04/03/2018 by Enrique Smalls MD at [facility] Knee Left: Knee [employer] 01/15/2022 96-0004 / / [id number] Patella Dome 3peg 41mm 96-0103 - [id number] Implanted:Qty: 1 on 04/03/2018 by Enrique Smalls MD at [facility] Knee Left: Knee [employer] 07/18/2022 96-0103 / / [id number] Ins Tib Sigma Fix Crv+ Xlk Sz4 97-0463 - [id number] Implanted:Qty: 1 on 04/03/2018 by Enrique Smalls MD at [facility] Knee Left: Knee [employer] 11/15/2020 97-0463 / / [id number] Comp Tib Sigma Cocr Sz4 1581-40-000 - [id number] Implanted:Qty: 1 on 04/03/2018 by Enrique Smalls MD at [facility] Knee Left: Knee [employer] 08/16/2027 0 / / [id number] Insurance MEDICARE PART A AND B [place] [id number] RX [facility] Medicare Part D RX [employer] (INTERNAL) [facility] Internal Plans Advance Directives For more information, please contact: [phone] * Full Code (Latest Code Status on File) Date Activated Date Inactivated Comments 04/03/2018 3:55 PM 04/05/2018 12:45 PM * Full Code Date Activated Date Inactivated Comments 04/03/2018 1:15 PM 04/03/2018 3:55 PM * Full Code Date Activated Date Inactivated Comments 07/30/2017 11:59 AM 08/01/2017 3:02 PM Care Teams Instruments Sales Representative Relationship Specialty Start Date End Date Lamont Obando, JENNA [address] [place] [address] PCP - General NURSE PRACTITIONER 07/24/13
--- OUTSIDE RECORDS SUMMARY | 2025-04-12 10:18 | XMS_ITS | Encounter Summary ---
Author Organization [facility] Address [address] [place] [address] Care Team Providers Care Shelter Director Name Role Phone JENNA Miguel Sr., Michael Dave Primary Care Pro vider Encounter Details Date Type Department Care Team (Late st Contact Info) Description 07/26/2001 Outpatient Historical [facility] Urology- [place] [address] [place] [address] Munir Tong MD [address] [address] Malig ad prostate (Primary Dx) Social History Tobacco Use Types Packs/Day Years Used Date Smoking Tobacco: Never Assessed Sex and Gender Information Value Date Recorded Sex Assigned at Not on file 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
--- OUTSIDE RECORDS SUMMARY | 2025-04-12 10:18 | XMS_ITS | Encounter Summary ---
Author Organization [facility] Address [address] [place] [address] Care Team Providers Care Lactation Specialist Name Role Phone JENNA Miguel Sr., Michael Dave Primary Care Pro vider Encounter Details Date Type Department Care Team (Latest Contact Info) Description 07/19/2001 Outpatient Historical [facility] Simeon Shin Jr., MD [address] [place] [address] ENURESIS NOS (Primary Dx); Inhibited sex excitement; DEPRESSIVE DISORDER NEC Social History Tobacco Use Types Packs/Day Years Used Date Smoking Tobacco: Never Assessed Sex and Gender Information Value Date Recorded Sex Assigned at Not on file 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
--- OUTSIDE RECORDS SUMMARY | 2025-04-12 10:18 | XMS_ITS | Encounter Summary ---
Author Organization [facility] Address [address] [place] [address] Care Team Providers Care Injection Press Operator Name Role Phone JENNA Miguel Sr., Michael Dave Primary Care Pro vider Encounter Details Date Type Department Care Team (Latest Contact Info) Description 10/25/2001 Outpatient Historical [facility] Urology- [address] Entrance [address], 3rd [place] [address] Munir Tong MD [address] [address] URGE & STRESS MIXED INCONTINENCE (Primary Dx); Malig ad prostate Social History Tobacco Use Types Packs/Day Years Used Date Smoking Tobacco: Never Assessed Sex and Gender Information Value Date Recorded Sex Assigned at Not on file 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
--- OUTSIDE RECORDS SUMMARY | 2025-04-12 10:18 | XMS_ITS | Encounter Summary ---
Author Organization [facility] Address [address] 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
--- OUTSIDE RECORDS SUMMARY | 2025-04-12 10:18 | XMS_ITS | Encounter Summary ---
Author Organization [facility] Address [address] [place] [address] Care Team Providers Care Cadd Operator Name Role Phone JENNA Miguel Sr., Michael Dave Primary Care Pro vider Encounter Details Date Type Department Care Team (Late st Contact Info) Description 03/22/2001 Outpatient Historical [facility] Urology- [place] [address] [address], 3rd [place] [address] Munir Tong MD [address] [address] Malig ad prostate (Primary Dx) Social History Tobacco Use Types Packs/Day Years Used Date Smoking Tobacco: Never Assessed Sex and Gender Information Value Date Recorded Sex Assigned at Not on file 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
--- OUTSIDE RECORDS SUMMARY | 2025-04-12 10:18 | XMS_ITS | Encounter Summary ---
Author Organization [facility] Address [address] [place] [address] Care Team Providers Care Diver'S Tender Name Role Phone JENNA Miguel Sr., Michael Dave Primary Care Pro vider Encounter Details Date Type Department Care Team (Latest Contact Info) Description 06/25/1998 Outpatient Historical [facility] Family Medicine- [address] [place] [id number] Ting Castaneda NO ADDRESS ON FILE Acute upper respiratory infections of unspecified site (Primary Dx) Social History Tobacco Use Types Packs/Day Years Used Date Smoking Tobacco: Never Assessed Sex and Gender Information Value Date Recorded Sex Assigned at Not on file 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
--- OUTSIDE RECORDS SUMMARY | 2025-04-12 10:18 | XMS_ITS | Encounter Summary ---
Author Organization [facility] Address [address] [place] [address] Care Team Providers Care Business Project Analyst Name Role Phone JENNA Miguel Sr., Mina Barajas Primary Care Pro vider Encounter Details Date Type Department Care Team (Latest Contact Info) Description 02/13/2002 Outpatient Historical [facility] Urology- [address]tr[address], 3rd [place] [address] Munir Tong MD [address] [address] Malig ad prostate (Primary Dx); STRESS INCONTINENCE MALE Social History Tobacco Use Types Packs/Day Years Used Date Smoking Tobacco: Never Assessed Sex and Gender Information Value Date Recorded Sex Assigned at Not on file 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
--- OUTSIDE RECORDS SUMMARY | 2025-04-12 10:18 | XMS_ITS | Encounter Summary ---
Author Organization [facility] Address [address] [place] [address] Care Team Providers Care Rig Site Engineer Name Role Phone JENNA Miguel Sr., Michael Dave Primary Care Pro vider Encounter Details Date Type Department Care Team (Late st Contact Info) Description 11/27/2000 Outpatient Historical [facility] Urology- [place] [address] [address] [facility] [address], 3rd [place] [address] Munir Tong MD [address] [address] Nodular prostate (Primary Dx); Other specified disorder of penis Social History Tobacco Use Types Packs/Day Years Used Date Smoking Tobacco: Never Assessed Sex and Gender Information Value Date Recorded Sex Assigned at Not on file 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
--- OUTSIDE RECORDS SUMMARY | 2025-04-12 10:18 | XMS_ITS | Encounter Summary ---
Author Organization [facility] Address [address] 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
--- OUTSIDE RECORDS SUMMARY | 2025-04-12 10:18 | XMS_ITS | Encounter Summary ---
Author Organization [facility] Address [address] [place] [address] Care Team Providers Care It Service Technician Name Role Phone JENNA Miguel Sr., Michael Dave Primary Care Pro vider Encounter Details Date Type Department Care Team (Latest Contact Info) Description 04/18/2018 Ancillary Orders [facility] Admitting [address] [place] [address] Mina Miguel Sr., FNP [address] [place] [address] Acute postoperative pain of left hip Social History Tobacco Use Types Packs/Day Years Used Date Smoking Tobacco: Never Smokeless Tobacco: Never Alcohol Use Standard Drinks/Week Comments No 0 (1 standard drink = 0.6 oz pur e alcohol) Sex and Gender Information Value Date Recorded Sex Assigned at Not on file 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
--- OUTSIDE RECORDS SUMMARY | 2025-04-12 10:18 | XMS_ITS | Encounter Summary ---
Author Organization [facility] Address [address] [place] [address] Care Team Providers Care Draft Roller Picker Name Role Phone JENNA Miguel Sr., Michael Dave Primary Care Pro vider Encounter Details Date Type Department Care Team (Latest Contact Info) Description 02/11/2001 Outpatient Historical [facility] Simeon Shin Jr., MD [address] [place] [address] Pneumonia, organism unspecified(486) (Primary Dx) Social History Tobacco Use Types Packs/Day Years Used Date Smoking Tobacco: Never Assessed Sex and Gender Information Value Date Recorded Sex Assigned at Not on file 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
--- OUTSIDE RECORDS SUMMARY | 2025-04-12 10:18 | XMS_ITS | Encounter Summary ---
Author Organization [facility] Address [address] [place] [address] Care Team Providers Care Glass Tube Bender Name Role Phone JENNA Miguel Sr., Michael Dave Primary Care Pro vider Reason for Referral * Outpatient Services (Routine) - Closed Specialty Diagnoses / Procedures Referred By Staci t Referred To Contact Radiology Diagnoses Bacterial pneumonia Procedures CT CHEST WO CONTRAST Mina Miguel Sr., FNP [address] [place] [address] Phone: tel: fax: [facility] CT Scan [place] [address] [place] [address] Phone: tel: fax: Referral ID Status Reason Start Date Expiration Date V isits Requested Visits Authorized [id number] Closed [place] CTS to Schedule (SGF) 06/28/2016 07/29/2017 1 1 N CLEANER Encounter Details Date Type Department Care Team (Latest Contact Info) Description 06/28/2016 Ancillary Orders [facility] Scheduling [address] [place] [address] Mina Miguel Sr., FNP [address] [place] [address] Bacterial pneumonia Social History Tobacco Use Types Packs/Day Years Used Date Smoking Tobacco: Never Smokeless Tobacco: Never Alcohol Use Standard Drinks/Week Comments No 0 (1 standard drink = 0.6 oz pur e alcohol) Sex and Gender Information Value Date Recorded Sex Assigned at Not on file Legal Sex Male 6:14 AM DRAIN CLEANER Gender Identity Not on file Sexual Orientation Not on file documented as of this encounter Plan of Treatment Not on file documented as of this encounter Results * CT CHEST WO CONTRAST (06/28/2016 12:56 PM DRAIN CLEANER) Anatomical Region Laterality Modality Chest Computed Tomogra phy 06/28/2016 12:5 7 PM DRAIN CLEANER Impressions 06/28/2016 2:34 PM DRAIN CLEANER IMPRESSION: Please see below. Exam: CT CHEST WO CONTRAST Date/Time of Exam: 06/28/2016 12:56 PM Reason For Exam: Bacterial pneumonia. Technique: CT of the chest was performed without the administration of intravenous contrast. Findings: Noncontrast technique. Respiratory degradation partially limits assessment. Elevated right hemidiaphragm with subjacent scar and/or atelectasis. There are some pleural calcifications at the right lung base. 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 Areas of interstitial reticulation also noted. Tiny parenchymal calcified granulomata are noted. No acute pulmonary pathology is seen. No pleural effusion evident. There is a small pericardial effusion. There are coronary artery calcifications. There is no evidence of thoracic lymphadenopathy. Tracheobronchial tree is unremarkable. Imaged upper abdomen is unremarkable. Mild degenerative change noted in the spine. IMPRESSION: No acute pathology. Minor abnormalities including areas of interstitial reticulation and elevated right hemidiaphragm with subjacent scar or atelectasis as noted above. [id number] Narrative Procedure Note Rodney Portillo MD - 06/28/2016 IMPRESSION IMPRESSION: Please see below. Exam: CT CHEST WO CONTRAST Date/Time of Exam: 06/28/2016 12:56 PM Reason For Exam: Bacterial pneumonia. Technique: CT of the chest was performed without the administration of intravenous contrast. Findings: Noncontrast technique. Respiratory degradation partially limits assessment. Elevated right hemidiaphragm with subjacent scar and/or atelectasis. There are some pleural calcifications at the right lung base. 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 Areas of interstitial reticulation also noted. Tiny parenchymal calcified granulomata are noted. No acute pulmonary pathology is seen. No pleural effusion evident. There is a small pericardial effusion. There are coronary artery calcifications. There is no evidence of thoracic lymphadenopathy. Tracheobronchial tree is unremarkable. Imaged upper abdomen is unremarkable. Mild degenerative change noted in the spine. IMPRESSION: No acute pathology. Minor abnormalities including areas of interstitial reticulation and elevated right hemidiaphragm with subjacent scar or atelectasis as noted above. [id number] Mina Miguel Sr., JENNA CT ORDERABLES F inal Result documented in this encounter Visit Diagnoses Diagnosis Bacterial pneumonia Bacterial pneumonia, unspecified Bacterial pneumonia Bacterial pneumonia, unspecified documented in this encounter Care Teams Glass Tube Bender Relationship Specialty Start Date End Date Lamont Obando, JENNA [address] [place] [address] PCP - General NURSE PRACTITIONER 07/24/13 documented as of this encounter
--- OUTSIDE RECORDS SUMMARY | 2025-04-12 10:18 | XMS_ITS | Encounter Summary ---
Author Organization [facility] Address [address] [place] [address] Care Team Providers Care Steam Cleaner Name Role Phone JENNA Miguel Sr., Michael Dave Primary Care Pro vider Encounter Details Date Type Department Care Team (Late st Contact Info) Description 08/05/2001 Outpatient Historical [facility] Social History Tobacco Use Types Packs/Day Years Used Date Smoking Tobacco: Never Assessed Sex and Gender Information Value Date Recorded Sex Assigned at Not on file Legal Sex Male 6:14 AM RNP Gender Identity Not on file Sexual Orientation Not on file documented as of this encounter Plan of Treatment Not on file documented as of this encounter Visit Diagnoses Not on filedocumented in this encounter Care Teams Steam Cleaner Relationship Specialty Start Date End Date Mina Miguel Sr., FNP [address] [place] [address] PCP - General NURSE PRACTITIONER 07/24/13 documented as of this encounter
--- OUTSIDE RECORDS SUMMARY | 2025-04-12 10:18 | XMS_ITS | Encounter Summary ---
Author Organization [facility] Address [address] [place] [address] Care Team Providers Care Edge Cutting Machine Operator Name Role Phone JENNA Miguel Sr., Michael Dave Primary Care Pro vider Reason for Referral * Outpatient Services (Routine) - Closed Specialty Diagnoses / Procedures Referred By Staci guerra Referred To Contact Diagnoses Back pain Procedures XR ABDOMEN 1 VW Mina Miguel Sr., FNP [address] [place] [address] Phone: tel: fax: Referral ID Status Reason Start Date Expiration Date Visits Re quested Visits Authorized [id number] Closed 10/09/2013 11/09/2014 1 1 Encounter Details Date Type Department Care Team (Late st Contact Info) Description 10/09/2013 Ancillary Orders [facility] Admitting [address] [place] [address] Mina Miguel Sr., FNP [address] [place] [address] Back pain (Primary Dx) Social History Tobacco Use Types Packs/Day Years Used Date Smoking Tobacco: Never Assessed Sex and Gender Information Value Date Recorded Sex Assigned at Not on file Legal Sex Male 6:14 AM 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 There is some associated osteophyte anteriorly. Otherwise vertebral body and disc space heights are maintained and degenerative change is minimal. There appears to be minor segmentation anomaly with probable diminutive rib on the right at presumed T12, with no left rib visualized at this level. IMPRESSION 1. 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 no acute fracture or loss of alignment seen 3. minimal segmentation anomaly noted Procedure Note Gregorio Rahman MD - 10/09/2013 PROCEDURE XR LUMBAR SPINE, three views 09 October 2013 DESCRIPTION AP and lateral lumbar spine views and collimated lateral L5-S1 projection show loss of height of the disc at L4-L5 with some sclerosis of the apophyseal joints at L4-L5. There is some associated osteophyte anteriorly. Otherwise vertebral body and disc space heights are maintained and degenerative change is minimal. There appears to be minor segmentation anomaly with probable diminutive rib on the right at presumed T12, with no left rib visualized at this level. IMPRESSION 1. 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 no acute fracture or loss of alignment seen 3. minimal segmentation anomaly noted us Mina Miguel Sr., BOARD LINING MACHINE OPERATOR DIAGNOSTIC IMAGIN G ORDERABLES Final Result * XR ABDOMEN 1 VW (10/09/2013 10:24 AM CDT) Anatomical Region Laterality Modality Abdomen Computed Radiogr aphy 10/09/2013 10:0 9 AM CDT Narrative 10/09/2013 10:39 AM CDT PROCEDURE XR ABDOMEN, one view 09 October 2013 DESCRIPTION Supine AP view of the abdomen shows moderate colon gas and fecal artifact without obstructive distention. There is minimal small bowel gas present, also without evidence of obstructive distention. Multiple surgical clips are noted, projected in the soft tissues of the low pelvis. No calculi are appreciated in the region of the upper urinary tract. Psoas shadows are intact. IMPRESSION 1. mild ileus or gastroenteritis 2. no obstructive distention seen 3. postoperative changes of the low pelvis or lower abdominal wall Procedure Note Gregorio Rahman MD - 10/09/2013 PROCEDURE XR ABDOMEN, one view 09 October 2013 DESCRIPTION Supine AP view of the abdomen shows moderate colon gas and fecal artifact without obstructive distention. There is minimal small bowel gas present, also without evidence of obstructive distention. Multiple surgical clips are noted, projected in the soft tissues of the low pelvis. No calculi are appreciated in the region of the upper urinary tract. Psoas shadows are intact. IMPRESSION 1. mild ileus or gastroenteritis 2. no obstructive distention seen 3. postoperative changes of the low pelvis or lower abdominal wall us Mina Miguel Sr., JENNA DIAGNOSTIC IMAGIN G ORDERABLES Final Result documented in this encounter Visit Diagnoses Diagnosis Back pain- Primary Backache, unspecified Back pain Backache, unspecified Back pain Backache, unspecified documented in this encounter Care Teams Edge Cutting Machine Operator Relationship Specialty Start Date End Date Lamont Obando, JENNA [address] [place] [address] PCP - General NURSE PRACTITIONER 07/24/13 documented as of this encounter
--- OUTSIDE RECORDS SUMMARY | 2025-04-12 10:18 | XMS_ITS | Encounter Summary ---
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
--- OUTSIDE RECORDS SUMMARY | 2025-04-12 10:18 | XMS_ITS | Encounter Summary ---
Author Organization [facility] Address [address] [place] [address] Care Team Providers Care Hvac Mechanic Name Role Phone JENNA Miguel Sr., Michael Dave Primary Care Pro vider Encounter Details Date Type Department Care Team (Latest Contact Info) Description 09/05/2000 Outpatient Historical [facility] Simeon Shin Jr., MD [address] [place] [address] Bronchitis, not specified as acute or chronic (Primary Dx); Impacted cerumen; Lipoma of unspecified site; Chest pain, unspecified Social History Tobacco Use Types Packs/Day Years Used Date Smoking Tobacco: Never Assessed Sex and Gender Information Value Date Recorded Sex Assigned at Not on file Legal Sex Male 6:14 AM MEAT SMOKER Gender Identity Not on file Sexual Orientation Not on file documented as of this encounter Plan of Treatment Not on file documented as of this encounter Visit Diagnoses Diagnosis Bronchitis, not specified as acute or chronic- Primary Impacted cerumen Lipoma of unspecified site Chest pain, unspecified documented in this encounter Care Teams Hvac Mechanic Relationship Specialty Start Date End Date Mina Miguel Sr., FNP [address] [place] [address] PCP - General NURSE PRACTITIONER 07/24/13 documented as of this encounter
--- OUTSIDE RECORDS SUMMARY | 2025-04-12 10:18 | XMS_ITS | Encounter Summary ---
Author Organization [facility] Address [address] [place] [address] Care Team Providers Care Freight Sorter Name Role Phone JENNA Miguel Sr., Michael Dave Primary Care Pro vider Encounter Details Date Type Department Care Team (Late st Contact Info) Description 03/11/2001 Outpatient Historical [facility]- [place] [address] [facility] [address] 3rd [place] [address] Munir Tong MD [address] [address] Malig ad prostate (Primary Dx) Social History Tobacco Use Types Packs/Day Years Used Date Smoking Tobacco: Never Assessed Sex and Gender Information Value Date Recorded Sex Assigned at Not on file Legal Sex Male 6:14 AM CARE CONNECTOR Gender Identity Not on file Sexual Orientation Not on file documented as of this encounter Plan of Treatment Not on file documented as of this encounter Visit Diagnoses Diagnosis Malig ad prostate- Primary Malignant neoplasm of prostate documented in this encounter Care Teams Freight Sorter Relationship Specialty Start Date End Date Mina Miguel Sr., FNP [address] [place], [place] [address] PCP - General NURSE PRACTITIONER 07/24/13 documented as of this encounter
--- OUTSIDE RECORDS SUMMARY | 2025-04-12 10:18 | XMS_ITS | Encounter Summary ---
Author Organization [facility] Address [address] [place] [address] Care Team Providers Care Process Consultant Name Role Phone JENNA Miguel Sr., Michael Dave Primary Care Pro vider Encounter Details Date Type Department Care Team (Late st Contact Info) Description 05/21/2001 Outpatient Historical [facility] [place] [address] [facility] [address], 3rd [place] [address] Munir Tong MD [address] [address] Malig ad prostate (Primary Dx) Social History Tobacco Use Types Packs/Day Years Used Date Smoking Tobacco: Never Assessed Sex and Gender Information Value Date Recorded Sex Assigned at Not on file Legal Sex Male 6:14 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
--- OUTSIDE RECORDS SUMMARY | 2025-04-12 10:18 | XMS_ITS | Encounter Summary ---
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 Procedures US VENOUS DOPPLER LEG LEFT Mina Waite Sr., FNP [address] [place] [address] Phone: tel: fax: Referral ID Status Reason Start Date Expiration Date Visits Re quested Visits Authorized [id number] Closed 04/18/2018 05/19/2019 1 1 Encounter Details Date Type Department Care Team (Late st Contact Info) Description 04/18/2018 Ancillary Orders [facility] Ultrasound [place] [address] [place] [address] Mina Waite Sr., FNP [address] [place] [address] 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 (CMS/HCC) Social History Tobacco Use Types Packs/Day Years Used Date Smoking Tobacco: Never Smokeless Tobacco: Never Alcohol Use Standard Drinks/Week Comments No 0 (1 standard drink = 0.6 oz pur e alcohol) Sex and Gender Information Value Date Recorded Sex Assigned at Not on file Legal Sex Male 6:14 AM FERRY TERMINAL AGENT Gender Identity Not on file Sexual Orientation Not on file documented as of this encounter Plan of Treatment Not on file documented as of this encounter Results * US VENOUS DOPPLER LEG LEFT (04/18/2018 12:38 PM CDT) Anatomical Region Laterality Modality Lower Extremity Ultrasound 04/18/2018 12:2 0 PM CDT Narrative 04/21/2018 2:40 PM FERRY TERMINAL AGENT [facility] Radiology Services - Noninvasive Vascular [address] [address] Noninvasive Vascular Lab Venous Exam Unilateral Lower Extremity Duplex Patient: Roger Camp Study ID: US VENOUS DOPPLE Gender: Willis : 1940 Age: 77 Room: Height: Weight: BSA: Pt status: Outpatient Study Date: 04/18/2018 Study Time: 12:20:04 PM BSA: Ordering: Mina Waite Sr Interpreting:Curtis Andrew MD, RPVI Criminalist: Deng Waters Summary Doppler venous of the left lower extremity demonstrates patent flow which is spontaneous, phasic and augments well. Competence is demonstrated. No pulsatility is noted. Imaging of the left extremity demonstrated compressibility for the deep and superficial systems. No intraluminal echoes are noted. Impression: No evidence of deep vein thrombosis involving the left common femoral vein, left femoral vein, and left popliteal vein 1. Procedure narrative: A vascular evaluation was performed. Image quality was good. Exam quality was fair. The study was technically limited due to limited visualization below knee. Study data: Left lower extremity venous duplex evaluation. Doppler flow study including spectral analysis, color and loving scale imaging. Ethnicity: Ethnicity: white. Location: Vascular laboratory. Patient status: Outpatient. Study status: Routine. Procedure: A vascular evaluation was performed. Image quality was good. Exam quality was fair. The study was technically limited due to limited visualization below knee. Prepared and Electronically Authenticated Curtis Andrew MD, RPVI Confirmed 04/21/2018 14:40 Procedure Note Curtis Andrew MD - 04/21/2018 [facility] Radiology Services - Noninvasive Vascular [address] [address] Noninvasive Vascular Lab Venous Exam Unilateral Lower Extremity Duplex Patient: Roger Camp Study ID: US VENOUS DOPPLE Gender: Willis : 1940 Age: 77 Room: Height: Weight: BSA: Pt status: Outpatient Study Date: 04/18/2018 Study Time: 12:20:04 PM BSA: Ordering: Mina Waite Sr Interpreting:Curtis Andrew MD, RPVI Criminalist: Deng Waters Summary Doppler venous of the left lower extremity demonstrates patent flow which is spontaneous, phasic and augments well. Competence is demonstrated. No pulsatility is noted. Imaging of the left extremity demonstrated compressibility for the deep and superficial systems. No intraluminal echoes are noted. Impression: No evidence of deep vein thrombosis involving the left common femoral vein, left femoral vein, and left popliteal vein 1. Procedure narrative: A vascular evaluation was performed. Image quality was good. Exam quality was fair. The study was technically limited due to limited visualization below knee. Study data: Left lower extremity venous duplex evaluation. Doppler flow study including spectral analysis, color and loving scale imaging. Ethnicity: Ethnicity: white. Location: Vascular laboratory. Patient status: Outpatient. Study status: Routine. Procedure: A vascular evaluation was performed. Image quality was good. Exam quality was fair. The study was technically limited due to limited visualization below knee. 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
--- OUTSIDE RECORDS SUMMARY | 2025-04-12 10:18 | XMS_ITS | Encounter Summary ---
Author Organization [facility] Address [address] [place] [address] Care Team Providers Care Supervisor Calibration Name Role Phone JENNA Miguel Sr., Michael Dave Primary Care Pro vider Reason for Referral * Outpatient Services (Routine) - Closed Specialty Diagnoses / Procedures Referred By Staci guerra Referred To Contact Diagnoses PAD (peripheral artery disease) Procedures US DUPLEX ARTERIAL LEG LEFT Mina Miguel Sr., FNP [address] [place] [address] Phone: tel: fax: Referral ID Status Reason Start Date Expiration Date Visits Re quested Visits Authorized [id number] Closed 07/23/2013 08/23/2014 1 1 ICAL THERAPIST Encounter Details Date Type Department Care Team (Latest Contact Info) Description 07/23/2013 Ancillary Orders [facility] Centralized Scheduling [address] [place] [address] Mina Miguel Sr., FNP [address] [place], [place] [id number] PAD (peripheral artery disease) (Primary Dx) Social History Tobacco Use Types Packs/Day Years Used Date Smoking Tobacco: Never Assessed Sex and Gender Information Value Date Recorded Sex Assigned at Not on file Legal Sex Male 6:14 AM PHYSICAL THERAPIST Gender Identity Not on file Sexual Orientation Not on file documented as of this encounter Plan of Treatment Not on file documented as of this encounter Results * US DUPLEX ARTERIAL LEG LEFT (07/24/2013 9:11 AM PHYSICAL THERAPIST) Anatomical Region Laterality Modality Lower Extremity Ultrasound 07/24/2013 8:56 AM PHYSICAL THERAPIST Narrative 07/24/2013 10:20 AM PHYSICAL THERAPIST PROCEDURE Left LOWER EXTREMITY ARTERIAL DOPPLER, 24 July 2013 DESCRIPTION Flow velocities measured in the arterial system of the lower extremity show no focal acceleration to suggest hemodynamically significant stenosis. No significant atherosclerotic plaque formation is seen at this time. There is triphasic flow noted from external iliac artery into the posterior tibial artery. IMPRESSION negative for hemodynamically significant stenosis Procedure Note Gregorio Rahman MD - 07/24/2013 PROCEDURE Left LOWER EXTREMITY ARTERIAL DOPPLER, 24 July 2013 DESCRIPTION Flow velocities measured in the arterial system of the lower extremity show no focal acceleration to suggest hemodynamically significant stenosis. No significant atherosclerotic plaque formation is seen at this time. There is triphasic flow noted from external iliac artery into the posterior tibial artery. IMPRESSION negative for hemodynamically significant stenosis us JENNA Thomas Sr. ORDERABLES F inal Result documented in this encounter Visit Diagnoses Diagnosis PAD (peripheral artery disease)- Primary Unspecified disorders of arteries and arterioles PAD (peripheral artery disease) Unspecified disorders of arteries and arterioles documented in this encounter Care Teams Supervisor Calibration Relationship Specialty Start Date End Date Lamont Obando, JENNA [address] [place] [address] PCP - General NURSE PRACTITIONER 07/24/13 documented as of this encounter
--- OUTSIDE RECORDS SUMMARY | 2025-04-12 10:18 | XMS_ITS | Encounter Summary ---
Author Organization [facility] Address [address] [place] [address] Care Team Providers Care Core Checker Name Role Phone JENNA Miguel Sr., Mina Barajas Primary Care Pro vider Encounter Details Date Type Department Care Team (Latest Contact Info) Description 11/21/2002 Outpatient Historical [facility] Urology- [address]tr[address], 3rd [place] [address] Munir Tong MD [address] [address] Malig ad prostate (Primary Dx); STRESS INCONTINENCE MALE Social History Tobacco Use Types Packs/Day Years Used Date Smoking Tobacco: Never Assessed Sex and Gender Information Value Date Recorded Sex Assigned at Not on file 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
--- OUTSIDE RECORDS SUMMARY | 2025-04-12 10:18 | XMS_ITS | Encounter Summary ---
Author Organization [facility] Address [address] [place] [address] Care Team Providers Care Keeper Helper Name Role Phone JENNA Miguel Sr., Michael Dave Primary Care Pro vider Encounter Details Date Type Department Care Team (Latest Contact Info) Description 08/25/1999 Outpatient Historical 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
--- OUTSIDE RECORDS SUMMARY | 2025-04-12 10:18 | XMS_ITS | Encounter Summary ---
Author Organization [facility] Address [address] [place] [address] Care Team Providers Care Hourly Sign Language Interpreter Name Role Phone JENNA Miguel Sr., Michael Dave Primary Care Pro vider Encounter Details Date Type Department Care Team (Late st Contact Info) Description 04/19/2001 Outpatient Historical [facility]- [place] [address] [facility] [address], 3rd [place] [address] Munir Tong MD [address] [address] Malig ad prostate (Primary Dx) Social History Tobacco Use Types Packs/Day Years Used Date Smoking Tobacco: Never Assessed Sex and Gender Information Value Date Recorded Sex Assigned at Not on file 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
--- OUTSIDE RECORDS SUMMARY | 2025-04-12 10:18 | XMS_ITS | Encounter Summary ---
Author Organization [facility] Address [address] [place] [address] Care Team Providers Care Painter Ski Edge Name Role Phone JENNA Miguel Sr., Michael Dave Primary Care Pro vider Encounter Details Date Type Department Care Team (Latest Contact Info) Description 07/05/2001 Outpatient Historical [facility] Simeon Shin Jr., MD [address] [place] [address] ENURESIS NOS (Primary Dx); Malig ad prostate Social History Tobacco Use Types Packs/Day Years Used Date Smoking Tobacco: Never Assessed Sex and Gender Information Value Date Recorded Sex Assigned at Not on file 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
--- OUTSIDE RECORDS SUMMARY | 2025-04-12 10:19 | XMS_ITS | Encounter Summary ---
Author Organization [facility] Address [address] [place] [address] Care Team Providers Care Fruit Dryer Name Role Phone JENNA Miguel Sr., Michael Dave Primary Care Pro vider Encounter Details Date Type Department Care Team (Latest Contact Info) Description 10/25/2000 Outpatient Historical [facility] Simeon Shin Jr., MD [address] [place] [address] Health examination of defined subpopulation (Primary Dx); Screening for nephropathy; Screening for other and unspecified endocrine, nutritional, metabolic, and immunity disorders; Prostatitis, unspecified Social History Tobacco Use Types Packs/Day Years Used Date Smoking Tobacco: Never Assessed Sex and Gender Information Value Date Recorded Sex Assigned at Not on file 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
--- OUTSIDE RECORDS SUMMARY | 2025-04-12 10:19 | XMS_ITS | Encounter Summary ---
Author Organization [facility] Address [address] [place] [address] Care Team Providers Care Human Machine Interface Engineer Name Role Phone JENNA Miguel Sr., Michael Dave Primary Care Pro vider Encounter Details Date Type Department Care Team (Latest Contact Info) Description 04/18/2018 Ancillary Orders [facility] Admitting [address] [place] [address] Mina Miguel Sr., FNP [address] [place], [place] [address] Acute postoperative pain of left hip Social History Tobacco Use Types Packs/Day Years Used Date Smoking Tobacco: Never Smokeless Tobacco: Never Alcohol Use Standard Drinks/Week Comments No 0 (1 standard drink = 0.6 oz pur e alcohol) Sex and Gender Information Value Date Recorded Sex Assigned at Not on file 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 Exam: XR HIP 2 OR 3 VIEWS LT Date/Time of Exam: 04/18/2018 1:00 PM Reason For Exam: See Diagnosis. Diagnosis: Acute postoperative pain of left hip; Acute postoperative pain of left hip. Findings: The hip joint appears normally aligned and unremarkable. No fracture or bone lesion identified. No joint space narrowing. Multiple surgical clips are present within the left-sided pelvis. [id number] Narrative Procedure Note Deng Hahn MD - 04/18/2018 IMPRESSION: See below. Exam: XR HIP 2 OR 3 VIEWS LT Date/Time of Exam: 04/18/2018 1:00 PM Reason For Exam: See Diagnosis. Diagnosis: Acute postoperative pain of left hip; Acute postoperative pain of left hip. Findings: The hip joint appears normally aligned and unremarkable. No fracture or bone lesion identified. No joint space narrowing. Multiple surgical clips are present within the left-sided pelvis. [id number] Mina Miguel Sr., JENNA DIAGNOSTIC IMAGIN G ORDERABLES Final Result documented in this encounter Visit Diagnoses Diagnosis Acute postoperative pain of left hip Acute postoperative pain of left hip documented in this encounter Care Teams Human Machine Interface Engineer Relationship Specialty Start Date End Date Mina Miguel Sr., FNP [address] [place] [address] PCP - General NURSE PRACTITIONER 07/24/13 documented as of this encounter
--- OUTSIDE RECORDS SUMMARY | 2025-04-12 10:19 | XMS_ITS | Encounter Summary ---
Author Organization [facility] Address [address] [place] [address] Care Team Providers Care Concrete Panel Installer Name Role Phone Lamont Obando, Mina WEST Primary Care Pro vider Encounter Details Date Type Department Care Team (Latest Contact Info) Description 08/14/2017 Ancillary Orders [facility] Orthopedics - Orthopedic [facility] [address] [place] [phone] Enrique Smalls MD [address] [place] [phone] Primary osteoarthritis of right knee Social History Tobacco Use Types Packs/Day Years Used Date Smoking Tobacco: Never Smokeless Tobacco: Never Alcohol Use Standard Drinks/Week Comments No 0 (1 standard drink = 0.6 oz pur e alcohol) Sex and Gender Information Value Date Recorded Sex Assigned at Not on file 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 No significant changes seen from immediate postoperative films. us Enriuqe Smalls MD DIAGNOSTIC IMAGING ORDERABLES Final Result documented in this encounter Visit Diagnoses Diagnosis Primary osteoarthritis of right knee Primary localized osteoarthrosis, lower leg Primary osteoarthritis of right knee Primary localized osteoarthrosis, lower leg documented in this encounter Care Teams Concrete Panel Installer Relationship Specialty Start Date End Date Lamont Obando, JENNA [address] [place] [address] PCP - General NURSE PRACTITIONER 07/24/13 documented as of this encounter
--- OUTSIDE RECORDS SUMMARY | 2025-04-12 10:19 | XMS_ITS | Encounter Summary ---
Author Organization [facility] Address [address] [place] [address] Care Team Providers Care Sales Manager [place] Name Role Phone JENNA Miguel Sr., Michael Dave Primary Care Pro vider Encounter Details Date Type Department Care Team (Late st Contact Info) Description 02/22/2001 Outpatient Historical [facility] Urology- [place] [address], 3[address] [place] [address] Muinr Tong MD [address] [phone] Malig ad prostate (Primary Dx) Social History Tobacco Use Types Packs/Day Years Used Date Smoking Tobacco: Never Assessed Sex and Gender Information Value Date Recorded Sex Assigned at Not on file 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
--- OUTSIDE RECORDS SUMMARY | 2025-04-12 10:19 | XMS_ITS | Encounter Summary ---
Author Organization [facility] Address [address] 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
--- OUTSIDE RECORDS SUMMARY | 2025-04-12 10:19 | XMS_ITS | Encounter Summary ---
Author Organization [facility] Address 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 No 2024 Housing Stability [...] on file Legal Sex Male 8:17 AM SPECIALIZED DEVELOPER Gender Identity Not on file Sexual Orientation Not on file documented as of this encounter Plan of Treatment Not on file documented as of this encounter Visit Diagnoses Not on filedocumented in this encounter
--- OUTSIDE RECORDS SUMMARY | 2025-04-12 10:19 | XMS_ITS | Clinical Summary ---
Author Organization [facility] Address [address] [facility] Attn: Epic Prelude ADT [place] [address] Care Team Providers Care Child And Adolescent Psychologist Name Role Phone Unavailable Primary Care Provider Unavailabl e Allergies Active Allergy Reactions Criticality Noted Date Comments Garlic Itching Low 07/16/2017 Polyethylene Glycol 3350 Rash Low 03/21/2018 Vitamins Itching Low 07/16/2017 Medications gabapentin (NEURONTIN) 300 mg capsule Take 1 Capsule (300 mg) by mouth daily at bedtime. 30 Capsule 0 10/18/19 19 Active cholecalciferol , Vitamin D3, (VITAMIN D3) 25 mcg (1,000 unit) Capsule Take 400 Units by mouth daily . 02/01/20 17 Active omega-3 fatty acids/fish oil (Fish Oil-Devens-3 Fatty Acids) 440-880 mg Capsule Take 1 Capsule by mouth 2 times daily 1200 mg/Devens 3 360 mg. 05/03/20 16 Active apixaban (ELIQUIS ORAL) Take by mouth 2 times daily. Active atorvastatin (LIPITOR) 40 mg tablet Take 40 mg by mouth daily at bedtime. 10/16/19 25 Active acetaminophen (TYLENOL) 325 mg tablet Take 2 Tablets (650 mg) by mouth every 6 hours as needed for Other (See Comment) (See admin instructions). 04/10/20 25 Active metoprolol succinate (TOPROL XL) 25 mg Extended Release 24 hour tablet Take 1 Tablet (25 mg) by mouth daily. 04/11/20 25 Active magnesium HYDROXIDE (milk of magnesia) 400 mg/5 mL suspension Take 30 mL by mouth 1 time daily as needed for Constipation. 04/10/20 Active bisacodyL (DULCOLAX) 10 mg Suppository Insert 1 Suppository (10 mg) by rectum 1 time daily as needed for Constipation. 04/10/20 Active polyethylene glycol (MIRALAX) 17 gram Powder in Packet Take 1 Packet (17 Grams) by mouth daily. 04/11/20 Active potassium CHLORIDE (K-TAB) 20 mEq Extended Release tablet Take 2 Tablets (40 mEq) by mouth daily with breakfast. 04/10/20 Active sennosides (SENOKOT) 8.6 mg tablet Take 3 Tablets (25.8 mg) by mouth daily. 04/11/20 Active linezolid (ZYVOX) 600 mg tablet Take 1 Tablet (600 mg) by mouth 2 times daily for 7 days. 04/10/20 Active cephALEXin (KEFLEX) 500 mg capsule Take 1 Capsule (500 mg) by mouth 4 times daily for 7 days. 04/10/20 Active furosemide (Lasix) 40 mg tablet Take 1 Tablet (40 mg) by mouth daily. 04/10/20 Active HYDROcodone-aroldo taminophen (NORCO) 5-325 mg tabletIndicatio ns:Closed bimalleolar fracture of right ankle, initial encounter Take 1-2 Tablets by mouth every 6 hours as needed for Pain. Max Daily Amount: 8 Tablets 30 Tablet 03/31/20 Discontinued Active Problems Problem Noted Date Diagnosed Date Closed bimalleolar fracture of right ankle 04/07 Cellulitis of right lower extremity 04/07/2025 Neuralgia of left foot 08/15/2018 History of total left knee replacement 9 History of total right knee replacement 08/07/19 19 Obesity (BMI 30.0-34.9) 03/21/2018 Chronic atrial fibrillation 03/21/2018 Preoperative general physical examination 2017 Atherosclerosis of [place] co ronary artery of [place] heart with angina pectoris 07/16/2017 Dyslipidemia 07/16/2017 Chronic obstructive pulmonary disease 07/16/2017 History of prostate cancer 07/16/2017 Resolved Problems Problem Noted Date Diagnosed Date Resolved Date Primary osteoarthritis of left knee 02/12/2018 08/15/2018 Primary osteoarthritis of right knee 06/28/2017 08/15/2018 Encounters Date Type Department Care Team Description 04/08/2025 External Device Data STL ABSTRACTION Provider, Abstract 04/08/2025 Results Follow-Up [facility] [address] [facility] [address] [place] [id number] Jennifer Guevara RN BLOOD CULTURE, BLOOD CULTURE, ANAEROBIC/AEROBIC CULTURE W GRAM STAIN 04/07/2025 1:10 PM CDT - 04/10/2025 2:37 PM CDT Hospital Encounter [facility] [address] [place] [address] Candy Benson MD Phelps, Jamie, MD Siddiqi, Talha, MD Cellulitis of right lower extremity Discharge Disposition: Senior Care Fac(SNF) with Medicare Certification in Anticipation of Skilled Care 04/07/2025 External Device Data STL ABSTRACTION Provider, Abstract 04/05/2025 10:13 PM CDT - 04/07/2025 10:51 AM CDT Emergency [facility] [address] [address] [place] [phone] Jean Carlos Norton MD Sindlinger, Timothy S, MD Cellulitis of right leg (Primary Dx); Disorientation; Closed bimalleolar fracture of right ankle, initial encounter Discharge Disposition: Acute Care Hospital 03/31/2025 10:53 AM CDT - 03/31/2025 12:45 PM CDT Emergency [facility] [address] [facility] [address] [place] [phone] You Gallegos MD Closed bimalleolar fracture of right ankle, initial encounter (Primary Dx) Discharge Disposition: Home or Self Care 03/31/2025 External Device Data STL ABSTRACTION Provider, Abstract 03/31/2025 [facility] - [facility] [address] [place] [phone] Luiz Crowley MD General 03/31/2025 Travel 02/17/2025 External Device Data STL ABSTRACTION Provider, Abstract 02/17/2025 External Device Data STL ABSTRACTION Provider, Abstract 01/27/2025 External Device Data STL ABSTRACTION Provider, Abstract 01/27/2025 External Device Data STL ABSTRACTION Provider, Abstract 01/27/2025 External Device Data STL ABSTRACTION Provider, Abstract 01/24/2025 Results Follow-Up [facility] Emergency Medicine [address] [place] [address] Jennifer Guevara RN URINE CULTURE 01/22/2025 10:15 PM CDT - 01/23/2025 12:17 AM CDT Emergency [facility] Emergency Medicine [address] [place] [address] Mk Haque, Acute cystitis with hematuria (Primary Dx) Discharge Disposition: Home or Self Care 01/22/2025 Travel 01/20/2025 External Device Data STL ABSTRACTION Provider, Abstract from Last 3 Months Immunizations Immunization Administration Dates Next Due (ADACEL/BOOSTRIX)(10 [...] Father Mother Sister 1 Alive Sister 2 Sister 3 Alive Son Alive Social History Tobacco Use Types [...] worry about transportation for future doctor visits, fiber picker medication, etc.? No 2024 Housing Stability Answer Date Recorded Do you worry you won t have a steady place to sleep or struggle to pay rent or mortgage? No 04/07/2025 Utility Needs Answer Date Recorded Do you have difficulty payin g for utility costs ([employer], water or gas bills)? 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 Gender Identity Not on file Sexual Orientation [...] Mass Index 33.45 04/08/2025 1:31 PM CDT Plan of Treatment Health Maintenance Due Date Last Done Comments PNEUMOCOCCAL VACCINE 50+ YEARS (1 of 2 - PCV) 10/16/18 60 ZOSTER VACCINE (1 of 2) 1990 RSV VACCINE (60+ or ) (1 - 1-dose 75+ series) 10/17/2015 INFLUENZA VACCINE (#1) 2025 DTAP/TDAP/TD VACCINES (2 - Td or Tdap) 05/03/2026 Medical Devices Implanted Type Area Camp Manager Device Identifier Shelf Expiration Date Model / Serial / Lot Cement Simplex Hvisc 6194-1-010 - [id number] Implanted:Qty: 1 on 07/30/2017 by Enrique Smalls MD Cement Right: Knee JORDI- [employer] 02/06/2022 6194-1-010 / / [id number] Cement Simplex Hvisc 6194-1-010 - [id number] Implanted:Qty: 1 on 07/30/2017 by Enrique Smalls MD Cement Right: Knee [employer]- [employer] 02/06/2022 6194-1-010 / / [id number] Cement Simplex Hvisc 6194-1-010 - [id number] Implanted:Qty: 1 on 04/03/2018 by Enrique Smalls MD Cement Left: Knee [employer] 11/16/2019 6194-1-010 / / [id number] Cement Simplex Hvisc 6194-1-010 - [id number] Implanted:Qty: 1 on 04/03/2018 by Enrique Smalls MD Cement Left: Knee [employer] 11/16/2019 6194-1-010 / / [id number] Patella Dome 3peg 41mm 96-0103 - [id number] Implanted:Qty: 1 on 07/30/2017 by Enrique Smalls MD Knee Right: Knee [employer] 04/17/2022 96-0103 / / [id number] Comp Fem Sigma Cr Cattle Sorter Sz4 96-0014 - [id number] Implanted:Qty: 1 on 07/30/2017 by Enrique Smalls MD Knee Right: Knee [employer] 04/17/2022 96-0014 / / [id number] Comp Tib Sigma Cocr Sz4 1581-40-000 - [id number] Implanted:Qty: 1 on 07/30/2017 by Enrique Smalls MD Knee Right: Knee [employer] 06/17/2027 0 / / [id number] Ins Tib Sigma Fix Crv+ Xlk Sz4 97-0462 - [id number] Implanted:Qty: 1 on 07/30/2017 by Enrique Smalls MD Knee Right: Knee [employer] 07/18/2021 97-0462 / / [id number] Ins Tib Sigma Fix Crv+ Xlk Sz4 97-0463 - [id number] Implanted:Qty: 1 on 04/03/2018 by Enrique Smalls MD Knee Left: Knee [employer] 11/15/2020 97-0463 / / [id number] Patella Dome 3peg 41mm 96-3 - [id number] Implanted:Qty: 1 on 04/03/2018 by Enrique Smalls MD Knee Left: Knee [employer] 07/18/2022 96-0103 / / [id number] Comp Fem Sigma Cr Cattle Sorter Sz4 96-3 - [id number] Implanted:Qty: 1 on 04/03/2018 by Enrique Smalls MD Knee Left: Knee [employer] 01/15/2022 96-0004 / / [id number] Comp Tib Sigma Cocr Sz4 1581-40-000 - [id number] Implanted:Qty: 1 on 04/03/2018 by Enrique Smalls MD Knee Left: Knee [employer] 08/16/2027 0 / / [id number] Procedures Procedure Name Priority Date/Time Associated Diagnosis Comments BASIC METABOLIC PANEL Routine 04/10/2025 7:47 AM CDT VANCOMYCIN LEVEL TROUGH Timed Study 04/09/2025 9:51 PM CDT BRAIN NATRIURETIC PEPTIDE, BNP OR PROBNP Routine 04/09/2025 12:00 PM CDT TELEMETRY REPORT 04/08/2025 9:02 AM CDT BASIC METABOLIC PANEL Routine 04/08/2025 4:52 AM CDT CBC WITH DIFFERENTIAL Routine 04/08/2025 4:52 AM CDT EKG 12-LEAD Routine 04/07/2025 7:[address] ANKLE W CONTRAST RIGHT Routine 04/07/2025 5:14 PM CDT C-REACTIVE PROTEIN Routine 04/07/2025 2: 48 PM CDT SEDIMENTATION RATE Routine 04/07/2025 2 :48 PM CDT COMPREHENSIVE METABOLIC PANEL Routine 04/07/2025 2:48 PM CDT CBC WITH DIFFERENTIAL Routine 04/07/2025 2:48 PM CDT RT ASSESS AND TREAT Routine 04/07/2025 2 :47 PM CDT BASIC METABOLIC PANEL Stat 04/07/2025 10:25 [...] CDT D-DIMER Stat 04/06/2025 11:50 AM CDT ANAEROBIC/AEROBIC CULTURE W GRAM STAIN [...] VW Stat 04/05/2025 11:38 PM CDT URINALYSIS MICROSCOPY ONLY Stat 04/05/2025 11:21 PM CDT URINALYSIS WITH REFLEX CULTURE Stat 04/05/2025 11:21 PM CDT COVID-19 ANTIGEN Stat 04/05/2025 11:0 9 PM CDT INFLUENZA VIRUS A AND B, ANTIGEN DETECTION Stat 04/05/2025 11:09 PM CDT CK Stat 04/05/2025 11:08 PM CDT LACTIC ACID Stat 04/05/2025 11:08 PM CDT COMPREHENSIVE METABOLIC PANEL Stat 04/05/2025 11:08 PM CDT PROTIME-INR Stat 04/05/2025 11:08 PM CDT CBC WITH DIFFERENTIAL Stat 04/05/2025 11:08 PM CDT PULSE OXIMETRY, CONTINUOUS Stat 04/05/2025 10:55 PM CDT XR TIBIA AND FIBULA 2 VW RIGHT Stat 03/31/2025 11:39 AM CDT XR ANKLE 3+ VW RIGHT Stat 03/31/2025 11:39 AM CDT XR FOOT 3+ VW RIGHT Stat 03/31/2025 1 1:39 AM CDT URINALYSIS MICROSCOPY ONLY Stat 01/22/2025 11:00 PM CDT URINALYSIS W/REFLEX MICROSCOPIC Stat 01/22/2025 11:00 PM CDT URINE CULTURE Stat 01/22/2025 11:00 PM CDT from Last 3 Months Results * (ABNORMAL) BASIC METABOLIC PANEL (04/10/2025 7:47 AM CDT) Only the most recent of3 resultswithin the time period is included. Pathologist [facility] SODIUM 140 136 - 145 mmol/L 04/10/2025 8:53 AM T [facility] POTASSIUM 3.3(L) 3.5 - 5.1 mmol/L 04/10/2025 8:53 AM [facility] CHLORIDE 104 98 - 107 mmol/L 04/10/2025 8:53 AM [facility] CO2 29 22 - 29 mmol/L 04/10/2025 8:53 AM [facility] CALCIUM 8.9 8.8 - 10.2 mg/dL 04/10/2025 8:53 AM [facility] BUN 28(H) 8 - 23 mg/dL 04/10/2025 8:53 AM [facility] CREATININE 0.68 0.67 - 1.17 mg/dL 04/10/2025 8:53 AM [facility] Comment:The GFR result is no t clinically significant on patients <18 or >70 years of age. GLUCOSE 101(H) 74 - 99 mg/dL 04/10/2025 8:53 AM [facility] GFR >60 mL/min/1.7 3 sq meter 04/10/2025 8:53 AM [facility] Comment:eGFR calculated with 2020 CKD-EPI equation. Vegetarian diet, extremely high or low muscle mass, and may affect results. Cystatin C with Glomerular Filtration Rate is a suitable alternative for these patients. ANION GAP 7(L) 9 - 20 mmol/L 04/10/2025 8:53 AM CDT [facility] Blood Venipuncture / Unknown 04/10/2025 7:47 AM CDT 04/10/2025 8:16 AM CDT us Med Jones MD CHEMISTRY ORDERABLES Final Resu lt Performing Organization Address [facility] de Phone Number [facility] CLIA # [id number] [address] [address] [place] [address] * (ABNORMAL) VANCOMYCIN LEVEL TROUGH (04/09/2025 9:51 PM CDT) [facility] VANCOMYCIN, TROUGH 5.9(L) 10.0 - 17.0 ug/mL 04/09/2025 10:39 PM CDT [facility] Blood Venipuncture / Unknown 04/09/2025 9:51 PM CDT 04/09/2025 10:08 PM CDT us Dominic Santillan MD CHEMISTRY ORDERABLES Final Resul t Performing Organization Address [facility] Phone Number [facility] CLIA # [id number] [address] [address] * (ABNORMAL) BRAIN NATRIURETIC PEPTIDE, BNP OR PROBNP (04/09/2025 12:00 PM CDT) PROBNP, N TERMINAL 3,603(H) 0 - 450 pg/mL 04/09/2025 12:40 PM CDT [facility] Comment: INTERPRETIVE COMMENT based on diagnosis: Diagnostic [...] Jones MD CHEMISTRY ORDERABLES Final Resu lt [facility] CLIA # [id number] [address] [address] [place] [address] * TELEMETRY REPORT (04/08/2025 9:02 AM CDT) us Provider Scanning ECG ORDERABLES Final Result * (ABNORMAL) CBC WITH DIFFERENTIAL (04/08/2025 4:52 AM CDT) Only the most recent of3 resultswithin the time period is included. Pathologist [facility] WBC 9.5 4.8 - 10.8 K/uL 04/08/2025 5:08 AM CDT [facility] RBC 3.96(L) 4.60 - 6.20 M/uL 04/08/2025 5:08 AM T [facility] HEMOGLOBIN 11.4(L) 14.0 - 18.0 g/dL 04/08/2025 5:08 AM T [facility] HEMATOCRIT 34.9(L) 41.0 - 53.0 % 04/08/2025 5:08 AM T [facility] MCV 88.1 84.0 - 103.0 fL 04/08/2025 5:08 AM CDT [facility] MCH 28.8 27.0 - 34.0 pg 04/08/2025 5:08 AM T [facility] MCHC 32.7 30.0 - 35.0 g/dL 04/08/2025 5:08 AM T [facility] PLATELETS 257 140 - 440 K/uL 04/08/2025 5:08 AM [facility] [employer] [facility] MPV 9.5 8.9 - 12.8 fL 04/08/2025 5:08 AM [facility] [employer] [facility] RDW 14.0 11.0 - 14.5 % 04/08/2025 5:08 AM [facility] [employer] [facility] RDW-STDEV 45.2 37.0 - 54.0 fL 04/08/2025 5:08 AM [facility] [employer] [facility] NEUTROPHILS 74 42 - 75 % 04/08/2025 5:08 AM [facility] [employer] [facility] LYMPHOCYTES 11(L) 24 - 44 % 04/08/2025 5:08 AM [facility] [employer] [facility] MONOCYTES 10 2 - 10 % 04/08/2025 5:08 AM [facility] [employer] [facility] EOSINOPHILS 4 0 - 7 % 04/08/2025 5:08 AM [facility] [employer] [facility] BASOPHILS 0 0 - 1 % 04/08/2025 5:08 AM [facility] IMMATURE GRANULOCYTES 0 0 - 2 % 04/08/2025 5:08 AM [facility] NEUTROPHIL ABSOLUTE 7.01 2.00 - 8.00 K/uL 04/08/2025 5:08 AM [facility] LYMPHOCYTE ABSOLUTE 1.08(L) 1.20 - 4.00 K/uL 04/08/2025 5:08 AM [facility] MONOCYTE ABSOLUTE 0.98(H) 0.10 - 0.60 K/uL 04/08/2025 5:08 AM [facility] [employer] [facility] EOSINOPHIL ABSOLUTE 0.36 0.00 - 0.70 K/uL 04/08/2025 5:08 AM [facility] [employer] [facility] BASOPHILS ABSOLUTE 0.03 0.00 - 0.20 K/uL 04/08/2025 5:08 AM [facility] IMMATURE GRANULOCYTES ABSOLUTE 0.04 0.00 - 0.10 K/uL 04/08/2025 5:08 AM [facility] [employer] [facility] SMEAR REVIEWED: NA - Not Applicable 04/08/2025 5:08 AM CDT [facility] [employer] [facility] Blood Venipuncture / Unknown 04/08/2025 4:52 AM CDT 04/08/2025 5:00 AM CDT us Dominic Santillan MD HEMATOLOGY ORDERABLES Final Resu lt [facility] CLIA # [id number] [address] [address] * EKG 12-LEAD (04/07/2025 7:40 PM CDT) 04/07/2025 7:40 PM CDT Narrative INTERFACE SYSTEM - 04/08/2025 1:19 PM CDT [address] [address] Test Date: 2025-04-07 Pat Name: ROGER CAMP Department: 12 Room: [address] [place] [address] Gender: Male 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: [email or web address] : 1940 Requested By: Order Number: [id number] Reading MD: Alexandria Hauser Measurements Intervals [place] Rate: 96 P: 0 VA: 0 QRS: 23 QRSD: 92 T: -13 QT: 336 QTc: 424 Interpretive Statements Atrial fibrillation with premature ventricular or aberrantly conducted complexes Possible Anterior infarct, age undetermined Abnormal ECG Electronically Signed On 04-08-2025 13:19:22 CDT by Alexandria Hauser Procedure Note Alexandria Hauser MD - 04/08/[address] [address] Test Date: 2025-04-07 Pat Name: ROGER CAMP Department: 12 Room: [address] [place] [address] Gender: Male Television Announcer: [id number] : 1940 Requested By: Order Number: [id number] Reading MD: Alexandria Hauser Measurements Intervals [place] Rate: 96 P: 0 VA: 0 QRS: 23 QRSD: 92 T: -13 [...] lesser degree of the anterior subtalar joint. us Dominic Santillan MD CT ORDERABLES Final Result * (ABNORMAL) SEDIMENTATION RATE (04/07/2025 2:48 PM CDT) [facility] ESR (SEDIMENTATION RATE) 53(H) 0 - 10 mm/Hr 04/07/2025 3:48 PM CDT [facility] Blood Venipuncture / Unknown 04/07/2025 2:48 PM CDT 04/07/2025 3:16 PM CDT us Dominic Santillan MD HEMATOLOGY ORDERABLES Final Resu lt Performing Organization Address [facility] Co de Phone Number [facility] CLIA # [id number] [address] [phone] * (ABNORMAL) C-REACTIVE PROTEIN (04/07/2025 2:48 PM CDT) CRP 184.7(H) 0.0 - 5.0 mg/L 04/07/2025 3:52 PM CDT [facility] Blood Venipuncture / Unknown 04/07/2025 2:48 PM CDT 04/07/2025 3:16 PM CDT Dominic Santillan MD CHEMISTRY ORDERABLES Final Resul t Performing Organization Address [facility] de Phone Number [facility] [employer] [facility] CLIA # [id number] [address] [address] * (ABNORMAL) COMPREHENSIVE METABOLIC PANEL (04/07/2025 2:48 PM CDT) Only the most recent of2 resultswithin the time period is included. SODIUM 141 136 - 145 mmol/L 04/07/2025 3:52 PM CDT [facility] POTASSIUM 4.4 3.5 - 5.1 mmol/L 04/07/2025 3:52 PM CDT [facility] CHLORIDE 108(H) 98 - 107 mmol/L 04/07/2025 3:52 PM CDT [facility] CO2 22 22 - 29 mmol/L 04/07/2025 3:52 PM CDT [facility] CALCIUM 8.9 8.8 - 10.2 mg/dL 04/07/2025 3:52 PM CDT [facility] BUN 31(H) 8 - 23 mg/dL 04/07/2025 3:52 PM CDT [facility] CREATININE 0.89 0.67 - 1.17 mg/dL 04/07/2025 3:52 PM T [facility] Comment:The GFR result is no t clinically significant on patients <18 or >70 years of age. GLUCOSE 113(H) 74 - 99 mg/dL 04/07/2025 3:52 PM T [facility] TOTAL PROTEIN 6.3(L) 6.4 - 8.3 g/dL 04/07/2025 3:52 PM CDT [facility] ALBUMIN 3.1(L) 3.5 - 5.2 g/dL 04/07/2025 3:52 PM CDT [facility] BILIRUBIN TOTAL 1.4(H) 0.0 - 1.0 mg/dL 04/07/2025 3:52 PM T [facility] ALKALINE PHOSPHATASE 84 40 - 129 U/L 04/07/2025 3:52 PM CDT [facility] AST 50 10 - 50 U/L 04/07/2025 3:52 PM CDT [facility] ALT 32 <=50 U/L 04/07/2025 3:52 PM T [facility] GFR >60 mL/min/1.7 3 sq meter 04/07/2025 3:52 PM T [facility] Comment:eGFR calculated with 2020 CKD-EPI equation. Vegetarian diet, extremely high or low muscle mass, and may affect results. Cystatin C with Glomerular Filtration Rate is a suitable alternative for these patients. ANION GAP 11 9 - 20 mmol/L 04/07/2025 3:52 PM T [facility] Blood Venipuncture / Unknown 04/07/2025 2:48 PM CDT 04/07/2025 3:16 PM CDT us Dominic Santillan MD CHEMISTRY ORDERABLES Final Resul t [facility] CLIA # [id number] [address] [place] [address] [place] [address] * (ABNORMAL) POC GLUCOSE (04/06/2025 5:44 PM CDT) Only the most recent of2 resultswithin the time period is included. GLUCOSE POC 114(H) 74 - 99 mg/dL 04/06/2025 5:44 PM CDT [facility] SPECIMEN SOURCE, GLUCOSE POC Whole Blood 04/06/2025 5:44 PM CDT [facility] Blood, whole 04/06/2025 5:44 PM CDT 04/06/2025 5:58 PM CDT You Gallegos MD POINT OF CARE TESTING Fi nal Result Performing Organization Address [facility]/ZIP Co de Phone Number [facility] CLIA # [id number] [address] [place] [id number] * (ABNORMAL) TROPONIN 6 HR, 5TH GEN (04/06/2025 5:40 PM CDT) TROPONIN T, 6 HR 5TH GEN 30(H) <=15 ng/L 04/06/2025 6:42 PM CDT [facility] DELTA 6HR TROPONIN T 3 See Interp. 04/06/2025 6:42 PM CDT [facility] Blood BLOOD SPECIMEN / Unknown Venipuncture / Unknown 04/06/2025 5:40 PM CDT 04/06/2025 5:54 PM CDT Narrative [facility] - 04/06/2025 6:42 PM CDT Troponin elevated. Delta indeterminate. You Gallegos MD CHEMISTRY ORDERABLES Fin al Result Performing Organization Address City/[facility]/ZIP Co de Phone Number [facility] CLIA # [id number] [address] [place] [id number] * (ABNORMAL) TROPONIN 2 HR, 5TH GEN (04/06/2025 2:08 PM CDT) TROPONIN T, 2 HR 5TH GEN 27(H) <=15 ng/L 04/06/2025 2:32 PM CDT [facility] Comment:Hemolysis can falsel y decrease Troponin quantitation. DELTA 2HR TROPONIN T 0 See Interp. 04/06/2025 2:32 PM CDT [facility] Blood BLOOD SPECIMEN / Unknown Venipuncture / Unknown 04/06/2025 2:08 PM CDT 04/06/2025 2:13 PM CDT Narrative [facility] - 04/06/2025 2:32 PM CDT Troponin elevated. Delta not changing. us You Gallegos MD CHEMISTRY ORDERABLES Fin al Result [facility] CLIA # [id number] [address] [place] [address] * CTA CHEST W WO CONTRAST (04/06/2025 [...] MD CT ORDERABLES Final Re sult * (ABNORMAL) TROPONIN BASELINE, 5TH GEN (04/06/2025 11:50 AM CDT) [facility] TROPONIN T, BASELINE 5TH GEN 27(H) <=15 ng/L 04/06/2025 12:41 PM CDT [facility] Comment:Hemolysis can falsel y decrease Troponin quantitation. Blood BLOOD SPECIMEN / Unknown Venipuncture / Unknown 04/06/2025 11:50 AM CDT 04/06/2025 12:05 PM CDT [facility] - 04/06/2025 12:41 PM CDT Troponin elevated. You Gallegos MD CHEMISTRY ORDERABLES Fin al Result [facility] CLIA # [id number] [address] [place] [id number] * (ABNORMAL) D-DIMER (04/06/2025 11:50 AM CDT) [facility] D-DIMER QUANT 0.71(H) <0.50 ug/mL FEU 04/06/2025 12:54 PM CDT [facility] Blood BLOOD SPECIMEN / Unknown Venipuncture / Unknown 04/06/2025 11:50 AM CDT 04/06/2025 12:05 PM CDT [facility] - 04/06/2025 12:54 PM CDT D-Dimer assay [...] ORDERABLES Fi nal Result Performing Organization Address City/[facility]/ZIP Co de Phone Number [facility] CLIA # [id number] [address] [place] [address] [phone] * ANAEROBIC/AEROBIC CULTURE W GRAM STAIN (04/06/2025 1:54 AM CDT) CULTURE No aerobic or anaerobic growth 04/09/2025 8:22 AM CDT [facility] GRAM STAIN No Polymorphonuclear WBC 04/09/2025 8:22 AM CDT [facility] GRAM STAIN No organisms observed 04/09/2025 8:22 AM CDT [facility] Abscess (Leg) Collection / Unknown 04/06/2025 1:54 AM CDT 04/06/2025 2:01 AM CDT Narrative [facility] - 04/09/2025 8:22 AM CDT Specimen received on swabs. Tissue and fluid specimens are recommended for the optimal recovery of anaerobes. Jean Carlos Norton MD MICROBIOLOGY - GENERAL ORDER ZAID Final Result Performing Organization Address City/[facility]/INSCRIPTION [facility] Co de Phone Number [facility] CLIA # [id number] Critical access hospital[address] [address] * BLOOD CULTURE (04/06/2025 1:54 AM CDT) Only the most recent of2 resultswithin the time period is included. BLOOD CULTURE No growth 04/11/2025 5:45 PM CDT [facility] [employer] [facility] Blood (Peripheral) Venipuncture / Unknown 04/06/2025 1:54 AM CDT 04/06/2025 2:00 AM CDT Narrative [facility] - 04/11/2025 5:45 PM CDT Specimen processed with suboptimal blood volume collected. Jean Carlos Norton MD MICROBIOLOGY - GENERAL ORDER ZAID Final Result [facility] CLIA # [id number] [address] [address] [place] [address] * XR ANKLE 3+ VW RIGHT (04/06/2025 12:57 AM CDT) Only the most recent of2 resultswithin the time period is included. Anatomical Region Laterality Modality Ankle / Foot [...] Age-appropriate atrophy with mild microvascular ischemic disease. us Jean Carlos Norton MD CT ORDERABLES Final [...] IMPRESSION: No evidence of acute cardiopulmonary disease. us Jean Carlos Norton MD DIAGNOSTIC IMAGING ORDERABLE S Final Result * (ABNORMAL) URINALYSIS WITH REFLEX CULTURE (04/05/2025 11:21 PM CDT) COLOR UA Yellow Pale to Dark Yellow 04/05/2025 11:35 PM CDT [facility] CLARITY UA Clear Clear 04/05/2025 11:35 PM CDT [facility] SPECIFIC GRAVITY UA >=1.030 1.003 - 1.035 04/05/2025 11:35 PM CDT [facility] PH UA 6.0 5.0 - 8.0 04/05/2025 11:35 PM CDT [facility] LEUKOCYTE ESTERASE UA Negative Negative 04/05/2025 11:35 PM T [facility] NITRITE UA Negative Negative 04/05/2025 11:35 PM CDT [facility] PROTEIN UA 1+(A) Negative 04/05/2025 11:35 PM T [facility] GLUCOSE UA Negative Negative 04/05/2025 11:35 PM CDT [facility] KETONES UA 1+(A) Negative 04/05/2025 11:35 PM T [facility] UROBILINOGEN UA 2.0(A) <2.0 mg/dL 11:[address] [facility] BILIRUBIN UA 2+(A) Negative 04/05/2025 11:[address] [facility] BLOOD UA Trace(A) Negative 04/05/2025 11:35 PM T [facility] Comment: For patients with 'trace' results, consider ordering a culture and sensitivity if clinically indicated. Urine URINE SPECIMEN OBTAINED BY CLEAN CATCH PROCEDURE / Unknown Collection / Unknown 04/05/2025 11:21 PM CDT 04/05/2025 11:24 PM CDT Jean Carlos Norton MD URINE ORDERABLES Final Resul t [facility] CLIA # [id number] [address] [place] [id number] * (ABNORMAL) URINALYSIS MICROSCOPY ONLY (04/05/2025 11:21 PM CDT) Only the most recent of2 resultswithin the time period is included. WBC UA 0-2 0 - 2 /hpf 04/05/2025 11:35 PM CDT [facility] RBC UA 0-2 0 - 2 /hpf 04/05/2025 11:35 PM CDT [facility] BACTERIA UA 2+(A) Negative /hpf 04/05/2025 11:35 PM CDT [facility] EPITHELIAL CELLS, URINE 0-5 0 - 5 /hpf 04/05/2025 11:35 PM CDT [facility] Urine URINE SPECIMEN OBTAINED BY CLEAN CATCH PROCEDURE / Unknown Collection / Unknown 04/05/2025 11:21 PM CDT 04/05/2025 11:24 PM CDT Jean Carlos Norton MD URINE ORDERABLES Final Resul t [id number] [address] [place] [address] * COVID-19 ANTIGEN (04/05/2025 11:09 PM CDT) COVID-19 ANTIGEN Presumptive Negative Presumptive Negative 04/05/2025 11:34 PM CDT [facility] Upper Respiratory ANTERIOR NARES SWAB / Unknown Collection / Unknown 04/05/2025 11:09 PM CDT 04/05/2025 11:16 PM CDT Narrative [facility] - 04/05/2025 11:34 PM CDT Tari [...] protein antigen from SARS-CoV-2 directly from nasopharyngeal (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) and nasal (NS) swab specimens collected from [...] MICROBIOLOGY - GENERAL ORDER ZAID Final Result [facility] CLIA # [id number] [address] [place] [address] * INFLUENZA VIRUS A AND B, ANTIGEN DETECTION (04/05/2025 11:09 PM CDT) INFLUENZA A AG NOT DETECTED Not Detected 04/05/2025 11:34 PM CDT [facility] INFLUENZA B AG NOT DETECTED Not Detected 04/05/2025 11:34 PM CDT [facility] Upper Respiratory ENTIRE NASOPHARYNX / Unknown Collection / Unknown 04/05/2025 11:09 PM CDT 04/05/2025 11:16 PM CDT [facility] - 04/05/2025 11:34 PM CDT Negative results do not rule out infection. If clinically indicated, consider PCR testing which is more sensitive than antigen testing. If PCR testing is desired, consult with your local laboratory as sample recollection may be required. us Jean Carlos Norton MD MICROBIOLOGY - GENERAL ORDER ZAID Final Result Performing Organization Address City/[facility]/ZIP Co de Phone Number [facility] CLIA # [id number] [address] [place] [phone] * LACTIC ACID (04/05/2025 11:08 PM CDT) LACTIC ACID 1.4 <=2.0 mmol/L 04/05/2025 11:31 PM CDT [facility] Blood BLOOD SPECIMEN / Unknown Collection / Unknown 04/05/2025 11:08 PM CDT 04/05/2025 11:13 PM CDT us Jean Carlos Norton MD CHEMISTRY ORDERABLES Final R esult Performing Organization Address [facility]/ZIP Co de Phone Number [facility] CLIA # [id number] [address] [place] [address] * (ABNORMAL) PROTIME-INR (04/05/2025 11:08 PM CDT) PROTIME 19.2(H) 12.1 - 14.3 Seconds 04/05/2025 11:27 PM CDT [facility] INR 1.6(H) 0.9 - 1.1 04/05/2025 11:27 PM CDT [facility] Blood BLOOD SPECIMEN / Unknown Collection / Unknown 04/05/2025 11:08 PM CDT 04/05/2025 11:13 PM CDT us Jean Carlos Norton MD HEMATOLOGY ORDERABLES Final Result Performing Organization Address [facility]/ZIP Co de Phone Number [facility] CLIA # [id number] [address] [place] [address] * (ABNORMAL) CK (04/05/2025 11:08 PM CDT) CK 469(H) 39 - 308 U/L 04/05/2025 11:31 PM CDT [facility] Blood BLOOD SPECIMEN / Unknown Collection / Unknown 04/05/2025 11:08 PM CDT 04/05/2025 11:13 PM CDT us Jean Carlos Norton MD CHEMISTRY ORDERABLES Final R esult [facility] CLIA # [id number] [address] [place] [address] * XR TIBIA AND FIBULA 2 VW RIGHT (03/31/2025 11:39 AM CDT) Anatomical Region Laterality Modality Lower Extremity Computed Radiogr aphy 03/31/2025 11:3 9 AM CDT Impressions 03/31/2025 12:12 PM CDT IMPRESSION: Bimalleolar ankle fracture. Narrative 03/31/2025 12:12 PM CDT Exam: XR TIBIA AND FIBULA 2 VW RIGHT Date/Time of Exam: 03/31/2025 11:39 AM Reason For Exam: Injury Diagnosis: See Reason for Exam AP and lateral views of the right tibia and fibula are submitted. Partially displaced distal fibula shaft fracture and medial malleolar fracture present. A nondisplaced fractures present in the lateral malleolus. No dislocation is seen. A total knee replacement prosthesis is present. Procedure Note Jose Luis Stevens MD - 03/31/2025 Exam: XR TIBIA AND FIBULA 2 VW RIGHT Date/Time of Exam: 03/31/2025 11:39 AM Reason For Exam: Injury Diagnosis: See Reason for Exam AP and lateral views of the right tibia and fibula are submitted. Partially displaced distal fibula shaft fracture and medial malleolar fracture present. A nondisplaced fractures present in the lateral malleolus. No dislocation is seen. A total knee replacement prosthesis is present. IMPRESSION: Bimalleolar ankle fracture. us You Gallegos MD DIAGNOSTIC IMAGING ORDER ZAID Final Result * XR FOOT 3+ VW RIGHT (03/31/2025 11:39 AM CDT) Anatomical Region Laterality Modality Ankle / Foot Computed Radiogr aphy 03/31/2025 11:3 9 AM CDT Impressions 03/31/2025 12:10 PM CDT IMPRESSION: 1. Medial malleolar and distal fibular fractures are present. 2. Degenerative changes as above. Narrative 03/31/2025 12:10 PM CDT Exam: XR FOOT 3+ VW RIGHT Date/Time of Exam: 03/31/2025 11:39 AM Reason For Exam: Injury Diagnosis: See Reason for Exam Three views of the foot right are submitted. No fractures are seen in the foot itself. Medial malleolar and distal fibular fractures are incidentally noted. Degenerative changes with joint space narrowing and osteophyte formation are seen at many of the interphalangeal joints and at the MTP joint of the great toe. Procedure Note Jose Luis Stevens MD - 03/31/2025 Exam: XR FOOT 3+ VW RIGHT Date/Time of Exam: 03/31/2025 11:39 AM Reason For Exam: Injury Diagnosis: See Reason for Exam Three views of the foot right are submitted. No fractures are seen in the foot itself. Medial malleolar and distal fibular fractures are incidentally noted. Degenerative changes with joint space narrowing and osteophyte formation are seen at many of the interphalangeal joints and at the MTP joint of the great toe. IMPRESSION: 1. Medial malleolar and distal fibular fractures are present. 2. Degenerative changes as above. You Gallegos MD DIAGNOSTIC IMAGING ORDER ZAID Final Result * (ABNORMAL) URINALYSIS WITH REFLEX MICROSCOPIC (01/22/2025 11:00 PM CDT) COLOR UA Yellow Pale to Dark Yellow 01/22/2025 11:09 PM CDT [facility] CLARITY UA Cloudy(A) Clear 01/22/2025 11:09 PM CDT [facility] SPECIFIC GRAVITY UA 1.020 1.003 - 1.035 01/22/2025 11:09 PM CDT [facility] PH UA 6.0 5.0 - 8.0 01/22/2025 11:09 PM CDT [facility] LEUKOCYTE ESTERASE UA 2+(A) Negative 01/22/2025 11:09 PM CDT [facility] NITRITE UA Positive(A) Negative 01/22/2025 11:09 PM CDT [facility] PROTEIN UA 1+(A) Negative 01/22/2025 11:09 PM CDT [facility] GLUCOSE UA Negative Negative 01/22/2025 11:09 PM CDT [facility] KETONES UA Negative Negative 01/22/2025 11:09 PM CDT [facility] UROBILINOGEN UA 0.2 <2.0 mg/dL 11:09 PM CDT [facility] BILIRUBIN UA Negative Negative 01/22/2025 11:09 PM T [facility] BLOOD UA 3+(A) Negative 01/22/2025 11:09 PM CDT [facility] Urine URINE SPECIMEN OBTAINED BY CLEAN CATCH PROCEDURE / Unknown Collection / Unknown 01/22/2025 11:00 PM CDT 01/22/2025 11:03 PM CDT us Mk Haque DO URINE ORDERABLES Final Re sult [id number] [address] [place] [id number] * (ABNORMAL) URINE CULTURE (01/22/2025 11:00 PM CDT) CULTURE ESCHERICHIA COLI(A) LEXII MCG/ML 01/25/2025 7:48 AM CDT [facility] Urine URINE SPECIMEN OBTAINED BY CLEAN CATCH PROCEDURE / Unknown Collection / Unknown 01/22/2025 11:00 PM CDT 01/22/2025 11:42 PM CDT Narrative Organism Antibiotic Method Susceptibility Escherichia coli CEFAZOLIN LEXII MCG/ML <=4 mcg/mL: Susceptible Comment:Cefazolin bazzi sceptible interpretation applies to uncomplicated urinary tract infections (UTI) only. If patient has a complicated UTI consider either using a 3rd generation cephalosporin (ie- ceftriaxone). If cefazolin susceptibility testing is necessary for treatment of this patient, contact Microbiology for additional testing. Escherichia coli CEFTRIAXONE LEXII MCG/ML <=1 mcg/mL: Susceptible Escherichia coli GENTAMICIN LEXII MCG/ML <=1 mcg/mL: Susceptible Escherichia coli TOBRAMYCIN LEXII MCG/ML <=1 mcg/mL: Susceptible Escherichia coli CIPROFLOXACIN LEXII MCG/ML <=0.25 mcg/mL: Susceptible Escherichia coli LEVOFLOXACIN ELXII MCG/ML <=0.12 mcg/mL: Susceptible Escherichia coli TRIMETHOPRIM/ SULFAMETHOXAZOLE LEXII MCG/ML <=20 mcg/mL: Susceptible Escherichia coli NITROFURANTOIN LEXII MCG/ML <=16 mcg/mL: Susceptible Escherichia coli AMPICILLIN LEXII MCG/ML <=2 mcg/mL: Susceptible Escherichia coli AMPICILLIN/ SULBACTAM LEXII MCG/ML <=2 mcg/mL: Susceptible Escherichia coli PIPERACILLIN/ TAZOBACTAM LEXII MCG/ML <=4 mcg/mL: Susceptible Comment:Aminoglycosides shou ld not be used as monotherapy for infections outside the urinary tract. Consultation with an infectious diseases specialist is recommended. Mk Haque DO MICROBIOLOGY - GENERAL OR DERABLES Final Result Performing Organization Address [facility]/State/[facility] Phone Number [facility] # [id number] Critical access hospital[address] [address] from Last 3 Months Insurance [place] [phone] MEDICARE PART A AND B * Guarantor: ROGER CAMP Account Type Relation to Patient Date of Phone Billing Address Personal/Family [address] [place] [address] RX [employer] (INTERNAL) [facility] Medicare Part D Advance Directives For more information, please contact: [phone] * Full Code (Latest Code Status on File) Date Activated Date Inactivated Comments 04/07/2025 2:47 PM 04/10/2025 4:50 PM
--- OUTSIDE RECORDS SUMMARY | 2025-04-12 10:19 | XMS_ITS | Encounter Summary ---
Author Organization [employer] Address 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
--- OUTSIDE RECORDS SUMMARY | 2025-04-12 10:19 | XMS_ITS | Encounter Summary ---
Author Organization [employer] Address 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
[2025-04-12 10:29] LABS: Hematocrit 42.4 % (37-53); Hemoglobin 13.90 g/dL (11.27-16.99); Mean Corpuscular HGB Conc 32.8 g/dL (30-55); Mean Corpuscular Hemoglobin 28.5 pg (27-33); Mean Corpuscular Volume 87.1 fl (82-101); Nucleated Red Blood Cells % 0 %; Platelet Count 433 10^3/cmm (157-399); Red Blood Count 4.87 10^6/uL (3.85-5.65); White Blood Count 14.84 10^3/uL (3.29-11.43)
[2025-04-12 10:45] LABS: INR 1.19 (0.8-1.2); Prothrombin Time 15.90 SECONDS (12.1-14.9)
[2025-04-12 10:53] LABS: Troponin(5th) Baseline 21 ng/L (0-15)
[2025-04-12 11:00] LABS: Alanine Aminotransferase 47 U/L (0-41); Albumin Level 3.7 g/dL (3.5-5.2); Alkaline Phosphatase 122 U/L (40-130); Anion Gap 16.5 (5-19); Aspartate Amino Transferase 37 U/L (0-40); Blood Urea Nitrogen 26 mg/dL (8-23); Calcium 9.5 mg/dL (8.5-10.5); Carbon Dioxide 26 mmol/L (22-29); Chloride 100 mmol/L (98-107); Creatinine Clr Calc Pharmacy 69.4598; Globulin 2.6 g/dL (1.3-4.6); Glucose 142 mg/dL (65-115); NT Pro B Type Natriuretic Pept 1605 pg/mL (0-450); Osmolality Calculated 293 mOsm/kg (285-295); Potassium 4.5 mmol/L (3.5-5.1); Sodium 138 mmol/L (136-145); Total Protein 6.3 g/dL (6.6-8.7)
[2025-04-12 11:08] VITALS: BP 131/76; PULSE 99; O2SAT 96
[2025-04-12 11:30] VITALS: BP 111/75; PULSE 93; O2SAT 95
[2025-04-12] MEDS: iohexol 350 mg/mL 500 mL Btl (per mL) IV (11:39)
[2025-04-12 12:00] VITALS: BP 140/95; PULSE 99; O2SAT 91
--- NOTE | 2025-04-12 12:16 | ECG_ITS ---
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: : 1940 Requested By: Tierra Rutherford Order Number: [id number] Reading MD: JOSE OBRIEN Measurements Intervals [place] Rate: 95 P: 0 TX: 0 QRS: 179 QRSD: 80 T: 203 QT: 340 QTc: 429 Interpretive Statements ATRIAL FIBRILLATION POSSIBLE RIGHT VENTRICULAR HYPERTROPHY [SOME/ALL OF: PROMINENT R IN V1, LATE TRANSITION, RAD, JANEEN, SSS] LATERAL MYOCARDIAL INFARCTION , PROBABLY RECENT [40+ ms Q WAVE AND/OR ST/T ABNORMALITY IN I/aVL/V5/V6] ACUTE [place] Compared to ECG 04/12/2025 10:17:57 Myocardial infarct finding now present T-wave abnormality no longer present Electronically Signed On 04-12-2025 22:28:02 CDT by JOSE OBRIEN [email or web address]
[2025-04-12 12:21] LABS: Troponin 5 2HR 18.19 ng/L (0-15)
[2025-04-12 12:22] LABS: Troponin 5 2HR Delta -2.81 ABS# (0-10)
--- NOTE | 2025-04-12 12:30 | PC.PHAR ---
Patient was recently sent to [facility] on 04/10/25. Patient was recently added new meds to what he was taking at home.
[2025-04-12 12:55] VITALS: RESP 18
[2025-04-12] MEDS: morphine 4 mg/mL SDV 1 mL IVP (12:55)
[2025-04-12 13:00] VITALS: BP 158/94; PULSE 97; O2SAT 97
== END 2025-04-12 13:00 | disposition home or self-care (01) ==
PROVIDERS: Emergency Provider Emergency Medicine; PCP Nurse Practitioner Family
DX: R07.9 Chest pain, unspecified (principal); Z79.82 Long term (current) use of aspirin; Z79.01 Long term (current) use of anticoagulants; E78.5 Hyperlipidemia, unspecified; Z86.73 Personal history of transient ischemic attack (TIA), and cerebral infarction without residual deficits; I25.10 Atherosclerotic heart disease of native coronary artery without angina pectoris; J44.9 Chronic obstructive pulmonary disease, unspecified; I50.9 Heart failure, unspecified
CPT/HCPCS: 36415; 36416; 71045; 71275; 80053; 82962; 83880; 84484; 85025; 85610; 93005; 96374; 99285; J2270

== ENCOUNTER → 2025-05-19 11:28 | Outpatient (BNVA) | payer MEDICARE, OTHER, SELFPAY | PROVIDERS: PCP Nurse Practitioner Family; Visit Provider Nurse Practitioner Family | DX: R35.0 Frequency of micturition (principal); N39.0 Urinary tract infection, site not specified | CPT/HCPCS: 81000; 87086 ==

== ENCOUNTER → 2025-06-05 09:37 | Outpatient (BNVA) | payer MEDICARE, OTHER, SELFPAY | PROVIDERS: PCP Nurse Practitioner Family; Visit Provider Nurse Practitioner Family | DX: R35.0 Frequency of micturition (principal) | CPT/HCPCS: 81000 ==